=== PATIENT | female | born 1965 | race Caucasian/White ===

== ENCOUNTER → 2018-04-10 09:10 | Outpatient (CLI) | payer OTHER, SELFPAY ==
[2018-04-10 11:09] LABS: Hematocrit 38.5 % (37-47); Hemoglobin 12.5 g/dl (12.0-15.0); Mean Corp Hgb Conc 32.5 g/gl (32-36); Mean Corpuscular Volume 92.5 fL (81-99); Mean Platelet Vol. 10.4 fl (6.2-12.0); Platelet Count 302 K/mm3 (150-450); RBC Distribution Width CV 13.1 % (11.6-14.6); RBC Distribution Width SD 44.2 fl (35.1-43.9); Red Blood Count 4.16 M/mm3 (4.2-5.4); White Blood Count 6.9 K/mm3 (4.4-11.0)
[2018-04-10 11:14] LABS: Scan Indicated on CBC? Y/N NO
[2018-04-10 11:31] LABS: Erythrocyte Sedimentation Rate 3 mm/hr (0-30)
== END ==
DX: M86.8X7 Other osteomyelitis, ankle and foot (principal); M71.072 Abscess of bursa, left ankle and foot
CPT/HCPCS: 36415; 78315; 85027; 85652

== ENCOUNTER 2018-04-10 10:30 | Outpatient (RCR) | payer OTHER, SELFPAY ==
--- NOTE | 2018-03-10 15:57 | HP.PTEVAL_ITS ---
Patient's Visit Information PAULINA MARRERO is a 53 year old F referred to Physical Therapy by JAYNE PEREZ with a diagnosis of Impingement syndrome L shoulder, s/p RCR, labral and biceps tenodesis 03/07. Date of Evaluation: 03/10/18 Physical Therapist: Talat Dawn DPT, OC - Visit Plan Frequency: 3x /Week Duration: 2-4 Months Plan: See script for protocol. surgery 03/07, 2 weeks of AAROM elbow(until 03/21, 6 weeks of PROM shoulder(until 04/18), AAROM shoulder after 6 weeks04/18 to 05/30) , strengthening after 12 weeks.(after 05/30). PROM. Ensure use of sling, use ice for pain, monitor incisions and scar massage as needed. progress ROM per above limitations. 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 - Subjective Subjective: Surgery to have labrum fixed and they ended up doing RCR also, also biceps tendon and santo and cleaned up some spurs. This was 03/07/18. 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 Shoulder woke up one morning in December with some shoulder /neck pain. No obvious injury. [place] like she slept wrong but hurt shoulder. R handed. Is used to being very active with triathlons and [place] is moving to [place] and getting . Did dental hygiene until July but L wrist makes this unrealistic. 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 Sleeping this weekend was propped up and iced and better than she thought. Definitely not normal though. Wearing sling with abductor wedge except in shower. Will see doctor. Lives with sister and who is doing many of her cooking. Can dress self but takes a long time. Hobbies: wants to bike and swim again. - Pain L shoulder Pain Intensity (Out of 10): 6 Pain Intensity Range: 4, 9 - Objective Scap aROM is slow but near full. Sling is donned and doffed I. $ arthro incisions and one bicep incision dressed approriatelya nd removed at patient's request. Everyhting dry and clean, slightly red a biceps incision. Moderate swelling and edematous tissue aplpated at biceps incision. AROM wrist and hand WFL just slow. AAROM elbow flexion L near full and extensionis full actively in standing. L shoulder PROM 100 flexion and 100 abd and 45 ext rot in supine, relaxes well and not overly painful all limited by slight discomfort. Posture is slight forward head and slight elevated L scapula. R shoulde and elbow AROM WFL. Strength NT on L UE today. 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 Goal Time Frame: 8-12 Weeks - Rehabilitation Potential Physical Therapy Diagnosis: s/p L shoulder surgery 03/07 Rehabilitation Potential: Good - Anticipated Interventions Patient/Client Instruction: Educate patient on: Condition, Plan of Care For the Purpose of:: To decrease pain, To increase ROM, To improve nutrient delivery to tissue, To increase oxygenation perfusion, To improve ability of physical actions for home/community/work/leisure Therapeutic Exercise to Include: Strength training, Passive ROM, Active ROM Comment: per script protocol For the Purpose of:: To decrease pain, To increase ROM, To increase tolerance to activity/condition/position, To improve ability of physical actions for home/ community/work/leisure Manual Therapy Techniques to Include: Scar massage, Passive ROM For the Purpose of:: To decrease pain, To increase ROM Cryotherapy (ice pack, ice massage): Yes For the Purpose of:: To decrease pain, To decrease swelling/inflammation Thank you for the opportunity to evaluate your patient. For Medicare and Medicare HMO plans, please review the plan of care and approve it. It will need to be FAXED BACK to us at [phone] for Medicare purposes. Please let me know if there are questions or concerns regarding this plan of care. Physician Signature: Date:
--- NOTE | 2018-07-01 11:45 | HP.PTDCNRP_ITS ---
HP - Discharge Summary (1) - Patient Information PAULINA MARRERO was seen in my office for initial evaluation on 03/10/18. The following Plan of Care was established for this patient: Initial Frequency: 3x /Week Initial Duration: 2-4 Months - Anticipated Interventions Patient/Client Instruction: Educate patient on: Condition, Plan of Care For the Purpose of:: To decrease pain, To increase ROM, To improve nutrient deli very to tissue, To increase oxygenation perfusion, To improve ability of physical actions for home/community/work/leisure Therapeutic Exercise to Include: Strength training, Passive ROM, Active ROM For the Purpose of:: To decrease pain, To increase ROM, To increase tolerance to activity/condition/position, To improve ability of physical actions for home/community/work/leisure Manual Therapy Techniques to Include: Scar massage, Passive ROM For the Purpose of:: To decrease pain, To increase ROM Cryotherapy (ice pack, ice massage): Yes For the Purpose of:: To decrease pain, To decrease swelling/inflammation This patient was last seen in our office 04/10/18. Pertinent comments regarding their Physical therapy will appear below: Pt seen for 6 visits and cancelled last visit neglecting to reschedule. at this poin, it has been over 6 weeks adn I will discontinue due to nonattendance. At this point I will be discontinuing this patient from physical therapy. I would be happy to see this patient again in the future if found appropriate by the physician. Thank you! Talat Dawn, DPT, OC
== END 2018-04-10 19:00 | disposition home or self-care (01) ==
LOC: PT 10:30
DX: M75.42 Impingement syndrome of left shoulder (principal)
CPT/HCPCS: 97110; 97140; 97162

== ENCOUNTER → 2018-04-14 06:10 | Outpatient (CLI) | payer OTHER, SELFPAY ==
--- NOTE | 2018-04-14 05:40 | NM_ITS ---
CLINICAL: 53-year-old female with reported history of suspected left ankle osteomyelitis. LIMITED 99m Tc HMPAO LABELED LEUKOCYTE EXAMINATION COMPARISON: 3 phase bone scintigraphy study dated 04/10/2018 FINDINGS: Following the intravenous administration of 17.3 mCi of 99m Tc HMPAO labeled leukocytes, image acquisitions of the distal lower extremities at 3.0 hours post radiopharmaceutical administration reveal: 1. Mild asymmetric increased tracer concentration is noted in the medial compartment of the left ankle corresponding to the area of intense uptake defined on 3 phase bone scintigraphy dated 04/10/2018. NM/Inflammatory Process Limited IMPRESSION: 1. The increase in tracer concentration identified in the medial compartment of the left ankle corresponding to the changes defined on bone scintigraphy dated 04/10/2018 likely represent low-grade active infection of bone-osteomyelitis. (Any area of increased uptake on labeled leukocyte imaging corresponding to a previously defined bone scintigraphy abnormality regardless of the comparative intensity of uptake may represent low-grade osteomyelitis. Braydenbolambert et al, J Nucl Med 38: 997, 1997). Electronically Signed: Alberto Gillis DO at 22:56 EDT Tel , Service support ,
== END ==
DX: M86.172 Other acute osteomyelitis, left ankle and foot (principal)
CPT/HCPCS: 78805; A9521

== ENCOUNTER → 2019-03-18 10:05 | Outpatient (CLI) | payer OTHER, SELFPAY ==
--- NOTE | 2019-03-18 05:55 | NM_ITS ---
CLINICAL: 54-year-old female with reported history of painful right ankle prosthesis-operated May 2018. LIMITED 99m Tc HMPAO LABELED LEUKOCYTE EXAMINATION COMPARISON: Tc HMPAO labeled leukocytes study dated 04/14/2018 FINDINGS: Following the intravenous administration of 19.9 mCi of 99m Tc HMPAO labeled leukocytes, image acquisitions of the distal lower extremities at approximately 2.0 hours post radiopharmaceutical administration reveal: 1. Mild increased tracer distribution is noted in the medial compartment of the right ankle prosthesis and persistently defined in the medial compartment of the left ankle. 2. Remaining limited visualized structures demonstrate no evidence of abnormal increased tracer uptake. NM/Inflammatory Process Limited IMPRESSION: 1. The increase in radiopharmaceutical concentration identified in the medial compartment of the right ankle arthroplasty likely represents normal postsurgical change. If an infectious etiology remains a diagnostic consideration, correlation with Tc sulfur colloid imaging is recommended. 2. Facilitated uptake remaining evident in the medial compartment of the left ankle may represent activated leukocytes associated with a low-grade active infection of bone-osteomyelitis. 3. Overall compared to the previous labeled leukocyte scintigraphy study dated 04/14/2018, there is no significant interval change regarding the left ankle articulation. Newly identified increased uptake noted in the medial compartment of the right ankle articulation likely represents normal postsurgical change. If infection remains a diagnostic consideration, correlation with Tc sulfur colloid imaging is recommended. Electronically Signed: Alberto Gillis DO at 22:37 EDT Tel , Service support ,
== END ==
PROVIDERS: Family Provider Family Medicine; PCP Family Medicine
DX: M19.172 Post-traumatic osteoarthritis, left ankle and foot (principal); Z96.662 Presence of left artificial ankle joint
CPT/HCPCS: 78805; A9521

== ENCOUNTER → 2019-03-20 09:04 | Outpatient (CLI) | payer OTHER, SELFPAY ==
--- NOTE | 2019-03-20 09:09 | NM_ITS ---
CLINICAL: 54-year-old female with reported history of painful left ankle arthroplasty. LIMITED 99m Tc MDP THREE PHASE BONE SCINTIGRAPHY COMPARISON: Tc HMPAO labeled leukocytes scintigraphy study dated 03/18/2019, 04/14/2018, three-phase bone scintigraphy study dated 04/10/2018 FINDINGS: Following the intravenous administration of 25.0 mCi of 99m Tc MDP, three-phase bone acquisitions of the distal lower extremities reveal: 1. The flow and immediate static blood pool acquisitions demonstrate arterial and venous phase hyperemia manifest in the region of the medial-lateral, proximal tibial components left ankle prosthesis. 2. Delayed images depict more extensive radiopharmaceutical concentration in the medial and lateral, proximal tibial components of the left ankle prosthesis on the current examination when compared to the three-phase bone scintigraphy study dated 04/10/2018. Additionally, uptake is significantly more intense and demonstrates increased spatial distribution when compared to uptake defined on the labeled leukocyte scintigraphy dated 03/18/2019. 3. The remaining limited skeletal structures are scintigraphically unremarkable. NM/Bone Scan Three Phase IMPRESSION: 1. The increased radiopharmaceutical concentration identified in the medial and lateral, proximal tibial components of the symptomatic left ankle prosthesis likely represents a presentation of loosening. To exclude prosthetic sepsis, correlation with Tc sulfur colloid imaging is recommended. 2. Overall compared to the labeled leukocyte examinations dated 03/18/2019 and 04/14/2018, three-phase bone scintigraphy dated 04/10/2018, the increase in tracer uptake noted in the region of the medial-lateral, proximal tibial components of the symptomatic left ankle prosthesis is commensurate with probable loosening. Tc sulfur colloid imaging is recommended to evaluate for septic prosthetic loosening, secondary to facilitated uptake noted on labeled leukocyte imaging dated 03/18/2019, as described above. Electronically Signed: Alberto Gillis DO at 12:43 EDT Tel , Service support ,
== END ==
PROVIDERS: Family Provider Family Medicine; PCP Family Medicine
DX: M19.172 Post-traumatic osteoarthritis, left ankle and foot (principal); Z96.662 Presence of left artificial ankle joint
CPT/HCPCS: 78315

== ENCOUNTER → 2019-04-14 16:15 | Outpatient (CLI) | payer OTHER, SELFPAY ==
[2019-04-22 16:28] LABS: HPV APTIMA, High Risk Negative
== END ==
PROVIDERS: Visit Provider Obstetrics & Gynecology
DX: Z12.4 Encounter for screening for malignant neoplasm of cervix (principal)
CPT/HCPCS: 87624; 88175; G0145

== ENCOUNTER → 2019-04-22 14:34 | Outpatient (CLI) | payer OTHER, SELFPAY ==
--- NOTE | 2019-04-22 14:37 | BI_ITS ---
MAMMOGRAPHY - BILATERAL SCREENING REASON FOR EXAM: Female, 54 years old. Routine annual screening examination. PERTINENT HISTORY: Aunt with breast cancer. Remote right excisional breast biopsy. TECHNIQUE: Digital bilateral breast ca (3D mammographic acquisition) in the CC and MLO projections. 2-D mediolateral oblique (MLO) and craniocaudad (CC) views of both breasts were obtained. CAD: Full Field Digital Mammography with Computer Added Detection was performed. COMPARISON: No comparison mammograms available at this time. If any prior films become available, an addendum to this report can be generated. FINDINGS: Breast Composition: The breasts are heterogeneously dense, which may obscure small masses. There are no dominant masses or suspicious calcifications. No other significant abnormalities are identified. BI/SCREENING MAMM (CAD), BILAT IMPRESSION: Negative screening mammogram. Yearly followup mammogram recommended. (A) ASSESSMENT CATEGORY: BIRADS Category 1: Negative. A letter regarding these results will be sent to the patient by the facility within 30 days. Approximately 10% of breast cancers are not detected by mammography. A normal mammogram should not delay biopsy of a clinically suspicious abnormality. [id number] Electronically Signed: Beka Mooney, at 8:14 EDT , Service support ,
== END ==
PROVIDERS: Family Provider Family Medicine; PCP Family Medicine; Referring Provider Obstetrics & Gynecology; Visit Provider Obstetrics & Gynecology
DX: Z12.31 Encounter for screening mammogram for malignant neoplasm of breast (principal)
CPT/HCPCS: 77067

== ENCOUNTER → 2019-05-05 09:43 | Outpatient (CLI) | payer OTHER, SELFPAY ==
[2019-05-05 12:39] LABS: Absolute Lymphocyte Count 2.41 X10^3/uL (0.83-4.51); Absolute Neutrophil Count 3.7 X10^3/uL (2.0-7.7); Basophil# 0.07 X10^3/uL; Eosinophils% 1.5 % (0-5); Hematocrit 42.9 % (37-47); Hemoglobin 13.8 g/dL (12.0-15.0); Lymphocyte # 2.41 X10^3/ul (4.0); Lymphocyte % 35.5 % (19-41); Mean Corp Hgb Conc 32.2 g/dL (32-36); Mean Corpuscular Hgb 29.6 pg (27.0-32.0); Mean Corpuscular Volume 91.9 fL (81-99); Mean Platelet Vol. 10.4 fl (6.2-12.0); Monocyte# 0.47 X10^3/uL; Monocyte% 6.9 % (0-10); NRBC Flagged by Analyzer 0 % (0-5); Neutrophil # 3.68 X10^3/uL (2.7-7.7); Neutrophil % 54.4 % (47-70); Platelet Count 346 K/mm3 (150-450); RBC Distribution Width CV 13.2 % (11.6-14.6); RBC Distribution Width SD 44.7 fl (35.1-43.9); Red Blood Count 4.67 M/mm3 (4.2-5.4); White Blood Count 6.8 K/mm3 (4.4-11.0)
[2019-05-05 12:54] LABS: Anion Gap 10 (5-15); BUN 18 mg/dL (7-18); BUN/Creat Ratio 21.7 RATIO (10-20); Calcium,Total 9.7 mg/dL (8.5-10.1); Chloride 108 mmol/L (98-107); Cholesterol 256 mg/dL (200); Creatinine, Serum 0.83 mg/dL (0.55-1.02); EST Glomerular Filtration Rate 77 mL/min (>60); Est Glom Filt Rate - Afr Amer 93 mL/min (>60); Glucose 111 mg/dL (74-106); High Density Lipoprotein 90 mg/dL; Potassium 4.2 mmol/L (3.5-5.1); Sodium Level 144 mmol/L (136-145); Thyroid Stim Hormone (TSH) 1.06 uIU/mL (0.358-3.74); Triglycerides 114 mg/dL; Very Low Density Lipoprotein 23 mg/dL (5-40)
== END ==
PROVIDERS: Family Provider Family Medicine; PCP Family Medicine
DX: Z00.00 Encounter for general adult medical examination without abnormal findings (principal); Z13.1 Encounter for screening for diabetes mellitus; Z13.220 Encounter for screening for lipoid disorders; F41.9 Anxiety disorder, unspecified; B00.2 Herpesviral gingivostomatitis and pharyngotonsillitis; J02.9 Acute pharyngitis, unspecified; R04.0 Epistaxis
CPT/HCPCS: 36415; 80048; 80061; 84443; 85025

== ENCOUNTER 2019-06-30 13:41 | Observation (INO) | payer OTHER, SELFPAY ==
[2019-06-30] VITALS (12 sets, daily range): BP systolic 137–153; BP diastolic 78–95; PULSE 72–120; RESP 15–20; TEMP 36.5–37.1; O2SAT 94–100; BMI 26.2
--- NOTE | 2019-06-30 12:33 | EKG12_ITS ---
Test Reason : PRE OP Blood Pressure : / mmHG Vent. Rate : 090 BPM Atrial Rate : 090 BPM P-R Int : 132 ms QRS Dur : 084 ms QT Int : 376 ms P-R-T Axes : 043 005 028 degrees QTc Int : 459 ms Normal sinus rhythm Nonspecific ST abnormality Abnormal ECG No previous ECGs available Confirmed by ZEINA PRTICHARD ([id number]), mapping editor MARTA CRUMP ([id number]) on 07/03/2019 11:38:45 AM Referred By: Macarena Glasgow Confirmed By:ZEINA PRITCHARD
[2019-06-30] MEDS: Lactated Ringers 1,000 ML 100 ML IV ×2 (12:54→17:35)
[2019-06-30] MEDS: Cefazolin 2 GM in 0.9% Normal Saline 100 ML IV (13:40)
--- NOTE | 2019-06-30 13:45 | PCM.OPRPT ---
Problem List (1) Rectocele Status: Acute (2) Stress incontinence Status: Acute Report of Operation Date of Procedure: 06/30/19 Pre-Operative Diagnosis: rectocele, stress incontinence Post-Operative Diagnosis: same Surgery/Procedure Performed:: posterior repair, perineoplasty, midurethral sling insertion, cystoscopy retail sales director: Singh Mayer Type of Anesthesia:: General Specimen's removed: none Estimated Blood Loss (mL): 10cc Description of Procedure: The patient is a 54-year-old female who presented to the office with mixed incontinence, and a rectocele with difficulty passing stool. She desired surgical intervention. She underwent urodynamics and office cystoscopy in preparation. Informed consent was obtained. She was taken to the operating room and placed on the operating room table. Anesthesia monitored the head, neck, airway, IV access and vital signs throughout the case. Once anesthesia was appropriately administered, the patient was placed into dorsal lithotomy in Trendelenburg position. She was prepped and draped in usual sterile fashion. 16 Sinhala Lugo catheter was inserted and the bladder was drained. The posterior vaginal wall was injected submucosally with 1% Xylocaine with epinephrine for hydrostatic dissection and hemostatic control. Her defect was very distal involving the distal 2-1/2 cm of the posterior vaginal wall and there was a lack of perineal body support. An incision was made and using blunt and sharp dissection, the rectovaginal fascia was identified. Both the perineal body and the rectovaginal fascia over the defect were brought together in 2 layer closure with interrupted 2-0 Vicryl. The vaginal mucosa was closed over this in running interlocking 2-0 Vicryl. Rectal examination was used during the procedure to identify the defect. At this time the mid urethra was injected submucosally and a midline vertical incision was made approximately 2 cm in length. Sharp and blunt dissection was performed on either side of the urethra. Care was taken to avoid entry into the urethra. Using the trochars, the alto's mid urethral sling was inserted in usual fashion. It was tensioned using the tensioning suture to lay against the urethra without tension. It was flat. The incision was closed with running interlocking 2-0 Vicryl. The Lugo was removed and a cystourethroscopy was performed. The patient had no ureteral jets and each ureter was subsequently intubated with a open-ended ureteral catheter. There was no obstruction or blood identified. The remainder of the cystoscopy was within normal limits, no mass, ulceration or erythema, no foreign body including mesh or suture. The Lugo catheter was replaced. The vagina was packed with packing and Premarin cream. There were no complications during the procedure. She was awakened taken to recovery room in good condition. Grafts/Implants Used: Altis midurethral sling - Complications none - Admit VTE Documentation VTE Present on Admission: Yes VTE Mechan Device Prophylaxis: SCD's VTE Pharm Prophylaxis ordered?: Yes
--- NOTE | 2019-06-30 13:46 | DCINST_ITS ---
Discharge Diet: No Restrictions Discharge Activity: May Shower, - - no driving for 2 weeks May resume sexual activity in: 8 weeks Lifting Restrictions: 5 pounds. Additional Activity Instructions:: no strenuous activity, no exercise, no intercourse, no vacuuming, no lifting over 5 pounds Call your doctor if your incision/area has: Continuous Slow Oozing, Sudden Increased Bleeding, Foul Smelling Discharge Call your doctor if you observe: Fever of 101 or Higher, Inability to urinate, Shortness of breath, Chest pain, Calf discomfort, Uncontrolled pain Allergies/Adverse Reactions: Allergies midazolam [From Versed] Allergy (Verified 06/30/19 12:38) paradoxial reaction Medications to take at Discharge Ibuprofen/Famotidine [Duexis 800-26.6 mg Tablet] 1 ea PO BID 06/26/19 traMADol [Ultram (G)] 50 mg PO Q6H PRN PRN 06/26/19 Primary Care Physician: Janeth Salcido MD [Primary Care Provider] - Test Results: Test results from this visit will be discussed in further detail at your follow- up appointment, if applicable. Please Follow Up With: Macarena Glasgow MD When: call office for appt Proposed Discharge Date: 07/01/19
[2019-06-30] MEDS: Estrogens,Conj. 1 Tube 1 DOSE (14:48)
[2019-06-30] MEDS: oxyCODONE 5 MG Tablet PO ×2 (17:34→21:29)
[2019-06-30] MEDS: HYDROmorphone 1 MG/ML Syringe IV ×2 (18:52→23:23)
[2019-06-30] MEDS: Ketorolac 30 MG/ML Syringe IV (22:20)
[2019-07-01] MEDS: oxyCODONE 5 MG Tablet PO ×3 (01:42→10:12)
[2019-07-01] MEDS: Lactated Ringers 1,000 ML 100 ML IV (01:52)
[2019-07-01 02:10] VITALS: BP 121/81; PULSE 78; RESP 18; TEMP 36.7; O2SAT 97
[2019-07-01] MEDS: HYDROmorphone 1 MG/ML Syringe IV ×2 (03:51→12:44)
[2019-07-01] MEDS: Ketorolac 30 MG/ML Syringe IV (06:33)
[2019-07-01 08:30] VITALS: BP 140/81; PULSE 78; RESP 16; TEMP 36.7; O2SAT 96
--- NOTE | 2019-07-01 08:35 | PCM.PN.BLA ---
Progress Note Doing well this morning. Ankle is hurting significantly, the toradol helped. I removed briceño and packing this morning. Trial of void, home later today.
[2019-07-01] MEDS: Enoxaparin 40 MG/0.4 ML Syringe SC (10:13)
== END 2019-07-01 14:48 | disposition home or self-care (01) ==
LOC: SDC 13:46
PROVIDERS: Admitting Provider Urology; Family Provider Family Medicine; PCP Family Medicine; Referring Provider Urology; Visit Provider Urology
PROC: (CPT 57260; principal; 2019-06-30 13:40)
DX: N81.6 Rectocele (principal); Z23 Encounter for immunization; N39.46 Mixed incontinence
CPT/HCPCS: 57250; 57288; 93005; 96361; 96372; 96374; 96375; 96376; 99218; 99251; J7120; 90686; C1758; G0378; G0379; G0463; J2405; Q9968

== ENCOUNTER → 2019-07-10 14:19 | Outpatient (CLI) | payer OTHER, SELFPAY ==
[2019-06-30 12:45] VITALS: BMI 26.2
[2019-07-10 15:46] LABS: Absolute Neutrophil Count 4.1 X10^3/uL (2.0-7.7); Basophil# 0.07 X10^3/uL; Basophil% 0.9 % (0-1); Eosinophil# 0.17 X10^3/uL; Eosinophils% 2.3 % (0-5); Hematocrit 37.5 % (37-47); Hemoglobin 12.3 g/dL (12.0-15.0); Lymphocyte % 34.7 % (19-41); Mean Corp Hgb Conc 32.8 g/dL (32-36); Mean Corpuscular Hgb 29.9 pg (27.0-32.0); Mean Platelet Vol. 10.1 fl (6.2-12.0); Monocyte# 0.52 X10^3/uL; Monocyte% 6.9 % (0-10); NRBC Flagged by Analyzer 0 % (0-5); Neutrophil # 4.08 X10^3/uL (2.7-7.7); Neutrophil % 54.5 % (47-70); Platelet Count 398 K/mm3 (150-450); RBC Distribution Width CV 13.2 % (11.6-14.6); RBC Distribution Width SD 43.7 fl (35.1-43.9); Red Blood Count 4.12 M/mm3 (4.2-5.4); White Blood Count 7.5 K/mm3 (4.4-11.0)
[2019-07-10 16:08] LABS: Hemoglobin A1c 5.2 % (4.2-6.3)
== END ==
PROVIDERS: Family Provider Family Medicine; PCP Family Medicine; Visit Provider Family Medicine
DX: Z01.818 Encounter for other preprocedural examination (principal); R73.01 Impaired fasting glucose
CPT/HCPCS: 36415; 83036; 85025

== ENCOUNTER 2019-07-17 12:43 | Day surgery (SDC) | payer OTHER, SELFPAY ==
[2019-06-30 12:45] VITALS: BMI 26.2
[2019-07-17] VITALS (11 sets, daily range): BP systolic 114–158; BP diastolic 57–90; PULSE 80–117; RESP 15–18; TEMP 36.2–37.2; O2SAT 93–98; BMI 27.0
[2019-07-17] MEDS: Lactated Ringers 1,000 ML 100 ML IV ×2 (13:15→15:43)
[2019-07-17] MEDS: Cefazolin 2 GM in 0.9% Normal Saline 100 ML IV (14:25)
[2019-07-17] MEDS: Estrogens,Conj. 1 Tube 1 DOSE (14:55)
--- NOTE | 2019-07-17 15:04 | PCM.OPRPT ---
Problem List (1) Rectocele Status: Acute (2) Stress incontinence Status: Acute Report of Operation Date of Procedure: 07/17/19 Pre-Operative Diagnosis: rectocele, stress incontinence Post-Operative Diagnosis: same Surgery/Procedure Performed:: revision rectocele Type of Anesthesia:: General Estimated Blood Loss (mL): 3cc Description of Procedure: The patient is a 54-year-old female who underwent a rectocele repair and mid urethral sling insertion 2 weeks ago. She forgot to mention that she has had Vicryl in the past and did not do well with it. Her wound opened up way too soon postoperatively. That was on her foot. She presented to the office yesterday, with her suture dissolving in the distal aspect of her repair at the perineal body. The granulation tissue was bleeding. The decision was made to take the patient back and oversew the incision in the vaginal mucosa. Informed consent was obtained. She is aware that the same thing can happen with other sutures. Patient was taken to the operating room and placed on the operating room table. Her left foot was placed in the stirrups prior to anesthesia. It was comfortable. Anesthesia monitored the head, neck, airway, IV access and vital signs throughout the case. Once anesthesia was administered, the patient was placed into dorsal lithotomy position and was prepped and draped in usual sterile fashion. Care was taken not to disrupt the remaining sutures. At this time the posterior incision as well as the mid urethral sling incision was reinforced with interrupted 4-0 PDS. At the conclusion of this, the incision was covered with Premarin cream. The patient was awakened and taken to the recovery room in good condition. There were no complications during the procedure. - Complications none - Admit VTE Documentation VTE Present on Admission: Yes VTE Mechan Device Prophylaxis: SCD's VTE Pharm Prophylaxis ordered?: No Reason prophylaxis not ordered:: Treatment Not Indicated
--- NOTE | 2019-07-17 15:08 | DCINST_ITS ---
Discharge Diet: No Restrictions Discharge Activity: May not drive while taking narcotic pain medications., May Shower, - - No lifting over 5 pounds, no exercise, no strenuous activity, no intercourse, nothing per vagina except she is to continue the estrogen cream May resume sexual activity in: 8 weeks Lifting Restrictions: 5 pounds Call your doctor if your incision/area has: Continuous Slow Oozing, Sudden Increased Bleeding, Foul Smelling Discharge Call your doctor if you observe: Fever of 101 or Higher, Inability to urinate, Inability to have a bowel movement, Calf discomfort, Uncontrolled pain Allergies/Adverse Reactions: Allergies midazolam [From Versed] Allergy (Verified 07/17/19 13:01) paradoxial reaction VICRYL SUTURE Allergy (Uncoded 07/17/19 13:01) Other Medications to take at Discharge RX: Oxycodone [Oxyir] 5 - 10 mg PO Q6H PRN PRN #20 tab 07/01/19 Primary Care Physician: Janeth Salcido MD [Primary Care Provider] - Test Results: Test results from this visit will be discussed in further detail at your follow- up appointment, if applicable. Please Follow Up With: Macarena Glasgow MD When: call office for appt to be seen in 2 weeks Proposed Discharge Date: 07/17/19
[2019-07-17] MEDS: oxyCODONE 5 MG Tablet PO (17:11)
== END 2019-07-17 18:06 | disposition home or self-care (01) ==
LOC: SDC 12:44 → AC 12:45
PROVIDERS: Family Provider Family Medicine; PCP Family Medicine; Referring Provider Urology; Visit Provider Urology
PROC: (CPT 57260; principal; 2019-07-17 13:45)
DX: N81.6 Rectocele (principal); N39.46 Mixed incontinence; R35.0 Frequency of micturition; R35.1 Nocturia
CPT/HCPCS: 57250; J7120; J2405

== ENCOUNTER → 2019-11-11 12:27 | Outpatient (CLI) | payer OTHER, SELFPAY ==
[2019-07-17 13:05] VITALS: BMI 27.0
--- NOTE | 2019-11-11 12:29 | US_ITS ---
STUDY: RENAL ULTRASOUND - COMPLETE REASON FOR EXAM: Female, 54 years old. HEMATURIA, hx RENAL STONES TECHNIQUE: Ultrasound evaluation of the kidneys was performed with real-time and static sanofrd-scale imaging. COMPARISON: None. FINDINGS: RIGHT KIDNEY: Normal location of the right kidney, which is normal in size. The right kidney measures 11.6 cm x 5.3 cm x 5.2 cm. There is a normal cortex of the right kidney. The renal cortex measures 1.1 cm. There is no right renal mass or cyst. There are no right renal calculi. There is an extra-renal pelvis of the right kidney. There is no distention of the renal calyces. DISTAL RIGHT URETER: There is non-visualization of the distal right ureter. There is no demonstrated right ureterovesical junction calculus. There is no demonstrated right ureteral jet. LEFT KIDNEY: Normal location of the left kidney, which is normal in size. The left kidney measures 10.8 cm x 4.6 x 5.9 cm. There is a normal cortex of the left kidney. The renal cortex measures 1.8 cm. There is no left renal mass or cyst. There are no left renal calculi. There is no left hydronephrosis. DISTAL LEFT URETER: There is non-visualization of the distal left ureter. There is no demonstrated left ureterovesical junction calculus. There is no demonstrated left ureteral jet. BLADDER: The distended urinary bladder has a volume of 272 ml. There is a normal wall thickness of the distended urinary bladder. There is no demonstrated mass within the urinary bladder. There are no demonstrated bladder calculi. US/Kidney and Bladder IMPRESSION: Findings suggestive of a right extrarenal pelvis. Electronically Signed: Beka Mooney, at 13:25 EDT , Service support ,
== END ==
PROVIDERS: PCP Family Medicine; Referring Provider Urology; Visit Provider Urology
DX: R31.9 Hematuria, unspecified (principal); Z87.442 Personal history of urinary calculi
CPT/HCPCS: 76770

== ENCOUNTER → 2020-06-15 14:24 | Outpatient (CLI) | payer MEDICARE, SELFPAY ==
[2019-07-17 13:05] VITALS: BMI 27.0
--- NOTE | 2020-06-15 14:31 | CT_ITS ---
STUDY: CT LEFT ANKLE WITHOUT CONTRAST REASON FOR EXAM: Female, 55 years old. LT ANKLE SURGERY X 10 SINCE 2011. Initial injury was stress fx and patient developed avascular necrosis. RADIATION DOSAGE (If Supplied By Facility): CTDIvol = ( 15.35 ) mGy, DLP = ( 328.12 ) mGycm TECHNIQUE: Thin section transaxial imaging of the ankle was obtained, with sagittal and coronal reconstructed images. Individualized dose optimization techniques were used for this CT. COMPARISON: None. FINDINGS: There is evidence of a prosthetic ankle joint prosthesis. The proximal limb is in the distal tibia and the distal limb is in the dome of the talus. Small cysts are seen in the calcaneum. There is also evidence of a 4.5 mm cyst in the anterior aspect of the dome of the talus just anterior to the prostheses. Normal talus, calcaneus, navicular and cuboid tarsal bones. Normal subtalar, talonavicular and calcaneocuboid articulations. Normal navicular-cuneiform, cuneiform tarsal bones and intercuneiform articulations. Normal tarsometatarsal articulations and visualized metatarsi. The soft tissue structures are grossly normal. CT/Extremity Lower without Contra IMPRESSION: Status post prostatic ankle joint. There is good alignment. Cystic changes are seen in the calcaneus. Electronically Signed: Beka Mooney, at 15:01 EST , Service support ,
== END ==
PROVIDERS: PCP Family Medicine
DX: M25.572 Pain in left ankle and joints of left foot (principal); Z96.662 Presence of left artificial ankle joint
CPT/HCPCS: 73700

== ENCOUNTER → 2020-07-27 09:47 | Outpatient (CLI) | payer MEDICARE, SELFPAY ==
[2019-07-17 13:05] VITALS: BMI 27.0
--- NOTE | 2020-07-27 09:55 | BD_ITS ---
STUDY: DUAL ENERGY X-RAY ABSORPTIOMETRY / DXA REASON FOR EXAM: Female, 55 years old. 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 COMPARISON: None. FINDINGS: Lumbar Spine (L1-L4): g/cm2 (1.078) / T-score (-0.9) / Z-score (-0.2) Findings are suggestive of normal bone density with a low fracture risk. Left Femur Total: g/cm2 (0.795) / T-score (-1.7) / Z-score (-1.1) Left Femoral Neck: g/cm2 (0.688) / T-score (-2.5) / Z-score (-1.6) Right Femur Total: g/cm2 (0.852) / T-score (-1.2) / Z-score (-0.6) Right Femoral Neck: g/cm2 (0.741) / T-score (-2.1) / Z-score (-1.2) BD/Dexa Bone Density Study IMPRESSION: The patient is considered osteopenic as outlined below according to World [place] Organization (WHO) criteria with a high fracture risk. Reference Information: The T-score is the number of standard deviations above or below the standard which is normal for young adults at their peak bone mineral density. The World Health Organization (WHO) interprets the T-scores as follows: Above -1 Normal bone density Between -1 and -2.5 Osteopenia Equal to / or below -2.5 Osteoporosis As a practical clinical guideline, osteopenia may be graded as follows: Mild -1 through -1.5 Moderate -1.6 through -2.0 Severe -2.1 through -2.4 The Z-score is the number of standard deviations above or below age-matched controls. A Z-score of less than -1.5 would be considered abnormal. References: 1. NIH Osteoporosis and Related Bone Diseases www osteo.org 2. International Society for Clinical Densitometry www iscd.org 3. National Osteoporosis Foundation www nof.org Electronically Signed: Beka Mooney, at 15:00 EST , Service support ,
== END ==
PROVIDERS: PCP Family Medicine; Referring Provider Obstetrics & Gynecology; Visit Provider Obstetrics & Gynecology
DX: Z12.31 Encounter for screening mammogram for malignant neoplasm of breast (principal); Z78.0 Asymptomatic menopausal state; M81.0 Age-related osteoporosis without current pathological fracture
CPT/HCPCS: 77080

== ENCOUNTER → 2020-08-16 13:15 | Outpatient (CLI) | payer MEDICARE, SELFPAY ==
[2019-07-17 13:05] VITALS: BMI 27.0
[2020-08-16 13:54] LABS: Vitamin D,25 Hydroxy 17.7 ng/mL
== END ==
PROVIDERS: PCP Family Medicine; Visit Provider Obstetrics & Gynecology
DX: M80.80XS Other osteoporosis with current pathological fracture, unspecified site, sequela (principal)
CPT/HCPCS: 82306

== ENCOUNTER → 2020-09-07 09:56 | Outpatient (CLI) | payer MEDICARE, SELFPAY ==
[2019-07-17 13:05] VITALS: BMI 27.0
--- NOTE | 2020-09-07 09:59 | BI_ITS ---
MAMMOGRAPHY - BILATERAL SCREENING REASON FOR EXAM: Female, 55 years old. Routine annual screening examination. PERTINENT HISTORY: Aunt with breast cancer. Remote bilateral excisional breast biopsies. TECHNIQUE: Digital bilateral breast win (3D mammographic acquisition) in the CC and MLO projections. 2-D mediolateral oblique (MLO) and craniocaudad (CC) views of both breasts were obtained. CAD: Full Field Digital Mammography with Computer Added Detection was performed. COMPARISON: Comparison is made with prior study dated 04/22/2019. FINDINGS: Breast Composition: The breasts are heterogeneously dense, which may obscure small masses. There are no dominant masses or suspicious calcifications. No other significant abnormalities are identified. There has been no significant change since the prior study. BI/SCRN MAMM (CAD)W/WIN BILAT IMPRESSION: Stable bilateral screening mammogram. Yearly follow-up mammogram recommended. (A) ASSESSMENT CATEGORY: BIRADS Category 1: Negative. A letter regarding these results will be sent to the patient by the facility within 30 days. Approximately 10% of breast cancers are not detected by mammography. A normal mammogram should not delay biopsy of a clinically suspicious abnormality. [id number] Electronically Signed: Beka Mooney MD at 10:46 EST , Service support ,
== END ==
PROVIDERS: PCP Family Medicine; Referring Provider Obstetrics & Gynecology; Visit Provider Obstetrics & Gynecology
DX: Z12.31 Encounter for screening mammogram for malignant neoplasm of breast (principal)
CPT/HCPCS: 77063; 77067

== ENCOUNTER → 2021-01-13 14:16 | Outpatient (CLI) | payer MEDICARE, SELFPAY ==
[2021-01-13 13:17] VITALS: BMI 27.0
[2021-01-13 16:06] LABS: Follicle Stimulating Hormone 120.3 mIU/mL; Luteinizing Hormone 23.2 mIU/mL; Thyroid Stim Hormone (TSH) 2.67 uIU/mL (0.358-3.74)
[2021-01-15 09:17] LABS: Thyroid Peroxidase AB < 9 IU/mL (0-34)
[2021-01-16 08:25] LABS: PTHIN 55.3 pg/mL (18.4-80.1)
[2021-01-16 08:52] LABS: Prolactin 13.2 ng/mL
== END ==
PROVIDERS: PCP Family Medicine; Referring Provider Internal Medicine Endocrinology, Diabetes & Metabolism; Visit Provider Internal Medicine Endocrinology, Diabetes & Metabolism
DX: E23.7 Disorder of pituitary gland, unspecified (principal); E55.9 Vitamin D deficiency, unspecified; M81.0 Age-related osteoporosis without current pathological fracture
CPT/HCPCS: 36415; 82306; 83001; 83002; 83970; 84146; 84443; 86376

== ENCOUNTER → 2021-01-30 16:42 | Outpatient (CLI) | payer MEDICARE, SELFPAY ==
[2021-01-13 13:17] VITALS: BMI 27.0
--- NOTE | 2021-01-30 16:43 | RAD_ITS ---
STUDY: X-RAY - LEFT FOOT CLINICAL: Female, 56 years old. injury TECHNIQUE: 3 view(s) of the foot. COMPARISON: None. FINDINGS: An acute vertical corner fracture of the base of the distal phalanges of the second toe is present without displacement. The bony structures are diffusely demineralized. Ankle mortise prosthetic components are present. Normal talus, calcaneus, and tarsal bones. Normal visualized subtalar, talonavicular, calcaneocuboid, tarsal and tarsometatarsal articulations. Normal metatarsi. Normal joint spaces. The soft tissue structures are unremarkable. RAD/Foot min 3 Views IMPRESSION: 1. Acute corner fracture at the base of the distal phalanges of the second digit Electronically Signed: Juan Francisco Muniz MD at 17:42 EDT , Service support ,
== END ==
PROVIDERS: PCP Family Medicine; Referring Provider Physician Assistant Surgical; Visit Provider Physician Assistant Surgical
DX: S96.912A Strain of unspecified muscle and tendon at ankle and foot level, left foot, initial encounter (principal); X58.XXXA Exposure to other specified factors, initial encounter; Y93.9 Activity, unspecified; Y92.9 Unspecified place or not applicable; Y99.9 Unspecified external cause status
CPT/HCPCS: 73630

== ENCOUNTER → 2021-05-29 17:01 | Outpatient (CLI) | payer MEDICARE, SELFPAY ==
--- NOTE | 2021-05-29 17:16 | MRI_ITS ---
STUDY: MRI LEFT ANKLE WITHOUT CONTRAST REASON FOR EXAM: Left ankle pain, evaluate left ankle arthroplasty. TECHNIQUE: Standardized fat and water weighted pulse sequences were obtained in all 3 orthogonal planes. COMPARISON: CT images 06/15/2020, radiographs 01/30/2021. FINDINGS: There is scarring in the subcutis adipose space. There is a flexor digitorum longus tendon tendon transfer with an anchor in the medial navicular. There is a longitudinal split of the retromalleolar flexor digitorum longus tendon (T1 axial images 15, 16). Normal flexor hallucis longus tendon. Normal peroneus longus and brevis tendons. Normal tibialis anterior tendon. Normal extensor hallucis longus tendon. Normal extensor digitorum longus tendons. Normal Achilles tendon and teno-osseous insertion. 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 Normal plantar calcaneal tubercles. There is mild edema in the extensor digitorum brevis muscle (inversion recovery sagittal images 14, 15). Normal visualized subtalar ligaments and sinus tarsi. There is a tibiotalar arthroplasty without demonstrated periprosthetic fracture or MRI evidence of prosthetic loosening. There is mild bone edema in the head/neck of the talus (sagittal series 10 images 14-17). There is mild arthrosis with mild chondral thinning of the posterior subtalar articulation (proton-density sagittal images 12-14). Normal talonavicular articulation. There is a small calcaneocuboid joint effusion (T2 axial image 23). Normal navicular-cuneiform articulations. MRI/Lower Ext Joint Only (Routine) IMPRESSION: Tibiotalar arthroplasty without demonstrated complication. Mild bone edema in the head/neck of the talus. Longitudinal split of the flexor digitorum longus tendon transfer. Mild posterior subtalar arthrosis. Mild edema in the extensor digitorum brevis muscle. Plantar fibroma. Small calcaneocuboid joint effusion. Electronically Signed: Bryan Oro MD at 9:37 EDT Tel , Service support ,
== END ==
PROVIDERS: PCP Family Medicine
DX: M25.572 Pain in left ankle and joints of left foot (principal)
CPT/HCPCS: 73721

== ENCOUNTER 2021-08-16 16:37 | Outpatient (CLI) | payer MEDICARE, SELFPAY ==
[2021-08-19 00:06] LABS: Chlamydia By Nucleic Acid AMP Negative (Negative)
[2021-08-19 16:17] LABS: Gonococcus By Nucleic Acid AMP Negative (Negative)
[2021-08-22 14:43] LABS: HPV APTIMA, High Risk Negative (Negative)
== END 2021-08-16 23:59 | disposition short-term general hospital (02) ==
LOC: LABSPEC 16:38
PROVIDERS: PCP Family Medicine; Visit Provider Obstetrics & Gynecology
DX: Z12.4 Encounter for screening for malignant neoplasm of cervix (principal)
CPT/HCPCS: 87491; 87591; 87624; 88175; G0145

== ENCOUNTER 2021-09-11 13:45 | Outpatient (CLI) | payer MEDICARE, SELFPAY ==
--- NOTE | 2021-09-11 13:48 | BI_ITS ---
MAMMOGRAPHY - BILATERAL SCREENING REASON FOR EXAM: Female, 56 years old. Routine annual screening examination. PERTINENT HISTORY: Aunt with breast cancer. Remote bilateral breast biopsies. TECHNIQUE: Digital bilateral breast win (3D mammographic acquisition) in the CC and MLO projections. 2-D mediolateral oblique (MLO) and craniocaudad (CC) views of both breasts were obtained. CAD: Full Field Digital Mammography with Computer Added Detection was performed. COMPARISON: Comparison is made with prior study dated 09/07/2020 and 04/22/2019. FINDINGS: Breast Composition: The breasts are heterogeneously dense, which may obscure small masses. There are no dominant masses or suspicious calcifications. Stable benign-appearing bilateral axillary lymph nodes. No other significant abnormalities are identified. There has been no significant change since the prior study. BI/SCRN MAMM (CAD)W/WIN BILAT IMPRESSION: Stable bilateral screening mammogram. Yearly follow-up mammogram recommended. (A) ASSESSMENT CATEGORY: BIRADS Category 2: Benign. A letter regarding these results will be sent to the patient by the facility within 30 days. Approximately 10% of breast cancers are not detected by mammography. A normal mammogram should not delay biopsy of a clinically suspicious abnormality. [id number] Electronically Signed: Beka Mooney MD at 14:34 EST ,
== END 2021-09-11 23:59 | disposition home or self-care (01) ==
LOC: OPBI 13:46
PROVIDERS: PCP Family Medicine; Referring Provider Obstetrics & Gynecology; Visit Provider Obstetrics & Gynecology
DX: Z12.31 Encounter for screening mammogram for malignant neoplasm of breast (principal)
CPT/HCPCS: 77063; 77067

== ENCOUNTER → 2022-02-07 | Outpatient (CLI) | payer MEDICARE, SELFPAY ==
--- NOTE | 2022-02-07 19:12 | CT_ITS ---
EXAM: CT LEFT LOWER EXTREMITY WITHOUT INTRAVENOUS CONTRAST CLINICAL INDICATION: LT ANKLE PAIN TECHNIQUE: Helically acquired images were obtained of the left lower extremity without intravenous contrast. 2-D reformats were performed by the technologist. This CT exam was performed using one or more of the following dose reduction techniques: automated exposure control, adjustment of the mA and/or kV according to patient size, and/or use of iterative reconstruction technique. This report was created using [employer] report generation technology. COMPARISON: 06/15/2020 FINDINGS: BONES/JOINTS: There is a total ankle prosthesis in place with no evidence of loosening. Plate overlying the distal fibula. Orthopedic screws have been removed. There are mild degenerative changes in the midfoot with small osteophyte present. No acute fracture. No subluxation. Normal alignment. SOFT TISSUES: Unremarkable. No soft tissue swelling or gas. No radiopaque foreign body. CT/Extremity Lower without Contra IMPRESSION: Total ankle prosthesis in anatomic alignment. There is no loosening. There are mild degenerative changes in the midfoot osteophyte formation. There are no acute osseous abnormalities. There is been no significant change from reference exam. Electronically Signed: Larry Enriquez MD at 11:29 EDT ,
== END | disposition home or self-care (01) ==
PROVIDERS: PCP Family Medicine
DX: M25.572 Pain in left ankle and joints of left foot (principal); G89.29 Other chronic pain; Z96.662 Presence of left artificial ankle joint; Z47.2 Encounter for removal of internal fixation device
CPT/HCPCS: 73700

== ENCOUNTER → 2022-02-12 | Outpatient (CLI) | payer MEDICARE, SELFPAY ==
[2022-02-12 11:00] LABS: Vitamin D,25 Hydroxy 46.7 ng/mL
[2022-02-12 11:08] LABS: ALB/GLOB Ratio 1.2 RATIO (0.9-2.4); AST(SGOT) 18 U/L (15-37); Alanine Aminotransfer ALT/SGPT 25 U/L (13-56); Albumin, Serum 3.8 g/dL (3.2-5.0); Alkaline Phosphatase 88 U/L (45-117); Anion Gap 4 (5-15); BUN 14 mg/dL (7-18); BUN/Creat Ratio 18.4 RATIO (10-20); Calcium,Total 9.6 mg/dL (8.5-10.1); Chloride 104 mmol/L (98-107); Creatinine, Serum 0.76 mg/dL (0.55-1.02); EST Glomerular Filtration Rate 84 mL/min (>60); Est Glom Filt Rate - Afr Amer 102 mL/min (>60); Globulin 3.1 g/dL (2.2-4.2); Glucose 82 mg/dL (74-106); Prolactin 13.4 ng/mL; Protein, Total 6.9 g/dL (6.4-8.2); Sodium Level 138 mmol/L (136-145); Thyroid Stim Hormone (TSH) 0.68 uIU/mL (0.358-3.74)
== END | disposition home or self-care (01) ==
LOC: LAB 10:02
PROVIDERS: PCP Family Medicine; Referring Provider Internal Medicine Endocrinology, Diabetes & Metabolism; Visit Provider Internal Medicine Endocrinology, Diabetes & Metabolism
DX: M81.0 Age-related osteoporosis without current pathological fracture (principal); E23.7 Disorder of pituitary gland, unspecified; E03.9 Hypothyroidism, unspecified; E55.9 Vitamin D deficiency, unspecified
CPT/HCPCS: 36415; 80053; 82306; 84146; 84443

== ENCOUNTER → 2022-06-13 | Outpatient (CLI) | payer MEDICARE, SELFPAY ==
--- NOTE | 2022-06-13 14:25 | CT_ITS ---
EXAM: CT RIGHT UPPER EXTREMITY WITHOUT INTRAVENOUS CONTRAST CLINICAL INDICATION: TEAR OF WRIST CARTILAGE TECHNIQUE: Helically acquired images were obtained of the right upper extremity without intravenous contrast. 2-D reformats were performed by the technologist. CTDIvol = ( 24.58 ) mGy, DLP = ( 434.56 ) mGycm This CT exam was performed using one or more of the following dose reduction techniques: automated exposure control, adjustment of the mA and/or kV according to patient size, and/or use of iterative reconstruction technique. This report was created using [employer] report alooma technology. COMPARISON: None. FINDINGS: Status post ORIF of a fracture of the distal radius. The fracture is well-healed. No hardware complications are seen. No other evidence for acute or healing fracture or malalignment. No soft tissue masses or fluid collections. No soft tissue gas. No radiopaque foreign bodies of concern. Visualized extensor and flexor tendons are unremarkable. Muscles are normal. Neurovascular structures are unremarkable. Widening of the scapholunate interosseous interval is concerning for scapholunate interosseous ligamentous tearing. Moderate degenerative changes of the distal radioulnar joint. CT/Extremity Upper without Contra IMPRESSION: 1. Status post ORIF of a fracture of the distal radius. The fracture is well-healed. No hardware complications are seen. 2. No other evidence for acute or healing fracture or malalignment. Electronically Signed: Keny Gooden MD at 4:16 EST ,
== END | disposition home or self-care (01) ==
LOC: CT 14:06
PROVIDERS: PCP Family Medicine
DX: S63.691A Other sprain of left index finger, initial encounter (principal); M19.031 Primary osteoarthritis, right wrist
CPT/HCPCS: 73200

== ENCOUNTER 2022-07-03 08:30 | Outpatient (RCR) | payer SELFPAY ==
--- NOTE | 2022-10-29 08:01 | HP.PT.NRP ---
PAULINA CANO was seen in my office for initial evaluation on 06/22/22. The following Plan of Care was established for this patient: Manual Therapy Techniques to Include: Functional dry needling This patient was last seen in our office . Pertinent comments regarding their Physical therapy will appear below: Dry Needling- D/C At this point I will be discontinuing this patient from physical therapy. I would be happy to see this patient again in the future if found appropriate by the physician. Thank you! BRIONNA ReddyT
== END 2022-07-03 19:00 | disposition home or self-care (01) ==
LOC: PT 08:30
PROVIDERS: PCP Family Medicine
DX: R69 Illness, unspecified (principal)

== ENCOUNTER → 2022-12-10 | Outpatient (CLI) | payer MEDICARE, SELFPAY ==
[2022-12-10 15:30] LABS: Anion Gap 7 (5-15); BUN 14 mg/dL (7-18); Calcium,Total 9.7 mg/dL (8.5-10.1); Chloride 104 mmol/L (98-107); EST Glomerular Filtration Rate 61 mL/min (>60); Est Glom Filt Rate - Afr Amer 74 mL/min (>60); Glucose 91 mg/dL (74-106); Potassium 4.5 mmol/L (3.5-5.1); Sodium Level 138 mmol/L (136-145)
== END | disposition home or self-care (01) ==
LOC: MTLAB 13:19
PROVIDERS: PCP Family Medicine; Referring Provider Nurse Practitioner Acute Care; Visit Provider Nurse Practitioner Acute Care
DX: Z79.899 Other long term (current) drug therapy (principal)
CPT/HCPCS: 36415; 80048

== ENCOUNTER 2023-04-26 12:51 | Outpatient (CLI) | payer MEDICARE, SELFPAY ==
[2023-04-26 13:15] VITALS: BP 142/84; PULSE 81; RESP 16; TEMP 36.6; O2SAT 98
[2023-04-26] MEDS: Zoledronic Acid 5 MG 100 ML 300 MG IV (13:24)
[2023-04-26 13:52] VITALS: BP 139/81; PULSE 74
== END 2023-04-26 12:52 | disposition home or self-care (01) ==
LOC: MEDOUTP 12:51
PROVIDERS: PCP Family Medicine; Referring Provider Internal Medicine Endocrinology, Diabetes & Metabolism; Visit Provider Internal Medicine Endocrinology, Diabetes & Metabolism
DX: M81.0 Age-related osteoporosis without current pathological fracture (principal)
CPT/HCPCS: 96365; A4216; J3489

== ENCOUNTER → 2023-05-08 | Outpatient (CLI) | payer MEDICARE, SELFPAY ==
--- NOTE | 2023-05-08 12:54 | BI_ITS ---
MAMMOGRAPHY - BILATERAL SCREENING REASON FOR EXAM: Female, 58 years old. Routine annual screening examination. PERTINENT HISTORY: Aunt with breast cancer. History of remote bilateral excisional breast biopsy. TECHNIQUE: Digital bilateral breast win (3D mammographic acquisition) in the CC and MLO projections. 2-D mediolateral oblique (MLO) and craniocaudad (CC) views of both breasts were obtained. CAD: Full Field Digital Mammography with Computer Added Detection was performed. COMPARISON: Comparison is made with prior examination from September 11, 2021 and September 07, 2020. FINDINGS: Breast Composition: The breasts are heterogeneously dense, which may obscure small masses. There are no dominant masses or suspicious calcifications. There is a 5.2 mm x 2.7 mm well-defined nodule in the inferior central portion of the right breast suggestive of a small intramammary lymph node. No other significant abnormalities are identified. There has been no significant change since the prior study. BI/SCRN MAMM (CAD)W/WIN BILAT IMPRESSION: Stable bilateral screening mammogram. Yearly follow-up mammogram recommended. (A) ASSESSMENT CATEGORY: BIRADS Category 2: Benign. A letter regarding these results will be sent to the patient by the facility within 30 days. Approximately 10% of breast cancers are not detected by mammography. A normal mammogram should not delay biopsy of a clinically suspicious abnormality. [id number] Electronically Signed: Beka Mooney MD at 13:51 EDT ,
== END | disposition home or self-care (01) ==
LOC: OPBI 12:52
PROVIDERS: PCP Family Medicine; Referring Provider Family Medicine; Visit Provider Family Medicine
DX: Z12.31 Encounter for screening mammogram for malignant neoplasm of breast (principal)
CPT/HCPCS: 77063; 77067

== ENCOUNTER → 2023-05-23 | Outpatient (CLI) | payer MEDICARE, SELFPAY ==
--- NOTE | 2023-05-23 14:42 | CT_ITS ---
STUDY: CT RIGHT ANKLE / FOOT REASON FOR EXAM: Female, 58 years old. Osteoarthritis. RADIATION DOSAGE (If Supplied By Facility): CTDIvol = ( 15.35 ) mGy, DLP = ( 385.69 ) mGycm TECHNIQUE: Thin section transaxial imaging of the right ankle / foot was obtained, with sagittal and coronal reconstructed images. Individualized dose optimization techniques were used for this CT. COMPARISON: None. FINDINGS: Normal distal tibia and fibula. There is a 2 mm ossified structure located inferior to the medial malleolus of the distal tibia (coronal series 602 image 54), probably the sequelae of an old avulsion injury. Normal talus, calcaneus, and tarsal bones. Normal visualized tibiotalar, subtalar, talonavicular, calcaneocuboid, tarsal and tarsometatarsal articulations. Normal metatarsi. There is a bridging fusion plate across the dorsum of the first MTP joint with fixation screws in place. There is osseous fusion across the first MTP joint. Normal tibial and fibular sesamoid bones. Normal interphalangeal joint of the great toe. Normal phalanges of the great toe. Normal second through fifth metatarsophalangeal joints. Normal interphalangeal joints and phalanges of the lesser toes. The soft tissue structures are unremarkable. CT/Extremity Lower without Contra IMPRESSION: 2 mm ossified structure located inferior to the medial malleolus of the distal tibia, probably the sequelae of an old avulsion injury. Bridging fusion plate across the dorsum of the first MTP joint with fixation screws in place. Osseous fusion across the first MTP joint. Electronically Signed: Eduar Donnelly MD at 16:24 EDT ,
== END | disposition home or self-care (01) ==
LOC: CT 14:36
PROVIDERS: PCP Family Medicine; Referring Provider Podiatrist; Visit Provider Podiatrist
DX: M19.072 Primary osteoarthritis, left ankle and foot (principal); Z98.890 Other specified postprocedural states
CPT/HCPCS: 73700

== ENCOUNTER → 2023-08-13 | Outpatient (CLI) | payer MEDICARE, SELFPAY ==
--- OUTSIDE RECORDS SUMMARY | 2023-08-13 11:03 | XMS RPT_ITS | CCD ---
Author Name Unknown Address [id number] [place] [address] Organization [facility] Care Team Providers Care Equipment Maintenance Supervisor Name Role Phone Annette Kim Unavailable Unavailabl e Goudiaby, Bert Unavailable Unavailable Goudiaby, Bert Unavailable Unavailable Goudiaby, Bert Unavailable Unavailable Jayne Perez Unavailable UnavailAnnette Almonte Unavailable Unavailabl vijaya Fernandes MD, Noel Ontiveros Unavailable [phone] Annette Kim MD Unavailable Unavailable Annette Kim Unavailable Unavailable Unavailable Primary Care Provider Unavailabl e PCP, Other Primary Care Provider Performer Janeth Salcido Primary Care Provider [phone] JAYNE PEREZ Unavailable Unavailable Primary Care Provider Unavailabl e Janeth Salcido Primary Care Provider TL, JOSE T Attending Unavailable SELF, SELF Referring Unavailable TL, JOSE T Attending Unavailable TL, JOSE T Referring Unavailable TL, JOSE T Attending Unavailable TL, JOSE T Referring Unavailable TL, JOSE T Attending Unavailable SELF, SELF Referring Unavailable JANETH SALCIDO Primary Care Unavailabl e TANIA PIMENTEL Referring Unavailable Janeth Salcido Primary Care Provider JANETH SALCIDO Primary Care Unavailabl e TANIA PIMENTEL Attending Unavailable TANIA PIMENTEL Admitting Unavailable Janeth Salcido MD Primary Care Provider HERMAN HOLLOWAY Unavailable Dr. JAYNE PEREZ Attending Unavailable PCP, OTHER Primary Care Unavailable Dr. JAYNE PEREZ Attending Unavailable PCP, OTHER Primary Care Unavailable ROSSY KOTHARI Attending Unavailable PCP, OTHER Primary Care Unavailable ROSSY KOTHARI Attending Unavailable PCP, OTHER Primary Care Unavailable Dr. JAYNE PEREZ Attending Unavailable PCP, OTHER Primary Care Unavailable Dr. JAYNE PEREZ Attending Unavailable PCP, OTHER Primary Care Unavailable ANNETTE KIM Primary Care Unavailable Annette Kim MD Primary Care Provider [phone] Allergies Allergy Classification Reported Allergen(s) Allergy Type Date of Onset Reaction(s) Facility Benzodiazepines (1 source) Midazolam Drug Allergy [facility] Work Phone: (11 sources) Midazolam; Translations: [Versed] Drug Allergy 0 Unknown [facility] Work Phone: (1 source) VICRYL SUTURE drug allergy 0 [facility] Work Phone: (1 source) VICRYL SUTURES (as Miscellaneous allergen) causes Severe DOESN'T DISSOLVE, FORMS ABCSES. Status:Active.; Translations: [VICRYL SUTURES] Allergy to Substance [facility] (15 sources) Codeine; Translations: [CODEINE] Drug Allergy 1 Itching [facility] (13 sources) Midazolam; Translations: [MIDAZOLAM HCL] Drug Allergy 8 [facility] (11 sources) Victryl Sutures [Other] Propensity to adverse reactions 8 Intolerance [facility] (9 sources) VICRYL SUTURES Propensity to adverse reactions [facility]. Other (2 sources) Midazolam Drug Allergy 8 [facility] (2 sources) *Sutures Propensity to adverse reactions 2 [facility] (2 sources) OTHER; Translations: [OTHER] Propensity to adverse reactions (disorder) 8 [facility] Repository (1 source) ALLERGIES NOT ON FILE; Translations: [ALLERGIES NOT ON FILE] Propensity to adverse reactions (disorder) [facility] 3 Repository NEGATED: Highlighted row has been ruled out! (1 source) natural latex rubber; Translations: [LATEX, NATURAL RUBBER] Drug allergy (disorder) [facility] NEGATED: Highlighted row has been ruled out! (1 source) No IV Contrast Allergy.; Translations: [IV Dye, Iodine Containing] Drug allergy (disorder) [facility] Medications Current Medications Medication Drug Class(es) Dates Sig (Normalized) Sig (Original) alendronic acid 70 mg oral tablet (9 sources) Bisphosphonate take 1 tablet by mouth once daily Fosamax 70 MG 1 tablet 30 minutes before the first food, beverage or medicine of the day with plain water Orally for 30 day(s) Active valACYclovir 1000 mg oral tablet (4 sources) Herpesvirus Nucleoside Analog DNA Polymerase Inhibitor, Herpes Simplex Virus Nucleoside Analog DNA Polymerase Inhibitor, Herpes Zoster Virus Nucleoside Analog DNA Polymerase Inhibitor Start: 12-25-2021 take 0.5 tablet by mouth twice daily valacyclovir 1 g tablet TAKE 1/2 (ONE-HALF) OF A TABLET BY MOUTH TWICE DAILY 0 12/25/2021 Active Completed/Discontinued Medications Medication Drug Class(es) Dates Sig (Normalized) Sig (Original) acetaminophen 325 mg / oxyCODONE hydrochloride 5 mg oral tablet (2 sources) Opioid Agonist Start: 08-01-2022 End: 08-08-2022 take 1 tablet by mouth every six hours as needed for pain oxyCODONE-acetami nophen (PERCOCET) 5-325 mg tablet Indications: Post-op pain Take 1 tablet by mouth every 6 hours as needed for pain for up to 7 days. 28 tablet 0 08/01/2022 08/08/2022 Problems Active Problems Problem Classification Problem Date Documented Date Episodic/Chronic Acquired foot deformities (13 sources) Toe joint rigid; Translations: [Hallux rigidus, right foot] Onset: 2 Chronic Acquired foot deformities (2 sources) Metatarsophalangeal joint stiff; Translations: [Other deformities of toe(s) (acquired), right foot] Episodic Allergic reactions (1 source) Allergy status to anesthetic agent status; Translations: [Allergy status to anesthetic agent] Onset: 3 Episodic Anxiety disorders (2 sources) Anxiety; Translations: [Anxiety state, unspecified] 07-23-2019 Chronic Bacterial infection; unspecified site (3 sources) Infection due to Staphylococcus aureus; Translations: [Methicillin susceptible Staphylococcus aureus in conditions classified elsewhere and of unspecified site] 08-22-2017 Episodic Chronic ulcer of skin (1 source) Ulcer; Translations: [Chronic ulcer of unspecified site] Chronic Complication of device; implant or graft (1 source) Pain; Translations: [Pain due to internal orthopedic prosthetic devices, implants and grafts, initial encounter] Episodic Deficiency and other anemia (1 source) Deficiency and other anemia Onset: 8 Diabetes mellitus without complication (1 source) Hemoglobin A1c less than 7% indicating good diabetic control; Translations: [Other abnormal glucose] Episodic Epilepsy; convulsions (1 source) Epilepsy; convulsions Onset: 8 Esophageal disorders (1 source) Gastroesophageal reflux disease; Translations: [Gastroesophageal Reflux Disease] 05-22-2018 Chronic Fracture of upper limb (1 source) Closed fracture of distal end of radius; Translations: [Other closed fractures of distal end of radius (alone)] Episodic Infective arthritis and osteomyelitis (except that caused by tuberculosis or sexually transmitted disease) (2 sources) Osteomyelitis; Translations: [Unspecified osteomyelitis, site unspecified] 08-23-2017 Chronic Infective arthritis and osteomyelitis (except that caused by tuberculosis or sexually transmitted disease) (1 source) Bacterial arthritis; Translations: [Bacterial Arthritis] 08-22-2017 Episodic Joint disorders and dislocations; trauma-related (2 sources) Other articular cartilage disorders, right wrist; Translations: [Other articular cartilage disorders, right wrist] Onset: 3 Chronic Joint disorders and dislocations; trauma-related (1 source) Acute meniscal tear, lateral; Translations: [Tear of lateral cartilage or meniscus of knee, current] Episodic Nephritis; nephrosis; renal sclerosis (1 source) Atrophy of kidney; Translations: [Atrophy of Kidney] 05-08-2017 Chronic Nutritional deficiencies (1 source) Cobalamin deficiency; Translations: [Other B-complex deficiencies] Episodic Osteoarthritis (11 sources) Localized, primary osteoarthritis of the wrist; Translations: [Primary osteoarthritis, right wrist] Onset: 3 Chronic Other bone disease and musculoskeletal deformities (1 source) Avascular necrosis of bone; 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] Onset: 0 07-05-2020 Chronic Other bone disease and musculoskeletal deformities (14 sources) Osteochondritis dissecans of left ankle; Translations: [Osteochondritis dissecans, left ankle and joints of left foot] Onset: 1 Chronic Other connective tissue disease (17 sources) History of left ankle arthroplasty; Translations: [Presence of left artificial ankle joint] Onset: 1 Chronic Other connective tissue disease (2 sources) Presence of left artificial ankle joint; Translations: [Presence of left artificial ankle joint] Onset: 2 Chronic Other connective tissue disease (1 source) Tendinitis of left posterior tibial tendon; Translations: [Tibialis tendinitis] Episodic Other connective tissue disease (1 source) Pain in left lower limb; Translations: [Pain in limb] Episodic Other connective tissue disease (5 sources) Pain in lower limb; Translations: [Pain in Lower Extremity] 11-25-2014 Episodic Other connective tissue disease (1 source) Foot pain; Translations: [Foot Pain] 11-26-2014 Episodic Other connective tissue disease (2 sources) Rupture of flexor tendon of foot; Translations: [Spontaneous rupture of flexor tendons, left ankle and foot] Episodic Other endocrine disorders (11 sources) Hyperpituitarism; Translations: [Hyperfunction of pituitary gland, unspecified] Onset: 6 07-01-2007 Chronic Other gastrointestinal disorders (1 source) History of pancreatitis; Translations: [Personal history of other diseases of digestive system] Episodic Other infections; including parasitic (1 source) Disorder due to infection; Translations: [Other superficial injuries of shoulder] 07-23-2019 Episodic Other injuries and conditions due to external causes (1 source) Injury to triangular fibrocartilage of wrist joint; Translations: [Articular cartilage disorder, forearm] Episodic Other nervous system disorders (1 source) Chronic pain; Translations: [Other chronic pain] Chronic Other nervous system disorders (2 sources) Other chronic pain; Translations: [Other chronic pain] Onset: 2 Chronic Other nervous system disorders (2 sources) Postoperative pain ; Translations: [Postoperative Pain] 05-18-2017 Episodic Other nervous system disorders (1 source) Other acute postprocedural pain; Translations: [Post-op pain] Onset: 2 Episodic Other non-traumatic joint disorders (2 sources) Ankle pain; Translations: [Pain in joint, ankle and foot] Episodic Other non-traumatic joint disorders (1 source) Pain in wrist; Translations: [Pain in joint, forearm] Episodic Other non-traumatic joint disorders (1 source) Pain in left knee; Translations: [Left knee pain] Episodic Other non-traumatic joint disorders (1 source) Pain in unspecified knee; Translations: [Joint pain, knee] Episodic Other non-traumatic joint disorders (1 source) Swollen ankle region; Translations: [Effusion of joint, ankle and foot] Episodic Other non-traumatic joint disorders (4 sources) Arthralgia of the ankle and/or foot; Translations: [Pain in left ankle and joints of left foot] Episodic Other non-traumatic joint disorders (4 sources) Pain in right wrist; Translations: [Pain in right wrist] Onset: 2 Resolved: 2 Episodic Other non-traumatic joint disorders (3 sources) Chronic ankle pain; Translations: [Pain in left ankle and joints of left foot] Episodic Other non-traumatic joint disorders (2 sources) Pain in left ankle and joints of left foot; Translations: [Pain in left ankle and joints of left foot] Onset: 2 Episodic Other non-traumatic joint disorders (10 sources) Other specified joint disorders, right wrist; Translations: [Other specified joint disorders, right wrist] Onset: 3 Episodic Other non-traumatic joint disorders (1 source) Disorder of wrist joint; Translations: [Other specified joint disorders, right wrist] 04-25-2023 Episodic Other non-traumatic joint disorders (1 source) Sinus tarsi syndrome; Translations: [Pain in left ankle and joints of left foot] 07-08-2023 Episodic Other screening for suspected conditions (not mental disorders or infectious disease) (2 sources) Patient encounter status; Translations: [Screening for lipoid disorders] Episodic Other upper respiratory disease (1 source) Bleeding from nose; Translations: [Epistaxis] Episodic Residual codes; unclassified (1 source) H/O: surgery; Translations: [Other specified postprocedural states] Onset: 0 07-05-2020 Episodic Residual codes; unclassified (4 sources) Postoperative state; Translations: [Other specified postprocedural states] Episodic Residual codes; unclassified (2 sources) Other specified postprocedural states; Translations: [Other specified postprocedural states] Onset: 2 Episodic Skin and subcutaneous tissue infections (1 source) Carbuncle of upper limb; Translations: [Carbuncle and furuncle of upper arm and forearm] Episodic Sprains and strains (7 sources) Rupture of posterior cruciate ligament; Translations: [Sprain of cruciate ligament of knee] Episodic Thyroid disorders (11 sources) Goiter; Translations: [Simple and unspecified goiter] Onset: 6 07-01-2007 Chronic Unclassified (1 source) Anxiety disorder, unspecified / F41.9(ICD-10) Onset: 8 Unclassified (1 source) Tachycardia, unspecified / R00.0(ICD-10) Onset: 8 Unclassified (1 source) Other osteonecrosis, unspecified foot / M87.876(ICD-10) Onset: 8 Unclassified (1 source) Abnormal results of liver function studies / R94.5(ICD-10) Onset: 8 Unclassified (1 source) Unspecified convulsions / R56.9(ICD-10) Onset: 8 Unclassified (2 sources) Pain in left shoulder / M25.512(ICD-10) Onset: 8 Unclassified (1 source) Unsp rotatr-cuff tear/ruptr of left shoulder, not trauma / M75.102(ICD-10) Onset: 8 Unclassified (1 source) Primary osteoarthritis, left shoulder / M19.012(ICD-10) Onset: 8 Unclassified (1 source) Other sprain of left shoulder joint, initial encounter / S43.492A(ICD-10) Onset: 8 Viral infection (1 source) Herpetic gingivostomatitis; Translations: [Herpetic gingivostomatitis] Episodic Past or Other Problems Problem Classification Problem Date Documented Date Episodic/Chronic Acquired foot deformities (14 sources) Talipes planus; Translations: [Flat foot [pes planus] (acquired), left foot] Onset: 01-16-2021 Episodic Calculus of urinary tract (15 sources) Kidney stone; Translations: [Calculus of kidney] Onset: 11-05-2005 04-24-2018 Episodic Complications of surgical procedures or medical care (8 sources) Postoperative infection; Translations: [Postoperative Infection] Onset: 08-01-2022 08-22-2017 Episodic Other aftercare (14 sources) Surgical follow-up; Translations: [Encounter for other orthopedic aftercare] Onset: 01-16-2021 Episodic Other connective tissue disease (13 sources) Plantar fasciitis of left foot; Translations: [Plantar fascial fibromatosis] Onset: 01-16-2021 Episodic Other connective tissue disease (5 sources) Pain in right foot; Translations: [Pain in right foot] Onset: 07-04-2022 Episodic Other connective tissue disease (1 source) Pain in right foot; Translations: [Pain in right foot] Onset: 07-04-2022 Episodic Other connective tissue disease (2 sources) Pain in left foot; Translations: [Pain in left foot] Onset: 06-29-2022 Episodic Other injuries and conditions due to external causes (1 source) Other specified injuries of right wrist, hand and finger(s), initial encounter Onset: 12-14-2021 Resolved: 12-14-2021 Episodic Unclassified (1 source) Pain in left shoulder; Translations: [Pain in left shoulder] Onset: 02-10-2018 Unclassified (1 source) Unsp rotatr-cuff tear/ruptr of left shoulder, not trauma; Translations: [Unsp rotatr-cuff tear/ruptr of left shoulder, not trauma] Onset: 02-10-2018 Unclassified (1 source) Problem Unclassified (1 source) Localized, primary osteoarthritis of ankle or foot, left; Translations: [Localized, primary osteoarthritis of ankle or foot, left] Unclassified (1 source) 07-23-2019 NEGATED: Highlighted row has not occurred!Residual codes; unclassified (1 source) Disease Episodic Results Test Name Value Interpretation Reference Range Facil ity Vital Signs Date Time Vital Sign Value Performing Clinician Facility 07-08-2023 11:44-0500 Body temperature 97.5 [degF] Rossy Kothari DPM Work Phone: [facility] 09-05-2022 13:27-0500 Body temperature 97.81 [degF] Tania Pimentel DPM Work Phone: [facility] 08-15-2022 15:19-0500 Body temperature 97.81 [degF] Tania Pimentel DPM Work Phone: [facility] 08-08-2022 11:50-0500 Body temperature 97.81 [degF] Tania Pimentel DPM Work Phone: [facility] 07-23-2022 14:24-0500 Body height 157.5 cm Pacc 1 Work Phone: [facility] 07-23-2022 14:24-0500 Body temperature 99 [degF] Pacc 1 Work Phone: [facility] 07-23-2022 14:24-0500 Body weight 65.32 kg Pacc 1 Work Phone: [facility] 07-23-2022 14:24-0500 Diastolic blood pressure 60 mm[Hg] Pacc 1 Work Phone: [facility] 07-23-2022 14:24-0500 Heart rate 106 /min Pacc 1 Work Phone: [facility] 07-23-2022 14:24-0500 Respiratory rate 16 /min Pacc 1 Work Phone: [facility] 07-23-2022 14:24-0500 SaO2% (BldA) [Mass fraction] 98 % Pacc 1 Work Phone: [facility] 07-23-2022 14:24-0500 Systolic blood pressure 112 mm[Hg] Pacc 1 Work Phone: [facility] 03-29-2022 12:54-0400 Body temperature 98.1 [degF] Rossy Kothari DPM Work Phone: [facility] 03-08-2022 14:02-0400 Body height 157.5 cm Jose Alas MD Work Phone: [facility] 03-08-2022 14:02-0400 Body mass index (BMI) [Ratio] 24.69 kg/m2 Jose Alas MD Work Phone: [facility] 03-08-2022 14:02-0400 Body weight 61.24 kg Jose Alas MD Work Phone: [facility] 01-22-2022 13:11-0400 Body temperature 97.11 [degF] Rossy Kothari DPM Work Phone: [facility] 10-30-2021 13:04-0400 Body temperature 98.01 [degF] Rossy Kothari DPM Work Phone: [facility] 06-28-2021 12:00-0500 Body mass index (BMI) [Ratio] 26.15 kg/m2 DPM Rossy Kothari DPM S 06-28-2021 12:00-0500 Body weight 64.86 kg DPM Rossy Kothari DPM S 01-16-2021 13:25-0400 Body temperature 97.9 [degF] Rossy Kothari DPM Work Phone: [facility] NEGATED: Highlighted [id number] 08:52-0500 BMI (Body Mass Index) 27.35 kg/m2 Maryse Anabela AT [facility] Work Phone: NEGATED: Highlighted [id number] 08:52-0500 Body weight 67.59 kg Maryse Anabela AT [facility] Work Phone: NEGATED: Highlighted [id number] 08:52-0500 Body weight 68 kg Maryse Anabela AT [facility] Work Phone: NEGATED: Highlighted [id number] 08:52-0500 Heart rate 2+ Maryse Anabela AT [facility] Work Phone: NEGATED: Highlighted [id number] 08:52-0500 Height 157.48 cm Maryse Anabela AT [facility] Work Phone: NEGATED: Highlighted [id number] 08:52-0500 Height 157 cm Maryse Anabela AT [facility] Work Phone: Encounters Encounter Date Encounter Type Care Provider Facility Start: 07-08-2023 End: 07-08-2023 Patient encounter procedure Rosys Kothari DPM Work Phone: [facility] Procedures Date Procedure Procedure Detail Performing Clinician Start: 04-25-2023 XR FOREARM RIGHT 2 VIEWS ANNETTE KIM Start: 04-25-2023 Radex forearm 2 views Christine Perez MD Work Phone: Start: 03-08-2022 End: 03-08-2022 Radex ankle complete minimum 3 views Jose Alas MD Work Phone: Start: 08-03-2020 Completed NJX AA&/ST RD FEMORAL NERVE, Left, on 08/03/2020 10:58 AM DPM Rossy Kothari DPM Start: 08-03-2020 Completed NJX AA&/ST RD OTHER PN/BRANCH, Left, on 08/03/2020 10:58 AM DPM Rossy Kothari DPM Start: 08-03-2020 Completed TREAT LOWE R LEG FRACTURE, Left, on 08/03/2020 10:58 AM DPM Rossy Kothari DPM Start: 07-05-2020 End: 07-05-2020 Blood pressure screening not performed - reason not given Noel Fernandes MD Work Phone: Start: 07-05-2020 End: 07-05-2020 BMI documented as above normal parameters - follow-up documented Noel Fernandes MD Work Phone: Start: 07-05-2020 End: 07-05-2020 Documentation of current medications Noel Fernandes MD Work Phone: Start: 07-05-2020 End: 07-05-2020 Pain assessment documented as positive - follow-up documented Noel Fernandes MD Work Phone: Start: 07-05-2020 End: 07-05-2020 Tobacco non-user Noel Fernandes MD Work Phone: Start: 04-30-2019 Follow-up visit Start: 04-01-2019 Completed BONE BIOPS Y TROCAR/NEEDLE, on 04/01/2019 6:21 AM DPM Rossy Kothari DPM Start: 05-28-2018 Completed Replace L Ankle Jt w Synth Sub, Uncement, Open, on 05/28/2018 10:04 AM DPM Rossy Kothari DPM Start: 05-22-2018 Follow-up visit Start: 04-30-2018 Completed BONE BIOPS Y TROCAR/NEEDLE, on 04/30/2018 10:28 AM DPM Rossy Kothari DPM Start: 04-30-2018 Completed N BLOCK IN J FEM SINGLE, on 04/30/2018 10:28 AM DPM Rossy Kothari DPM Start: 04-30-2018 Completed N BLOCK IN J SCIATIC SNG, on 04/30/2018 10:28 AM DPM Rossy Kothari DPM Start: 08-22-2017 Completed Insertion of Infusion Dev into Sup Vena Cava, Perc Approach, on 08/22/2017 12:00 AM DPM Rossy Kothari DPM Start: 08-21-2017 End: 08-22-2017 Completed Introduce Anesthetic in Periph Nrv, Plexi, Perc, on 08/22/2017 12:00 AM DPM Rossy Kothari DPM Start: 08-22-2017 Completed Irrigation of Joints using Irrigat, Perc Approach, on 08/22/2017 12:00 AM DPM Rossy Kothari DPM Start: 08-22-2017 Completed Release Le ft Lower Leg Muscle, Open Approach, on 08/22/2017 12:00 AM DPM Rossy Kothari DPM Start: 08-21-2017 Completed Excision o f Left Ankle Joint, Perc Endo Approach, on 08/21/2017 11:05 AM DPM Rossy Kothari DPM Start: 08-21-2017 Completed Extraction of L Foot Subcu/Fascia, Perc Approach, on 08/21/2017 11:05 AM DPM Rossy Kothari DPM Start: 05-16-2017 Completed Introduce Anesthetic in Periph Nrv, Plexi, Perc, on 05/16/2017 7:41 AM DPM Rossy Kothari DPM Start: 05-16-2017 Completed Removal of Int Fix from L Ankle Jt, Perc Endo Approach, on 05/16/2017 7:41 AM DPM Rossy Kothari DPM Start: 05-16-2017 Completed Transfer L eft Foot Tendon, Percutaneous Endoscopic Approach, on 05/16/2017 7:41 AM DPM Rossy Kothari DPM Start: 04-24-2017 Colonoscopy Rossy granados DPM Work Phone: Start: 10-21-2014 Mammography Annette templeton MD Work Phone: Start: 08-02-2014 Microscopic observat ion [Identifier] in Cervix by Cyto stain Annette Kim MD Work Phone: Start: 06-07-2005 Lipid 1996 panel - S caroline or Plasma Rossy Kothari DPM Work Phone: End: 07-13-2015 Arthroscopic knee operation Annette faustin MD H/O: artificial joint History of left ankle joint replacement Jose Alas MD Work Phone: History of Acromioplasty Yoli Kim MD History of Ankle Surgery Yoli Kim MD History of Esophagogastroduodenoscopy With Biopsy Annette Kim MD End: 05-24-2015 History of Open Treatment Of Fracture Of Distal Radius Annette Kim MD Lithotripsy Annette Kim MD Other bilateral liga tion and division of fallopian tubes Annette Kim MD NEGATED: Highlighted rowStart: 07-05-2020 End: 07-05-2020 Documentation of current medications Maryse Peñaloza AT Plan of Treatment Date Care Activity Detail Author Start: 01-30-2031 Urine microalbumin profile DTaP,Tdap,Td Vaccine (5 - Td or Tdap) [facility] Start: 04-24-2027 Colonoscopy COLONOSCOPY [facility] Start: 04-24-2027 COLORECTAL CANCER SCREENING COLORECTAL CANCER SCREENING [facility] Start: 04-24-2027 Screening for malignant neoplasm of colon [facility] Start: 05-17-2025 Urine microalbumin profile DTAP,TDAP,TD (2 - Td or Tdap) [facility] Start: 04-05-2023 Covid-19 Vaccine () Covid-19 Vaccine () [facility] Start: 04-05-2023 Influenza vaccination [facility] Start: 08-05-2022 DEPRESSION ASSESSMENT DEPRESSION ASSESSMENT [facility] Start: 06-14-2022 Shingrix Vaccine (2 of 2) Shingrix Vaccine (2 of 2) [facility] Start: 06-13-2022 End: 06-13-2022 Telemedicine consultation with patient 06/13/2022 Telemedicine Orthopaedics Jose Alas MD [address] [place] [phone] Orthopedics Outpatient Care [facility] Start: 04-05-2022 Influenza vaccination [facility] Start: 11-03-2021 COVID-19 VACCINE (4 - Booster for Pfizer series) COVID-19 VACCINE (4 - Booster for Pfizer series) [facility] Start: 04-05-2021 Influenza vaccination [facility] Start: 07-05-2020 End: 07-05-2020 Appointment Appointment [facility] [facility] Work Phone: Start: 07-05-2020 End: 07-05-2020 Radex ankle complete minimum 3 views XR ANKLE 3 VWS-LT [facility] Work Phone: Start: 08-18-2018 DTaP/Tdap/Td Vaccines (2 - Tdap) DTaP/Tdap/Td Vaccines (2 - Tdap) [facility] Start: 05-18-2018 DIABETES SCREEN DIABETES SCREEN [facility] Start: 05-18-2018 Diabetes Screening Diabetes Screening [facility] Start: 08-02-2017 Screening for malignant neoplasm of cervix [facility] Start: 2017 Screening for malignant neoplasm of colon [facility] Start: 2017 SHINGRIX VACCINE (1 of 2) SHINGRIX VACCINE (1 of 2) [facility] Start: 2017 Zoster vaccine hzv live for subcutaneous use ZOSTER (SHINGLES) VACCINE (1 of 2) [facility] Start: 2017 Zoster Vaccines (1 of 2) Zoster Vaccines (1 of 2) [facility] Start: 10-22-2015 Screening for malignant neoplasm of breast Mammogram [facility] Start: 01-20-2012 COLOGUARD (FIT-DNA) COLOGUARD (FIT-DNA) [facility] Start: 01-20-2012 Colonoscopy COLORECTAL CANCER SCREENING DISCUSSION [facility] Start: 01-20-[address] COLONOGRAPHY [facility] Start: 01-20-2012 DIABETES SCREEN DIABETES SCREEN [facility] Start: 01-20-2012 FECAL OCCULT BLOOD FECAL OCCULT BLOOD [facility] Start: 01-20-2012 Lipid 1996 panel - Serum or Plasma Lipid Screening [facility] Start: 01-20-2012 LIPID SCREEN LIPID SCREEN [facility] Start: 01-20-2012 SIGMOIDOSCOPY SIGMOIDOSCOPY [facility] Start: 2007 Fasting lipid profile LIPID SCREENING [facility] Start: 2007 Mammography [facility] Start: 2007 Screening mammography MAMMOGRAM SCREENING DISCUSSION [facility] Start: 1997 HPV TESTING HPV TESTING [facility] Start: 01-20-1988 PAP TESTING PAP TESTING [facility] Start: 01-20-1988 Screening for malignant neoplasm of cervix [facility] Start: 1986 Third diphtheria, tetanus and acellular pertussis (DTaP) vaccination TDAP (ADULT) [facility] Start: 1986 Urine microalbumin profile DTAP,TDAP,TD (1 - Tdap) [facility] Start: 1985 HEPATITIS C SCREENING HEPATITIS C SCREENING [facility] Start: 1985 Hepatitis C screening Hepatitis C Screening [facility] Start: 1985 HIV SCREENING HIV SCREENING [facility] Start: 1985 [facility] Start[facility] 1982 HIV screening HIV SCREENING DISCUSSION [facility] Start: 1979 Adult depression screening assessment DEPRESSION SCREENING [facility] Start: 1979 COVID-19 VACCINE (1) COVID-19 VACCINE (1) [facility] Start: 01-20-1968 MMR Vaccines (1 of 1 - Standard series) MMR Vaccines (1 of 1 - Standard series) [facility] Start: 1967 COVID-19 Vaccine (#1) COVID-19 Vaccine (#1) [facility] Start: 1967 HEPATITIS B (1 of 3 - 3-dose series) HEPATITIS B (1 of 3 - 3-dose series) [facility] Start: 1967 Hepatitis B Vaccine (1 of 3 - 3-dose series) Hepatitis B Vaccine (1 of 3 - 3-dose series) [facility] Start: 1967 Hepatitis B Vaccines (1 of 3 - 3-dose series) Hepatitis B Vaccines (1 of 3 - 3-dose series) [facility] Start: 1967 Hepatitis C antibody, confirmatory test HEPATITIS C VIRUS SCREENING [facility] Start: 1967 HIV screening HIV Screening [facility] Start: 1967 Lipid panel Lipid Panel [facility] Start: 1967 Screening for malignant neoplasm of colon [facility] Start: 1967 Yearly Adult Physical Yearly Adult Physical [facility] End: 02-21-2023 Ct lower extremity w/o contrast material CT ANKLE WO IVCON LT Radiology Routine Chronic pain of left ankle 1 Occurrences starting 01/22/2022 until 02/21/2023 [facility] Work Phone: Immunizations Immunization Date Immunization Notes Care Provider Atif waldrop 04-05-2022 influenza virus vaccine, unspecified formulation Rossy Kothari DPM Work Phone: [facility] 05-30-2018 influenza, injectable, quadrivalent, preservative free; Translations: [INFLUENZA VACCINE QUAD] DPM Rossy Kothari DPM S 05-30-2018 influenza virus vaccine, unspecified formulation Jose Alas MD Work Phone: [facility] 05-16-2017 influenza, injectable, quadrivalent, preservative free; Translations: [INFLUENZA VACCINE QUAD] DPM Rossy Kothari DPM S 05-17-2015 tetanus toxoid, reduced diphtheria toxoid, and acellular pertussis vaccine, adsorbed Rossy Kothari DPM Work Phone: [facility] Work Phone: 05-16-2015 influenza, seasonal, injectable Annette Kim MD [facility] Work Phone: 09-02-2014 influenza, seasonal, injectable Annette Kim MD [facility] Work Phone: 08-18-2008 diphtheria, tetanus toxoids and acellular pertussis vaccine Annette Kim MD [facility] Work Phone: NEGATED: Highlighted row has not occurred!05-16-2017 influenza, injectable, quadrivalent, preservative free; Translations: [INFLUENZA VACCINE QUAD] Patient Objection DPM Rossy Kothari DPM [facility] Payers Date Payer Category Payer Medicare [id number] 2020 Private Health Insurance [id number] 1967 Unknown [id number]. 2.594 1967 Unknown [id number]. 2.594 1967 Unknown [id number] [id number]. 2.594 1967 Unknown [id number] [id number]. 2.594 1967 Unknown [id number] [id number]. 2.594 1967 Unknown [id number] [id number]. 2.693 1967 Unknown [id number] [id number]. 2.693 1967 Unknown [id number] [id number]. 2.693 1967 Unknown [id number] [id number]. 2.693 1967 Unknown [id number] [id number]. 2.693 1967 Unknown [id number]. 2.693 Private Health Insurance [id number] Unknown [facility] [employer] [place] YOR [facility] [employer] PAYOR [id number] Effective for all dates [address] [place] [address] Other Social History Date Type Detail Facility Start: 01-16-2021 End: 07-23-2022 Tobacco smoking status NHIS Never smoker [facility] Start: 01-16-2021 End: 07-23-2022 Tobacco use and exposure Never used [facility] Start: 1965 Sex Assigned At Not on file [facility] Start: 10-20-2021 End: 03-29-2022 Exposure to SARS-CoV-2 (event) Not sure [facility] Start: 10-30-2021 End: 07-08-2023 Alcohol intake Current non-drinker of alcohol (finding) [facility] Start: 09-05-2022 End: 07-08-2023 Sex Assigned At [facility]. Other Start: 09-05-2022 End: 07-08-2023 History of Social function [facility] National Score (1-100), lower number is lower risk 87 [facility] Tobacco smoking status NHIS Tobacco smoking consumption unknown [facility] Work Phone: NEGATED: Highlighted rowStart: 07-05-2020 End: 07-05-2020 Alcohol use Alcohol use [facility] Work Phone: NEGATED: Highlighted rowStart: 07-05-2020 End: 07-05-2020 Details of drug misuse behavior Details of drug misuse behavior [facility] Work Phone: NEGATED: Highlighted rowStart: 07-05-2020 End: 07-05-2020 Employment detail Employment detail [facility] Work Phone: NEGATED: Highlighted rowStart: 07-05-2020 End: 07-05-2020 How many days of moderate to strenuous exercise, like a brisk walk, did you do in the last 7 days? How many days of moderate to strenuous exercise, like a brisk walk, did you do in the last 7 days? [facility] Work Phone: NEGATED: Highlighted rowStart: 07-05-2020 End: 07-05-2020 Assertion Never smoker [facility] Work Phone: NEGATED: Highlighted row - - [facility] Work Phone: Medical Equipment Procedure Code Equipment Code Equipment Origin al Text Equipment Identifier Dates 2.7mm Locking Screw/L14mm [id number] Start: 08-01-2022 Plate Variax Cur ve Bone 5 Hole Nonsterile Right Foot - [id number] Start: 08-01-2022 Screw Bone T10 F /T 3.5x26mm [id number] Start: 08-01-2022 Functional Status Date Assessment Result Facility NEGATED: Highlighted row Functional performance Functional status health issues are not documented Disease [facility] Work Phone: Mental Status Date Assessment Result Facility NEGATED: Highlighted row Cognitive function [Interpretation] Cognitive status health issues are not documented Disease [facility] Work Phone: Clinical Notes 01-16-2021 to 07-08-2023 Rossy Kothari, JESSICA - 07/08/2023 12:57 PM EST Note Date & Type Note Facility 07-08-2023 History of Presen t illness Narrative Name: Vibha Rivas Date of Service: July 08, 2023 Follow Up (Left ankle. Dr. Dangelo thinks she has scar tissue. She is having pain. Dr. Dangelo's office took xrays.) Status post removal of painful loosening syndesmotic screws with revision to 2 standard tight rope implants on 09/22/21. Original surgery in June 2021. HPI: This is a 58-year-old female who presents today for follow-up of her left total ankle joint replacement and multitude of left foot and ankle surgeries. She states that overall she is doing well. She states that she is able to walk 2-4 or 5 miles per day. She does have a home gym where she performs daily stretching and range of motion exercises. She has been very active. She is traveling to [place] for her medical mission trip in September. She had surgical intervention on her right foot performed by one of my colleagues. She has been following up with Dr. Dangelo. She did develop some capsulitis postoperatively. She had EPAT treatment for 4 applications and states that it worked tremendous. She states it was right foot is in pretty good shape at this point time. She presents today with concerns about stiffness in the left foot and ankle. She states that she feels stiff and restricted. She also notes swelling to the front of the outer ankle. She has a history of total ankle joint replacement with revision as well as syndesmotic stabilization. Patient is currently followed by Janeth Salcido MD for their medical conditions. Temp 36.4 C (97.5 F) No weight on file for this encounter. Tobacco Use: Never PAST MEDICAL HISTORY Diagnosis Date Avascular necrosis (HCC) Kidney stones Osteomyelitis (HCC) Osteopenia Right hip Osteoporosis left hip Current Outpatient Medications Medication Sig [id number] ORAL Take by mouth. traMADol (ULTRAM) 50 mg tablet Take 50-100 mg by mouth every 8 hours as needed. For Pain FORTEO 20 mcg/dose (600mcg/2.4mL) Inject 0.08ml (20mcg) sub-q once daily. gabapentin (NEURONTIN) 300 mg capsule Take 300 mg by mouth three times daily. CALCIUM CARBONATE/VITAMIN D3 (VITAMIN D-3 ORAL) Take by mouth. No current facility-administered medications for this visit. ALLERGIES Allergen Reactions Victryl Sutures [Ot* Intolerance Codeine Itching Versed [Midazolam H* PAST SURGICAL HISTORY Procedure Laterality Date CORNEA SCRAPING DIAGNOSTIC SMEAR &/CULTURE 04/12/08 BLOCK CELIAC PLEXUS WITH C-ARM performed by ABI VILLALPANDO at OR PAST SURGICAL HISTORY OF Left ankle PAST SURGICAL HISTORY OF Right wrist PAST SURGICAL HISTORY OF Left ovary removed PAST SURGICAL HISTORY OF Left 08/03/2020 ORIF Left tibial fracture PAST SURGICAL HISTORY OF 1992 Elbow decompression PAST SURGICAL HISTORY OF 1997,1998,2000 Kidney surgery PAST SURGICAL HISTORY OF 2001 Left oophrectomy PAST SURGICAL HISTORY OF Right 05/2015 Right radial fracture PAST SURGICAL HISTORY OF Left 07/2015 Left knee repair PAST SURGICAL HISTORY OF Left 07/2020 Revision TAR left ORIF left tibial fracture PAST SURGICAL HISTORY OF Left 06/28/2021 Left ankle ROTATOR CUFF REPAIR Right 1990 FAMILY HISTORY Problem Relation Age of Onset other (colon polyps) Sister Colon Cancer No Family History Social History Tobacco Use Smoking status: Never Smokeless tobacco: Never Vaping Use Vaping Use: Never used Substance Use Topics Alcohol use: No Drug use: Never REVIEW OF SYSTEMS Denies nausea, vomiting, fever, chills, calf pain, chest pain. The patient has a history of osteopenia. Objective: Patient presents ambulatory. Her gait is propulsive. She is very pleasant. She is awake alert and oriented. Neurovascular status is intact and baseline. There is edema to the anterior lateral ankle and sinus tarsi region of the left. All surgical incisions are well-healed. There are no signs of any wound dehiscence, keloid formation, cellulitis or bacterial infection. Tibiotalar joint range of motion is smooth and noncrepitant. She gets at least 5 degrees of dorsiflexion and appropriate plantarflexion through the ankle joint. Today she has significant stiffness to the subtalar joint. She gets about 10 degrees of range of motion. There is noncrepitant. She also has pain with palpation of the sinus tarsi. There is some localized edema in this region. There is also some tenderness with palpation to the anterolateral ankle incision near the distal syndesmosis and surgical site. She has good lateral collateral ligament stability. There is no peroneal subluxation or dislocation on challenge. I reviewed the data and office notes forwarded to me by Dr. Dangelo. Assessment: (M25.572) Sinus tarsitis, left (primary encounter diagnosis) (Z96.662) History of total replacement of left ankle (S93.432D) Syndesmotic disruption of left ankle, subsequent encounter (M25.572) Pain of joint of left ankle and foot (Z98.890) Post-operative state (M25.572, G89.29) Chronic pain of left ankle Plan: Podiatric Office Visit- the etiology of the patient's complaint along with treatment options were explained to the patient. Today we discussed her clinical findings and treatment options. She seems to have most significant stiffness to the subtalar joint. There is no crepitus. She also has pain with palpation of the sinus tarsi. She has a history of flatfoot reconstruction. We discussed treatment options. She is using custom molded foot orthoses already. She does maintain a home physical therapy regiment. We discussed the potential benefit of a corticosteroid injection. We discussed risk benefits nature and alternatives. All of her questions were answered. I do believe her stiffness is primarily in the hindfoot and subtalar joint. Her tibiotalar joint moves well with no crepitus. We did discuss the potential of gutter impingement with total ankle joint replacement. Her syndesmosis appears to be stable at this time. With informed consent the area was sterilely prepped with alcohol. The sinus tarsi was injected with 4 mg of Kenalog and 1 cc of 0.5% Marcaine plain. She tolerated the injection well. I encouraged her to continue with home range of motion and stretching therapy as well as her custom molded foot orthotics. We discussed expectations and longevity of corticosteroid injections. She is traveling to [place] in September. I advised her to call me if she continues to have persistent pain and stiffness and we may discuss alternative treatment options. During this patients visit I spent 20 minutes which includes both face to face and non face to face activities. These activities included Preparing to see the patient (review tests, labs), Obtaining and reviewing separately obtained history , Performing a medically appropriate examination, Counseling and educating the patient and family, Documenting clinical information in the EMR, and Independently interpreting results and communicating results to the patient. Speech recognition technology was utilized in the production of this note. Rossy Kothari DPM documented in this encounter [facility]. Other 09-21-2023 NotePROCEDURE: FOREARM RT 2 VIEW - FXR [id number] REASON FOR EXAM: pain RESULT: Patient Name: VIBHA RIVAS STUDY: FOREARM RT 2 VIEW; 04/25/2023 9:15 am INDICATION: pain. Follow-up of ORIF distal radius and ulnar fracture. COMPARISON: 24 January 2023. ACCESSION NUMBER(S): [id number] ORDERING CLINICIAN: JYANE PEREZ TECHNIQUE: 2 view of the forearm are performed. FINDINGS: No fracture or other focal bony abnormality is seen. The appearance of the wrist and elbow joints is unremarkable. . Intact plate and screws traverse healing/healed fracture distal radial metaphysis to epiphysis and distal ulnar diaphysis. Joint spaces at the elbow appear preserved. Degenerative change of the radiocarpal joint and distal radioulnar joint is seen. IMPRESSION: Intact plate and screws distal ulna and radius with degenerative changes of the wrist as described. 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 Follow-up in 3 months for repeat Xrays. I, Livier Mcdaniel, attest that this documentation has been prepared under the direction and in the presence of Jayne Perez MD. By signing below, IJayne MD, personally performed the services described in this documentation. All medical record entries made by the scribe were at my direction and in my presence. I have reviewed the chart and agree that the record reflects my personal performance and is accurate and complete. 01/24/23 [facility]. 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 By signing below, Jayne Theodore MD, personally performed the services described in this documentation. All medical record entries made by the scribe were at my direction and in my presence. I have reviewed the chart and agree that the record reflects my personal performance and is accurate and complete. 11/29/22 [facility]. Other 03-23-2023 History of Present illness Narrative* Tania Pimentel DPM - 10/25/2022 10:38 PM EDT TELEMEDICINE VISIT PROGRESS NOTE This is a telemedicine encounter initiated for a patient, parent or guardian not originating from arelated Evaluation & Management service provided within the previous 7 days nor leading to an Evaluation & Management service or procedure within the next 24 hours or soonest available appointment. The visit was performed using [employer] Vibha Rivas has consented to this telemedicine encounter. Persons Present: patient Chief Complaint/Reason: Telephone consultation for hallux rigidus right foot. Has seen and been followed by Dr. Blevins for above and now wishes to schedule surgery in his absence. HPI: Chronic pain to right first metatarsal phalangeal joint consistent with end-stage hallux rigidus. She has trialed conservative treatment consisting of shoe changes, hvzx-toc-pezwoex orthotics, custom orthotics, gweq-rbs-jrdqkzb and prescription medication all without significant relief. The current condition is affecting her activities of daily living and she wishes to improve her status by way of surgical intervention Data Reviewed: Most recent labs and imaging results. Most recent labs Most recent imaging Patient history and medical chart review Assessment: (M20.21) Hallux rigidus, right foot (primary encounter diagnosis) (M79.671) Pain in right foot Plan: Had long discussion with patient regarding current condition and conservative and surgical treatment options. All risks, benefits, nature and alternatives were fully discussed. Surgery would consist of first metatarsophalangeal joint arthrodesis. All risks, benefits, nature and alternatives to surgery were discussed in detail. Those include butare not limted to: continued or worsened pain, over correction, under correction, need for additional and/or revisional surgery, malunion, nonunion, vascular compromise, nerve injury, DVT, PE, infection, painful or unsightly scar, amputation, . Patient appears to understand, acknowledges and accepts these risks. All questions answered with no guarantees given or implied. Patient agrees with planned procedure(s) and wishes to proceed. Informed consent was obtained. Patient appears to understand and wishes to proceed with surgical intervention. Surgical date to be set Preadmission testing appointment made She will call back with any questions prior to surgery Total Time Spent: 21-30 minutes Tania Pimentel DPM, [facility] [address] [place] [address] W [email or web address] documented in [facility] Evaluation note* Encounter Date Diagnosis Assessment Notes Treatment Notes Treatment Clinical Notes Oct, Other specified joint disorders, right wrist (ICD-10 - M25.831) [facility]. Other 02-01-2023 History of Present illness Narrative* Tania Pimentel, JESSICA - 09/05/2022 1:26 PM EST DOS: 08/01/22 POD: 4 weeks POV: 3 Procedure: right first MPJ fusion This 57 year old female presents for a post op visit. Patient states they are doing well. Pain is well controlled by tylenol. She has been Weightbearing in a tennis shoe. Denies any current nausea, vomiting, fever, chills, shortness of breath, chest pain or calf pain. Denies any other pedal complaints PAST MEDICAL HISTORY Diagnosis Date Avascular necrosis (HCC) Kidney stones Osteomyelitis (HCC) Osteopenia Right hip Osteoporosis left hip Current Outpatient Medications Medication Sig [id number] ORAL Take by mouth. traMADol (ULTRAM) 50 mg tablet Take 50-100 mg by mouth every 8 hours as needed. For Pain FORTEO 20 mcg/dose (600mcg/2.4mL) Inject 0.08ml (20mcg) sub-q once daily. gabapentin (NEURONTIN) 300 mg capsule Take 300 mg by mouth three times daily. CALCIUM CARBONATE/VITAMIN D3 (VITAMIN D-3 ORAL) Take by mouth. No current facility-administered medications for this visit. ALLERGIES Allergen Reactions Victryl Sutures [Ot* Intolerance Codeine Itching Versed [Midazolam H* Objective: Patient presents heel weightbearing as tolerated to right leg. Dressing is dry, clean, and intact with no strike through noted. Problem focus examination to the right lower extremity: Incision site is well coapted without evidence of dehiscence. No erythema with mild edema surrounding surgical site. No ecchymoses noted. Minimal drainage. No lymphadenopathy. No lymphangitis. No signs of infection. Patient has no pain to palpation of calf. The calf is soft, supple and nontender without evidence of DVT. Negative Eri's test. Satisfactory alignment is noted. Pedal pulses are palpable. Capillary refill time is less than three seconds to all digits. Sensations are intact to light touch. XR : 3 views of the right foot. Hardware intact without signs of breakage or backing out. Triplane position maintained. 1st MPJ appears well opposed and in stable position. Assessment: Satisfactory post-operative progress right first mpj fusion Plan: The patient was educated on clinical examination findings, postoperative prognosis and protocol. All questions were answered to patient's apparent satisfaction. - Continue to WB as tolerated. - Discussed the importance of protected weightbearing. - Continue Tylenol for pain control. Follow up 3 weeks with repeat radiographs Luis Daniel Presley DPM PGY-3 documented in this encounterMad[facility]01-15-2023 History of Present illness Narrative* Tania Pimentel DPM - 08/19/2022 3:46 PM EST DOS: 08/01/22 POD: 2 weeks POV: 1 Procedure: right first MPJ fusion This 57 year old female presents for a post op visit. Patient states they are doing well. Pain is well controlled by tylenol. She has been PWB to the heel and utilizing crutches. Denies any current nausea, vomiting, fever, chills, shortness of breath, chest pain or calf pain. Denies any other pedalcomplaints PAST MEDICAL HISTORY Diagnosis Date Avascular necrosis (HCC) Kidney stones Osteomyelitis (HCC) Osteopenia Right hip Osteoporosis left hip Current Outpatient Medications Medication Sig [id number] ORAL Take by mouth. traMADol (ULTRAM) 50 mg tablet Take 50-100 mg by mouth every 8 hours as needed. For Pain FORTEO 20 mcg/dose (600mcg/2.4mL) Inject 0.08ml (20mcg) sub-q once daily. gabapentin (NEURONTIN) 300 mg capsule Take 300 mg by mouth three times daily. CALCIUM CARBONATE/VITAMIN D3 (VITAMIN D-3 ORAL) Take by mouth. No current facility-administered medications for this visit. ALLERGIES Allergen Reactions Victryl Sutures [Ot* Intolerance Codeine Itching Versed [Midazolam H* Objective: Patient presents heel weightbearing as tolerated to right leg. Dressing is dry, clean, and intact with no strike through noted. Problem focus examination to the right lower extremity: Incision site is well coapted without evidence of dehiscence. No erythema with mild edema surrounding surgical site. No ecchymoses noted. Minimal drainage. No lymphadenopathy. No lymphangitis. No signs of infection. Patient has no pain to palpation of calf. The calf is soft, supple and nontender without evidence of DVT. Negative Eri's test. Satisfactory alignment is noted. Pedal pulses are palpable. Capillary refill time is less than three seconds to all digits. Sensations are intact to light touch. XR : 3 views of the right foot obtained today. Hardware intact without signs of breakage or backing out.Triplane position maintained. 1st MPJ appears well opposed and in stable position. Assessment: Satisfactory post-operative progress right first mpj fusion Plan: The patient was educated on clinical examination findings, postoperative prognosis and protocol. All questions were answered to patient's apparent satisfaction. - Continue PWB to heel with crutches in CAM boot. - Continue Tylenol for pain control. - Suture tails cut today. Follow up 3 weeks Alf Pinzon DPM PGY-2 documented in this encounterMadison Health01-04-2023 History of Present illness Narrative* Tania Pimentel DPM - 08/08/2022 11:57 AM EST DOS: 08/01/23 POD: 7 POV: 1 Procedure: right first mpj fusion This 57 year old female presents for a post op visit. Patient states they are doing well. Pain is well controlled by tylenol. She explains she has only taken one percocet so far. Has been icing and elevating the extremity as instructed preoperatively and has been heel weightbearing as tolerated to the right lower extremity. Does admit to driving here with her right foot. Explains that her left foot with history of multiple prior surgeries is sore due to increased demands. Would like to know if she would be healed to travel to [place] for a medical mission trip by early September. Denies any current nausea, vomiting, fever, chills, shortness of breath, chest pain or calf pain. Denies any other pedal complaints PAST MEDICAL HISTORY Diagnosis Date Avascular necrosis (HCC) Kidney stones Osteomyelitis (HCC) Osteopenia Right hip Osteoporosis left hip Current Outpatient Medications Medication Sig rivaroxaban (XARELTO) 10 mg tablet Take 1 tablet by mouth once daily for 14 days. oxyCODONE-acetaminophen (PERCOCET) 5-325 mg tablet Take 1 tablet by mouth every 6 hours as needed for pain for up to 7 days. ondansetron (ZOFRAN) 4 mg tablet Take 1 tablet by mouth every 8 hours as needed for nausea/vomitingfor up to 7 days. [id number] ORAL Take by mouth. traMADol (ULTRAM) 50 mg tablet Take 50-100 mg by mouth every 8 hours as needed. For Pain FORTEO 20 mcg/dose (600mcg/2.4mL) Inject 0.08ml (20mcg) sub-q once daily. gabapentin (NEURONTIN) 300 mg capsule Take 300 mg by mouth three times daily. CALCIUM CARBONATE/VITAMIN D3 (VITAMIN D-3 ORAL) Take by mouth. No current facility-administered medications for this visit. ALLERGIES Allergen Reactions Victryl Sutures [Ot* Intolerance Codeine Itching Versed [Midazolam H* Objective: Patient presents heel weightbearing as tolerated to right leg. Dressing is dry, clean, and intact with no strike through noted. Problem focus examination to the right lower extremity: Incision site is well coapted without evidence of dehiscence. Mild erythema and edema surrounding surgical site. Some ecchymoses at the digits noted. Minimal drainage. No lymphadenopathy. No lymphangitis. No signs of infection. Patient has no pain to palpation of calf. The calf is soft, supple and nontender without evidence of DVT. Negative Eri's test. Satisfactory alignment is noted. Pedal pulses are palpable. Capillary refill time is less than three seconds to all digits. Sensations are intact to light touch. Xrays Hardware is intact; good triplane position is maintained; no acute changes, cortical disruption, erosive changes, soft tissue gas or complications seen. Assessment: Satisfactory post-operative progress right first mpj fusion Plan: The patient was educated on clinical examination findings, postoperative prognosis and protocol. All questions were answered to patient's apparent satisfaction. - xrays Bandage removed and new dressing applied. - Advised patient take less NSAID and try to use tylenol for pain as needed. - Patient to continue heel weightbearing as tolerated to the operative extremity. - Explained the typical postoperative time period and will continue to evaluate progress over the next few weeks to determine if she is healed sufficiently to travel to [place] for medical mission trip. Follow up 1 week. Tania Pimentel DPM documented in this encounterMadison Health12-29-2022 Miscellaneous Notes* Telephone Encounter - Ebony Gayle, DPM - 08/02/2022 1:52 PM EST Telephone Encounter Vibha Rivas [id number] Reason for call: Post op check, s/p first MPJ fusion, DOS: 08/01/22, POD #1 PAST MEDICAL HISTORY Diagnosis Date Avascular necrosis (HCC) Kidney stones Osteomyelitis (HCC) Osteopenia Right hip Osteoporosis left hip ALLERGIES Allergen Reactions Victryl Sutures [Ot* Intolerance Codeine Itching Versed [Midazolam H* Current Outpatient Medications Medication Sig Dispense Refill rivaroxaban (XARELTO) 10 mg tablet Take 1 tablet by mouth once daily for 14 days. 14 tablet 0 oxyCODONE-acetaminophen (PERCOCET) 5-325 mg tablet Take 1 tablet by mouth every 6 hours as needed for pain for up to 7 days. 28 tablet 0 ondansetron (ZOFRAN) 4 mg tablet Take 1 tablet by mouth every 8 hours as needed for nausea/vomitingfor up to 7 days. 21 tablet 0 [id number] ORAL Take by mouth. traMADol (ULTRAM) 50 mg tablet Take 50-100 mg by mouth every 8 hours as needed. For Pain FORTEO 20 mcg/dose (600mcg/2.4mL) Inject 0.08ml (20mcg) sub-q once daily. gabapentin (NEURONTIN) 300 mg capsule Take 300 mg by mouth three times daily. CALCIUM CARBONATE/VITAMIN D3 (VITAMIN D-3 ORAL) Take by mouth. No current facility-administered medications for this visit. SUBJECTIVE: Called patient for postop follow up. Patient doing well with no issues. Patient relates that the operative site pain has been adequately controlled with the current regimen. Endorses compliance with the prescribed weight-bearing status. States she has had difficulty with her dogs accidentally stepping on her operative foot. She has been wearing her surgical shoe as instructed but is wondering if we can provide something more protective. Patient was informed that at her first follow up appointment, a short leg boot can be provided if needed for added protection. Until then, patient is to try her best to keep the operative foot protected and away from her dogs. Patient states she has been elevating the extremity as recommended. Denies any nausea, vomiting, fever, chills, chest pain, and shortness of breath. Patient is to continue to follow post operative instructions as outlined in discharge instructions, including monitoring for signs of infection and any acute issues. Patient is to follow up with Dr. Kothari/Tyshawn in one week. She is calling [facility] today to schedule her first post-op visit. If any issues patient has continuous miner operator helper podiatry pager number and is to contact if any issues or go to ED if unable to reach resident. All questions answered and patient agrees with plan. Ebony Gayle DPM PGY-2 08/02/22 1:53 PM documented in this encounterMadison Health12-28-2022 NoteHNO ID: [id number] Author: Jayleen Whitaker MD Service: Anesthesiology Author Type: Anesthesiologist Type: Anesthesia Procedure Notes Filed: 08/01/2022 6:03 PM Note Text: ANESTHESIOLOGY PROCEDURE NOTE Airway General Information Procedure Start Time/Medication Administration: 08/01/2022 3:40 PM Patient location during procedure: OR Timeout Performed Pre-procedure: timeout performed Consent Obtained: Yes Patient identity confirmed: arm band Staffing Anesthesiologist: Wilmre Zurita MD Performed by: anesthesiologist and CIGARETTE PACKAGE EXAMINER Indications and Patient Condition Indications for airway management: anesthesia Preoxygenated: yes anesthesia circuit Patient position: sniffing Method: asleep Cricoid Pressure: No Manual In-Line Stabilization: No Difficult Mask: No Airway Accessory: LMA Final Airway Details Final airway type: supraglottic airway Number of attempts at approach: 1 Ventilation between attempts: BVM Final Supraglottic Airway: i-gel Size 3 Seal Adequate: yes Failed airway: no Unrecognized esophageal intubation: no Difficult airway SIGNATURE: Wilmer Zurita MD PATIENT NAME: Vibha Rivas DATE: August 01, 2022 TIME: 3:54 PM CSN: [id number] NoteHNO ID: [id number] Author: Jayleen Whitaker MD Service: Anesthesiology Author Type: Anesthesiologist Type: Anesthesia Procedure Notes Filed: 08/17/2022 1:45 PM Note Text: ANESTHESIOLOGY PROCEDURE NOTE Peripheral Nerve Block General Information Procedure Start Time/Medication Administration: 08/01/2022 1:58 PM Procedure End time: 08/01/2022 2:09 PM Patient location during procedure: pre-op Timeout Performed Pre-procedure: timeout performed Consent Obtained: Yes Patient identity confirmed: arm band and patient Reason for block: post-op pain management/at surgeon's request Staffing Anesthesiologist: Jayleen Whitaker MD Resident: Aydin Alfaro MD Performed by: resident and anesthesiologist Preparation Sterility Preparation: hand hygiene performed prior to procedure, sterile gloves, drapes, and procedure tray, surgical cap used, mask used, sterile drape used during line insertion, skin prep agent completely dried prior to procedure Sterility Technique Not Completely Performed Due to Extreme Emergency: No Site Prep: Chloraprep Pre-Procedure Neuro Exam Location: RLE Sensory: intact Motor: intact Procedure Details Patient Position: supine Monitoring: Pulse OX, EKG and NIBP Block Type Lower Extremity: popliteal and saphenous Laterality: right Injection Technique: single-shot Ultrasound Guided: Yes Image in Chart: yes Local Infiltration: Yes Needle Needle Type: echogenic Needle Gauge: 20 G Needle Length: 10 cm Needle Localization: ultrasound Assessment Injection assessment: negative aspiration, no paresthesia on injection, incremental injection and local visualized surrounding nerve on ultrasound Post-Procedure Neuro Exam Expected Regional Anesthesia: Yes Medications Administered ropivacaine (PF) 5 mg/mL (0.5 %) injection (NAROPIN) - peripheral nerve block 40 mL - 08/01/2022 1:58:00 PM dexamethasone sodium phosphate injection (DECADRON) - peripheral nerve block 8 mg - 08/01/2022 1:58:00 PM Comments Popliteal and saphenous blocks done, medications divided evenly between blocks. Saphenous block done above the knee level . SIGNATURE: Aydin Alfaro MD PATIENT NAME: Vibha Rivas DATE: August 01, 2022 TIME: 2:12 PM CSN: [id number] ID: [id number] Author: Hawa Tan DPM Service: Podiatry Author Type: Resident Type: Progress Notes Filed: 08/01/2022 1:45 PM Note Text: Attestation signed by Tania Pimentel DPM at 08/06/2022 12:19 PM Statement of Resident/FellowSupervision: The resident/fellow was under my direct supervision during today's patient encounter. I am in agreement with the medical chart documentation, as this is a reflection of my personal examination, assessment and treatment plan. Additionally, I was present with the resident/fellow during the entire history and exam and documented the patient's assessment and treatment plan. I discussed the management with the resident. aTnia Pimentel DPM, FACFAS PODIATRIC PRE-OPERATIVE NOTE SERVICE DATE: 08/01/2022 SERVICE TIME: 1:44 PM DIAGNOSIS: Hallux rigidus, right PROCEDURE(S): First metatarsophalangeal joint arthrodesis, right Consent on chart: Yes LABS: CBC: WBC 6.31 09/14/2016 Hemoglobin 13.4 09/14/2016 Hematocrit 39.4 09/14/2016 Platelet Count 325 09/14/2016 CMP: Sodium 140 09/14/2016 Potassium 3.8 09/14/2016 BUN 19 09/14/2016 Creatinine 0.75 09/14/2016 Glucose 93 09/14/2016 COAGS: APTT 28.3 05/18/2015 PT INR 0.9 09/14/2016 URINALYSIS: Ketones, Urine Negative 09/14/2016 Nitrites Negative 09/14/2016 Specific [place], Ur 1.027 09/14/2016 Protein, Urine Negative 09/14/2016 Leukest Small 09/14/2016 Leukocytes 0-5 09/14/2016 Type AND screen: N/A Medical Clearance: Yes CXR/EKG: N/A Medications/Preop Antibiotics: Clindamycin ALLERGIES Allergen Reactions Victryl Sutures [Ot* Intolerance Codeine Itching Versed [Midazolam H* Surgical site identified: Yes NPO: Yes IV Fluids: Yes Risks and benefits, complications, treatment options, expected outcome and rehabilitation explained, patient understands. All questions were entertained and answered. Patient wishes to proceed with above procedure(s). SIGNATURE: Hawa Tan DPM PATIENT NAME: Vibha Rivas DATE: August 01, 2022 TIME: 1:44 [facility]12-19-2022 Instructions* Patient Instructions* Alicja Hebert APRN.[facility] - 07/23/2022 2:36 PM EST PATIENT PREOPERATIVE INSTRUCTIONS Tania Pimentel DPM has scheduled you for your procedure at this surgery center: [facility]: [phone] --[address] [place] [address]. On your scheduled day of surgery, please report to Patient Registration, ground floor Please read below carefully for your personalized instructions. Dietary Restrictions: - No solid food after midnight. - You may have 12 ounces of clear liquids (water, clear juices such as apple juice or gatorade, carbonated beverages, clear tea, black coffee, jello) until 2 hours before scheduled arrival at facility. No red/purple coloring and no creamer/sugar Medications: Unless instructed differently below, stay on all of your medications until your surgery. Approved medications to take the morning of surgery with a sip of water: gabapentin (NEURONTIN), Forteo If you start any new medications after today's visit, please contact the surgeon's office. Blood Thinning Medications: - Stop NSAIDS (Ibuprofen, Advil, Aleve, Motrin, Celebrex, Mobic, etc.) 7 days before surgery, as directed by your surgeon. - Stop Aspirin 7 days before surgery, as directed by your surgeon. - Stop Vitamin E, ALL multi-vitamins, herbals and dietary supplements 7 days before surgery. - You may take Tylenol (Acetaminophen) or any of your pain medications that do not contain aspirin or NSAIDS as needed. Important Reminders: - Candy, mints, and tobacco products are NOT permitted the morning of surgery. - Hearing aids, dentures and glasses may be worn the morning of surgery. - NO jewelry, body piercings, makeup, hairpins or contacts are to be worn the day of surgery. If you develop symptoms such as a fever, cold, or flu, or have other changes to your health within TWO DAYS of scheduled surgery or the morning of surgery, please contact the surgery center above. Personal Belongings: -Please have photo ID and insurance cards. -If you do not have a copy of advance directives on file with us, please bring a copy with you on the day of surgery. - Leave ALL valuables and money at home or with family members. For Outpatient Procedures: - YOU MUST HAVE A RESPONSIBLE NATIONAL SECRETARY TAKE YOU HOME. A ACTIVITIES VOLUNTEER OR ELECTROPLATING WORKER CANNOT BE MADE A RESPONSIBLE NATIONAL SECRETARY. - We recommend that a responsible person stays with you overnight to take care of you. - You cannot stay in a hotel alone after outpatient surgery. You will not be permitted to have yoursurgery, if you do not have someone to take care of you. Arrival Time for Surgery: - The Surgery Center or hospital where you are having surgery will call the afternoon before surgery (or Saturday for Saturday surgery) with a scheduled arrival time. - If you have not heard by 4 pm, please contact the surgery center above. Please be aware that emergency situations arise, which may delay or change your surgical time. If this happens, we will notify you as soon as possible and regret any inconvenience. If you already have an Advance Directive, please fax a copy to [phone] or email to for it to be added to your chart. If you do not have an Advance Directive, you can find the appropriate form and more information at [email or web address]. We recommend that youcomplete the Advance Directive form found on the website and bring it with you the day of your surgery. It can be witnessed and scanned into your chart that day. Alicja Hebert APRN.CNP documented in this encounterMadison Health12-19-2022 History and physical note * Alicja Hebert APRN.CNP - 07/23/2022 2:32 PM EST Images from the original note were not included. HISTORY AND PHYSICAL EXAMINATION SERVICE DATE: 07/23/2022 SERVICE TIME: 2:32 PM PRIMARY CARE PHYSICIAN: Janeth Salcido MD REASON FOR VISIT: Vibha Rivas is a 57 year old female who is scheduled for Procedure(s): ARTHRODESIS GREAT TOE METATARSOPHALANGEAL JOINT (Right) at the request of Dr. Tania Pimentel for consultation. My final recommendation will be communicated back to the requesting physician by way of shared medical record or letter. 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 CHIEF COMPLAINT: Pre-op exam HPI: Vibha Rivas is a 57 year old seen for PAC due to scheduled above surgery because hallux rigidus of right foot. REVIEW OF SYSTEMS: General: No weight loss, malaise or fevers. Neurological: No history of TIA's, stroke, BANQUET SET UP PERSON tumor, impaired sensorium, hemiplegia, paraplegia orquadraplegia. No neurological symptoms or problems. Respiratory: No history of current cough or dyspnea, or pneumonia in the past 6 weeks. No history of respiratory/pulmonary symptoms or problems. Cardiovascular: No history of HTN requiring medication, no history of angina, CHF, OR, cardiac surgery or stents. Denies rest pain, gangrene or revascularization/amputation for PVD. No history of cardiovascular symptoms or problems. GI: No history of GI symptoms or problems. No history of esophageal varices, recent ascites, or ETOH greater than 2 drinks per day. : Positive for: nephrolithiasis. Negative for: urinary incontinence, renal failure and urinary tract infection. 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 Endocrine: No history of diabetes. Has not taken steroids within the past 30 days. No history of endocrinological symptoms or problems. Hematology: No history of bleeding or clotting disorder. Patient is not taking anti-coagulation or platelet medications. No history of hematological symptoms or problems. Oncology: No history of CA metastasis, chemo within 30 days, or radiotherapy within 90 days. No history of oncological symptoms or problems. Psych: No history of psychiatric symptoms or problems. Musculoskeletal: See HPI. +hx left ankle replacement Skin: Negative for lesions, rash and itching. PAST MEDICAL HISTORY Diagnosis Date Avascular necrosis (HCC) Kidney stones Osteomyelitis (HCC) Osteopenia Right hip Osteoporosis left hip PAST SURGICAL HISTORY Procedure Laterality Date CORNEA SCRAPING DIAGNOSTIC SMEAR &/CULTURE 04/12/08 BLOCK CELIAC PLEXUS WITH C-ARM performed by ABI VILLALPANDO at OR PAST SURGICAL HISTORY OF Left ankle PAST SURGICAL HISTORY OF Right wrist PAST SURGICAL HISTORY OF Left ovary removed PAST SURGICAL HISTORY OF Left 08/03/2020 ORIF Left tibial fracture PAST SURGICAL HISTORY OF 1992 Elbow decompression PAST SURGICAL HISTORY OF 1997,1998,2000 Kidney surgery PAST SURGICAL HISTORY OF 2001 Left oophrectomy PAST SURGICAL HISTORY OF Right 05/2015 Right radial fracture PAST SURGICAL HISTORY OF Left 07/2015 Left knee repair PAST SURGICAL HISTORY OF Left 07/2020 Revision TAR left ORIF left tibial fracture PAST SURGICAL HISTORY OF Left 06/28/2021 Left ankle ROTATOR CUFF REPAIR Right 1990 FAMILY HISTORY Problem Relation Age of Onset other (colon polyps) Sister Colon Cancer No Family History Social History Tobacco Use Smoking status: Never Smokeless tobacco: Never Vaping Use Vaping Use: Never used Substance Use Topics Alcohol use: No Drug use: Never Prior to Admission medications as of 07/23/22 1432 Medication Sig Last Dose Taking [id number] ORAL Take by mouth. Taking Yes traMADol (ULTRAM) 50 mg tablet Take 50-100 mg by mouth every 8 hours as needed. For Pain Taking Yes FORTEO 20 mcg/dose (600mcg/2.4mL) Inject 0.08ml (20mcg) sub-q once daily. Taking Yes gabapentin (NEURONTIN) 300 mg capsule Take 300 mg by mouth three times daily. Taking Yes CALCIUM CARBONATE/VITAMIN D3 (VITAMIN D-3 ORAL) Take by mouth. Taking Yes celecoxib (CELEBREX) 200 mg capsule Take one capsule daily with food. Patient not taking: Reported on 07/23/2022 Not Taking Omeprazole 40 mg capsule Take 1 capsule by mouth once daily. Patient not taking: Reported on 07/23/2022 Not Taking No medication comments found. ALLERGIES Allergen Reactions Victryl Sutures [Ot* Intolerance Codeine Itching Versed [Midazolam H* Objective PHYSICAL EXAM: General: alert and oriented (x3) and healthy appearance. Pertinent negatives noted - not distressed. Skin: normal color, no rash or lesions. HEENT: EOM intact and pupils equal round. Pertinent negatives noted - no carotid bruit. Cardiovascular: regular rate and rhythm, normal S1 and S2, no rub, murmurs, or gallop. Respiratory: normal breath sounds, no wheezes or crackles. No chest wall deformity or tenderness. Abdomen: soft. Pertinent negatives noted - not tender. Extremities: no deformity, no edema or tenderness, no joint swelling or clubbing. Neurological: normal cognition and motor skills. Gait normal. No weakness or sensory deficit. PAIN ASSESSMENT: Pain Pain Level: 2 Pain Location: Toe Description: Throbbing;Sharp Duration Amount of Time: 2 Duration Units: Years Frequency: Intermittent Intervention/Comfort measure: Relaxation VITALS: BP 112/60 Pulse 106 Temp (Src) 99 (Temporal) Resp 16 Ht 5' 2 (1.58m) Wt 144 lb (65.3kg) SpO2 98% BMI 26.33 kg/(m^2). Diagnostic tests reviewed for today's visit: Lab Value Units Date High Low HB No results within date range. HCT No results within date range. WBC No results within date range. PLT No results within date range. NA No results within date range. K No results within date range. GLUC No results within date range. BUN No results within date range. CREAT No results within date range. PTSEC No results within date range. INR No results within date range. APTT No results within date range. ALT No results within date range. AST No results within date range. TBILI No results within date range. TSH No results within date range. Lab Value Units Date High Low HCGQT No results within date range. UHCG No results within date range. HCG, BODY* No results within date range. Lab Value Units Date High Low ABORHD No results within date range. ABSCREEN No results within date range. No results found for: HBA1C No results found for this or any previous visit (from the past 8760 hour(s)). No results found for this or any previous visit (from the past 91247 hour(s)). Assessment No problem-specific Assessment & Plan notes found for this encounter. [place] Activity Status Index: METS: Climb a flight of stairs or walk up a hill (5.50 METs) DASI Score: 5.5 Patient denies any chest pain or undue shortness of breath with the above physical activity. Clinical Frailty Scale: 1. Very fit STOP-Bang Score: Patient over 50 years old Denies snoring loudly Denies feeling tired, fatigued, or sleepy during the daytime Has not been observed to stop breathing or choking/gasping during sleep Denies having high blood pressure BMI less than or equal to 35 kg/m^2 Does not have a large neck Non-male patient STOP-Bang Score: 1 [id number] Score: Age: <65 Sex: female CHF history: No Hypertension history: No Stroke/TIA/thromboembolism history: No Vascular disease history: No Diabetes history: No [id number] Score: 1 ARISCAT Score: Age: 51-80 Preoperative SpO2: >=96% Respiratory infection in the last month: No Preoperative anemia: No Surgical incision: peripheral Duration of surgery: <2 hrs Emergency procedure: No ARISCAT Score: 3 ASA Class: 1 ANESTHESIA FINDINGS: Intubation History: No history of difficult intubation Significant Anesthesia Considerations: none Airway History: No history of difficult airway I - PHYSICAL EVALUATION AIRWAY Patient intubated: No. Tracheostomy tube not present Mallampati: II. TM distance: >3 FB. Neck ROM: full ROM without neurological symptoms. Mouth opening: adequate. Short neck: no. Thick neck: no Duong present: no DENTAL Dental findings: teeth intact. Additional comments: Crowns/back. II - ANESTHESIA PLAN ASA Score: 1 Anesthetic Plan: other Anesthetic plan additional comments: *PACC/TCI - anesthesia choice. Beta Elias Monitoring Plan Post Procedure Analgesic Plan Informed Consent Anesthetic risks, benefits, alternatives, personnel and consent discussed: yes. Patient / Responsible Democrat agrees to proceed: yes Patient / Surrogate agrees to blood products: blood products not planned Prepared for Surgery: optimally prepared for surgery. CONSULTS: Patient does not require consults for optimization at this time Planned Anesthetic: other anesthesia choice The Following Tests/Procedures Have Been Initiated: Orders Placed This Encounter [id number] ORAL Sig: Take by mouth. Instructions Given to Patient: Instructions located in the after visit summary. Patient given verbal and written preop instructions and voices comprehension and compliance. SIGNATURE: Alicja Hebert APRN.CNP PATIENT NAME: Vibha Rivas DATE: July 23, 2022 TIME: 2:32 PM PAGER/CONTACT #: documented in this encounterMadison Health12-11-2022 Miscellaneous Notes* Telephone Encounter - Tania Pimentel DPM - 07/15/2022 11:11 AM EST Completed * Telephone Encounter - Jayna Gregory MA - 07/09/2022 1:47 PM EST Vibha is scheduled 08/01 at [facility]. 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 I, Benjamin Hartmann, attest that this documentation has been prepared under the direction and in the presence of Jayne Perez MD. By signing below, I, Jayne Perez MD, personally performed the services described in this documentation. All medical record entries made by the scribe were at my direction and in my presence. I have reviewed the chart and agree that the record reflects my personal performance and is accurate and complete. [facility]. 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 She is active and with her young age we would like to give her the best function and outcome. We will get a CT scan of the right wrist to evaluate the amount of ulnar positive variance and arthritic change. 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 Other 08-25-2022 NoteHNO ID: [id number] Author: Rossy Kothari DPM Service: ? Author Type: Physician Type: Progress Notes Filed: 03/29/2022 1:31 PM Note Text: Name: Vibha Rivas Date of Service: March 29, 2022 CC: This 57 year old female patient presents to the clinic c/o Post-Op Visit (09/22/21 lt foot) Status post removal of painful loosening syndesmotic screws with revision to 2 standard tight rope implants on 09/22/21. Original surgery in June 2021. HPI: This is a 57-year-old female presents today for postoperative visit. She states she did not tolerate the injection on her right 1st MPJ well, it put her in more pain than she was previously in. She is having issues in both feet. Regarding the right foot she continues to have pain in the big toe joint. She has degenerative hallux limitus that has been nonresponsive to shoe gear changes and a corticosteroid injection. We had had some preliminary discussions by email about surgical options. She presents today to discuss surgical options. Regarding left ankle she is stable but not pain-free. She continues to have aching and throbbing pain to the ankle. She states that she has not been swimming recently which is the best way she keeps her mobility and strength. Patient is currently followed by Janeth Salcido MD for their medical conditions. Temp 36.7 ?C (98.1 ?F) No weight on file for this encounter. Tobacco Use: Never PAST MEDICAL HISTORY Diagnosis Date Avascular necrosis (HCC) Kidney stones Osteomyelitis (HCC) Osteopenia Right hip Osteoporosis left hip Current Outpatient Medications Medication Sig celecoxib (CELEBREX) 200 mg capsule Take one capsule daily with food. traMADol (ULTRAM) 50 mg tablet Take 50-100 mg by mouth every 8 hours as needed. For Pain FORTEO 20 mcg/dose (600mcg/2.4mL) Inject 0.08ml (20mcg) sub-q once daily. gabapentin (NEURONTIN) 300 mg capsule Take 300 mg by mouth three times daily. Omeprazole 40 mg capsule Take 1 capsule by mouth once daily. CALCIUM CARBONATE/VITAMIN D3 (VITAMIN D-3 ORAL) Take by mouth. No current facility-administered medications for this visit. ALLERGIES Allergen Reactions Victryl Sutures [Ot* Intolerance Codeine Itching Versed [Midazolam H* PAST SURGICAL HISTORY Procedure Laterality Date CORNEA SCRAPING DIAGNOSTIC SMEAR AND/CULTURE 04/12/08 BLOCK CELIAC PLEXUS WITH C-ARM performed by ABI VILLALPANDO at OR PAST SURGICAL HISTORY OF Left ankle PAST SURGICAL HISTORY OF Right wrist PAST SURGICAL HISTORY OF Left ovary removed PAST SURGICAL HISTORY OF Left 08/03/2020 ORIF Left tibial fracture PAST SURGICAL HISTORY OF 1992 Elbow decompression PAST SURGICAL HISTORY OF 1997,1998,2000 Kidney surgery PAST SURGICAL HISTORY OF 2001 Left oophrectomy PAST SURGICAL HISTORY OF Right 05/2015 Right radial fracture PAST SURGICAL HISTORY OF Left 07/2015 Left knee repair PAST SURGICAL HISTORY OF Left 07/2020 Revision TAR left ORIF left tibial fracture PAST SURGICAL HISTORY OF Left 06/28/2021 Left ankle ROTATOR CUFF REPAIR Right 1990 FAMILY HISTORY Problem Relation Age of Onset other (colon polyps) Sister Colon Cancer No Family History Social History Tobacco Use Smoking status: Never Smokeless tobacco: Never Substance Use Topics Alcohol use: No REVIEW OF SYSTEMS Denies nausea, vomiting, fever, chills, calf pain, chest pain. The patient has a history of osteopenia. Objective: Patient presents ambulatory. Her gait is propulsive. Antalgic gait. She is very pleasant. She is awake alert and oriented. Neurovascular status is intact and baseline. There is edema to the leg and ankle. All surgical incisions are well-healed. There are no signs of any wound dehiscence, keloid formation, cellulitis or bacterial infection. Tibiotalar joint range of motion is smooth and noncrepitant. She gets at least 5 degrees of dorsiflexion through the ankle joint. There is some minimal tenderness with palpation to the medial Endobutton's which are palpable deep to the soft tissue structures on the medial tibia as well as along the insertion site on the fibula. Today she has some mild tenderness with palpation to the peroneal's along with lateral ankle in the retromalleolar and proximal leg region. She also had some tenderness with palpation of the tibialis posterior tendon. She has good peroneal strength which is improving and no peroneal subluxation or dislocation on testing. Overall the leg and foot are stable. There is good alignment of the foot and ankle. Range of motion through the prosthetic joint is smooth and not crepitant. There is no evidence of any frontal plane instability. Right foot with obvious degenerative changes to the first metatarsal phalangeal joint. Large palpable osteophytes of the dorsal joint. Pain with range of motion. Crepitant range of motion. Range of motion restricted to 50 degrees at best. Radiograp (more content not included)...[facility]08-25-[facility]22 History of Present illness Narrative* Rossy Kothari, JESSICA - 03/29/2022 1:02 PM EDT Name: Vibha Rivas Date of Service: March 29, 2022 CC: This 57 year old female patient presents to the clinic c/o Post-Op Visit (09/22/21 lt foot) Status post removal of painful loosening syndesmotic screws with revision to 2 standard tight rope implants on 09/22/21. Original surgery in June 2021. HPI: This is a 57-year-old female presents today for postoperative visit. She states she did not tolerate the injection on her right 1st MPJ well, it put her in more pain than she was previously in. She is having issues in both feet. Regarding the right foot she continues to have pain in the big toe joint. She has degenerative hallux limitus that has been nonresponsive to shoe gear changes and a corticosteroid injection. We had had some preliminary discussions by email about surgical options. She presents today to discuss surgical options. Regarding left ankle she is stable but not pain-free. She continues to have aching and throbbing pain to the ankle. She states that she has not been swimming recently which is the best way she keeps her mobility and strength. Patient is currently followed by Janeth Salcido MD for their medical conditions. Temp 36.7 C (98.1 F) No weight on file for this encounter. Tobacco Use: Never PAST MEDICAL HISTORY Diagnosis Date Avascular necrosis (HCC) Kidney stones Osteomyelitis (HCC) Osteopenia Right hip Osteoporosis left hip Current Outpatient Medications Medication Sig celecoxib (CELEBREX) 200 mg capsule Take one capsule daily with food. traMADol (ULTRAM) 50 mg tablet Take 50-100 mg by mouth every 8 hours as needed. For Pain FORTEO 20 mcg/dose (600mcg/2.4mL) Inject 0.08ml (20mcg) sub-q once daily. gabapentin (NEURONTIN) 300 mg capsule Take 300 mg by mouth three times daily. Omeprazole 40 mg capsule Take 1 capsule by mouth once daily. CALCIUM CARBONATE/VITAMIN D3 (VITAMIN D-3 ORAL) Take by mouth. No current facility-administered medications for this visit. ALLERGIES Allergen Reactions Victryl Sutures [Ot* Intolerance Codeine Itching Versed [Midazolam H* PAST SURGICAL HISTORY Procedure Laterality Date CORNEA SCRAPING DIAGNOSTIC SMEAR &/CULTURE 04/12/08 BLOCK CELIAC PLEXUS WITH C-ARM performed by ABI VILLALPANDO at [facility] OR PAST SURGICAL HISTORY OF Left ankle PAST SURGICAL HISTORY OF Right wrist PAST SURGICAL HISTORY OF Left ovary removed PAST SURGICAL HISTORY OF Left 08/03/2020 ORIF Left tibial fracture PAST SURGICAL HISTORY OF 1992 Elbow decompression PAST SURGICAL HISTORY OF 1997,1998,2000 Kidney surgery PAST SURGICAL HISTORY OF 2001 Left oophrectomy PAST SURGICAL HISTORY OF Right 05/2015 Right radial fracture PAST SURGICAL HISTORY OF Left 07/2015 Left knee repair PAST SURGICAL HISTORY OF Left 07/2020 Revision TAR left ORIF left tibial fracture PAST SURGICAL HISTORY OF Left 06/28/2021 Left ankle ROTATOR CUFF REPAIR Right 1990 FAMILY HISTORY Problem Relation Age of Onset other (colon polyps) Sister Colon Cancer No Family History Social History Tobacco Use Smoking status: Never Smokeless tobacco: Never Substance Use Topics Alcohol use: No REVIEW OF SYSTEMS Denies nausea, vomiting, fever, chills, calf pain, chest pain. The patient has a history of osteopenia. Objective: Patient presents ambulatory. Her gait is propulsive. Antalgic gait. She is very pleasant. She is awake alert and oriented. Neurovascular status is intact and baseline. There is edema to the leg and ankle. All surgical incisions are well-healed. There are no signs of any wound dehiscence, keloid formation, cellulitis or bacterial infection. Tibiotalar joint range of motion is smooth and noncrepitant. She gets at least 5 degrees of dorsiflexion through the ankle joint. There is some minimal tenderness with palpation to the medial Endobutton's which are palpable deep to the soft tissue structures on the medial tibia as well as along theinsertion site on the fibula. Today she has some mild tenderness with palpation to the peroneal's along with lateral ankle in the retromalleolar and proximal leg region. She also had some tenderness with palpation of the tibialis posterior tendon. She has good peroneal strength which is improving and no peroneal subluxation or dislocation on testing. Overall the leg and foot are stable. There is good alignment of the foot and ankle. Range of motion through the prosthetic joint is smooth and notcrepitant. There is no evidence of any frontal plane instability. Right foot with obvious degenerative changes to the first metatarsal phalangeal joint. Large palpable osteophytes of the dorsal joint. Pain with range of motion. Crepitant range of motion. Range of motion restricted to 50 degrees at best. Radiographs 3 views of the ankle taken weightbearing today Impression: All hardware appears to be intact. There is no subsidence or ballooning osteolysis. There is no evidence of any hardware breakdown. She has a retained plate screw combination to the distal lateral tibia which is stable. The previous fracture appears to be well-healed. There is a plate and 2 suture Endobutton construct for syndesmotic repair with good stability. No new fracture or stress fracture noted. Postoperative changes as noted. Prior right foot radiographs demonstrate grade 3 hallux limitus with joint space narrowing, periarticular osteophytes, subchondral sclerosis, squaring of the metatarsal head. Assessment: (Z96.662) History of total replacement of left ankle (primary encounter diagnosis) (S93.432D) Syndesmotic disruption of left ankle, subsequent encounter (M25.572) Pain of joint of left ankle and foot (M89.8X6) Bone pain of lower leg (Z98.890) Post-operative state (M25.572, G89.29) Chronic pain of left ankle (M20.5X1) Hallux limitus, right (M66.372) Spontaneous rupture of flexor tendon of left foot (Z47.89) Surgical aftercare, musculoskeletal system (M93.272) Osteochondritis dissecans of ankle, left (M21.42) Acquired pes planovalgus, left Plan: Podiatric Office Visit- the etiology of the patient's complaint along with treatment options were explained to the patient. Left ankle is very complicated. We discussed her right foot primarily today. This would be a very straightforward procedure for the most part. We discussed this in depth. We discussed the literature and research surrounding the arthrodesis versus arthroplasty. All of her questions were answered. Plan for surgery: Procedure -arthrodesis first metatarsal phalangeal joint right foot - Surgical procedure discussed in great detail with the patient today, discussed reasonable alternatives to the procedure, patient wishes to proceed with operative intervention at this time. - Patient advised on the risks and consequences associated with surgery. All Risks, benefits and alternatives discussed with patient. Pt given ample time to ask any questions. - No outcomes or guarantees were made with regards to surgical outcomes. - Patient aware that risks may include, but not limited to: Hardware failure, non-union or malunion, francisco-prosthetic fracture, need for hardware removal, scarring, disfigurement, amputation of limb, loss of life, disability, rsd/crps, chronic pain, superficial vs deep infection, need for revision surgery or continued wound care. - Patient given specific instructions to obtain surgical clearance per PCP. - Plan for surgery on right foot - Implants: [employer] - WB Status: Partial x2 weeks then full weightbearing in boot until healed - Other francisco-op considerations: RTC post-operatively We discussed this extensively. We also discussed the impact this may have on the left extremity. Wediscussed the use of a knee walker walker or crutches in the postoperative period to help alleviatesome stress on the left extremity. 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 There would be concerns with her going to a third world country in a boot and with a fresh surgery and we also discussed the risk of DVT with traveland immobilization. All of her questions were answered. Patient appears to understand and is in agreement with the above treatment plan. All questions wereanswered to the patient's satisfaction with no guarantees given or implied. Students / Residents / [place] involved with this patient's care and office visit were supervised and all treatment rendered was under the direct observation of myself. Speech recognition technology was utilized in the production of this note. Rossy Kothari DPM documented in this encounterMadison Health08-04-2022 Instructions* Patient Instructions* Jose Alas MD - 03/08/2022 2:40 PM EDT Radiology: Radiographs: weightbearing views of the Left foot and ankle (03/08/22), CT Left ankle (02/07/22), MRI Left ankle (05/29/21), and nonweightbearing views of the Left foot (01/30/21) were independently reviewed and demonstrate no acute osseous abnormality, stable appearing InBone total ankle arthroplasty with 1/3rd tubular plate over anterolateral distal tibia and Tightrope x2 proximal to ankle implant; no obvious loosening of components Assessment/Plan: ICD-10-CM 1. Chronic pain of left ankle M25.572 XR FOOT LEFT 3 VIEWS G89.29 XR ANKLE LEFT 3+ VIEWS 2. History of left ankle joint replacement Z96.662 Vibha has had chronic distal leg pain following revision ankle replacement. Implants appear stable. No acute surgical indication at this time - trial blue rocker AFO to offload leg/ankle - trial for @6 weeks and wean as tolerated - followup in 3 months via telehealth documented [facility] encounter[facility] History of Present illness Narrative* Jsoe Alas MD - 03/08/2022 1:00 PM EDT [facility] Date of Visit: 03/08/2022 Chief Complaint: Chief Complaint Patient presents with Left Ankle - Pain Pt reports today with L foot and ankle pain. She has hx of L ankle sx and replacements. She states that she feels very weak and unstable. Pain can reach up to 10/10. She reports pain with most activities. Some n/t present. History of Present Illness: Vibha Rivas is a 57 y.o. female who presents today complaining of Left distal leg pain s/p prior ankle replacement. Developed AVN Left talus @2011, underwent a few procedures and eventually underwent Left TAR ([facility]) 2017, had a periprosthetic distal tibia fracture and underwent revision Left TAR (InBone) Jun 2019 (Rossy Kothari MD). Overall was doing well after the revision but @1 year postop started having increased pain. In underwent revision syndesmotic repair with screw removal and placement of tightropes. Reports that in December2021 started having increased pain. No pain in ankle. Pain is localized to distal tibia, diffusely. Minimal help with NSAIDs (Celebrex/Motrin). Uses ASO brace and custom orthotics but does not feel like they help. Pain currently rated 4/10 with ADLs, constant, dull and aching. Worse when lifting leg after sitting or while lying down and gets severe pain rated 8-10/10 that last for a couple minutes. Review of Systems: General ROS: negative for - chills, fever or night sweats Respiratory ROS: no cough, shortness of breath, or wheezing Cardiovascular ROS: no chest pain or dyspnea on exertion Musculoskeletal ROS: positive for - joint pain as above. Neurological ROS: no TIA or stroke symptoms Skin/ integumentary ROS: no generalized rashes, no generalized erythema, no open lesions Pertinent positives reviewed in chart, otherwise negative to a complete review of systems. Medications: has a current medication list which includes the following prescription(s): gabapentin, tramadol, and valacyclovir. Allergies: is allergic to *sutures, codeine, and midazolam. PFSH: Past Medical History: has a past medical history of Arthritis and Osteopenia. Past Surgical History: has no past surgical history on file. Family History: no known history of clotting disorders Social History: reviewed in chart. reports that she has never smoked. She has never used smokeless tobacco.. 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 HEAD: Normocephalic, atraumatic. CHEST: Equal chest rise bilaterally. CARDIOVASCULAR: palp DP pulses bilaterally MUSCULOSKELETAL: Gait: mild limp Inspection/ Palpation: - Normal appearing plantigrade feet; normal callosities Left foot and ankle: well healed medial/lateral/anterior ankle incisions; minimal swelling; neutralhindfoot alignment; painless ankle ROM, no ttp about the ankle; mild nonspecific ttp distal leg at the level of the syndesmotic hardware above the ankle prosthesis - no ttp @medial/lateral malleolus - no ttp @peroneal/Achilles/PT tendons Range of Motion: - overall painless passive ankle ROM - mildly restricted subtalar motion - pain with resisted eversion- No; pain with resisted inversion- No - R ankle: DF- 15 PF- 50; L ankle: DF- 15 PF- 50 Stability: anterior drawer- No Muscle Strength and Tone: intact strength to toe flex/ ext, ankle df/ pf/ ev/ inv NEUROVASCULAR: no focal deficits; sensation intact and symmetric to light touch in sural/ saph/ deep per/ sup per/ tibial n distributions; brisk cap refill with palp DP pulse bilat -no tinels SKIN: no erythema/cellulitis; no signs of infection. Radiology: Radiographs: weightbearing views of the Left foot and ankle (03/08/22), CT Left ankle (02/07/22), MRI Left ankle (05/29/21), and nonweightbearing views of the Left foot (01/30/21) were independently reviewed and demonstrate no acute osseous abnormality, stable appearing InBone total ankle arthroplasty with 1/3rd tubular plate over anterolateral distal tibia and Tightrope x2 proximal to ankle implant; no obvious loosening of components Assessment/Plan: ICD-10-CM 1. Chronic pain of left lower extremity M79.605 XR FOOT LEFT 3 VIEWS G89.29 XR ANKLE LEFT 3+ VIEWS 2. History of left ankle joint replacement Z96.662 Vibha has had chronic distal leg pain following revision ankle replacement. Implants appear stable. We discussed treatment options at length. No acute surgical indication at this time - trial blue rocker AFO to offload leg/ankle - trial for @6 weeks and wean as tolerated - followup in 3 months via telehealth The diagnosis and treatment plan were discussed at length. The patient understands the plan and allquestions were answered. documented in [facility] NoteHNO ID: [id number] Author: Rossy Kothari DPM Service: ? Author Type: Physician Type: Progress Notes Filed: 01/23/2022 7:21 AM Note Text: Name: Vibha Rivas Date of Service: January 22, 2022 CC: This 57 year old female patient presents to the clinic c/o Post-Op Visit (09/22/21 lt foot) Status post removal of painful loosening syndesmotic screws with revision to 2 standard tight rope implants on 09/22/21. Original surgery in June 2021. HPI: This is a 57-year-old female presents today for postoperative visit. Last seen about 3 months prior. Since last visit she has gone through a course of physical therapy and was doing well towards the end. Says that once she stopped her pain began to return. Says that the pain is very similar to the pain prior to her syndesmotic screw removal. Points to the lateral ankle as the area of maximal tenderness. Says pain is worse with ambulating/standing. She also admits to pain in the right great toe joint. Says that her mother had this joint fused due to arthritis and thinks that this is what is going on. Says she has tried tylenol without much relief. Has not tried anything else. Pain is about a 7/10 and is requesting an injection if possible. No other issues/complaints. Patient is currently followed by Janeth Salcido MD for their medical conditions. Temp 36.2 ?C (97.1 ?F) No weight on file for this encounter. Tobacco Use: Never PAST MEDICAL HISTORY Diagnosis Date - Avascular necrosis (HCC) - Kidney stones - Osteomyelitis (HCC) - Osteopenia Right hip - Osteoporosis left hip Current Outpatient Medications Medication Sig - FORTEO 20 mcg/dose (600mcg/2.4mL) Inject 0.08ml (20mcg) sub-q once daily. - gabapentin (NEURONTIN) 300 mg capsule Take 300 mg by mouth three times daily. - Omeprazole 40 mg capsule Take 1 capsule by mouth once daily. - CALCIUM CARBONATE/VITAMIN D3 (VITAMIN D-3 ORAL) Take by mouth. No current facility-administered medications for this visit. ALLERGIES Allergen Reactions - Victryl Sutures [Ot* Intolerance - Codeine Itching - Versed [Midazolam H* PAST SURGICAL HISTORY Procedure Laterality Date - [facility]NEA SCRAPING DIAGNOSTIC SMEAR AND/CULTURE 04/12/08 BLOCK CELIAC PLEXUS WITH C-ARM performed by ABI VILLALPANDO at OR - PAST SURGICAL HISTORY OF Left ankle - PAST SURGICAL HISTORY OF Right wrist - PAST SURGICAL HISTORY OF Left ovary removed - PAST SURGICAL HISTORY OF Left 08/03/2020 ORIF Left tibial fracture - PAST SURGICAL HISTORY OF 1992 Elbow decompression - PAST SURGICAL HISTORY OF 1997,1998,2000 Kidney surgery - PAST SURGICAL HISTORY OF 2001 Left oophrectomy - PAST SURGICAL HISTORY OF Right 05/2015 Right radial fracture - PAST SURGICAL HISTORY OF Left 07/2015 Left knee repair - PAST SURGICAL HISTORY OF Left 07/2020 Revision TAR left ORIF left tibial fracture - PAST SURGICAL HISTORY OF Left 06/28/2021 Left ankle - ROTATOR CUFF REPAIR Right 1990 FAMILY HISTORY Problem Relation Age of Onset - other (colon polyps) Sister - Colon Cancer No Family History Social History Tobacco Use - Smoking status: Never Smoker - Smokeless tobacco: Never Used Substance Use Topics - Alcohol use: No - Drug use: Not on file REVIEW OF SYSTEMS Denies nausea, vomiting, fever, chills, calf pain, chest pain. The patient has a history of osteopenia. Objective: Patient presents ambulatory. Her gait is propulsive. Antalgic gait. She is very pleasant. She is awake alert and oriented. Neurovascular status is intact and baseline. There is edema to the leg and ankle. All surgical incisions are well-healed. There are no signs of any wound dehiscence, keloid formation, cellulitis or bacterial infection. Tibiotalar joint range of motion is smooth and noncrepitant. She gets at least 5 degrees of dorsiflexion through the ankle joint. There is some minimal tenderness with palpation to the medial Endobutton's which are palpable deep to the soft tissue structures on the medial tibia as well as along the insertion site on the fibula. Direct lateral malleolus palpation is painful as well as palpation over the anterior syndesmotic region of the left leg. The peroneals are nontender with direct palpation. She has good peroneal strength which is improving and no peroneal subluxation or dislocation on testing. She has normal plantarflexion and supratentorial strength but a little bit of tenderness with resisted supination. She still has a little bit of weakness in dorsiflexion. Overall the leg and foot are stable. There is good alignment of the foot and ankle. Pain with palpation of the syndesmosis noted and with dorsiflexion and external rotation. TTP along the dorsal first MPJ, right foot. Palpable spurring and limited first MPJ ROM noted. Pain with end ROM noted. Mild effusion appreciated. Radiographs 3 views of the ankle taken weightbearing today Impression: A (more content not included)...[facility]06-20-2022 History of Present illness Narrative* Rossy Kothari, DPM - 01/22/2022 1:21 PM EDT Name: Vibha Rivas Date of Service: January 22, 2022 CC: This 57 year old female patient presents to the clinic c/o Post-Op Visit (09/22/21 lt foot) Status post removal of painful loosening syndesmotic screws with revision to 2 standard tight rope implants on 09/22/21. Original surgery in June 2021. HPI: This is a 57-year-old female presents today for postoperative visit. Last seen about 3 months prior. Since last visit she has gone through a course of physical therapy and was doing well towardsthe end. Says that once she stopped her pain began to return. Says that the pain is very similar tothe pain prior to her syndesmotic screw removal. Points to the lateral ankle as the area of maximaltenderness. Says pain is worse with ambulating/standing. She also admits to pain in the right greattoe joint. Says that her mother had this joint fused due to arthritis and thinks that this is what is going on. Says she has tried tylenol without much relief. Has not tried anything else. Pain is about a 7/10 and is requesting an injection if possible. No other issues/complaints. Patient is currently followed by Janeth Salcido MD for their medical conditions. Temp 36.2 C (97.1 F) No weight on file for this encounter. Tobacco Use: Never PAST MEDICAL HISTORY Diagnosis Date Avascular necrosis (HCC) Kidney stones Osteomyelitis (HCC) Osteopenia Right hip Osteoporosis left hip Current Outpatient Medications Medication Sig FORTEO 20 mcg/dose (600mcg/2.4mL) Inject 0.08ml (20mcg) sub-q once daily. gabapentin (NEURONTIN) 300 mg capsule Take 300 mg by mouth three times daily. Omeprazole 40 mg capsule Take 1 capsule by mouth once daily. CALCIUM CARBONATE/VITAMIN D3 (VITAMIN D-3 ORAL) Take by mouth. No current facility-administered medications for this visit. ALLERGIES Allergen Reactions Victryl Sutures [Ot* Intolerance Codeine Itching Versed [Midazolam H* PAST SURGICAL HISTORY Procedure Laterality Date CORNEA SCRAPING DIAGNOSTIC SMEAR &/CULTURE 04/12/08 BLOCK CELIAC PLEXUS WITH C-ARM performed by ABI VILLALPANDO at OR PAST SURGICAL HISTORY OF Left ankle PAST SURGICAL HISTORY OF Right wrist PAST SURGICAL HISTORY OF Left ovary removed PAST SURGICAL HISTORY OF Left 08/03/2020 ORIF Left tibial fracture PAST SURGICAL HISTORY OF 1992 Elbow decompression PAST SURGICAL HISTORY OF 1997,1998,2000 Kidney surgery PAST SURGICAL HISTORY OF 2001 Left oophrectomy PAST SURGICAL HISTORY OF Right 05/2015 Right radial fracture PAST SURGICAL HISTORY OF Left 07/2015 Left knee repair PAST SURGICAL HISTORY OF Left 07/2020 Revision TAR left ORIF left tibial fracture PAST SURGICAL HISTORY OF Left 06/28/2021 Left ankle ROTATOR CUFF REPAIR Right 1990 FAMILY HISTORY Problem Relation Age of Onset other (colon polyps) Sister Colon Cancer No Family History Social History Tobacco Use Smoking status: Never Smoker Smokeless tobacco: Never Used Substance Use Topics Alcohol use: No Drug use: Not on file REVIEW OF SYSTEMS Denies nausea, vomiting, fever, chills, calf pain, chest pain. The patient has a history of osteopenia. Objective: Patient presents ambulatory. Her gait is propulsive. Antalgic gait. She is very pleasant. She is awake alert and oriented. Neurovascular status is intact and baseline. There is edema to the leg and ankle. All surgical incisions are well-healed. There are no signs of any wound dehiscence, keloid formation, cellulitis or bacterial infection. Tibiotalar joint range of motion is smooth and noncrepitant. She gets at least 5 degrees of dorsiflexion through the ankle joint. There is some minimal tenderness with palpation to the medial Endobutton's which are palpable deep to the soft tissue structures on the medial tibia as well as along theinsertion site on the fibula. Direct lateral malleolus palpation is painful as well as palpation over the anterior syndesmotic region of the left leg. The peroneals are nontender with direct palpation. She has good peroneal strength which is improving and no peroneal subluxation or dislocation on testing. She has normal plantarflexion and supratentorial strength but a little bit of tenderness with resisted supination. She still has a little bit of weakness in dorsiflexion. Overall the leg and foot are stable. There is good alignment of the foot and ankle. Pain with palpation of the syndesmosis noted and with dorsiflexion and external rotation. TTP along the dorsal first MPJ, right foot. Palpable spurring and limited first MPJ ROM noted. Painwith end ROM noted. Mild effusion appreciated. Radiographs 3 views of the ankle taken weightbearing today Impression: All hardware appears to be intact. There is no subsidence or ballooning osteolysis. There is no evidence of any hardware breakdown. She has a retained plate screw combination to the distal lateral tibia which is stable. The previous fracture appears to be well-healed. There is a plate and 2 suture Endobutton construct for syndesmotic repair with good stability. No new fracture or stress fracture noted. Postoperative changes as noted. Radiographs 3 views of the right foot Impression: Evidence of joint space narrowing and periarticular spur formation noted at the first MPJ. There is noted to be subchondral cystic lesions in the head of the first metatarsal and base of the proximal phalanx. No other acute findings. Bone stock WNL. NO fractures or dislocations. Assessment: (Z96.662) History of total replacement of left ankle (primary encounter diagnosis) (S93.432D) Syndesmotic disruption of left ankle, subsequent encounter (M25.572) Pain of joint of left ankle and foot (M89.8X6) Bone pain of lower leg (Z98.890) Post-operative state (M25.572, G89.29) Chronic pain of left ankle (M20.5X1) Hallux limitus, right Plan: Podiatric Office Visit- the etiology of the patient's complaint along with treatment options were explained to the patient. We discussed her progress. She has been regressing since physical therapy was completed. She is also now having new pain to the right first MPJ 2/2 arthritis. Discussed that given the new onset pain that feels similar to her prior pain before syndesmotic screw removal, we will order a CT scan to evaluate further. Rx for this sent. Patient will send the results once obtained. Continue ice and elevation as before. She is following pain management for pain control. Patient also elected for an injection to the first MPJ on the right foot today. Patient consent was gained for the corticosteroid injection. We discussed the risk, benefits, nature, alternatives. The area was sterilely prepped with alcohol. The first MPJ was then injected with 2mg kenalog and 1/2 cc of 0.5% Marcaine plain. The patient tolerated the injection well. The patientwas warned of a postinjection flare. The area was bandaged with a Band-Aid. Post injection instructions dispensed. Follow up after CT scan for review and further treatment, Analia Valencia DPM PGY-3 Patient appears to understand and is in agreement with the above treatment plan. All questions wereanswered to the patient's satisfaction with no guarantees given or implied. Students / Residents / [place] involved with this patient's care and office visit were supervised and all treatment rendered was under the direct observation of myself. Speech recognition technology was utilized in the production of this note. 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 Patient understands the small risk of infection And the signs look for as well as flare reaction and the risks of repeated injections. We did discuss with her the options for long-term function including an ulnar shortening and a distal ulna resection in the future. She can follow up with us as needed. Written by Herman Perez saw, evaluated, and treated the patient with the [facility]. Other 03-28-2022 NoteHNO ID: [id number] Author: Rossy Kothari DPM Service: ? Author Type: Physician Type: Progress Notes Filed: 10/30/2021 1:31 PM Note Text: Name: Vibha Rivas Date of Service: October 30, 2021 CC: This 56 year old female patient presents to the clinic c/o Post-Op Visit (09/22/21 lt foot) HPI: This is a 56-year-old female presents today for postoperative visit. She is doing much better than her prior office visit. She states she still has some still sharp pains and achiness particularly along the inner ankle. She has been doing formal physical therapy as prescribed and advised. She is seeing improvement with this. She has some difficulty with stairs still. She feels a little stiffness and range of motion dorsiflexion. Overall her pain level is improving and she feels like she is headed in the right direction. She is returned to a normal shoe. She has been in the normal shoe with a lace up ankle brace x2 weeks. She states she is doing okay in a normal shoe. Patient is currently followed by Janeth Salcido MD for their medical conditions. Temp 36.7 ?C (98 ?F) No weight on file for this encounter. Tobacco Use: Never PAST MEDICAL HISTORY Diagnosis Date - Avascular necrosis (HCC) - Kidney stones - Osteomyelitis (HCC) - Osteopenia Right hip - Osteoporosis left hip Current Outpatient Medications Medication Sig - FORTEO 20 mcg/dose (600mcg/2.4mL) Inject 0.08ml (20mcg) sub-q once daily. - gabapentin (NEURONTIN) 300 mg capsule Take 300 mg by mouth three times daily. - Omeprazole 40 mg capsule Take 1 capsule by mouth once daily. - CALCIUM CARBONATE/VITAMIN D3 (VITAMIN D-3 ORAL) Take by mouth. No current facility-administered medications for this visit. ALLERGIES Allergen Reactions - Victryl Sutures [Ot* Intolerance - Codeine Itching - Versed [Midazolam H* PAST SURGICAL HISTORY Procedure Laterality Date - CORNEA SCRAPING DIAGNOSTIC SMEAR AND/CULTURE 04/12/08 BLOCK CELIAC PLEXUS WITH C-ARM performed by ABI VILLALPANDO at OR - PAST SURGICAL HISTORY OF Left ankle - PAST SURGICAL HISTORY OF Right wrist - PAST SURGICAL HISTORY OF Left ovary removed - PAST SURGICAL HISTORY OF Left 08/03/2020 ORIF Left tibial fracture - PAST SURGICAL HISTORY OF 1992 Elbow decompression - PAST SURGICAL HISTORY OF 1997,1998,2000 Kidney surgery - PAST SURGICAL HISTORY OF 2001 Left oophrectomy - PAST SURGICAL HISTORY OF Right 05/2015 Right radial fracture - PAST SURGICAL HISTORY OF Left 07/2015 Left knee repair - PAST SURGICAL HISTORY OF Left 07/2020 Revision TAR left ORIF left tibial fracture - PAST SURGICAL HISTORY OF Left 06/28/2021 Left ankle - ROTATOR CUFF REPAIR Right 1990 FAMILY HISTORY Problem Relation Age of Onset - other (colon polyps) Sister - Colon Cancer No Family History Social History Tobacco Use - Smoking status: Never Smoker - Smokeless tobacco: Never Used Substance Use Topics - Alcohol use: No - Drug use: Not on file REVIEW OF SYSTEMS Denies nausea, vomiting, fever, chills, calf pain, chest pain. The patient has a history of osteopenia. Objective: Patient presents ambulatory. Her gait is propulsive. There is no antalgia. She is very pleasant. She is awake alert and oriented. Neurovascular status is intact and baseline. There is resolving edema to the leg which is very minimal at this point time. All surgical incisions are well-healed. There are no signs of any wound dehiscence, keloid formation, cellulitis or bacterial infection. She has some tenderness with palpation to the tarsal tunnel region on the medial hindfoot. Tibiotalar joint range of motion is smooth and noncrepitant. She gets at least 5 degrees of dorsiflexion through the ankle joint. There is some minimal tenderness with palpation to the medial Endobutton's which are palpable deep to the soft tissue structures on the medial tibia. The peroneals are nontender with direct palpation. She has good peroneal strength which is improving and no peroneal subluxation or dislocation on testing. She has normal plantarflexion and supratentorial strength but a little bit of tenderness with resisted supination. She still has a little bit of weakness in dorsiflexion. Overall the leg and foot are stable. There is good alignment of the foot and ankle. Radiographs 3 views of the ankle taken weightbearing today?the implant looks good. There is no subsidence or ballooning osteolysis. There is no evidence of any hardware breakdown. She has a retained plate screw combination to the distal lateral tibia which is stable. The previous fracture appears to be well-healed. There is a plate and 2 suture Endobutton construct for syndesmotic repair. This looks very stable as well. No new fracture or stress fracture noted. Postoperative changes as noted. Assessment: (G89.18) Other acute postoperative pain (primary encounter diagnosis) (Z96.662) Histor (more content not included)...[facility] 10-30-2021 History of Present illness Narrative* Rossy Kothari, DPM - 10/30/2021 1:24 PM EDT Name: Vibha Rivas Date of Service: October 30, 2021 CC: This 56 year old female patient presents to the clinic c/o Post-Op Visit (09/22/21 lt foot) HPI: This is a 56-year-old female presents today for postoperative visit. She is doing much better than her prior office visit. She states she still has some still sharp pains and achiness particularly along the inner ankle. She has been doing formal physical therapy as prescribed and advised. She is seeing improvement with this. She has some difficulty with stairs still. She feels a little stiffness and range of motion dorsiflexion. Overall her pain level is improving and she feels like she isheaded in the right direction. She is returned to a normal shoe. She has been in the normal shoe with a lace up ankle brace x2 weeks. She states she is doing okay in a normal shoe. Patient is currently followed by Janeth Salcido MD for their medical conditions. Temp 36.7 C (98 F) No weight on file for this encounter. Tobacco Use: Never PAST MEDICAL HISTORY Diagnosis Date Avascular necrosis (HCC) Kidney stones Osteomyelitis (HCC) Osteopenia Right hip Osteoporosis left hip Current Outpatient Medications Medication Sig FORTEO 20 mcg/dose (600mcg/2.4mL) Inject 0.08ml (20mcg) sub-q once daily. gabapentin (NEURONTIN) 300 mg capsule Take 300 mg by mouth three times daily. Omeprazole 40 mg capsule Take 1 capsule by mouth once daily. CALCIUM CARBONATE/VITAMIN D3 (VITAMIN D-3 ORAL) Take by mouth. No current facility-administered medications for this visit. ALLERGIES Allergen Reactions Victryl Sutures [Ot* Intolerance Codeine Itching Versed [Midazolam H* PAST SURGICAL HISTORY Procedure Laterality Date CORNEA SCRAPING DIAGNOSTIC SMEAR &/CULTURE 04/12/08 BLOCK CELIAC PLEXUS WITH C-ARM performed by [facility]ALPANDO at [facility] PAST SURGICAL HISTORY OF Left ankle PAST SURGICAL HISTORY OF Right wrist PAST SURGICAL HISTORY OF Left ovary removed PAST SURGICAL HISTORY OF Left 08/03/2020 ORIF Left tibial fracture PAST SURGICAL HISTORY OF 1992 Elbow decompression PAST SURGICAL HISTORY OF 1997,1998,2000 Kidney surgery PAST SURGICAL HISTORY OF 2001 Left oophrectomy PAST SURGICAL HISTORY OF Right 05/2015 Right radial fracture PAST SURGICAL HISTORY OF Left 07/2015 Left knee repair PAST SURGICAL HISTORY OF Left 07/2020 Revision TAR left ORIF left tibial fracture PAST SURGICAL HISTORY OF Left 06/28/2021 Left ankle ROTATOR CUFF REPAIR Right 1990 FAMILY HISTORY Problem Relation Age of Onset other (colon polyps) Sister Colon Cancer No Family History Social History Tobacco Use Smoking status: Never Smoker Smokeless tobacco: Never Used Substance Use Topics Alcohol use: No Drug use: Not on file REVIEW OF SYSTEMS Denies nausea, vomiting, fever, chills, calf pain, chest pain. The patient has a history of osteopenia. Objective: Patient presents ambulatory. Her gait is propulsive. There is no antalgia. She is very pleasant. She is awake alert and oriented. Neurovascular status is intact and baseline. There is resolving edema to the leg which is very minimal at this point time. All surgical incisions are well- healed. There are no signs of any wound dehiscence, keloid formation, cellulitis or bacterial infection. She has some tenderness with palpation to the tarsal tunnel region on the medial hindfoot. Tibiotalar joint range of motion is smooth and noncrepitant. She gets at least 5 degrees of dorsiflexion through the ankle joint. There is some minimal tenderness with palpation to the medial Endobutton's which are palpable deep to the soft tissue structures on the medial tibia. The peroneals are nontender with direct palpation. She has good peroneal strength which is improving and no peroneal subluxationor dislocation on testing. She has normal plantarflexion and supratentorial strength but a little bit of tenderness with resisted supination. She still has a little bit of weakness in dorsiflexion. Ov erall the leg and foot are stable. There is good alignment of the foot and ankle. Radiographs 3 views of the ankle taken weightbearing today the implant looks good. There is no subsidence or ballooning osteolysis. There is no evidence of any hardware breakdown. She has a retained plate screw combination to the distal lateral tibia which is stable. The previous fracture appears to be well-healed. There is a plate and 2 suture Endobutton construct for syndesmotic repair. This looks very stable as well. No new fracture or stress fracture noted. Postoperative changes as noted. Assessment: (G89.18) Other acute postoperative pain (primary encounter diagnosis) (Z96.662) History of total replacement of left ankle (M66.372) Spontaneous rupture of flexor tendon of left foot (S93.432D) Syndesmotic disruption of left ankle, subsequent encounter (M25.572) Pain of joint of left ankle and foot Plan: Podiatric Office Visit- the etiology of the patient's complaint along with treatment options were explained to the patient. We discussed her progress. She is improving at this point. We will continue with formal physical therapy. She was given a prescription today to start weightbearing therapy out of the boot as well as aqua therapy. Her pain is under better control and she is under the care of a baker paint. She has returned to normal shoe gear. All of her questions were answered. I would like for herto follow-up with us in 3 months with radiographs of the ankle. Patient appears to understand and is in agreement with the above treatment plan. All questions wereanswered to the patient's satisfaction with no guarantees given or implied. Students / Residents / [place] involved with this patient's care and office visit were supervised and all treatment rendered was under the direct observation of myself. Speech recognition technology was utilized in the production of this note. Rossy Kothari DPM documented in this encounterMadison Health02-28-2022 NoteHNO ID: [id number] Author: Rossy Kothari DPM Service: ? Author Type: Physician Type: Progress Notes Filed: 10/02/2021 1:33 PM Note Text: Name: Vibha Rivas Date of Service: October 02, 2021 CC: This 56 year old female patient presents to the clinic c/o Post-Op Visit (09/22/21 lt foot) and pcp (Omari 8-15-21) HPI: This is a 56-year female presents a for her first postoperative visit. She is status post removal of painful loosening syndesmotic screws with revision to 2 standard tight rope implants. She states the first 2 postoperative days were severely painful. We had communicated via email. I did refill her Percocet prescription early because she was in such severe pain. She states her pain is now relenting. She states she has still in pain but dramatically less. She is going to return to her preoperative pain management protocol with tramadol. She has done some partial weightbearing with crutches and states that she is now able to put some weight on the limb. She denies any nausea vomiting fever or chills. Patient is currently followed by Janeth Salcido MD for their medical conditions. Temp 36.7 ?C (98 ?F) No weight on file for this encounter. Tobacco Use: Never PAST MEDICAL HISTORY Diagnosis Date - Avascular necrosis (HCC) - Kidney stones - Osteomyelitis (HCC) - Osteopenia Right hip - Osteoporosis left hip Current Outpatient Medications Medication Sig - oxyCODONE-acetaminophen (PERCOCET) 5-325 mg tablet Take 1 tablet by mouth every 4 hours as needed for pain for up to 7 days. - FORTEO 20 mcg/dose (600mcg/2.4mL) Inject 0.08ml (20mcg) sub-q once daily. - gabapentin (NEURONTIN) 300 mg capsule Take 300 mg by mouth three times daily. - Omeprazole 40 mg capsule Take 1 capsule by mouth once daily. - CALCIUM CARBONATE/VITAMIN D3 (VITAMIN D-3 ORAL) Take by mouth. No current facility-administered medications for this visit. ALLERGIES Allergen Reactions - Victryl Sutures [Ot* Intolerance - Codeine Itching - Versed [Midazolam H* PAST SURGICAL HISTORY Procedure Laterality Date - CORNEA SCRAPING DIAGNOSTIC SMEAR AND/CULTURE 04/12/08 BLOCK CELIAC PLEXUS WITH C-ARM performed by ABI VILLALPANDO at OR - PAST SURGICAL HISTORY OF Left ankle - PAST SURGICAL HISTORY OF Right wrist - PAST SURGICAL HISTORY OF Left ovary removed - PAST SURGICAL HISTORY OF Left 08/03/2020 ORIF Left tibial fracture - PAST SURGICAL HISTORY OF 1992 Elbow decompression - PAST SURGICAL HISTORY OF 1997,1998,2000 Kidney surgery - PAST SURGICAL HISTORY OF 2001 Left oophrectomy - PAST SURGICAL HISTORY OF Right 05/2015 Right radial fracture - PAST SURGICAL HISTORY OF Left 07/2015 Left knee repair - PAST SURGICAL HISTORY OF Left 07/2020 Revision TAR left ORIF left tibial fracture - PAST SURGICAL HISTORY OF Left 06/28/2021 Left ankle - ROTATOR CUFF REPAIR Right 1990 FAMILY HISTORY Problem Relation Age of Onset - other (colon polyps) Sister - Colon Cancer No Family History Social History Tobacco Use - Smoking status: Never Smoker - Smokeless tobacco: Never Used Substance Use Topics - Alcohol use: No - Drug use: Not on file REVIEW OF SYSTEMS Denies nausea, vomiting, fever, chills, calf pain, chest pain. The patient has a history of osteopenia. Objective: Patient presents to clinic ambulating in surgical shoe with a bandage in place. She presents alone. She is utilizing crutches and partial weightbearing. She is awake alert and oriented. She is very pleasant. The surgical incision is healing well. There is no sign of wound dehiscence. There is no skin slough or skin necrosis. There is no drainage. There is no cellulitis or evidence of bacterial infection. No sign of a deep venous thrombosis. No pain with calf squeeze. There is some tenderness with palpation around the incision line and the medial leg where the suture buttons were passed. Very minimal ecchymosis and no significant erythema. Ankle joint is stable. She maintains good tibiotalar joint dorsiflexion and plantarflexion. She has some tenderness with palpation along the tibialis posterior tendon adjacent to the medial malleolus. Assessment: (G89.18) Other acute postoperative pain (primary encounter diagnosis) (Z96.662) History of total replacement of left ankle (M66.372) Spontaneous rupture of flexor tendon of left foot (S93.432D) Syndesmotic disruption of left ankle, subsequent encounter (M25.572) Pain of joint of left ankle and foot (M89.8X6) Bone pain of lower leg (T84.84XA) Painful orthopaedic hardware (HCC) (M72.2) Plantar fasciitis of left foot (Z98.890) Post-operative state Plan: Podiatric Office Visit- the etiology of the patient's complaint along with treatment options were explained to the patient. We discussed her progress. Suture tails removed. I recommended returning to formal physical therapy. We discussed full weightbearing in a megan (more content not included)...[facility]02-10-2022 NoteHNO ID: [id number] Author: Rossy Kothari DPM Service: ? Author Type: Physician Type: Progress Notes Filed: 09/14/2021 1:38 PM Note Text: Vibha Rivas, 56 year old, female PCP: Annette Kim MD CC: Post-Op Visit (status post peroneus brevis tendon repair and endoscopic plantar fasciotomy as well as syndesmotic stabilization; DOS 06-28-21) HPI: This is a pleasant 56 year old female returning to clinic today status post peroneal tendon repair, endoscopic fasciotomy and syndesmotic stabilization on 06/28/21. She has had increasing pain to the leg. She describes as a deep bone pain. She states that she also has a very sensitive area on the lateral leg. She states she feels like the screw is starting to back out. She states it is very difficult to lie on that side of her foot and leg. She states that she mentioned to her physical therapist that she thought the screw was backing out. She is involved in physical therapy. She is seeing pain management. Pain management is treating her chronic pain with gabapentin and tramadol. PMH: PAST MEDICAL HISTORY Diagnosis Date - Avascular necrosis (HCC) - Kidney stones - Osteomyelitis (HCC) - Osteopenia Right hip - Osteoporosis left hip PSH: PAST SURGICAL HISTORY Procedure Laterality Date - CORNEA SCRAPING DIAGNOSTIC SMEAR AND/CULTURE 04/12/08 BLOCK CELIAC PLEXUS WITH C-ARM performed by [facility]ALPANDO at [facility] - PAST SURGICAL HISTORY OF Left ankle - PAST SURGICAL HISTORY OF Right wrist - PAST SURGICAL HISTORY OF Left ovary removed - PAST SURGICAL HISTORY OF Left 08/03/2020 ORIF Left tibial fracture - PAST SURGICAL HISTORY OF 1992 Elbow decompression - PAST SURGICAL HISTORY OF 1997,1998,2000 Kidney surgery - PAST SURGICAL HISTORY OF 2001 Left oophrectomy - PAST SURGICAL HISTORY OF Right 05/2015 Right radial fracture - PAST SURGICAL HISTORY OF Left 07/2015 Left knee repair - PAST SURGICAL HISTORY OF Left 07/2020 Revision TAR left ORIF left tibial fracture - PAST SURGICAL HISTORY OF Left 06/28/2021 Left ankle - ROTATOR CUFF REPAIR Right 1990 MEDICATION: Current Outpatient Medications Medication Sig Dispense Refill - traMADol (ULTRAM) 50 mg tablet Take1-2 tablets BY MOUTH EVERY EIGHT HOURS as needed for pain - FORTEO 20 mcg/dose (600mcg/2.4mL) Inject 0.08ml (20mcg) sub-q once daily. - gabapentin (NEURONTIN) 300 mg capsule Take 300 mg by mouth three times daily. - Omeprazole 40 mg capsule Take 1 capsule by mouth once daily. 30 capsule 5 - CALCIUM CARBONATE/VITAMIN D3 (VITAMIN D-3 ORAL) Take by mouth. No current facility-administered medications for this visit. ALLERGIES: ALLERGIES Allergen Reactions - Victryl Sutures [Ot* Intolerance - Codeine Itching - Versed [Midazolam H* FHX: FAMILY HISTORY Problem Relation Age of Onset - other (colon polyps) Sister - Colon Cancer No Family History SHX: Social History Tobacco Use - Smoking status: Never Smoker - Smokeless tobacco: Never Used Substance Use Topics - Alcohol use: No - Drug use: Not on file ROS: Denies any nausea, vomiting, fever, chills, chest pain. Admits to history of bone density disease. OBJECTIVE: The patient presents today ambulatory. She is in regular shoe gear with an ASO brace. She is pleasant. She is awake alert and oriented. She is in mild distress. She has some antalgia with her gait pattern. Examination of the surgical limb shows complete healing of the surgical incisions. There is no wound dehiscence. There is no skin necrosis or slough. There are no signs of cellulitis or bacterial infection. She has some mild edema that is nonpitting to the leg and ankle. There is no sign of a deep venous thrombosis. Pedal pulses are strongly palpable. Warm temperature. Overall normal neurologic examination with no allodynia or hypersensitivity. Motor function is normal. There is disuse atrophy to the lower limb. Ankle joint motion is excellent. She gets at least 20 degrees range of motion. No popping clicking or crepitus. No frontal plane instability. Denies pain with palpation to the peroneal tendons. Peroneal function intact with weakness. No peroneal subluxation or dislocation. Maximal pain is with palpation to the proximal lateral incision today. She does have a palpable hardware prominence. There is no ulceration. There is no drainage. There is localized inflammation however. Reduced pain with palpation to the inferior calcaneus and plantar fascial medial origin. She does have some tenderness with palpation to the proximal incision on the lateral leg near the syndesmotic stabilization. X-rays 3 views weightbearing left ankle taken today?evidence of stable ankle joint prosthesis. Stable plate-screw construct to the distal anterolateral tibia. No subsidence. No ballooning osteolysis. Stable lateral plate fixation to the tibia and fibula however the proximal transsyndesmotic scr (more content not included)...[facility] 08-17-2021 NoteHNO ID: [id number] Author: Rossy Kothari DPM Service: ? Author Type: Physician Type: Progress Notes Filed: 08/17/2021 5:40 PM Note Text: Vibha Rivas, 56 year old, female PCP: Annette Kim MD CC: Post-Op Visit (status post peroneus brevis tendon repair and endoscopic plantar fasciotomy as well as syndesmotic stabilization; DOS 06-28-21) HPI: This is a pleasant 56 year old female returning to clinic today status post peroneal tendon repair, endoscopic fasciotomy and syndesmotic stabilization on 06/28/21. Patient states she is still having pain, pain controlled with pain medicine. Patient is ambulating in CAM boot and attending physical therapy. Patient states pain to medial ankle and to fibula at incision site. Patient denies trauma, discoloration, gross deformity. She is doing formal physical therapy as advised. She is weightbearing in a boot. She has seen a baker paint. They have continued her on 1-2 tramadol every 6 hours. PMH: PAST MEDICAL HISTORY Diagnosis Date - Avascular necrosis (HCC) - Kidney stones - Osteomyelitis (HCC) - Osteopenia Right hip - Osteoporosis left hip PSH: PAST SURGICAL HISTORY Procedure Laterality Date - CORNEAL SMEAR 04/12/08 BLOCK CELIAC PLEXUS WITH C-ARM performed by ABI VILLALPANDO at OR - PAST SURGICAL HISTORY OF Left ankle - PAST SURGICAL HISTORY OF Right wrist - PAST SURGICAL HISTORY OF Left ovary removed - PAST SURGICAL HISTORY OF Left 08/03/2020 ORIF Left tibial fracture - PAST SURGICAL HISTORY OF 1992 Elbow decompression - PAST SURGICAL HISTORY OF 1997,1998,2000 Kidney surgery - PAST SURGICAL HISTORY OF 2001 Left oophrectomy - PAST SURGICAL HISTORY OF Right 05/2015 Right radial fracture - PAST SURGICAL HISTORY OF Left 07/2015 Left knee repair - PAST SURGICAL HISTORY OF Left 07/2020 Revision TAR left ORIF left tibial fracture - PAST SURGICAL HISTORY OF Left 06/28/2021 Left ankle - ROTATOR CUFF REPAIR Right 1990 MEDICATION: Current Outpatient Medications Medication Sig Dispense Refill - traMADol (ULTRAM) 50 mg tablet Take1-2 tablets BY MOUTH EVERY EIGHT HOURS as needed for pain - busPIRone (BUSPAR) 15 mg tablet - FORTEO 20 mcg/dose (600mcg/2.4mL) Inject 0.08ml (20mcg) sub-q once daily. - gabapentin (NEURONTIN) 300 mg capsule Take 300 mg by mouth three times daily. - Omeprazole 40 mg capsule Take 1 capsule by mouth once daily. 30 capsule 5 - DULoxetine (CYMBALTA) 60 mg capsule Take 60 mg by mouth once daily. 6 - hydrOXYzine HCl (ATARAX) 25 mg tablet Take 25 mg by mouth twice daily as needed. 1 - DULoxetine (CYMBALTA) 20 mg capsule Take 20 mg by mouth once daily. - CALCIUM CARBONATE/VITAMIN D3 (VITAMIN D-3 ORAL) Take by mouth. - CALCIUM ORAL Take by mouth. - methylPREDNISolone (MEDROL, RENAE,) 4 mg Dose-Pack Take as dose renae 21 tablet 0 No current facility-administered medications for this visit. ALLERGIES: ALLERGIES Allergen Reactions - Victryl Sutures [Ot* Intolerance - Versed [Midazolam H* FHX: FAMILY HISTORY Problem Relation Age of Onset - other (colon polyps) Sister - Colon Cancer No Family History SHX: Social History Tobacco Use - Smoking status: Never Smoker - Smokeless tobacco: Never Used Substance Use Topics - Alcohol use: No - Drug use: Not on file ROS: CONSTITUTIONAL: no weight loss, no fever/chills, no fatigue HEENT: no poor vision, no hearing loss, no sore throat, no rhinorhea ENDOCRINE: no heat/cold intolerance CHEST: no dyspnea, no wheezing, no cough, no sputum CVS: no chest pain, no palpitations, no swelling GI: no N/V, no abdominal pain, no constipation, no diarrhea : no hematuria, no dysuria HEMATOLOGIC: no unsual bleeding MUSCULOSKELETAL: no myalgia, no arthralgia, left leg pain and foot pain SKIN: no itching, no rashes NEUROLOGIC: no headaches no dizziness, no numbness, no weakness PSYCHIATRIC: no depression, no anxiety OBJECTIVE: The patient presents today ambulatory. She is in the boot. She is pleasant. She is awake alert and oriented. She is in mild distress. She has some antalgia with her gait pattern. Examination of the surgical limb shows complete healing of the surgical incisions. There is no wound dehiscence. There is no skin necrosis or slough. There are no signs of cellulitis or bacterial infection. She has some mild edema that is nonpitting to the leg and ankle. There is no sign of a deep venous thrombosis. Pedal pulses are strongly palpable. Warm temperature. Overall normal neurologic examination with no allodynia or hypersensitivity. Motor function is normal. There is disuse atrophy to the lower limb. Ankle joint motion is excellent. She gets at least 20 degrees range of motion. No popping clicking or crepitus. No frontal plane instability. Denies pain with palpation to the peroneal tendons. Peroneal function intact with weakness. No peroneal subluxation or dislocat (more content not included)...[facility]11-24-2021 Hospital Discharge instructions Activity on Discharge from 06/28/2021 3:24 PM: * Activity Restrictions : No Heavy Lifting,Resume Activity Gradually,No Strenuous Activity,No Tub Baths,No Pushing or Pulling * Driving : No Driving Until Permitted by Physician,No Driving While on Pain Medication * Stairs : As tolerated,With Assistance * Bathing : May Shower,No Tub Baths,Bath / Shower with Assistance * May shower in: : 1 * May shower in: : Day(s) Diet Plan/Instructions at Discharge from 06/28/2021 3:24 PM: * Diet Restrictions : High Fiber,Resume Home Diet,Increase Fluids ED Discharge Education Evaluation from 06/28/2021 12:01 PM: * Educ Topic #1 : Yes Medication Plan/Information for Discharge from 06/28/2021 3:24 PM: * Discharge Medication : Printed Patient Transfer Information from 06/28/2021 3:24 PM: * Diet Restrictions : High Fiber,Resume Home Diet,Increase Fluids Physician Follow-up Plan/Appointments from 06/28/2021 3:24 PM: * Discharge Physician: : Rossy Kothari DPM ([id number]) - Podiatry * Follow up with Ordering Physician : 1 * Discharge Physician Specialty : Week(s) * Discharge Physician Phone: : [phone] [facility] [phone] Special Plan/Instructions for Discharge from 06/28/2021 3:23 PM: * Notify Doctor For: : Fever over 101,If incision(s) have foul drainage/pus, increased drainage or bleeding, or becomes red/swollen or tender,Unable to keep food down,Unable to move bowels or unable tourinate,Increased shortness of breath,Increased/uncontrolled pain Wound Care Instruction for Discharge from 06/28/2021 3:24 PM: * Change Bandage : Keep bandage clean and dry,Do not disturb bandage * Apply ice : to affected extremity/joint,to wound * Elevate affected extremity : Left lower extremity [facility] 06-14-2021 History of Present illness Narrative* Rossy Kothari, JESSICA - 01/16/2021 1:19 PM EDT Name: Vibha Rivas Date of Service: January 16, 2021 CC: This 55 year old female patient presents to the clinic c/o follow-up on her left revisional total ankle replacement and ORIF of tibial fracture nonunion left. She complains of bad pain in the left heel. She admits to pain in the morning. She admits to pain increasing over the course of the day. She describes a sharp and very painful. She continues to have some swelling in the leg. She has some achy pain deep near the bone above thetotal joint replacement region. She states it does limit her a little bit. She is back in regular shoe gear. She is performing all normal activities. She states she has been very active. She is working with her architectural superintendent on her osteopi a and bone density issues. They are considering a different pharmacologic agent at the moment. Temp 36.6 C (97.9 F) No weight on file for this encounter. Tobacco Use: Not on file PAST MEDICAL HISTORY Diagnosis Date Kidney stones Osteomyelitis (HCC) Current Outpatient Medications Medication Sig cyanocobalamin (VITAMIN B-12) 1,000 mcg tab Take by mouth. gabapentin (NEURONTIN) 300 mg capsule Take 300 mg by mouth three times daily. traMADol (ULTRAM) 50 mg tablet Take by mouth three times daily as needed. No current facility-administered medications for this visit. ALLERGIES Not on File PAST SURGICAL HISTORY Procedure Laterality Date PAST SURGICAL HISTORY OF Left 08/03/2020 ORIF Left tibial fracture PAST SURGICAL HISTORY OF 1992 Elbow decompression PAST SURGICAL HISTORY OF 1997,1998,2000 Kidney surgery PAST SURGICAL HISTORY OF 2001 Left oophrectomy PAST SURGICAL HISTORY OF Right 05/2015 Right radial fracture PAST SURGICAL HISTORY OF Left 07/2015 Left knee repair PAST SURGICAL HISTORY OF Left 07/2020 Revision TAR left ORIF left tibial fracture ROTATOR CUFF REPAIR Right 1990 History reviewed. No pertinent family history. Social History Tobacco Use Smoking status: Never Smoker Smokeless tobacco: Never Used Substance Use Topics Alcohol use: Not on file Drug use: Not on file REVIEW OF SYSTEMS Denies nausea, fever, chills, chest pain, shortness of breath, confusion, headache, diabetes, clotting disease. Objective: Patient presents to clinic ambulating in regular shoe gear. Vasc: Mild residual edema nonpitting and minimal to the left foot and ankle. Pulses palpable. Warm temperature. No sign of deep venous thrombosis. Neuro: Light touch sensation intact. Normal motor function. Muscle strength 5/5. No dropfoot or paralysis. No spasticity. Derm: The skin is healthy. No ulceration. No skin crack or fissure. No ecchymosis or erythema noted. Surgical incision nicely healed. No signs of cellulitis or bacterial infection. Ortho: Rectus ankle. Good ankle range of motion. No frontal plane instability. No pain with passiveankle joint range of motion. Tenderness with deep palpation to the tib-fib junction about 7 cm above the tibiotalar joint. There is no crepitus with ankle joint range of motion. There is no pain or crepitus with subtalar midtarsal joint range of motion. She has sharp focal pain with palpation to the plantar medial calcaneal tubercle consistent with plantar fasciitis. There is no pain with calcaneal squeeze. X-rays ankle 3 views weightbearing left stable prosthetic. No periprosthetic lucency. No ballooningosteolysis. No evidence of subsidence. Wide open poly-. No stress fracture of the calcaneus. Cystic-appearing calcaneus secondary to prior autograft harvest. There is a periosteal reaction to the lateral tibial metaphyseal diaphyseal junction. There is no fracture visible. All hardware intact from the ORIF. The prior fracture appears to be healed radiographically. Assessment: ASSESSMENT/PLAN: 1. Acquired pes planovalgus, left - ICD9: 736.79, ICD10: M21.42 (primary diagnosis) Prior surgical reconstruction. Advised supportive shoe gear. Advised orthotics and or ASO brace. 2. Osteochondritis dissecans of ankle, left - ICD9: 732.7, ICD10: M93.272 Status post total ankle replacement. Prosthetic joint looks good. 3. History of total replacement of left ankle - ICD9: V43.66, ICD10: Z96.662 Reviewed radiographs with the patient. 4. Surgical aftercare, musculoskeletal system - ICD9: V58.78, ICD10: Z47.89 6 months status post ORIF tibial nonunion. 5. Plantar fasciitis of left foot - ICD9: 728.71, ICD10: M72.2 We discussed diagnosis. We discussed treatment options. The patient elected for corticosteroid injection. There was sterilely prepped. With patient consent the medial band of the plantar fascia was injected with 40 mg of Depo-Medrol and 1 cc of 0.5% Marcaine plain under sterile conditions. A 27-gauge needle was utilized. She was warned of postinjection flare. The injection site was bandaged with a Band-Aid. I did advise good shoe gear, orthotics, stretching, icing and therapy techniques. Podiatric Office Visit- the etiology of the patient's complaint along with treatment options were explained to the patient. Patient appears to understand and is in agreement with the above treatment plan. All questions wereanswered to the patient's satisfaction with no guarantees given or implied. Speech recognition technology was utilized in the production of this note. 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 Surgical aftercare, musculoskeletal system Aftercare following surgery of the musculoskeletal system, NEC Plantar fasciitis of left foot Plantar fascial fibromatosis documented in this encounter [facility]* Diagnosis Other acute postoperative pain- Primary History of total replacement of left ankle Spontaneous rupture of flexor tendon of left foot Syndesmotic disruption of left ankle, subsequent encounter Pain of joint of left ankle and foot Bone pain of lower leg Painful orthopaedic hardware (HCC) Other complications due to other internal orthopedic device, implant, and graft Post-operative state Other postprocedural status [facility]* Diagnosis History of total replacement of left ankle- Primary Syndesmotic disruption of left ankle, subsequent encounter Pain of joint of left ankle and foot Bone pain of lower leg Post-operative state Other postprocedural status Chronic pain of left ankle Hallux limitus, right [facility]* Diagnosis Chronic pain of left lower extremity- Primary History of left ankle joint replacement [facility] Diagnosis History of total replacement of left ankle- Primary Syndesmotic disruption of left ankle, subsequent encounter Pain of joint of left ankle and foot Bone pain of lower leg Post-operative state Other postprocedural status Chronic pain of left ankle Hallux limitus, right Spontaneous rupture of flexor tendon of left foot Surgical aftercare, musculoskeletal system Aftercare following surgery of the musculoskeletal system, NEC Osteochondritis dissecans of ankle, left Acquired pes planovalgus, left documented in this encounter [facility]. Other Evaluation note* Diagnosis Pre-operative examination- Primary Preoperative examination, unspecified documented in this encounter [facility] note* Diagnosis Hallux rigidus, right foot- Primary documented in this encounter [facility] note* Diagnosis Hallux rigidus, right foot- [facility] [facility] note* Diagnosis Hallux rigidus, right foot- Primary documented in this encounter [facility] note* Diagnosis Hallux rigidus, right foot- Primary Pain in right foot Pain in limb documented in this encounter [facility] note* Diagnosis Hallux rigidus of right foot- Primary Hallux rigidus documented in this encounter [facility] note* Diagnosis Other specified joint disorders, right wrist documented in this encounter [facility] Work Phone: Evaluation note* Diagnosis Sinus tarsitis, left- Primary History of total replacement of left ankle Syndesmotic disruption of left ankle, subsequent encounter Pain of joint of left ankle and foot Post-operative state Other postprocedural status Chronic pain of left ankle documented in this encounter [facility] general Narrative - Reported* Type Description Date Surgical History LEFT ANKLE x 6 Surgical History LEFT KNEE MCL,PCL,LCL Surgical History B/L SHOULDER RCR/ BIGG Surgical History ORIF RIGHT DISTAL RADIUS Surgical History RIGHT ELBOW ULNAR NERVE [facility] Other Hospital course NarrativeL Instructions* Name Dates Details Instructions not documented [facility] Work Phone: Summary Purpose Family History Unknown Family Member Name Dates Details Family history of malignant neoplasm(V16.9, Z80.9) Comments:Multiple Family Mem bers Status:Active Family history of cardiac di sorder(V17.49, Z82.49) Comments:Multiple Family Mem bers Status:Active Mother Name Dates Details Family history of diabetes m ellitus(V18.0, Z83.3) Status:Active Family history of malignant neoplasm(V16.9, Z80.9) Status:Active Father Name Dates Details Family history of diabetes m ellitus(V18.0, Z83.3) Status:Active Family history of malignant neoplasm(V16.9, Z80.9) Status:Active Family history of hypertensi on(V17.49, Z82.49) Status:Active Family history of Kidney sto haily, calcium oxalate(592.0, N20.0) Status:Active Advance Directives Documents on File Type Date Recorded Patient Equipment Maint Tech [facility] Power of Atty 05/01/2018 [facility] Power of Career Coach Living Will 05/01/2018 Living Will Dec laration Chief Complaint Chief Complaint Description Start Date left ankle pain Preliminary chief co mplaint data, not yet signed by the author as of Instructions Instruction Description Start Date Patient advised to follow-up with Primary Care Physician for BMI management. Assessments There may be information available, but it has not been provided by the sender. Review of System There may be information available, but it has not been provided by the sender. History of Present Illness There may be information available, but it has not been provided by the sender. Reason for Referral Specialty Diagnoses / Procedures Referred By Contac t Referred To Contact [facility] Diagnoses Other acute postoperative pain History of total replacement of left ankle Spontaneous rupture of flexor tendon of left foot Syndesmotic disruption of left ankle, subsequent encounter Pain of joint of left ankle and foot Procedures CONSULT TO PHYSICAL THERAPY PHYSICAL THERAPY EVALUATION HIGH COMPLEX 45 MINS Rossy Kothari, JESSICA [address] [facility] [address] [place] [address] [facility] [place] [address] [place] [address] Referral ID Status Reason Start Date Expiration Date Visits Requested Visits Authorized [id number] Pending Review Auto-Generat ed Referral 10/30/2021 10/30/2022 1 1 Specialty Diagnoses / Procedures Referred By Delma t Referred To Contact CT IMAGING Diagnoses Chronic pain of left ankle Procedures CT ANKLE WO IVCON LT CT LOWER EXTREMITY W/O CONTRAST MATERIAL Rossy Kothari, JESSICA [address] [facility] [address] [place] [address] Ct Imaging Referral ID Status Reason Start Date Expiration Date Visits Requested Visits Authorized [id number] Pending Review Auto-Generat ed Referral 01/22/2022 02/21/2023 1 1 Specialty Diagnoses / Procedures Referred By Delma t Referred To Contact Diagnoses Chronic pain of left lower extremity Procedures XR ANKLE LEFT 3+ VIEWS Jose Alas MD [address] [place] [address] Referral ID Status Reason Start Date Expiration Date V isits Requested Visits Authorized [id number] New Request 03/06/2022 03/31/2023 1 1 Specialty Diagnoses / Procedures Referred By Delma t Referred To Contact Diagnoses Chronic pain of left lower extremity Procedures XR FOOT LEFT 3 VIEWS Jose Alas MD [address] [place] [address] Referral ID Status Reason Start Date Expiration Date V isits Requested Visits Authorized [id number] New Request 03/06/2022 03/31/2023 1 1 Additional Source Comments INFORMATION SOURCE (unrecogn ized section and content) DATE CREATED AUTHOR AUTHOR'S ORGANIZ ATION 01/28/2018 [facility] DATE CREATED AUTHOR AUTHOR'S ORGANIZ ATION 02/20/2018 [facility] DATE CREATED AUTHOR AUTHOR'S ORGANIZ ATION 05/06/2019 [facility] DATE CREATED AUTHOR AUTHOR'S ORGANIZ ATION 09/24/2021 [facility] DATE CREATED AUTHOR AUTHOR'S ORGANIZ ATION 06/14/2022 [facility] DATE CREATED AUTHOR AUTHOR'S ORGANIZ ATION 07/31/2022 [facility] DATE CREATED AUTHOR AUTHOR'S ORGANIZ ATION 08/02/2022 [facility] DATE CREATED AUTHOR AUTHOR'S ORGANIZ ATION 08/18/2022 [facility] DATE CREATED AUTHOR AUTHOR'S ORGANIZ ATION 11/06/2022 [facility] DATE CREATED AUTHOR AUTHOR'S ORGANIZ ATION 05/26/2023 [facility] Reason for Visit (unrecogniz ed section and content) Reason Comments Follow Up Left total ankle rep lacement 07/24 Reason Comments Follow Up Lt ankle TAR pcp Omari 03-19-21 Reason Comments Acute postoperative pain Reason Comments Pain Pt reports today wit h L foot and ankle pain. She has hx of L ankle sx and replacements. She states that she feels very weak and unstable. Pain can reach up to 10/10. She reports pain with most activities. Some n/t present. Specialty Diagnoses / Procedures Referred By Delma toscano Referred To Contact Diagnoses Chronic pain of left lower extremity Procedures XR FOOT LEFT 3 VIEWS Jose Alas MD [address] [place] [address] Referral ID Status Reason Start Date Expiration Date V isits Requested Visits Authorized [id number] New Request 03/06/2022 03/31/2023 1 1 Specialty Diagnoses / Procedures Referred By Delma toscano Referred To Contact Diagnoses Chronic pain of left lower extremity Procedures XR ANKLE LEFT 3+ VIEWS Jose Alas MD [address] [place] [address] Referral ID Status Reason Start Date Expiration Date V isits Requested Visits Authorized [id number] New Request 03/06/2022 03/31/2023 1 1 Reason Comments History of total ankle replacement Reason Comments Consult Reason Comments Post Operative Check Reason Comments Post Op 07/30 Reason Comments Post Op Right great toe Reason Comments Post Op Reason Comments Schedule Surgery Reason Comments Surgery Scheduling' Reason Comments Follow Up Left ankle. Dr. Khoi summers thinks she has scar tissue. She is having pain. Dr. Dangelo's office took xrays. Source Comments (unrecognize d section and content) In the event this informatio n is protected by the Federal Confidentiality of Alcohol and Drug Abuse Patient Records regulations: The Federal rules restrict any use of the information to criminally investigate or prosecute any alcohol or drug abuse patient.[facility] HealthIn the event this information is protected by the Federal Confidentiality of Alcohol and Drug Abuse Patient Records regulations: The Federal rules restrict any use of the information to criminally investigate or prosecute any alcohol or drug abuse patient.[facility] HealthIn the event this information is protected by the Federal Confidentiality of Alcohol and Drug Abuse Patient Records regulations: The Federal rules restrict any use of the information to criminally investigate or prosecute any alcohol or drug abuse patient.[facility] HealthIn the event this information is protected by the Federal Confidentiality of Alcohol and Drug Abuse Patient Records regulations: The Federal rules restrict any use of the information to criminally investigate or prosecute any alcohol or drug abuse patient.[facility] HealthIn the event this information is protected by the Federal Confidentiality of Alcohol and Drug Abuse Patient Records regulations: The Federal rules restrict any use of the information to criminally investigate or prosecute any alcohol or drug abuse patient.[facility] HealthIn the event this information is protected by the Federal Confidentiality of Alcohol and Drug Abuse Patient Records regulations: The Federal rules restrict any use of the information to criminally investigate or prosecute any alcohol or drug abuse patient.[facility] HealthIn the event this information is protected by the Federal Confidentiality of Alcohol and Drug Abuse Patient Records regulations: The Federal rules restrict any use of the information to criminally investigate or prosecute any alcohol or drug abuse patient.[facility] HealthIn the event this information is protected by the Federal Confidentiality of Alcohol and Drug Abuse Patient Records regulations: The Federal rules restrict any use of the information to criminally investigate or prosecute any alcohol or drug abuse patient.[facility] HealthIn the event this information is protected by the Federal Confidentiality of Alcohol and Drug Abuse Patient Records regulations: The Federal rules restrict any use of the information to criminally investigate or prosecute any alcohol or drug abuse patient.[facility] HealthIn the event this information is protected by the Federal Confidentiality of Alcohol and Drug Abuse Patient Records regulations: The Federal rules restrict any use of the information to criminally investigate or prosecute any alcohol or drug abuse patient.[facility] HealthIn the event this information is protected by the Federal Confidentiality of Alcohol and Drug Abuse Patient Records regulations: The Federal rules restrict any use of the information to criminally investigate or prosecute any alcohol or drug abuse patient.[facility] HealthIn the event this information is protected by the Federal Confidentiality of Alcohol and Drug Abuse Patient Records regulations: The Federal rules restrict any use of the information to criminally investigate or prosecute any alcohol or drug abuse patient.[facility] Goals (unrecognized section and content) Goals from 06/28/2021 3:24 PM:Goal for Diet : Maintain Balanced DietGoal for Mobility : Position body/joint as needed to relieve pain/stress,Maintain active lifestyle as tolerated,Medicate as prescribed to maintain comfort level,Decrease/Manage Pain No InformationNo InformationNo InformationNo InformationNo InformationNo InformationNo InformationNo InformationNo Information Care Teams (unrecognized sec tion and content) Equipment Maintenance Supervisor Relationship Specialty Start Date End Date Martinsilvana Janethed Chinchilla [address] [place], [place] [phone] PCP - General Family Practice 10/02/21 Equipment Maintenance Supervisor Relationship Specialty Start Date End Date OmariKarsonJanethed Chinchilla [address] [place], [place] [phone] PCP - General Family Practice 10/02/21 Equipment Maintenance Supervisor Relationship Specialty Start Date End Date Janeth Salcido [address] [place], [place] [phone] PCP - General Family Medicine 10/02/21 Equipment Maintenance Supervisor Relationship Specialty Start Date End Date Janeth Salcido [address] [place], [place] [phone] PCP - General Family Medicine 10/02/21 Equipment Maintenance Supervisor Relationship Specialty Start Date End Date Janeth Salcido MD [address] [place], [place] [address] PCP [facility] 10/02/21 Equipment Maintenance Supervisor Relationship Specialty Start Date End Date Janeth Salcido MD [address] [place], [place] [address] PCP [facility] 10/02/21 Equipment Maintenance Supervisor Relationship Specialty Start Date End Date Janeth Salcido MD [address] [place], [place] [phone] PCP [facility] 10/02/21 Equipment Maintenance Supervisor Relationship Specialty Start Date End Date Janeth Salcido MD [address] [place] [address] PCP [facility] 10/02/21 Equipment Maintenance Supervisor Relationship Specialty Start Date End Date Annette Kim MD [facility] General 05/03/09 Equipment Maintenance Supervisor Relationship Specialty Start Date End Date Janeth Salcido MD [address] [place] [address] [facility] 10/02/21 FOR RECORDS PERTAINING TO PATIENTS WHO ARE OR HAVE BEEN ENROLLED IN A CHEMICAL DEPENDENCY/SUBSTANCEABUSE PROGRAM, SOME INFORMATION MAY BE OMITTED. This clinical summary was aggregated from multiple sources. Caution should be exercised in using it in the provision of clinical care. This summary normalizes information from multiple sources, and as a consequence, information in this document may materially change the coding, format and clinical context of patient data. In addition, data may be omitted in some cases. CLINICAL DECISIONS SHOULD BE BASED ON THE PRIMARY CLINICAL RECORDS. [facility] provides no warranty or guarantee of the accuracy or completeness of information in this document.
[2023-08-13 12:07] LABS: Absolute Neutrophil Count 3.4 X10^3/uL (2.0-7.7); Basophil# 0.07 X10^3/uL; Eosinophil# 0.18 X10^3/uL; Eosinophils% 2.7 % (0-5); Hematocrit 37.8 % (37-47); Hemoglobin 12.3 g/dL (12.0-15.0); Lymphocyte % 37.4 % (19-41); Mean Corp Hgb Conc 32.5 g/dL (32-36); Mean Corpuscular Volume 92.2 fL (81-99); Mean Platelet Vol. 10.9 fl (6.2-12.0); Monocyte# 0.48 X10^3/uL; Monocyte% 7.2 % (0-10); NRBC Flagged by Analyzer 0 % (0-5); Neutrophil # 3.35 X10^3/uL (2.7-7.7); Neutrophil % 50.2 % (47-70); Platelet Count 318 K/mm3 (150-450); RBC Distribution Width CV 13.1 % (11.6-14.6); RBC Distribution Width SD 44.4 fl (35.1-43.9); White Blood Count 6.7 K/mm3 (4.4-11.0)
[2023-08-13 12:44] LABS: ALB/GLOB Ratio 1.2 RATIO (0.9-2.4); AST(SGOT) 16 U/L (15-37); Alanine Aminotransfer ALT/SGPT 31 U/L (13-56); Albumin, Serum 3.6 g/dL (3.2-5.0); Alkaline Phosphatase 57 U/L (45-117); Anion Gap 4 (5-15); BUN 19 mg/dL (7-18); BUN/Creat Ratio 25.9 RATIO (10-20); Calcium,Total 9.4 mg/dL (8.5-10.1); Chloride 107 mmol/L (98-107); Cholesterol 184 mg/dL (200); Creatinine, Serum 0.74 mg/dL (0.55-1.02); EST Glomerular Filtration Rate 87 mL/min (>60); Est Glom Filt Rate - Afr Amer 105 mL/min (>60); Globulin 3.1 g/dL (2.2-4.2); Glucose 94 mg/dL (74-106); High Density Lipoprotein 82 mg/dL; Potassium 4.5 mmol/L (3.5-5.1); Protein, Total 6.7 g/dL (6.4-8.2); Sodium Level 136 mmol/L (136-145); Triglycerides 130 mg/dL; Very Low Density Lipoprotein 26 mg/dL (5-40)
[2023-08-13 14:12] LABS: Vitamin D,25 Hydroxy 27.7 ng/mL
== END | disposition home or self-care (01) ==
PROVIDERS: PCP Family Medicine; Visit Provider Family Medicine
DX: Z00.00 Encounter for general adult medical examination without abnormal findings (principal); E55.9 Vitamin D deficiency, unspecified; M81.0 Age-related osteoporosis without current pathological fracture
CPT/HCPCS: 36415; 80053; 80061; 82306; 85025

== ENCOUNTER 2023-08-23 10:49 | Day surgery (SDC) | payer MEDICARE, SELFPAY ==
[2023-08-23] VITALS (12 sets, daily range): BP systolic 127–147; BP diastolic 79–101; PULSE 65–83; RESP 14–18; TEMP 36.7–37.2; O2SAT 96–100; BMI 24.8
--- OUTSIDE RECORDS SUMMARY | 2023-08-23 11:16 | XMS RPT_ITS | CCD ---
Author Name Unknown Address [address] [place] [address] Organization [facility] Care Team Providers Care Jig Builder Name Role Phone Annette Kim Unavailable Unavailabl e Goudiaby, Bert Unavailable Unavailable Goudiaby, Bert Unavailable Unavailable Goudiaby, Bert Unavailable Unavailable Jayne Perez Unavailable UnavailAnnette Almonte Unavailable Unavailabl vijaya Fernandes MD, Noel Ontiveros Unavailable [phone] Annette Kim MD Unavailable Unavailable Annette Kim Unavailable Unavailable Unavailable Primary Care Provider Unavailabl e PCP, Other Primary Care Provider Performer Janeth Salcido Primary Care Provider JAYNE PEREZ Unavailable Unavailable Primary Care Provider [...] Unavailable Annette Kim MD Primary Care Provider Allergies Allergy Classification Reported Allergen(s) Allergy Type Date of Onset Reaction(s) Facility Benzodiazepines (1 source) Midazolam Drug Allergy [facility] Work Phone: (11 sources) Midazolam; Translations: [Versed] Drug Allergy 0 Unknown [facility] Work Phone: (1 source) VICRYL SUTURE drug allergy 0 [facility] Work Phone: (1 source) VICRYL SUTURES (as Miscellaneous allergen) causes Severe DOESN'T DISSOLVE, FORMS ABCSES. Status:Active.; Translations: [VICRYL SUTURES] Allergy to Substance [facility] (15 sources) Codeine; Translations: [CODEINE] Drug Allergy 1 Itching [facility] (13 sources) Midazolam; Translations: [MIDAZOLAM HCL] Drug Allergy 8 [facility] (11 sources) Victryl Sutures [Other] Propensity to adverse reactions 8 Intolerance [facility] (9 sources) VICRYL SUTURES Propensity to adverse reactions Unknown [facility]. Other (2 sources) Midazolam Drug Allergy 8 [facility] (2 sources) *Sutures Propensity to adverse reactions 2 [facility] (2 sources) OTHER; Translations: [OTHER] Propensity to adverse reactions (disorder) 8 [facility] Repository (1 source) ALLERGIES NOT ON FILE; Translations: [ALLERGIES NOT ON FILE] Propensity to adverse reactions (disorder) [facility] 3 Repository NEGATED: Highlighted row has been ruled out! (1 source) natural latex rubber; Translations: [LATEX, NATURAL RUBBER] Drug allergy (disorder) [facility] NEGATED: Highlighted row has been ruled out! (1 source) No IV Contrast Allergy.; Translations: [IV Dye, Iodine Containing] Drug allergy (disorder) [facility] Medications Current Medications Medication Drug Class(es) [...] 97.5 [degF] Rossy Kothari DPM Work Phone: [facility] 09-05-2022 13:27-0500 Body temperature 97.81 [degF] Tania Pimentel DPM Work Phone: [facility] 08-15-2022 15:19-0500 Body temperature 97.81 [degF] Tania Pimentel DPM Work Phone: [facility] 08-08-2022 11:50-0500 Body temperature 97.81 [degF] Tania Pimentel DPM Work Phone: [facility] 07-23-2022 14:24-0500 Body height 157.5 cm Pacc 1 Work Phone: [facility] 07-23-2022 14:24-0500 Body temperature 99 [degF] Pacc 1 Work Phone: [facility] 07-23-2022 14:24-0500 Body weight 65.32 kg Pacc 1 Work Phone: [facility] 07-23-2022 14:24-0500 Diastolic blood pressure 60 mm[Hg] Pacc 1 Work Phone: [facility] 07-23-2022 14:24-0500 Heart rate 106 /min Pacc 1 Work Phone: [facility] 07-23-2022 14:24-0500 Respiratory rate 16 /min Pacc 1 Work Phone: [facility] 07-23-2022 14:24-0500 SaO2% (BldA) [Mass fraction] 98 % Pacc 1 Work Phone: [facility] 07-23-2022 14:24-0500 Systolic blood pressure 112 mm[Hg] Pacc 1 Work Phone: [facility] 03-29-2022 12:54-0400 Body temperature 98.1 [degF] Rossy Kothari DPM Work Phone: [facility] 03-08-2022 14:02-0400 Body height 157.5 cm Jose Alas MD Work Phone: [facility] 03-08-2022 14:02-0400 Body mass index (BMI) [Ratio] 24.69 kg/m2 Jose Alas MD Work Phone: [facility] 03-08-2022 14:02-0400 Body weight 61.24 kg Jose Alas MD Work Phone: [facility] 01-22-2022 13:11-0400 Body temperature 97.11 [degF] Rossy Kothari DPM Work Phone: [facility] 10-30-2021 13:04-0400 Body temperature 98.01 [degF] Rossy Kothari DPM Work Phone: [facility] 06-28-2021 12:00-0500 Body mass index (BMI) [Ratio] 26.15 kg/m2 DPM Rossy Kothari DPM S 06-28-2021 12:00-0500 Body weight 64.86 kg DPM Rossy Kothari DPM S 01-16-2021 13:25-0400 Body temperature 97.9 [degF] Rossy Kothari DPM Work Phone: [facility] NEGATED: Highlighted [id number] 08:52-0500 BMI (Body Mass Index) 27.35 kg/m2 Maryse Anabela AT [facility] Work Phone: NEGATED: Highlighted [id number] 08:52-0500 Body weight 67.59 kg Maryse Anabela AT [facility] Work Phone: NEGATED: Highlighted [id number] 08:52-0500 Body weight 68 kg Maryse Anabela AT [facility] Work Phone: NEGATED: Highlighted [id number] 08:52-0500 Heart rate 2+ Maryse Anabela AT [facility] Work Phone: NEGATED: Highlighted [id number] 08:52-0500 Height 157.48 cm Maryse Anabela AT [facility] Work Phone: NEGATED: Highlighted [id number] 08:52-0500 Height 157 cm Maryse Anabela AT [facility] Work Phone: Encounters Encounter Date Encounter Type Care Provider Facility Start: 07-08-2023 End: 07-08-2023 Patient encounter procedure Rossy Kothari DPM Work Phone: [facility] [...] DTaP,Tdap,Td Vaccine (5 - Td or Tdap) [facility] Start: 04-24-2027 Colonoscopy COLONOSCOPY [facility] Start: 04-24-2027 COLORECTAL CANCER SCREENING COLORECTAL CANCER SCREENING [facility] Start: 04-24-2027 Screening for malignant neoplasm of colon [facility] Start: 05-17-2025 Urine microalbumin profile DTAP,TDAP,TD (2 - Td or Tdap) [facility] Start: 04-05-2023 Covid-19 Vaccine () Covid-19 Vaccine () [facility] Start: 04-05-2023 Influenza vaccination [facility] Start: 08-05-2022 DEPRESSION ASSESSMENT DEPRESSION ASSESSMENT [facility] Start: 06-14-2022 Shingrix Vaccine (2 of 2) Shingrix Vaccine (2 of 2) [facility] Start: 06-13-2022 End: 06-13-2022 Telemedicine consultation with patient 06/13/2022 Telemedicine Orthopaedics Jose Alas MD [address] [place] [phone] Orthopedics Outpatient Care [facility] Start: 04-05-2022 Influenza vaccination [facility] Start: 11-03-2021 COVID-19 VACCINE (4 - Booster for Pfizer series) COVID-19 VACCINE (4 - Booster for Pfizer series) [facility] Start: 04-05-2021 Influenza vaccination [facility] Start: 07-05-2020 End: 07-05-2020 Appointment Appointment [facility] Work Phone: Start: 07-05-2020 End: 07-05-2020 Radex ankle complete minimum 3 views XR ANKLE 3 VWS-LT [facility] Work Phone: Start: 08-18-2018 DTaP/Tdap/Td Vaccines (2 - Tdap) DTaP/Tdap/Td Vaccines (2 - Tdap) [facility] Start: 05-18-2018 DIABETES SCREEN DIABETES SCREEN [facility] Start: 05-18-2018 Diabetes Screening Diabetes Screening [facility] Start: 08-02-2017 Screening for malignant neoplasm of cervix [facility] Start: 2017 Screening for malignant neoplasm of colon [facility] Start: 2017 SHINGRIX VACCINE (1 of 2) SHINGRIX VACCINE (1 of 2) [facility] Start: 2017 Zoster vaccine hzv live for subcutaneous use ZOSTER (SHINGLES) VACCINE (1 of 2) [facility] Start: 2017 Zoster Vaccines (1 of 2) Zoster Vaccines (1 of 2) [facility] Start: 10-22-2015 Screening for malignant neoplasm of breast Mammogram [facility] Start: 01-20-2012 COLOGUARD (FIT-DNA) COLOGUARD (FIT-DNA) [facility] Start: 01-20-2012 Colonoscopy COLORECTAL CANCER SCREENING DISCUSSION [facility] Start: 01-20-[address] COLONOGRAPHY [facility] Start: 01-20-2012 DIABETES SCREEN DIABETES SCREEN [facility] Start: 01-20-2012 FECAL OCCULT BLOOD FECAL OCCULT BLOOD [facility] Start: 01-20-2012 Lipid 1996 panel - Serum or Plasma Lipid Screening [facility] Start: 01-20-2012 LIPID SCREEN LIPID SCREEN [facility] Start: 01-20-2012 SIGMOIDOSCOPY SIGMOIDOSCOPY [facility] Start: 2007 Fasting lipid profile LIPID SCREENING [facility] Start: 2007 Mammography [facility] Start: 2007 Screening mammography MAMMOGRAM SCREENING DISCUSSION [facility] Start: 1997 HPV TESTING HPV TESTING [facility] Start: 01-20-1988 PAP TESTING PAP TESTING [facility] Start: 01-20-1988 Screening for malignant neoplasm of cervix [facility] Start: 1986 Third diphtheria, tetanus and acellular pertussis (DTaP) vaccination TDAP (ADULT) [facility] Start: 1986 Urine microalbumin profile DTAP,TDAP,TD (1 - Tdap) [facility] Start: 1985 HEPATITIS C SCREENING HEPATITIS C SCREENING [facility] Start: 1985 Hepatitis C screening Hepatitis C Screening [facility] Start: 1985 HIV SCREENING HIV SCREENING [facility] Start: 1985 [facility] Start: 1982 HIV screening HIV SCREENING DISCUSSION [facility] Start: 1979 Adult depression screening assessment DEPRESSION SCREENING [facility] Start: 1979 COVID-19 VACCINE (1) COVID-19 VACCINE (1) [facility] Start: 01-20-1968 MMR Vaccines (1 of 1 - Standard series) MMR Vaccines (1 of 1 - Standard series) [facility] Start: 1967 COVID-19 Vaccine (#1) COVID-19 Vaccine (#1) [facility] Start: 1967 HEPATITIS B (1 of 3 - 3-dose series) HEPATITIS B (1 of 3 - 3-dose series) [facility] Start: 1967 Hepatitis B Vaccine (1 of 3 - 3-dose series) Hepatitis B Vaccine (1 of 3 - 3-dose series) [facility] Start: 1967 Hepatitis B Vaccines (1 of 3 - 3-dose series) Hepatitis B Vaccines (1 of 3 - 3-dose series) [facility] Start: 1967 Hepatitis C antibody, confirmatory test HEPATITIS C VIRUS SCREENING [facility] Start: 1967 HIV screening HIV Screening [facility] Start: 1967 Lipid panel Lipid Panel [facility] Start: 1967 Screening for malignant neoplasm of colon [facility] Start: 1967 Yearly Adult Physical Yearly Adult Physical [facility] End: 02-21-2023 Ct lower extremity w/o contrast material CT ANKLE WO IVCON LT Radiology Routine Chronic pain of left ankle 1 Occurrences starting 01/22/2022 until 02/21/2023 [facility] Work Phone: Immunizations Immunization Date Immunization Notes Care Provider Atif [email or web address] 04-05-2022 influenza virus vaccine, unspecified formulation Rossy Kothari DPM Work Phone: [facility] 05-30-2018 influenza, injectable, quadrivalent, preservative free; Translations: [INFLUENZA VACCINE QUAD] DPM Rossy Kothari DPM S 05-30-2018 influenza virus vaccine, unspecified formulation Jose Alas MD Work Phone: [facility] 05-16-2017 influenza, injectable, quadrivalent, preservative free; Translations: [INFLUENZA VACCINE QUAD] DPM Rossy Kothari DPM S 05-17-2015 tetanus toxoid, reduced diphtheria toxoid, and acellular pertussis vaccine, adsorbed Rossy Kothari DPM Work Phone: [facility] Work Phone: 05-16-2015 influenza, seasonal, injectable Annette Kim MD [facility] Work Phone: 09-02-2014 influenza, seasonal, injectable Annette Kim MD [facility] Work Phone: 08-18-2008 diphtheria, tetanus toxoids and acellular pertussis vaccine Annette Kim MD [facility] Work Phone: NEGATED: Highlighted row has not occurred!05-16-2017 influenza, injectable, quadrivalent, preservative free; Translations: [INFLUENZA VACCINE QUAD] Patient Objection DPM Rossy Kothari DPM [facility] Payers Date Payer Category Payer Medicare [id number] 2020 Private Health Insurance [id number] 1967 Unknown [id number]. [id number] 1967 Unknown [id number]. 2.594 1967 Unknown [id number]. 2.594 1967 Unknown [id number]. 2.594 1967 Unknown [id number]. 2.594 1967 Unknown [id number] [id number]. 2.693 1967 Unknown [id number] [id number]. 2.693 1967 Unknown [id number] [id number]. 2.693 1967 Unknown [id number] [id number]. 2.693 1967 Unknown [id number] [id number]. 2.693 1967 Unknown [id number] [id number]. 2.693 Private Health Insurance [id number] Unknown [facility] [employer] [place] [facility] [employer] PAYOR [id number] Effective for all dates [address] [place] [address] Other Social History Date Type Detail Facility Start: 01-16-2021 End: 07-23-2022 Tobacco smoking status NHIS Never smoker [facility] Start: 01-16-2021 End: 07-23-2022 Tobacco use and exposure Never used [facility] Start: 1965 Sex Assigned At Not on file [facility] Start: 10-20-2021 End: 03-29-2022 Exposure to SARS-CoV-2 (event) Not sure [facility] Start: 10-30-2021 End: 07-08-2023 Alcohol intake Current non-drinker of alcohol (finding) [facility] Start: 09-05-2022 End: 07-08-2023 Sex Assigned At [facility]. Other Start: 09-05-2022 End: 07-08-2023 History of Social function [facility] National Score (1-100), lower number is lower risk 87 [facility] Tobacco smoking status NHIS Tobacco smoking consumption unknown [facility] Work Phone: NEGATED: Highlighted rowStart: 07-05-2020 End: 07-05-2020 Alcohol use Alcohol use [facility] Work Phone: NEGATED: Highlighted rowStart: 07-05-2020 End: 07-05-2020 Details of drug misuse behavior Details of drug misuse behavior [facility] Work Phone: NEGATED: Highlighted rowStart: 07-05-2020 End: 07-05-2020 Employment detail Employment detail [facility] Work Phone: NEGATED: Highlighted rowStart: 07-05-2020 End: 07-05-2020 How many days of moderate to strenuous exercise, like a brisk walk, did you do in the last 7 days? How many days of moderate to strenuous exercise, like a brisk walk, did you do in the last 7 days? [facility] Work Phone: NEGATED: Highlighted rowStart: 07-05-2020 End: 07-05-2020 Assertion Never smoker [facility] Work Phone: NEGATED: Highlighted row - - [facility] Work Phone: Medical Equipment Procedure Code Equipment Code Equipment Origin al Text Equipment Identifier Dates 2.7mm Locking Screw/L14mm [id number] Start: 08-01-2022 Plate Variax Cur ve Bone 5 Hole Nonsterile Right Foot - [id number] Start: 08-01-2022 Screw Bone T10 F /T 3.5x26mm [id number] Start: 08-01-2022 Functional Status Date Assessment Result Facility NEGATED: Highlighted row Functional performance Functional status health issues are not documented Disease [facility] Work Phone: Mental Status Date Assessment Result Facility NEGATED: Highlighted row Cognitive function [Interpretation] Cognitive status health issues are not documented Disease [facility] Work Phone: Clinical Notes 01-16-2021 to [...] been very active. She is traveling to [place] for her medical mission trip in September. [...] left hip Current Outpatient Medications Medication Sig [id number] ORAL Take by mouth. traMADol (ULTRAM) 50 [...] of corticosteroid injections. She is traveling to [place] in September. I advised her to call [...] Rossy Kothari DPM documented in this encounter [facility]. Other 09-21-2023 NotePROCEDURE: FOREARM RT 2 VIEW - FXR 0052 REASON FOR EXAM: pain RESULT: Patient Name: VIBHA RIVAS STUDY: FOREARM RT 2 VIEW; 04/25/2023 9:15 am INDICATION: pain. Follow-up of ORIF distal radius and ulnar fracture. COMPARISON: 24 January 2023. ACCESSION NUMBER(S): [id number] ORDERING CLINICIAN: JAYNE PEREZ TECHNIQUE: 2 view of the forearm [...] of the wrist as described. Dictation workstation: [id number] Original Interpreting Physician: ARYAN PALACIOS MD Original Transcribed by/Date: MMODAL Apr 25 2023 9:10A Original Electronically Signed by/Date: ARYAN PALACIOS MD Apr 25 2023 11:14A Addendum Interpreting Physician: Addendum Transcribed by/Date: NO ADDENDUM Addendum Electronically Signed by/Date: SYNGO [id number] Evaluation note* Encounter Date Diagnosis Assessment Notes [...] performance and is accurate and complete. 01/24/23 [facility]. Other 04-27-2023 Evaluation note* Encounter Date Diagnosis [...] performance and is accurate and complete. 11/29/22 [facility]. Other 03-23-2023 History of Present illness Narrative* [...] available appointment. The visit was performed using [employer] Vibha Rivas has consented to this telemedicine encounter. Persons Present: patient Chief Complaint/Reason: Telephone consultation for hallux rigidus right foot. Has seen and been followed by Dr. Blevins for above and now wishes to schedule surgery in his absence. HPI: Chronic pain to right first metatarsal phalangeal joint consistent with end-stage hallux rigidus. She has trialed conservative treatment consisting of shoe changes, msrc-uqu-piicxqg orthotics, custom orthotics, chha-ntw-pzdjjlg and prescription medication all without significant relief. [...] Time Spent: 21-30 minutes Tania Pimentel DPM, [facility] [address] [place] [address] W [email or web address] F M [email or web address] documented in this [facility] Evaluation note* Encounter Date Diagnosis Assessment Notes Treatment Notes Treatment Clinical Notes Oct, Other specified joint disorders, right wrist (ICD-10 - M25.831) [facility]. Other 02-01-2023 History of Present illness Narrative* [...] left hip Current Outpatient Medications Medication Sig [id number] ORAL Take by mouth. traMADol (ULTRAM) 50 [...] Daniel Presley DPM PGY-3 documented in this [facility] History of Present illness Narrative* Tania Pimentel [...] left hip Current Outpatient Medications Medication Sig [id number] ORAL Take by mouth. traMADol (ULTRAM) 50 [...] Alf Pinzon DPM PGY-2 documented in this encounterK[facility]01-04-2023 History of Present illness Narrative* Tania Pimentel [...] she would be healed to travel to [place] for a medical mission trip by early [...] needed for nausea/vomitingfor up to 7 days. [id number] ORAL Take by mouth. traMADol (ULTRAM) 50 [...] she is healed sufficiently to travel to [place] for medical mission trip. Follow up 1 week. Tania Pimentel DPM documented in this encounterK[facility]12-29-2022 Miscellaneous Notes* Telephone Encounter - Ebony Gayle, DPM - 08/02/2022 1:52 PM EST Telephone Encounter Vibha Rivas [id number] Reason for call: Post op check, [...] up to 7 days. 21 tablet 0 [id number] ORAL Take by mouth. traMADol (ULTRAM) 50 [...] post-op visit. If any issues patient has media consultant outside sales podiatry pager number and is to contact if any issues or go to ED if unable to reach resident. All questions answered and patient agrees with plan. Ebony Gayle DPM PGY-2 08/02/22 1:53 PM documented in this encounterKet[facility]12-28-2022 NoteHNO ID: [id number] Author: Jayleen Whitaker MD Service: Anesthesiology Author Type: Anesthesiologist Type: Anesthesia Procedure Notes Filed: 08/01/2022 6:03 PM Note Text: ANESTHESIOLOGY PROCEDURE NOTE Airway General Information Procedure Start Time/Medication Administration: 08/01/2022 3:40 PM Patient location during procedure: OR Timeout Performed Pre-procedure: timeout performed Consent Obtained: Yes Patient identity confirmed: arm band Staffing Anesthesiologist: Wilmer Zurita MD Performed by: anesthesiologist and DI[employer]OND SI[employer]ER AND GRADER Indications and Patient Condition Indications for airway [...] airway SIGNATURE: Wilmer Zurita MD PATIENT NAME: iVbha Rivas DATE: August 01, 2022 TIME: 3:54 PM CSN: [id number] NoteHNO ID: [id number] Author: Jayleen Whitaker MD Service: Anesthesiology Author [...] August 01, 2022 TIME: 2:12 PM CSN: [id number] NoteHNO ID: [id number] Author: Hawa Tan DPM Service: Podiatry Author [...] I discussed the management with the resident. Tania Pimentel DPM, [facility]AC[facility]AS PODIATRIC PRE-OPERATIVE NOTE SERVICE [...] Urine Negative 09/14/2016 Nitrites Negative 09/14/2016 Specific [place], Ur 1.027 09/14/2016 Protein, Urine Negative 09/14/2016 [...] Rivas DATE: August 01, 2022 TIME: 1:44 [facility]12-19-2022 Instructions* Patient Instructions* Alicja Hebert APRN.[facility] - 07/23/2022 2:36 PM EST PATIENT PREOPERATIVE INSTRUCTIONS Tania Pimentel DPM has scheduled you for your procedure at this surgery center: [facility]: [phone] --[address] [place] [address]. On your scheduled day of surgery, please [...] Procedures: - YOU MUST HAVE A RESPONSIBLE TIP BANDING MACHINE OPERATOR TAKE YOU HOME. A PRESCHOOL DISABILITY TEACHER OR TITLE OFFICER CANNOT BE MADE A RESPONSIBLE TIP BANDING MACHINE OPERATOR. - We recommend that a responsible person [...] Advance Directive, please fax a copy to [phone] or email to for it to be [...] day. Alicja Hebert APRN.CNP documented in this encounterK[facility]12-19-2022 History and physical note * Alicja Hebert [...] fevers. Neurological: No history of TIA's, stroke, POLE CLASSIFIER tumor, impaired sensorium, hemiplegia, paraplegia orquadraplegia. No neurological symptoms or problems. Respiratory: No history of current cough or dyspnea, or pneumonia in the past 6 weeks. No history of respiratory/pulmonary symptoms or problems. Cardiovascular: No history of HTN requiring medication, no history of angina, CHF, MO, cardiac surgery or stents. Denies rest pain, gangrene or revascularization/amputation for PVD. No history of cardiovascular symptoms or problems. GI: No history of GI symptoms or problems. No history of esophageal varices, recent ascites, or ETOH greater than 2 drinks per day. : Positive for: nephrolithiasis. Negative for: urinary incontinence, renal failure and urinary tract infection. 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 Taking Yes traMADol [...] or any previous visit (from the past 20940 hour(s)). Assessment No problem-specific Assessment & Plan [...] large neck Non-male patient STOP-Bang Score: 1 [id number] Score: Age: <65 Sex: female CHF history: No Hypertension history: No Stroke/TIA/thromboembolism history: No Vascular disease history: No Diabetes history: No [id number] Score: 1 ARISCAT Score: Age: 51-80 Preoperative [...] and consent discussed: yes. Patient / Responsible Republican agrees to proceed: yes Patient / Surrogate agrees to blood products: blood products not planned Prepared for Surgery: optimally prepared for surgery. CONSULTS: Patient does not require consults for optimization at this time Planned Anesthetic: other anesthesia choice The Following Tests/Procedures Have Been Initiated: Orders Placed This Encounter [id number] ORAL Sig: Take by mouth. Instructions Given to Patient: Instructions located in the after visit summary. Patient given verbal and written preop instructions and voices comprehension and compliance. SIGNATURE: Alicja Hebert APRN.CNP PATIENT NAME: Vibha Rivas DATE: July 23, 2022 TIME: 2:32 PM PAGER/CONTACT #: documented in [facility] Miscellaneous Notes* Telephone Encounter - Tania Pimentel DPM - 07/15/2022 11:11 AM EST Completed * Telephone Encounter - Jayna Gregory MA - 07/09/2022 1:47 PM EST Vibha is scheduled [facility]. Please complete orders documented in this encounterK[facility]11-17-20[facility] Evaluation note* Encounter Date Diagnosis Assessment Notes [...] personal performance and is accurate and complete. [facility]. 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 Other 08-25-2022 NoteHNO ID: [id number] Author: Rossy Kothari DPM Service: ? Author [...] degrees at best. Radiograp (more content not included)...[facility]08-25-2022 History of Present illness Narrative* Rossy Kothari, [...] given or implied. Students / Residents / [place] involved with this patient's care and office visit were supervised and all treatment rendered was under the direct observation of myself. Speech recognition technology was utilized in the production of this note. Rossy Kothari DPM documented in this encounterKet[facility]08-04-2022 Instructions* Patient Instructions* Jose Alas MD - [...] months via telehealth [facility] History of Present illness Narrative* Jose Alas MD - 03/08/2022 1:00 PM EDT [facility] Date of [...] tobacco.. 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 documented in this [facility]22 NoteHNO ID: [id number] Author: Rossy Kothari DPM Service: ? Author [...] weightbearing today Impression: A (more content not included)...[facility]06-20-2022 History of Present illness Narrative* Rossy Kothari, [...] BLOCK CELIAC PLEXUS WITH C-ARM performed by BAI VILLALPANDO at OR PAST SURGICAL HISTORY OF [...] given or implied. Students / Residents / [place] involved with this patient's care and office visit were supervised and all treatment rendered was under the direct observation of myself. Speech recognition technology was utilized in the production of this note. Rossy Kothari DPM documented in this encounterK[facility]05-12-2022 Evaluation note* Encounter Date Diagnosis Assessment Notes [...] evaluated, and treated the patient with the [facility]. Other 03-28-2022 NoteHNO ID: [id number] Author: Rossy Kothari DPM Service: ? Author [...] encounter diagnosis) (Z96.662) Histor (more content not included)...[facility] 10-30-2021 History of Present illness Narrative* Rossy [...] she is under the care of a painter foreman. She has returned to normal shoe gear. All of her questions were answered. I would like for herto follow-up with us in 3 months with radiographs of the ankle. Patient appears to understand and is in agreement with the above treatment plan. All questions wereanswered to the patient's satisfaction with no guarantees given or implied. Students / Residents / [place] involved with this patient's care and office visit were supervised and all treatment rendered was under the direct observation of myself. Speech recognition technology was utilized in the production of this note. Rossy Kothari DPM documented in this encounterKet[facility]02-28-2022 NoteHNO ID: [id number] Author: Rossy Kothari DPM Service: ? Author [...] weightbearing in a megan (more content not included)...[facility]02-10-2022 NoteHNO ID: [id number] Author: Rossy Kothari DPM Service: ? Author [...] the proximal transsyndesmotic scr (more content not included)...[facility] 08-17-2021 NoteHNO ID: [id number] Author: Rossy Kothari DPM Service: ? Author [...] in a boot. She has seen a painter foreman. They have continued her on 1-2 tramadol [...] peroneal subluxation or dislocat (more content not included)...[facility]11-24-2021 Hospital Discharge instructions Activity on Discharge from [...] * Discharge Physician: : Rossy Kothari DPM ([id number]) - Podiatry * Follow up with Ordering Physician : 1 * Discharge Physician Specialty : Week(s) * Discharge Physician Phone: : [phone] [facility] [address] [phone] Special Plan/Instructions for Discharge from 06/28/2021 3:23 [...] very active. She is working with her lens cutter on her osteopi a and bone density [...] note. 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* Diagnosis History of total replacement of left ankle- Primary Syndesmotic disruption of left ankle, subsequent encounter Pain of joint of left ankle and foot Bone pain of lower leg Post-operative state Other postprocedural status Chronic pain of left ankle Hallux limitus, right documented in this [facility]* Diagnosis Chronic pain of left lower extremity- Primary History of left ankle joint replacement [facility] Diagnosis History of total replacement of [...] pes planovalgus, left documented in this encounter [facility] noteNo [facility]. Other Evaluation note* Diagnosis Pre-operative examination- Primary Preoperative examination, unspecified documented in this encounter [facility] note* Diagnosis Hallux rigidus, right foot- Primary documented in this encounter [facility] note* Diagnosis Hallux rigidus, right foot- Primary documented in this encounter [facility] note* Diagnosis Hallux rigidus, right foot- Primary documented in this encounter [facility] note* Diagnosis Hallux rigidus, right foot- Primary Pain in right foot Pain in limb documented in this encounter [facility] note* Diagnosis Hallux rigidus of right foot- Primary Hallux rigidus documented in this encounter [facility] note* Diagnosis Other specified joint disorders, right wrist documented in this encounter [facility] Work Phone: Evaluation note* Diagnosis Sinus tarsitis, left- Primary History of total replacement of left ankle Syndesmotic disruption of left ankle, subsequent encounter Pain of joint of left ankle and foot Post-operative state Other postprocedural status Chronic pain of left ankle documented in this encounter [facility] general Narrative - Reported* Type Description Date Surgical History LEFT ANKLE x 6 Surgical History LEFT KNEE MCL,PCL,LCL Surgical History B/L SHOULDER RCR/ BIGG Surgical History ORIF RIGHT DISTAL RADIUS Surgical History RIGHT ELBOW ULNAR NERVE [facility] 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 Living Will 05/01/2018 Living Will Dec laration [...] COMPLEX 45 MINS Rossy Kothari, JESSICA [address] [facility] [address] [place] [address] [facility] [place] [address] [place] [address] Referral ID Status Reason Start Date Expiration Date Visits Requested Visits Authorized [id number] Pending Review Auto-Generat ed Referral 10/30/2021 10/30/2022 1 1 Specialty Diagnoses / Procedures Referred By Delma t Referred To Contact CT IMAGING Diagnoses Chronic pain of left ankle Procedures CT ANKLE WO IVCON LT CT LOWER EXTREMITY W/O CONTRAST MATERIAL Rossy Kothari, JESSICA [address] [facility] [facility] [address] [place] [address] Ct Imaging Referral ID Status Reason Start Date Expiration Date Visits Requested Visits Authorized [id number] Pending Review Auto-Generat ed Referral 01/22/2022 02/21/2023 1 1 Specialty Diagnoses / Procedures Referred By Delma t Referred To Contact Diagnoses Chronic pain of left lower extremity Procedures XR ANKLE LEFT 3+ VIEWS Jose Alas MD [address] [place] [address] Referral ID Status Reason Start Date Expiration Date V isits Requested Visits Authorized [id number] New Request 03/06/2022 03/31/2023 1 1 Specialty Diagnoses / Procedures Referred By Delma t Referred To Contact Diagnoses Chronic pain of left lower extremity Procedures XR FOOT LEFT 3 VIEWS Jose Alas MD [address] [place] [address] Referral ID Status Reason Start Date Expiration Date V isits Requested Visits Authorized [id number] New Request 03/06/2022 03/31/2023 1 1 Additional Source Comments INFORMATION SOURCE (unrecogn ized section and content) DATE CREATED AUTHOR AUTHOR'S ORGANIZ ATION 01/28/2018 [facility] DATE CREATED AUTHOR AUTHOR'S ORGANIZ ATION 02/20/2018 [facility] DATE CREATED AUTHOR AUTHOR'S ORGANIZ ATION 05/06/2019 [facility] DATE CREATED AUTHOR AUTHOR'S ORGANIZ ATION 09/24/2021 [facility] DATE CREATED AUTHOR AUTHOR'S ORGANIZ ATION 06/14/2022 [facility] DATE CREATED AUTHOR AUTHOR'S ORGANIZ ATION 07/31/2022 [facility] DATE CREATED AUTHOR AUTHOR'S ORGANIZ ATION 08/02/2022 [facility] DATE CREATED AUTHOR AUTHOR'S ORGANIZ ATION 08/18/2022 [facility] DATE CREATED AUTHOR AUTHOR'S ORGANIZ ATION 11/06/2022 [facility] DATE CREATED AUTHOR AUTHOR'S ORGANIZ ATION 05/26/2023 [facility] Reason for Visit (unrecogniz ed section and [...] LEFT 3 VIEWS Jose Alas MD [address] [place] [address] Referral ID Status Reason Start Date Expiration Date V isits Requested Visits Authorized [id number] New Request 03/06/2022 03/31/2023 1 1 Specialty Diagnoses / Procedures Referred By Delma toscano Referred To Contact Diagnoses Chronic pain of left lower extremity Procedures XR ANKLE LEFT 3+ VIEWS Jose Alas MD [address] [place] [address] Referral ID Status Reason Start Date Expiration Date V isits Requested Visits Authorized [id number] New Request 03/06/2022 03/31/2023 1 1 Reason [...] or prosecute any alcohol or drug abuse patient.[facility] CenterIn the event this information is protected by the Federal Confidentiality of Alcohol and Drug Abuse Patient Records regulations: The Federal rules restrict any use of the information to criminally investigate or prosecute any alcohol or drug abuse patient.[facility] CenterIn the event this information is protected by the Federal Confidentiality of Alcohol and Drug Abuse Patient Records regulations: The Federal rules restrict any use of the information to criminally investigate or prosecute any alcohol or drug abuse patient.[facility] CenterIn the event this information is protected by the Federal Confidentiality of Alcohol and Drug Abuse Patient Records regulations: The Federal rules restrict any use of the information to criminally investigate or prosecute any alcohol or drug abuse patient.[facility] CenterIn the event this information is protected by the Federal Confidentiality of Alcohol and Drug Abuse Patient Records regulations: The Federal rules restrict any use of the information to criminally investigate or prosecute any alcohol or drug abuse patient.[facility] CenterIn the event this information is protected by the Federal Confidentiality of Alcohol and Drug Abuse Patient Records regulations: The Federal rules restrict any use of the information to criminally investigate or prosecute any alcohol or drug abuse patient.[facility] CenterIn the event this information is protected by the Federal Confidentiality of Alcohol and Drug Abuse Patient Records regulations: The Federal rules restrict any use of the information to criminally investigate or prosecute any alcohol or drug abuse patient.[facility] CenterIn the event this information is protected by the Federal Confidentiality of Alcohol and Drug Abuse Patient Records regulations: The Federal rules restrict any use of the information to criminally investigate or prosecute any alcohol or drug abuse patient.[facility] CenterIn the event this information is protected by the Federal Confidentiality of Alcohol and Drug Abuse Patient Records regulations: The Federal rules restrict any use of the information to criminally investigate or prosecute any alcohol or drug abuse patient.[facility] CenterIn the event this information is protected by the Federal Confidentiality of Alcohol and Drug Abuse Patient Records regulations: The Federal rules restrict any use of the information to criminally investigate or prosecute any alcohol or drug abuse patient.[facility] CenterIn the event this information is protected by the Federal Confidentiality of Alcohol and Drug Abuse Patient Records regulations: The Federal rules restrict any use of the information to criminally investigate or prosecute any alcohol or drug abuse patient.[facility] CenterIn the event this information is protected by the Federal Confidentiality of Alcohol and Drug Abuse Patient Records regulations: The Federal rules restrict any use of the information to criminally investigate or prosecute any alcohol or drug abuse patient.[facility] Goals (unrecognized section and content) Goals from 06/28/2021 3:24 PM:Goal for Diet : Maintain Balanced DietGoal for Mobility : Position body/joint as needed to relieve pain/stress,Maintain active lifestyle as tolerated,Medicate as prescribed to maintain comfort level,Decrease/Manage Pain No InformationNo InformationNo InformationNo InformationNo InformationNo InformationNo InformationNo InformationNo Information Care Teams (unrecognized sec tion and content) Jig Builder Relationship Specialty Start Date End Date Martinsilvana Janethed Chinchilla [address] [place], [place] [id number] PCP - General Family Practice 10/02/21 Jig Builder Relationship Specialty Start Date End Date OmariKarsonJanethed Chinchilla [address] [place], [place] [phone] PCP - General Family Practice 10/02/21 Jig Builder Relationship Specialty Start Date End Date Janeth Salcido [address] [place], [place] [phone] PCP - General Family Medicine 10/02/21 Jig Builder Relationship Specialty Start Date End Date Janeth Salcido [address] [place], [place] [phone] PCP - General Family Medicine 10/02/21 Jig Builder Relationship Specialty Start Date End Date Janeth Salcido MD [address] [place], [place] [phone] PCP [facility] 10/02/21 Jig Builder Relationship Specialty Start Date End Date Janeth Salcido MD [address] [place], [place] [address] PCP [facility] 10/02/21 Jig Builder Relationship Specialty Start Date End Date Janeth Salcido MD [address] [place], [place] [phone] PCP [facility] 10/02/21 Jig Builder Relationship Specialty Start Date End Date Janeth Salcido MD [address] [address] PCP [facility] 10/02/21 Jig Builder Relationship Specialty Start Date End Date Annette Kim MD [facility] General 05/03/09 Jig Builder Relationship Specialty Start Date End Date Janeth Salcido MD [address] [address] [facility] 10/02/21 FOR RECORDS PERTAINING TO PATIENTS WHO [...] BE BASED ON THE PRIMARY CLINICAL RECORDS. [email or web address]. provides no warranty or guarantee of the accuracy or completeness of information in this document.
[2023-08-23] MEDS: Lactated Ringers 1,000 ML 15 ML IV (11:37)
[2023-08-23] MEDS: Cefazolin 2 GM in 0.9% Normal Saline (100mL Bag) 100 ML IV (12:00)
--- NOTE | 2023-08-23 12:00 | RAD_ITS ---
INDICATION: PAIN EXAMINATION/TECHNIQUE: X-RAY - RIGHT FOOT 2 views of the right second toe were obtained intraoperatively. Fluoroscopy time 2.4 seconds. A radiation dose: 0.24 mGy COMPARISON: No relevant prior comparison study available FINDINGS: The exam was obtained intraoperatively. Surgical screw is seen traversing the phalanges of the second toe. Previous surgery to the great toe and first metatarsal. Examination was not performed for diagnostic purposes. RAD/Toe(s) Min 2 Views IMPRESSION: Intraoperative exam as described above. Electronically Signed: José Asbhy MD at 14:47 EST ,
--- NOTE | 2023-08-23 12:07 | DCINST_ITS ---
Discharge Instructions Diet Discharge Diet: Light diet - advance as tolerated Activity Discharge Activity: May Not Drive Weight Bearing Status: No weight bearing (No weightbearing right foot) Keep extremity elevated above heart level: Right Leg (Keep right foot elevated for at least 50 minutes of every hour) Dressing / Incision Call your doctor if your incision/area has: Continuous Slow Oozing, Sudden Increased Bleeding and Foul Smelling Discharge Call your doctor if you observe: Fever of 101 or Higher, Shortness of breath, Chest pain, Increased palpitations (irregular heartbeat), Calf discomfort and Uncontrolled pain Change Dressing in: do not change dressing Remove Dressing in: do not remove dressing Cleanse incision/area with: Keep Dressing Clean & Dry Follow Up Care Please Follow Up With: Art Dangelo DPM When: within 1 week at office, sooner if needed Test Results: Test results from this visit will be discussed in further detail at your follow- up appointment, if applicable. Discharge Plan Admission Attending Provider: Art Dangelo Primary Care Provider: Janeth Salcido Discharge Orders/Prescriptions Prescriptions: New oxycodone-acetaminophen [Percocet] 5-325 mg tablet 1 - 2 tab PO Q6H PRN (Reason: pain) 4 Days Qty: 20 0RF No Action gabapentin 300 mg capsule 300 mg PO TID cholecalciferol (vitamin D3) 125 mcg (5,000 unit) capsule 125 mcg PO DAILY tramadol 50 mg tablet 50 mg PO BID calcium carbonate 195 mg calcium (500 mg) tablet,chewable 195 mg PO DAILY magnesium 200 mg tablet 200 mg PO DAILY Referrals / Follow Up: Janeth Salcido MD [Primary Care Provider] - Disposition Disposition (needs filled in before D/C Order can be placed): Home, Self Care
[2023-08-23] MEDS: Bupivacaine Mpf 0.5% 30 ML VIAL ×2 (12:10→13:39)
--- NOTE | 2023-08-23 12:10 | BON_PTH ---
PATHOLOGY RESULTS PATIENT: PAULINA CANO LOC: [facility] U#:[id number] AGE/SX: 58/F ROOM: RE08/23/[address]: Dr. Art Dangelo DPM : [id number] BED: DIS: 08/23/2023 SPEC #: [id number] RECD: 08/23/23 14:01 STATUS: STEFANY REDion #: [id number] ALICE: 08/23/23 12:[address]: Art Dangelo DEPT: SURGICAL PATHOLOGY RECD BY: Berenice Mitchell ENTERED: 08/26/23 09:36 SP TYPE: Bone OTHR DR: Dr. Janeth Salcido MD Tissues: Toe, NOS Procedures: Decalcification bone/plaque Surgery Specimen Level IV HEADER OPERATION: Right second toe arthrodesis with hardware removal great toe PRE-OP DIAGNOSIS: Pain from hardware right foot TISSUE SUBMITTED: Right second toe hammertoe MICROSCOPIC DIAGNOSIS Right second hammertoe deformity, excision: Benign fragments of bone (clinically hammertoe). AM:chato 08/29/2023 MICROSCOPIC DESCRIPTION Slides are reviewed. GROSS DESCRIPTION Received in fixative is one container labeled with the patient's name and designated Right second toe hammertoe. The specimen consists of multiple pieces of bone measuring in aggregate 2.0 x 1.5 x 0.3 cm. The specimen is totally submitted in one cassette after decalcification. / SJ:chato 08/26/2023 TC:5 CPT: 16865, 02879
--- NOTE | 2023-08-23 13:44 | PCM.OPRPT ---
Report of Operation Date of Procedure: 08/23/23 Pre-Operative Diagnosis: Symptomatic hardware right 1st metatarsal phalangeal joint fusion Hammer toe of the right 2nd toe Post-Operative Diagnosis: Same Surgery/Procedure Performed:: Removal of hardware right 1st metatarsal phalageal joint fusion Arthrodesis right 2nd toe Surgeon: Art Dangelo registered nurse cardiac telemetry: Sudheer Type of Anesthesia: Local and MAC Specimen's removed: Bone from right 2nd hammer toe sent to pathology Estimated Blood Loss (mL): 1mL Description of Procedure: Indications: This is a 58 year old female who has right foot pain due to 2nd toe hammer toe, also symptomatic hardware right 1st metatarsal phalangeal joint fusion site. She was getting a lot of pain to the distal 2nd toe with activities. She has tried nonsurgical care however her symptoms persist and have persisted. We discussed further options. She elected to proceed with the procedures today. This was discussed with her in detail. We reviewed all the possible benefits, risks, goals and expectations. She expressed understanding and agreement. We also reviewed the typical postoperative and expected postoperative course. She expressed understanding and agreement and wanted to proceed forward with surgical intervention. All alternative options were discussed with her and all the possible benefits, risks of the alternative options were discussed with her as well in detail. She expressed understanding and agreement and again want to proceed for surgical intervention. The consent form was reviewed with her and she freely signed them. No guarantees were given or implied. She was cleared from a medical standpoint. Operative Procedure: She was brought back into the operating room and was placed onto the operative table in the supine position. She was carefully secured to the operating room table with safety belt around her waist. The patient did receive 2 g of intravenous cefazolin for antibiotic prophylaxis, the patient received anesthesia per the anesthesiologist and then a total of 10 mL of 0.5% bupivacaine plain was given as a regional infiltrative nerve block around the first ray and 2nd toe on her right foot after overlying skin was cleansed with 70% isopropyl alcohol. A well-padded pneumatic tourniquet was applied around her right ankle. The right foot was scrubbed, prepped and draped in the usual aseptic fashion. Further attention was directed to the right foot, there was contracture of the 2nd toe at both the PIPJ and DIPJ. The foot was elevated for 3 minutes and the right ankle pneumatic tourniquet was inflated to 250 mmHg. 1st metatarsal phalangeal joint fusion hardware removal: Using a #15 scalpel blade and longitudinal skin incision was made dorsal medial 1st MTPJ just medial the Extensor Hallucis Longus tendon at the site of the previous incision. Careful dissection was completed down to the plate and screws and they were removed in toto without complication. The 1st MTPJ was fused. The tissues were healthy and viable. The site was flushed out with copious amounts of normal saline solution. The skin was carefully reapproximated using 3-0 Nylon. Right 2nd toe correction of hammer toe arthrodesis: Attention was directed to the toe. A dorsal linear longitudinal incision was made over the proximal and distal interphalangeal joints (PIPJ and DIPJ) of the toe. An incision was made longitudinally to the extensor digitorum longus tendon which was incised down the middle keeping the tendon ends intact, this was done with a 15 blade. The dorsal PIPJ and DIPJ joint capsules were incised with a 15 blade. The cartilage from the head the proximal phalanx, head of the middle phalanx, base of the distal phalanx and base of the middle phalanx was resected using a powered sagittal saw. The resected cartilage and bone were sent to pathology. The site was flushed out with copious amounts of normal saline solution. A 2.5mm Arthrex FT screw was placed through the phalanges of the toe holding the toe in rectus position, there was good bone to bone contact. This was confirmed with intra operative fluoroscopy. There was some medial deviation of the toe noted from the 2nd metatarsal phalangeal joint with tight capsule, the medial capsule was released using a 15 blade. The site was flushed out with copious amounts of normal saline solution. The extensor digitorum longus tendon was reapproximated side to side using 3-0 Monocryl, and the skin was reapproximated using 3-0 Nylon. The toe was in rectus position in good position and alignment. An additional 14mL of 0.5% Bupivacaine plain was given as a local block around the 1st and 2nd rays on the right foot. The pneumatic tourniquet was deflated (total time was 77 minutes). There was immediate return of warmth and perfusion to the foot with CFT < 2 seconds to all toes. The patient tolerated the above procedure well and anesthesia well with no complications. The patient was transported from the operative room to the recovery room with vital signs stable and in good condition. Post operative orders were placed, and post operative instructions were reviewed with the patient and her friend Mariano. No weightbearing right foot, keep the dressing clean, dry and intact. Keep foot elevated for at least 50 minutes of every hour. Post operative prescription for Percocet was provided. Grafts/Implants Used: 1 x Arthrex ft cannulated screw Complications None
== END 2023-08-23 16:09 | disposition home or self-care (01) ==
LOC: SDC 10:52 → AC 10:53
PROVIDERS: PCP Family Medicine; Referring Provider Podiatrist; Visit Provider Podiatrist
PROC: (CPT 28285; principal; 2023-08-23 11:55)
DX: M20.41 Other hammer toe(s) (acquired), right foot (principal)
CPT/HCPCS: 28285; 20680; 01480; 73660; 76000; 88305; 88311; C1713; J7120; J2405

== ENCOUNTER → 2023-12-31 | Outpatient (CLI) | payer MEDICARE, SELFPAY ==
--- NOTE | 2023-12-31 11:26 | RAD_ITS ---
STUDY: X-RAY - RIGHT FOOT CLINICAL: Female, 58 years old. Pain following injury. TECHNIQUE: 3 view(s) of the foot. COMPARISON: Comparison is made with prior study January 22, 2021. FINDINGS: Normal talus, calcaneus, and tarsal bones. Normal visualized subtalar, talonavicular, calcaneocuboid, tarsal and tarsometatarsal articulations. Normal metatarsi. There is fusion of the first metatarsophalangeal joint. Normal tibial and fibular sesamoid bones. Normal second through fifth metatarsophalangeal joints. Screw fixation of the proximal and distal interphalangeal joint of the second toe with metallic screw. The soft tissue structures are unremarkable. RAD/Foot min 3 Views IMPRESSION: Postsurgical changes as described. No acute abnormality is seen. Electronically Signed: Beka Mooney MD at 12:28 EDT ,
== END | disposition home or self-care (01) ==
LOC: MTRAD 11:26
PROVIDERS: PCP Family Medicine; Referring Provider Physician Assistant; Visit Provider Physician Assistant
DX: T14.90XA Injury, unspecified, initial encounter (principal); X58.XXXA Exposure to other specified factors, initial encounter
CPT/HCPCS: 73630

== ENCOUNTER → 2024-03-04 | Outpatient (CLI) | payer MEDICARE, SELFPAY ==
--- NOTE | 2024-03-04 14:52 | CT_ITS ---
STUDY: CT LEFT ANKLE WITHOUT CONTRAST REASON FOR EXAM: Female, 59 years old. L ANKLE OA RADIATION DOSAGE (If Supplied By Facility): CTDIvol = ( 15.35 ) mGy, DLP = ( 381.85 ) mGycm TECHNIQUE: Thin section transaxial imaging of the ankle was obtained, with sagittal and coronal reconstructed images. Individualized dose optimization techniques were used for this CT. COMPARISON: Left ankle CT dated 02/07/2022. FINDINGS: BONES/JOINTS: Again seen is a total ankle prosthesis in place with no evidence of loosening. Again seen is a metallic plate overlying the distal fibula with double Endobutton/tightropes. There are stable mild degenerative changes in the midfoot with small dorsal osteophytes. No acute fracture. No subluxation. Normal alignment. SOFT TISSUES: There is persistent mild subcutaneous soft tissue edema along the medial and lateral aspects of the ankle. No soft tissue gas. No radiopaque foreign body. CT/Extremity Lower without Contra IMPRESSION: No significant interval change from left ankle CT dated 02/07/2022. Total ankle prosthesis in anatomic alignment. No loosening. Stable mild degenerative changes in the midfoot. Persistent mild subcutaneous soft tissue edema along the medial and lateral aspects of the ankle. Electronically Signed: Eduar Donnelly MD at 15:53 EDT ,
== END | disposition home or self-care (01) ==
LOC: CT 14:51
PROVIDERS: PCP Family Medicine; Referring Provider Podiatrist; Visit Provider Podiatrist
DX: M19.072 Primary osteoarthritis, left ankle and foot (principal)
CPT/HCPCS: 73700

== ENCOUNTER 2024-04-29 14:02 | Outpatient (CLI) | payer MEDICARE, SELFPAY ==
[2024-04-29 14:16] VITALS: BP 138/71; PULSE 77; RESP 16; O2SAT 98; BMI 25.6
[2024-04-29] MEDS: 0.9% NaCl Peripheral Flush Adult/Peds IV (14:26)
[2024-04-29] MEDS: Zoledronic Acid 5 MG 100 ML 300 MG IV (14:26)
[2024-04-29 14:52] VITALS: BP 132/84; PULSE 75; RESP 16; O2SAT 98
== END 2024-04-29 23:59 | disposition home or self-care (01) ==
LOC: MEDOUTP 14:02
PROVIDERS: PCP Family Medicine; Referring Provider Internal Medicine Endocrinology, Diabetes & Metabolism; Visit Provider Internal Medicine Endocrinology, Diabetes & Metabolism
DX: M81.0 Age-related osteoporosis without current pathological fracture (principal)
CPT/HCPCS: 96365; A4216; J3489

== ENCOUNTER → 2024-06-09 | Outpatient (CLI) | payer MEDICARE, SELFPAY ==
[2024-06-09 17:43] LABS: Absolute Lymphocyte Count 2.58 X10^3/uL (0.83-4.51); Absolute Neutrophil Count 3.1 X10^3/uL (2.0-7.7); Basophil# 0.06 X10^3/uL; Eosinophil# 0.12 X10^3/uL; Eosinophils% 1.9 % (0-5); Hematocrit 42.1 % (37-47); Hemoglobin 13.9 g/dL (12.0-15.0); Lymphocyte # 2.58 X10^3/ul (0.83-4.51); Mean Corpuscular Hgb 30.5 pg (27.0-32.0); Mean Corpuscular Volume 92.3 fL (81-99); Mean Platelet Vol. 10.7 fl (6.2-12.0); Monocyte# 0.45 X10^3/uL; Monocyte% 7.1 % (0-10); NRBC Flagged by Analyzer 0 % (0-5); Neutrophil # 3.06 X10^3/uL (2.7-7.7); Neutrophil % 48.5 % (47-70); Platelet Count 370 K/mm3 (150-450); RBC Distribution Width CV 12.5 % (11.6-14.6); RBC Distribution Width SD 42.7 fl (35.1-43.9); Red Blood Count 4.56 M/mm3 (4.2-5.4); White Blood Count 6.3 K/mm3 (4.4-11.0)
[2024-06-09 18:35] LABS: ALB/GLOB Ratio 1.4 RATIO (0.9-2.4); AST(SGOT) 14 U/L (15-37); Alanine Aminotransfer ALT/SGPT 21 U/L (13-56); Albumin, Serum 4.2 g/dL (3.2-5.0); Alkaline Phosphatase 67 U/L (45-117); Anion Gap 8 (5-15); BUN 16 mg/dL (7-18); BUN/Creat Ratio 19.3 RATIO (10-20); Calcium,Total 9.6 mg/dL (8.5-10.1); Chloride 104 mmol/L (98-107); Creatinine, Serum 0.83 mg/dL (0.55-1.02); EST Glomerular Filtration Rate 75 mL/min (>60); Est Glom Filt Rate - Afr Amer 91 mL/min (>60); Glucose 88 mg/dL (74-106); Potassium 3.7 mmol/L (3.5-5.1); Protein, Total 7.2 g/dL (6.4-8.2); Sodium Level 137 mmol/L (136-145)
== END | disposition home or self-care (01) ==
LOC: BFHLAB 15:02
PROVIDERS: PCP Family Medicine; Referring Provider Family Medicine; Visit Provider Family Medicine
DX: Z01.818 Encounter for other preprocedural examination (principal)
CPT/HCPCS: 36415; 80053; 85025

== ENCOUNTER 2024-06-19 06:04 | Day surgery (SDC) | payer MEDICARE, SELFPAY ==
[2024-06-19] VITALS (15 sets, daily range): BP systolic 112–155; BP diastolic 55–111; PULSE 82–120; RESP 16–26; TEMP 36.3–37.1; O2SAT 94–100; BMI 26.2
[2024-06-19] MEDS: Lactated Ringers 1,000 ML 15 ML IV (06:40)
[2024-06-19] MEDS: Cefazolin 2 GM in Syringe IV (07:38)
[2024-06-19] MEDS: Bupivacaine Mpf 0.5% 30 ML VIAL (09:43)
[2024-06-19] MEDS: Acetaminophen 325 MG Tablet 650 MG PO (12:15)
[2024-06-19] MEDS: oxyCODONE 5 MG Tablet PO ×2 (12:17→12:20)
== END 2024-06-19 14:46 | disposition home or self-care (01) ==
LOC: SDC 06:05 → AC 06:08
PROVIDERS: PCP Family Medicine; Referring Provider Podiatrist; Visit Provider Podiatrist
PROC: (CPT 27635; principal; 2024-06-19 07:15)
DX: M25.872 Other specified joint disorders, left ankle and foot (principal); M19.072 Primary osteoarthritis, left ankle and foot; M89.372 Hypertrophy of bone, left ankle and foot; Z96.662 Presence of left artificial ankle joint; E55.9 Vitamin D deficiency, unspecified; Z78.0 Asymptomatic menopausal state; M81.0 Age-related osteoporosis without current pathological fracture; D64.9 Anemia, unspecified; Z79.899 Other long term (current) drug therapy
CPT/HCPCS: 27635; 01480; 64450; 73600; 73610; 76000; 88304; J7120; A4216; J2405

== ENCOUNTER → 2024-09-02 | Outpatient (CLI) | payer MEDICARE, SELFPAY ==
--- NOTE | 2024-09-02 11:55 | BI_ITS ---
PROCEDURE: SCRN MAMM (CAD)W/WIN BILAT REASON FOR EXAM: F, Age 59 y/o, routine mammographic follow-up. Prior bilateral excisional breast biopsies. TECHNIQUE: Bilateral screening digital breast tomosynthesis with 2D and 3D images. Computer aided detection. COMPARISON: None. Comparison is made with prior study dated May 08, 2023 and September 11, 2021. FINDINGS: The breasts are extremely dense which lowers the sensitivity of mammography. No suspicious masses, areas of developing architectural distortion, or suspicious calcifications. BI/SCRN MAMM (CAD)W/WIN BILAT IMPRESSION: BI-RADS 1: NEGATIVE. RECOMMEND ANNUAL MAMMOGRAPHIC SCREENING. There has been n o change. Follow-up code: Routine Follow-up The patient will be notified of the results by letter. Reading Location: [place] [id number]
== END | disposition home or self-care (01) ==
LOC: OPBI 11:54
PROVIDERS: PCP Family Medicine; Referring Provider Family Medicine; Visit Provider Family Medicine
DX: Z12.31 Encounter for screening mammogram for malignant neoplasm of breast (principal)
CPT/HCPCS: 77063; 77067

== ENCOUNTER → 2024-10-20 | Outpatient (CLI) | payer MEDICARE, SELFPAY ==
--- NOTE | 2024-10-20 08:04 | EKG12_ITS ---
Test Reason : PRE OP Blood Pressure : */* mmHG Vent. Rate : 72 BPM Atrial Rate : 72 BPM P-R Int : 130 ms QRS Dur : 88 ms QT Int : 412 ms P-R-T Axes : 46 11 32 degrees QTcB Int : 451 ms Normal sinus rhythm Nonspecific ST abnormality Abnormal ECG Confirmed by GLENNA MÁRQUEZ, EDMUND ([id number]), makeup editor MYRTLE LANG ([id number]) on 10/20/2024 1:04:52 PM Referred By: Dieter Peraza Confirmed By: EDMUND MANZANARES MD
[2024-10-20 09:00] LABS: Absolute Lymphocyte Count 2.71 X10^3/uL (0.83-4.51); Absolute Neutrophil Count 4.1 X10^3/uL (2.0-7.7); Basophil# 0.07 X10^3/uL; Basophil% 0.9 % (0-1); Eosinophil# 0.17 X10^3/uL; Eosinophils% 2.3 % (0-5); Hematocrit 38.4 % (37-47); Hemoglobin 12.9 g/dL (12.0-15.0); Lymphocyte # 2.71 X10^3/ul (0.83-4.51); Lymphocyte % 36.3 % (19-41); Mean Corp Hgb Conc 33.6 g/dL (32-36); Mean Corpuscular Hgb 30.9 pg (27.0-32.0); Mean Corpuscular Volume 91.9 fL (81-99); Mean Platelet Vol. 10.8 fl (6.2-12.0); Monocyte# 0.41 X10^3/uL; Monocyte% 5.5 % (0-10); NRBC Flagged by Analyzer 0 % (0-5); Neutrophil # 4.07 X10^3/uL (2.7-7.7); Neutrophil % 54.5 % (47-70); Platelet Count 257 K/mm3 (150-450); RBC Distribution Width CV 12.9 % (11.6-14.6); RBC Distribution Width SD 43.7 fl (35.1-43.9); Red Blood Count 4.18 M/mm3 (4.2-5.4); White Blood Count 7.5 K/mm3 (4.4-11.0)
[2024-10-20 09:48] LABS: Anion Gap 13 (5-15); BUN 15 mg/dL (4-19); Calcium,Total 9.5 mg/dL (7.6-11.0); Carbon Dioxide 21.3 mmol/L (21.0-32.0); Chloride 105 mmol/L (98-108); EST Glomerular Filtration Rate 75 (>60); Glucose 99 mg/dL (70-99); Potassium 3.6 mmol/L (3.3-5.1); Sodium Level 140 mmol/L (133-145)
== END | disposition home or self-care (01) ==
LOC: PSN 07:58
PROVIDERS: PCP Family Medicine; Referring Provider Student in an Organized Health Care Education/Training Program; Visit Provider Student in an Organized Health Care Education/Training Program
DX: Z01.818 Encounter for other preprocedural examination (principal); Z01.810 Encounter for preprocedural cardiovascular examination
CPT/HCPCS: 36415; 80048; 85025; 93005

== ENCOUNTER → 2025-02-23 | Outpatient (CLI) | payer MEDICARE, SELFPAY ==
--- NOTE | 2025-02-23 14:00 | BD_ITS ---
PROCEDURE: DEXA BONE DENSITY STUDY 02/23/2025 REASON FOR EXAM: OSTEOPOROSIS F, age 60 y/o . Postmenopausal. TECHNIQUE: DEXA BONE DENSITY STUDY COMPARISON: None are available at the time of this dictation FINDINGS: BMD and T-SCORES Lumbar spine: 0.973 g/cm2, T-score -0.7 Levels: L1 through L4 Left femoral neck: 0.596 g/cm2, T-score -2.3 BD/Dexa Bone Density Study IMPRESSION: Patient's bone density reveals osteopenia with an estimated 10 year risk for hi p fracture of 2.7% and for a Major osteoporotic fracture of 17%. This fracture risk estimate was calculated using FRAX version 3.08. Reading Location: [id number]
--- OUTSIDE RECORDS SUMMARY | 2025-02-23 21:05 | XMS RPT_ITS | CCD ---
Author Organization [facility] Care Team Providers Care End User Consultant Name Role Phone Annette Kim Unavailable Unavailabl e Goudiaby, Bert Unavailable Unavailable Goudiaby, Bert Unavailable Unavailable Goudiaby, Bert Unavailable Unavailable Ramon Perez Unavailable UnavailAnnette Almonte Unavailable Unavaillucia Fernandes MD, Noel Ontiveros Unavailable Annette Kim MD Unavailable Unavailable Annette Kim Unavailable Unavailable Unavailable Primary Care Provider Unavailabl e PCP, Other Primary Care Provider Performer Janeth Salcido Primary Care Provider RAMON PEREZ Unavailable Dr. Janeth Salcido Primary Care Provider Dr. Janeth Salcido Referring Provider [phone] Dr. Parminder Larsen Attending Provider Unavailable Primary Care Provider Unavailabl Janeth Schaefer Primary Care Provider TL, JOSE T Attending Unavailable SELF, SELF Referring Unavailable TL, JOSE T Attending Unavailable LT, JOSE T Referring Unavailable TL, JOSE T Attending Unavailable TL, JOSE T Referring Unavailable TL, JOSE T Attending Unavailable SELF, SELF Referring Unavailable JANETH SALCIDO Primary Care UnavailTANIA Castro Referring Unavailable Janeth Salcido Primary Care Provider JANETH SALCIDO Primary Care Unavailabl TANIA Moon Attending Unavailable TANIA PIMENTEL Admitting Unavailable Janeth Salcido MD Primary Care Provider HERMAN HOLLOWAY Unavailable Dr. RAMON PEREZ Attending Unavailable PCP, OTHER Primary Care Unavailable Dr. RAMON PEREZ Attending Unavailable PCP, OTHER Primary Care Unavailable ROSSY KOTHARI Attending Unavailable PCP, OTHER Primary Care Unavailable ROSSY KOTHARI Attending Unavailable PCP, OTHER Primary Care Unavailable Dr. RAMON PEREZ Attending Unavailable PCP, OTHER Primary Care Unavailable Dr. RAMON PEREZ Attending Unavailable PCP, OTHER Primary Care Unavailable Dr. Janeth Salcido Primary Care Provider Dr. Janeth Salcido Referring Provider Dr. Parminder Larsen Attending Provider Annette Kim MD Primary Care Provider Migration, Provider Unavailable Unavailable Dr. Janeth Salcido MD Primary Care Provider Dr. Janeth Salcido MD Attending Provider Dr. Janeth Salcido MD Referring Provider Dr. Dieter Peraza DO Attending Provider [phone] Dr. Dieter Peraza DO Referring Provider [phone] Dr. Doc Diana MD Attending Provider Janeth Salcido MD Primary Care Provider Janeth Salcido MD Unavailable ISAC BOOKER Attending Unavaila ble JANETH SALCIDO Primary Care Unavailabl ISAC Watson Referring Unavaila ble JANETH SALCIDO Primary Care Unavailabl e ISAC BOOKER Referring Unavaila ble JANETH SALCIDO Primary Care Unavailabl Dr. Janeth Schaefer MD Primary Care Provider Dr. Janeth Salcido MD Referring Provider [phone] Dr. Parminder Larsen MD Attending Provider ISAC BOOKER Referring Unavaila ble MIEDEL, JANETH JANINE Primary Care Unavailabl e RAMON PEREZ Attending Unavailable MIEDEL, JANETH JANINE Primary Care Unavailabl RAMON Vanegas Admitting Unavailable RAMON PEREZ Attending Unavailable MIEDEL, JANETH JANINE Primary Care Unavailabl e HERMAN HOLLOWAY Referring Unavailable MIEDEL, JANETH JANINE Primary Care Unavailabl e MIEDEL, JANETH JANINE Primary Care Unavailabl e RAMON PEREZ Attending Unavailable MIEDEL, JANETH JANINE Primary Care Unavailabl e HERMAN HOLLOWAY Attending Unavailable MIEDEL, JANETH JANINE Primary Care Unavailabl e HERMAN HOLLOWAY Referring Unavailable MIEDEL, JANETH JANINE Primary Care Unavailabl e ISAC BOOKER Attending Unavaila ble MIEDEL, JANETH JANINE Primary Care Unavailabl e HERMAN HOLLOWAY Referring Unavailable MIEDEL, JANETH JANINE Primary Care Unavailabl e RAMON PEREZ Attending Unavailable MIEDEL, JANETH JANINE Primary Care Unavailabl e Miedel, Janeth Primary Care Unavailable Jaxson Larseni Attending Unavailable Miedel, Janeth Referring Unavailable Doc Diana Attending Unavailable Miedel, Janeth Primary Care Unavailable Spittle Dieter Referring Unavailable Miedel, Janeth Primary Care Unavailable Jose L Perazaolas Attending Unavailable Constancettle, Dieter Referring Unavailable Miedel, Janeth Primary Care Unavailable Miedel, Janeth Attending Unavailable Miedel, Janeth Referring Unavailable Miedel, Janeth Primary Care Unavailable Chava, Parminder Referring Unavailable Parminder Larsen Attending Unavailable Miedel, Janeth Referring Unavailable Miedel, Janeth Primary Care Unavailable Miedel, Janeth Attending Unavailable Jaxson Larseni Attending Unavailable King Parminder Referring Unavailable Miedel, Janeth Primary Care Unavailable Miedel, Janeth Primary Care Unavailable Art Dangelo Attending Unavailable Art Dangelo Referring Unavailable Art Dangelo Attending Unavailable Art Dangelo Referring Unavailable Miedel, Janeth Primary Care Unavailable Allergies Allergy Classification Reported Allergen(s) Allergy Type Date of Onset Reaction(s) Facility Benzodiazepines (1 source) Midazolam Drug Allergy [facility] Work Phone: (15 sources) Midazolam; Translations: [Versed] Drug Allergy 07-05-20 Unknown [facility] Work Phone: (4 sources) VICRYL SUTURE drug allergy 07-05-20 Other [facility] Work Phone: (1 source) VICRYL SUTURES (as Miscellaneous allergen) causes Severe DOESN'T DISSOLVE, FORMS ABCSES. Status:Active.; Translations: [VICRYL SUTURES] Allergy to Substance [facility] (20 sources) Codeine; Translations: [CODEINE] Drug Allergy 01-31-20 21 Itching [facility] (13 sources) Midazolam; Translations: [MIDAZOLAM HCL] Drug Allergy 02-16-20 08 [facility] (11 sources) Victryl Sutures [Other] Propensity to adverse reactions 03-08-20 08 Intolerance [facility] (13 sources) VICRYL SUTURES Propensity to adverse reactions Unknown [facility]. Other (20 sources) Midazolam; Translations: [MIDAZOLAM] Drug Allergy 02-16-20 08 Agitation [facility] Work Phone: (2 sources) *Sutures Propensity to adverse reactions 03-08-20 [facility] (2 sources) OTHER; Translations: [OTHER] Propensity to adverse reactions (disorder) 03-08-20 08 [facility] Rep[facility] (7 sources) suture; Translations: [suture] Allergy to substance 07-06-20 NEEDS FOLLOW-UP [facility] Comment on above: SPECIFICALLY VICRYL SUTURE (13 sources) Sutures; Translations: [SUTURES] Propensity to adverse reactions 12-25-19 25 [facility] Work Phone: (1 source) Codeine Drug Allergy 02-10-20 25 [facility] (1 source) Midazolam Drug Allergy 02-10-20 [facility] Repository NEGATED: Highlighted row has been ruled out! (1 source) natural latex rubber; Translations: [LATEX, NATURAL RUBBER] Drug allergy (disorder) [facility] NEGATED: Highlighted row has been ruled out! (1 source) No IV Contrast Allergy.; Translations: [IV Dye, Iodine Containing] Drug allergy (disorder) [facility] Medications Current Medications Medication Drug Class(es) Dates Sig (Normalized) Sig (Original) acetaminophen 500 mg oral tablet (10 sources) take 2 tablets by mouth once daily at bedtime acetaminophen (Tylenol) 500 mg tablet Indications: pain Take 2 tablets (1,000 mg) by mouth once daily at bedtime. 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 28 tablet 12/30/2024 01/06/2025 Active Start: 08-23-2023 End: 12-31-2023 Oxycodone-Acetaminophen (Per cocet) 5-325 mg tablet Discontinued 1 - 2 {tbl} PO EVERY 6 HOURS as needed for pain 20 4 0 August 23, 2023 December 31, 2023 11:42am Right foot pain Pain in right foot Start: 08-01-2022 End: 08-08-2022 take 1 tablet by mouth every six hours as needed for pain oxyCODONE-acetaminophen (PERCOCET) 5-325 mg tablet Indications: Post-op pain Take 1 tablet by mouth every 6 hours as needed for pain for up to 7 days. 28 tablet 0 08/01/2022 08/08/2022 Comment on above: Take 1 tablet by ágnel th every 6 hours as needed for pain for up to 7 days. calcium carbonate 500 mg chewable tablet (9 sources) Start: 02-12-2022 take 1 tablet by mouth once daily Calcium Carbonate 195 mg calcium (500 mg) tablet,chewable Active 195 mg PO DAILY February 12, 2022 12:00am Start: 02-12-2022 take 195 mg by mouth three times daily Calcium Carbonate Active 195 MG PO THREE TIMES A DAY February 12, 2022 12:00am CALCIUM CARBONATE-VITAMIN D3 ORAL (10 sources) take 1 tablet by mouth once daily in the morning CALCIUM CARBONATE-VITAMIN D3 ORAL Take 1 tablet by mouth once daily in the morning. Active calcium chloride 0.0014 meq/ml / potassium chloride 0.004 meq/ml / sodium chloride 0.103 meq/ml / sodium lactate 0.028 meq/ml injectable solution (1 source) Start: End: take 100 mL intravenously every hour 100 mL/hr, intravenous, Continuous, Starting on Sat12/30/24 at 1115, For 1 day, Recovery (only) cholecalciferol 0.125 mg oral capsule (20 sources) Vitamin D Start: take 1 capsule by mouth once daily Cholecalciferol (Vitamin D3) 125 mcg (5,000 unit) capsule Active 125 ug PO DAILY February 12, 2022 12:00am Start: 12-13-2020 End: 01-30-2021 take 1 capsule by mouth once daily Cholecalciferol (Vitamin D3) 125 mcg (5,000 unit) capsule Discontinued 125 ug PO DAILY December 13, 2020 12:00am January 30, 2021 5:20pm take 2.5 tablets by mouth once daily in the morning cholecalciferol (Vitamin D-3) 10 mcg (400 units) tablet Take 2.5 tablets (25 mcg) by mouth once daily in the morning. 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 Take with at least 8 ounces (large glass) of water, do not lie down for 30 minutes after 28 capsule 12/30/2024 01/13/2025 Active 1 ml fentaNYL 0.05 mg/ml injection (2 sources) Opioid Agonist Start: 12-30-2024 50 mcg, intrav enous, Every 5 min PRN, pain severe (7-10), first line, Starting on Sat12/30/24 at 1059, Recovery (only), Max total of 200 micrograms regardless of dose., If ordered PRN for pain, nurse is permitted to administer this medication for higher pain scores based on patient preference? Yes Start: 12-30-2024 End: 12-30-2024 100 mcg, intravenous, Once, On Sat12/30/24 at 0800, For 1 dose, Preprocedure, For procedural sedation gabapentin 300 mg oral capsule (20 sources) Anti-epileptic Agent Start: 12-13-2020 take 1 capsule by mouth three times daily Gabapentin 300 mg capsule Active 300 mg PO THREE TIMES A DAY December 13, 2020 12:00am Comment on above: Take 300 mg by mouth three times daily. 1 ml HYDROmorphone hydrochloride 0.2 mg/ml prefilled syringe (1 source) Opioid Agonist Start: 12-30-2024 0.2 mg, intravenous, Every 5 min PRN, pain moderate (4-6), first line, Starting on Sat12/30/24 at 1059, Recovery (only), Max total of 4 mg regardless of dose. Magnesium (19 sources) Start: 02-12-2022 take 1 tablet by mouth once daily Magnesium 200 mg tablet Active 200 mg PO DAILY February 12, 2022 12:00am Start: 02-12-2022 take 200 mg by mouth once reji y Magnesium Active 200 MG PO DAILY February 11, 2022 11:00pm Start: 02-12-2022 take 200 mg by mouth once reji y Magnesium Active 200 MG PO DAILY February 12, 2022 12:00am take 1 tablet by ángel once daily in the morning magnesium 250 mg tablet Take 1 tablet (250 mg) by mouth once daily in the morning. Active 2 ml metoclopramide 5 mg/ml injection (1 source) Dopamine-2 Receptor Antagonist Start: 12-30-2024 10 mg, intravenous, Once as needed, nausea/vomiting, second line, Starting on Sat12/30/24 at 1059, For 1 dose, Recovery (only) 2 ml ondansetron 2 mg/ml injection (3 sources) Serotonin-3 Receptor Antagonist Start: 12-30-2024 4 mg, intravenous, O nce as needed, nausea/vomiting, first line, Starting on Sat12/30/24 at 1059, For 1 dose, Recovery (only), When administering via IV Push, administer over 3-5 minutes. Start: 08-01-2022 End: 08-08-2022 take 1 tablet by mouth every eight hours as needed ondansetron (ZOFRAN) 4 mg tablet Take 1 tablet by mouth every 8 hours as needed for nausea/vomiting for up to 7 days. 21 tablet 0 08/01/2022 08/08/2022 Comment on above: Take 1 tablet by ángel th every 8 hours as needed for nausea/vomiting for up to 7 days. oxyCODONE hydrochloride 5 mg oral tablet (10 sources) Opioid Agonist Start: 12-31-19 take 1 tablet by mouth every four hours as needed 5 mg, oral, Every 4 hours PRN, pain mild (1-3), first line, Starting on Sat12/30/24 at 1059, Recovery (only), When able to take oral medications., If ordered PRN for pain, nurse is permitted to administer this medication for higher pain scores based on patient preference? Yes Start: 07-01-2019 End: 12-13-2020 take 5-10 mg by mouth every six hours as needed for pain Oxycodone 5 MG tablet Discontinued 5 - 10 mg PO EVERY 6 HOURS NEEDED as needed for Pain Score 4-10/10 20 0 July 01, 2019 December 13, 2020 12:51pm Rectocele Rectocele oxygen (O2) therapy (1 source) Start: 12-30-2024 inhalation, Co ntinuous - Inhalation, First dose on Sat12/30/24 at 1115, Recovery (only), Device: Nasal Cannula, Rate in liters per minute: Other, Custom Value: 1-6 LPM, Keep O2 Sat Above: 92% traMADol hydrochloride 50 mg oral tablet (20 sources) Opioid Agonist Start: 02-09-2025 Tramadol 50 mg tablet Active 50 mg PO 1 to 4 times daily as needed for pain February 09, 2025 12:00am Start: 02-11-2024 End: 06-19-2024 take 1 tablet by mouth every six hours as needed for pain Tramadol 50 mg tablet Discontinued 50 mg PO EVERY 6 HOURS as needed for pain February 11, 2024 12:00am June 19, 2024 8:43am Start: 02-12-2022 End: 12-31-2023 take 1 tablet by mouth twice daily Tramadol 50 mg tablet Discontinued 50 mg PO TWICE A DAY February 12, 2022 12:00am December 31, 2023 11:43am Start: 02-07-2022 take 50-100 mg by mo uth every eight hours as needed traMADol (ULTRAM) 50 mg tablet Take 50-100 mg by mouth every 8 hours as needed. For Pain 0 03/08/2022 Active Start: 12-13-2020 End: 01-30-2021 take 50-100 mg by mouth every eight hours as needed Tramadol 50 mg tablet Discontinued 50 - 100 mg PO Q8H as needed December 13, 2020 12:00am January 30, 2021 5:20pm Start: 07-05-2020 TRAMADOL HCL 5 0 MG TABS two tablets every 8 hours as needed for pain TRAMADOL HCL [id number] Noel Fernandes MD Start: 06-26-2019 traMADol (ULTR AM) 50 mg tablet Take by mouth three times daily as needed. 0 06/26/2019 Active Comment on above: Take by mouth three times daily as needed. Take 50-100 mg by mo uth every 8 hours as needed. For Pain valACYclovir 1000 mg oral tablet (4 sources) Herpesvirus Nucleoside Analog DNA Polymerase Inhibitor, Herpes Simplex Virus Nucleoside Analog DNA Polymerase Inhibitor, Herpes Zoster Virus Nucleoside Analog DNA Polymerase Inhibitor Start: take 0.5 tablet by mouth twice daily valacyclovir 1 g tablet TAKE 1/2 (ONE-HALF) OF A TABLET BY MOUTH TWICE DAILY 0 12/25/2021 Active Start: 07-26-2014 take 2 tablets by mo uth twice daily as needed valACYclovir HCl - 1 GM Oral Tablet TAKE 2 TABLETS BY MOUTH TWICE DAILY FOR 1 DAY NEEDED Quantity: 16 Refills: 3 Annette Kim MD Start : 26-Jul-2014 Active vitamin b6 10 mg oral tablet (1 source) Start: 02-09-2025 take 1 tablet by mouth once daily Pyridoxine (Vitamin B6) 10 mg tablet Active 10 mg PO daily February 09, 2025 12:00am Completed/Discontinued Medications Medication Drug Class(es) Dates Sig (Normalized) Sig (Original) alendronic acid 70 mg oral tablet (20 sources) Bisphosphonate Start: 12-13-2020 End: 01-30-2021 take 1 tablet by mouth every week Alendronate (Fosamax) 70 mg tablet Discontinued 70 mg PO EVERY WEEK December 13, 2020 12:00am January 30, 2021 5:19pm take 1 tablet by mouth once reji y Fosamax 70 MG 1 tablet 30 minutes before the first food, beverage or medicine of the day with plain water Orally for 30 day(s) Active amoxicillin 500 mg / clavulanate 125 mg oral tablet (2 sources) Penicillin-class Antibacterial Start: 06-19-2024 End: 02-09-2025 Amoxicillin-Pot Clavulanate (Augmentin) 500-125 mg tablet Discontinued 1 {tbl} PO Q12H 14 0 June 19, 2024 1:00am February 09, 2025 11:27am ascorbic acid 250 mg oral tablet (9 sources) Vitamin C Start: 12-13-2020 End: 01-30-2021 take 1 tablet by mouth once daily Ascorbic Acid (Vitamin C) 250 mg tablet Discontinued 250 mg PO DAILY December 13, 2020 12:00am January 30, 2021 5:19pm busPIRone hydrochloride 15 mg oral tablet (9 sources) Start: 01-30-2021 End: 02-11-2023 Buspirone 15 mg tablet Discontinued 15 mg PO January 30, 2021 12:00am February 11, 2023 11:40am calcium carbonate 1250 mg / cholecalciferol 125 unt oral tablet (9 sources) Vitamin D Start: 12-13-2020 End: 01-30-2021 Calcium Carbonate-Vitamin D3 500 mg(1,250mg) -125 unit tablet Discontinued 1 {tbl} PO TWICE A DAY December 13, 2020 12:00am January 30, 2021 5:20pm Calcium Carbonate / vitamin D3 (11 sources) CALCIUM CARBONATE/VITAMIN D3 (VITAMIN D-3 ORAL) Take by mouth. 0 Active Comment on above: Take by mouth. celecoxib 200 mg oral capsule (3 sources) Nonsteroidal Anti-inflammatory Drug Start: 02-01-2022 End: 07-23-2022 celecoxib (CELEBREX) 200 mg capsule Take one capsule daily with food. 0 02/01/2022 07/23/2022 Discontinued Comment on above: Take one capsule sanjana ly with food. cephalexin 500 mg oral capsule (18 sources) Cephalosporin Antibacterial Start: 01-30-2021 End: 02-09-2021 take 1 capsule by mouth every eight hours Cephalexin 500 mg capsule Discontinued 500 mg PO Q8H 30 10 0 January 30, 2021 12:00am February 08, 2021 12:00am February 09, 2021 12:01am Start: 07-17-2019 End: 07-22-2019 take 1 capsule by mouth every twelve hours Cephalexin 500 MG capsule Discontinued 500 mg PO EVERY 12 HOURS 6 3 0 July 17, 2019 1:00am July 19, 2019 1:00am July 22, 2019 1:12am post-operative ciprofloxacin 500 mg oral tablet (1 source) Quinolone Antimicrobial Start: 04-30-2019 take 1 tablet by mouth once daily Ciprofloxacin HCl - 500 MG Oral Tablet TAKE 1 TABLET EVERY 12 HOURS DAILY. Quantity: 28 Refills: 1 Annette Kim MD Start : 30-Apr-2019 Active Daily Multivitamin TABS (1 source) Daily Multivitamin TABS Refills: 0 Active escitalopram 10 mg oral tablet (1 source) Serotonin Reuptake Inhibitor Start: 04-30-2019 take 1 tablet by mouth once daily Escitalopram Oxalate 10 MG Oral Tablet TAKE 1 TABLET DAILY. Quantity: 90 Refills: 2 Annette Kim MD Start : 30-Apr-2019 Active famotidine 26.6 mg / ibuprofen 800 mg oral tablet (1 source) Nonsteroidal Anti-inflammatory Drug, Histamine-2 Receptor Antagonist Start: 04-30-2019 take 1 tablet by mouth three times daily Duexis 800-26.6 MG Oral Tablet TAKE 1 TABLET 3 times daily Refills: 0 Start : 30-Apr-2019 Active GLUCOSAMINE-CONDROITIN- [id number] ORAL (6 sources) GLUCOSAMINE-COND R OITIN-[id number] ORAL Take by mouth. 0 Active Comment on above: Take by mouth. hydrOXYzine hydrochloride 25 mg oral tablet (1 source) Antihistamine Start: 10-10-2016 take 1 tablet by mouth twice daily as needed for anxiety hydrOXYzine HCl - 25 MG Oral Tablet TAKE 1 TABLET TWICE DAILY NEEDED FOR ANXIETY Quantity: 180 Refills: 2 Annette Kim MD Start : 10-Oct-2016 Active magnesium oxide 500 mg oral tablet (9 sources) Start: 12-13-2020 End: 06-28-2021 take 1 tablet by mouth once daily Magnesium Oxide 500 mg tablet Discontinued 500 mg PO DAILY December 13, 2020 12:00am January 30, 2021 5:20pm methylPREDNISolone acetate 40 mg/ml injectable suspension (20 sources) Corticosteroid Start: 12-14-2021 DEPO-Medrol December, 20 mg Start: 12-14-2021 DepoMedrol 40 mg December, 20 mg Start: 06-08-2021 DEPO-Medrol Jun, 40 mg Start: 06-08-2021 DepoMedrol 40 mg Jun, 40 mg Start: 09-26-2020 DepoMedrol 40 mg Sep, 40 mg omeprazole 40 mg delayed release oral capsule (5 sources) Proton Pump Inhibitor Start: 04-24-2017 End: 07-23-2022 take 1 capsule by mouth once daily Omeprazole 40 mg capsule Take 1 capsule by mouth once daily. 30 capsule 5 04/24/2017 07/23/2022 Discontinued Comment on above: Take 1 capsule by [facility] once daily. rivaroxaban 10 mg oral tablet (3 sources) Factor Xa Inhibitor Start: 08-01-2022 End: 08-15-2022 take 1 tablet by mouth once daily rivaroxaban (XARELTO) 10 mg tablet Take 1 tablet by mouth once daily for 14 days. 14 tablet 0 08/01/2022 08/15/2022 Comment on above: Take 1 tablet by [facility] once daily for 14 days. 28 actuat teriparatide 0.02 mg/actuat pen injector (20 sources) Parathyroid Hormone Analog Start: 02-01-2021 inject 0.08 mL by subcutaneous injection once daily FORTEO 20 mcg/dose (600mcg/2.4mL) Inject 0.08ml (20mcg) sub-q once daily. 0 02/01/2021 Active Start: 01-31-2021 End: 02-11-2023 Teriparatide (Forteo) 20 mcg /dose (620mcg/2.48mL) pen injector Discontinued 20 ug SC DAILY 2.4 6 March 31, 2021 3:01pm February 11, 2023 11:53am Comment on above: Inject 0.08ml (20mcg ) sub-q once daily. vitamin b12 1 mg oral tablet (2 sources) Vitamin B12 cyanocobalamin ( VITAMIN B-12) 1,000 mcg tab Take by mouth. 0 Active Comment on above: Take by mouth. 100 ml zoledronic acid 0.05 mg/ml injection (13 sources) Bisphosphonate Start: 02-11-2024 End: 06-15-2024 Zoledronic Dtis-Fjhyadfv-Hxmsc 5 mg/100 mL piggyback Discontinued 1 NMA .Route ONCE 100 0 February 11, 2024 12:00am June 15, 2024 2:04pm infuse over 20 minutes Start: 02-11-2023 Zoledronic Aci k-Xxwtvxjg-Dsnsa Active 5 EACH .Route ONCE 100 February 11, 2023 12:00am onceinfuse over 20 minutes Start: 01-23-2021 End: 01-30-2021 Zoledronic Txif-Gdoncugg-Tdi er 5 mg/100 mL piggyback Discontinued 1 NMA .Route ONCE 100 0 January 23, 2021 12:00am January 30, 2021 5:20pm infuse over 20 minutes NEGATED: Highlighted row has not occurred!acetaminophen 325 mg / oxyCODONE hydrochloride 5 mg oral tablet (1 source) Opioid Agonist take 1 tablet by mouth every four hours as needed for pain oxyCODONE-acetaminophen 5 mg-325 mg Tablet, Ordered By: Jacque Abarca DPM Directions: 1 tablet oral every four hours PRN pain NEGATED: Highlighted row has not occurred!apixaban 5 mg oral tablet (1 source) Factor Xa Inhibitor take 1 tablet by mouth twice daily apixaban (Eliquis) 5 mg Tablet, Ordered By: Jacque Abarca DPM Directions: 1 tablet oral twice a day NEGATED: Highlighted row has not occurred!calcium acetate 667 mg oral tablet (1 source) take 1 tablet by mouth three times daily calcium acetate 667 mg Tablet, Ordered By: Jacque Abarca DPM Directions: 1 tablet oral three times a day NEGATED: Highlighted row has not occurred!hn-ib-mqdu-FA-her bal cmplx#190 (Vitamin D3 Complete) 18 mg iron-800 mcg-150 mg Tablet, Ordered By: Jacque Abarca DPM Directions: 1 tablet oral daily (1 source) take 1 tablet by mouth once daily az-pj-qdaw-FA-herbal cmplx#190 (Vitamin D3 Complete) 18 mg iron-800 mcg-150 mg Tablet, Ordered By: Jacque Abarca DPM Directions: 1 tablet oral daily NEGATED: Highlighted row has not occurred!28 actuat teriparatide 0.02 mg/actuat pen injector (1 source) Parathyroid Hormone Analog inject 20 ug by subcutaneous injection once daily teriparatide (Forteo) 20 mcg/dose (620 mcg/2.48 mL) Pen Injector, Ordered By: Jacque Abarca DPM Directions: 20 mcg subcutaneous daily NEGATED: Highlighted row has not occurred!traMADol hydrochloride 50 mg oral tablet (1 source) Opioid Agonist take 1 tablet by mouth every six hours as needed for pain traMADol 50 mg Tablet, Ordered By: Jacque Abarca DPM Directions: 1 tablet oral every six hours PRN pain Problems Active Problems Problem Classification Problem Date [...] anesthetic agent] Onset: 3 Episodic Anxiety disorders (13 sources) Anxiety; Translations: [Anxiety state, unspecified] Onset: 5 07-23-2019 Chronic Bacterial infection; unspecified site (3 [...] [Gastroesophageal Reflux Disease] 05-22-2018 Chronic Fracture of lower limb (9 sources) Open fracture of phalanx of foot; Translations: [Displaced unspecified fracture of left lesser toe(s), initial encounter for open fracture] 01-30-2021 Episodic Fracture of lower limb (2 sources) Closed fracture of distal phalanx of great toe; Translations: [Displaced fracture of distal phalanx of right great toe, initial encounter for closed fracture] 12-31-2023 Episodic Fracture of upper limb (20 sources) Closed fracture of distal end of radius; Translations: [Other closed fractures of distal end of radius (alone)] Onset: 5 12-30-2024 Episodic Genitourinary symptoms and ill-defined conditions (9 sources) Genuine stress incontinence; Translations: [Stress incontinence (female) (male)] 07-17-2019 Chronic Infective arthritis and osteomyelitis (except that [...] [Atrophy of Kidney] 05-08-2017 Chronic Nutritional deficiencies (13 sources) Vitamin D deficiency; Translations: [Vitamin D deficiency, unspecified] Chronic Comment on above: ON SUPPLEMENT Nutritional deficiencies (1 source) Cobalamin deficiency; Translations: [Other B-complex deficiencies] Episodic Osteoarthritis (20 sources) Localized, primary osteoarthritis of the wrist; Translations: [Primary osteoarthritis, right wrist] Onset: 3 Chronic Osteoporosis (16 sources) Osteoporosis; Translations: [Age-related osteoporosis without current pathological fracture] Onset: 5 Chronic Other bone disease and musculoskeletal deformities (1 source) Avascular necrosis of bone; 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] Onset: 0 07-05-2020 Chronic Other bone disease and musculoskeletal deformities (14 sources) Osteochondritis dissecans of left ankle; Translations: [Osteochondritis dissecans, left ankle and joints of left foot] Onset: 1 Chronic Other bone disease and musculoskeletal deformities (9 sources) Osteopenia; Translations: [Other specified disorders of bone density and structure, unspecified site] 12-13-2020 Episodic Other connective tissue disease (20 sources) History of left ankle arthroplasty; Translations: [Presence of left artificial ankle joint] Onset: 1 Chronic Other connective tissue disease (8 sources) Presence of left artificial ankle joint; [...] Extremity] 11-25-2014 Episodic Other connective tissue disease (3 sources) Foot pain; Translations: [Foot Pain] 11-26-2014 Episodic Other connective tissue disease (2 sources) Rupture of flexor tendon of foot; Translations: [Spontaneous rupture of flexor tendons, left ankle and foot] Episodic Other endocrine disorders (11 sources) Hyperpituitarism; Translations: [Hyperfunction of pituitary gland, unspecified] Onset: 6 07-01-2007 Chronic Other endocrine disorders (9 sources) Disorder of pituitary gland; Translations: [Disorder of pituitary gland, unspecified] 12-13-2020 Chronic Other endocrine disorders (4 sources) Disorder of pituitary gland, unspecified; Translations: [Unspecified disorder of the pituitary gland and its hypothalamic control] Chronic Other gastrointestinal disorders (1 source) History [...] joint, forearm] Episodic Other non-traumatic joint disorders (10 sources) Pain in left knee; Translations: [Left knee pain] 01-30-2021 Episodic Other non-traumatic joint disorders (1 source) [...] left foot] Episodic Other non-traumatic joint disorders (8 sources) Pain in left ankle and joints [...] joints of left foot] 07-08-2023 Episodic Other non-traumatic joint disorders (11 sources) Acute ankle pain; Translations: [Pain in left ankle and joints of left foot] 06-19-2024 Episodic Other non-traumatic joint disorders (20 sources) Ulnar impaction syndrome of right wrist; Translations: [Other specified joint disorders, right wrist] Onset: 5 12-30-2024 Episodic Other upper respiratory disease (1 source) Bleeding from nose; Translations: [Epistaxis] Episodic Prolapse of female genital organs (9 sources) Disorder of rectum; Translations: [Rectocele] 07-17-2019 Chronic Residual codes; unclassified (1 source) H/O: surgery; Translations: [Other specified postprocedural states] Onset: 0 07-05-2020 Episodic Residual codes; unclassified (4 sources) Postoperative state; Translations: [Other specified postprocedural states] Episodic Residual codes; unclassified (9 sources) History of ankle surgery; Translations: [Other specified postprocedural states] 01-30-2021 Episodic Comment on above: 11 SURGERIES LEFT AN KLE Residual codes; unclassified (2 sources) Other specified postprocedural states; Translations: [Other specified postprocedural states] Onset: 2 Episodic Skin and subcutaneous tissue infections (1 source) Carbuncle of upper limb; Translations: [Carbuncle and furuncle of upper arm and forearm] Episodic Sprains and strains (16 sources) Rupture of posterior cruciate ligament; Translations: [Sprain of cruciate ligament of knee] Episodic Superficial injury; contusion (9 sources) Contusion of left lesser toe; Translations: [Contusion of left lesser toe(s) without damage to nail, initial encounter] 01-30-2021 Episodic Thyroid disorders (20 sources) Goiter; Translations: [Simple and unspecified goiter] [...] joint, initial encounter / S43.492A(ICD-10) Onset: 8 Unclassified (2 sources) Autogenerated Problem Onset: 5 12-24-2024 Unclassified (2 sources) History of left ankle arthroplasty 02-01-2025 Unclassified (2 sources) Closed fracture of shaft of radius and ulna 02-11-2025 Viral infection (1 source) Herpetic gingivostomatitis; Translations: [...] initial encounter Onset: 12-14-2021 Resolved: 12-14-2021 Episodic Other screening for suspected conditions (not mental disorders or infectious disease) (3 sources) Patient encounter status; Translations: [Screening for lipoid disorders] Onset: 09-17-2024 Episodic Unclassified (1 source) Pain in left shoulder; Translations: [Pain in left shoulder] Onset: 02-10-2018 Unclassified (1 source) Unsp rotatr-cuff tear/ruptr of left shoulder, not trauma; Translations: [Unsp rotatr-cuff tear/ruptr of left shoulder, not trauma] Onset: 02-10-2018 Unclassified (1 source) Problem Unclassified (1 source) Localized, primary osteoarthritis of ankle or foot, left; Translations: [Localized, primary osteoarthritis of ankle or foot, left] Unclassified (11 sources) Onset: 12-24-2024 Resolved: 02-11-2025 07-23-2019 NEGATED: Highlighted row has not occurred!Residual codes; unclassified (1 source) Disease Episodic Results Test Name Value Interpretation Reference Range Facility XR FOREARM RIGHT 2 VIEWSon 0 02-11-2025 XR FOREARM RIGHT 2 VIEWS Interpreted By: Jillian Restrepo, STUDY: Right forearm, 2 views. INDICATION: Signs/Symptoms:s/p revision ulnar shortening with distal radial autograft. COMPARISON: XR FOREARM RIGHT 2 VIEWS 01/14/2025 ACCESSION NUMBER(S): [id number] ORDERING CLINICIAN: HERMAN HOLLOWAY FINDINGS: No acute fracture or malalignment. Remote distal radial fixation changes with plate and screws. Ulnar osteotomy changes with plate and screw fixation. Hardware is intact without perihardware fractures or lucencies. Healing ulnar osteotomy site without malalignment. Soft tissues are unremarkable. IMPRESSION: 1. As above. MACRO: None. Signed by: Jillian Restrepo 02/12/2025 11:59 AM Dictation workstation: [id number] [facility] Endocrinology Visit Reporton 02-09-2025 Endocrinology Visit Report [facility] [address] [place] [address] OFFICE VISIT Date of Service: 02/09/25 MR#: [id number] Acct: [id number] Name: VIBHA CAON Rep #: [id number] : 1965 Provider: Alexis Aranda Age/Sex: 60/F Location: [facility] [place] Status: Signed Intake Vital Signs 02/11/24 11:27 06/19/24 06:36 02/09/25 11:25 Height 5 ft 2 in 5 ft 2 in 5 ft 2 in Weight: 141 lb 6 oz BMI 25.8 BP 108/74 Blood Pressure Location Lt brachial Position Sitting Pulse 73 Pulse Source Monitor Pulse Oximetry (%) 98 Oxygen Delivery Method room air Intake Visit Reasons: 1 Y FU Chief Complaint: Osteoporosis Is patient in pain?: Yes Allergies codeine Allergy (Verified 02/09/25 11:27) itching midazolam (From Versed) Allergy (Verified 02/09/25 11:27) paradoxial reaction suture Allergy (Verified 02/09/25 11:27) NEEDS FOLLOW-UP Medications ???Medication ???Instructions ???Recorded ???Confirmed ???Type gabapentin 300 mg capsule 300 mg PO TID 12/13/20 02/09/25 Hi story calcium carbonate 195 mg PO DAILY 02/12/22 02/09/25 History cholecalciferol (vitamin D3) 125 125 mcg PO DAILY 02/12/22 02/09/25 History mcg (5,000 unit) capsule magnesium 200 mg tablet 200 mg PO DAILY 02/12/22 02/09/25 History pyridoxine (vitamin B6) 10 mg 10 mg PO QDAY 02/09/25 02/09/25 Hi story tablet tramadol 50 mg tablet 50 mg PO QD-QID PRN pain 02/09/25 02/09/25 History PFSH Medical History Closed fracture of distal phalanx of right great toe Wears glasses Post-menopausal Arthritis Non-smoker Goiter Knee pain PCL injury Tear of LCL (lateral collateral ligament) of knee Vitamin D deficiency Pituitary abnormality Osteoporosis Osteopenia Bone fracture Surgical History Hx of toe surgery History of ankle surgery H/O shoulder surgery H/O decompression of ulnar nerve H/O wrist surgery S/P MCL repair H/O lithotripsy History of renal stent H/O oophorectomy Family History Mother Arthritis Osteoporosis A-fib Sister Arthritis Aunt Autoimmune disorder Daughter Autoimmune disorder Hypogammaglobulinemia Father Diabetes Myocardial infarction, Onset Age: 79 Hypertension Hypercholesterolemia Grandfather Myocardial infarction, Onset Age: 76 Heart disease Grandmother Hypertension Aunt Breast cancer Lupus Brother Hodgkins lymphoma Other Cancer Social History Smoking Status: Never smoker alcohol intake: current alcohol intake frequency: holidays/special occasions only substance use type: does not use what type of physical activity do you participate in: walking, bicycling and swimming frequency: 3-4 times per week HPI HPI Chief Complaint: Osteoporosis Details: VIBHA CANO, is a 60 F who presents to the office today for follow up. Lumbar Spine (L1-L4): g/cm2 (1.078) / T-score (-0.9) / Z-score (-0.2) Findings are suggestive of normal bone density with a low fracture risk. Left Femur Total: g/cm2 (0.795) / T-score (-1.7) / Z-score (-1.1) Left Femoral Neck: g/cm2 (0.688) / T-score (-2.5) / Z-score (-1.6) Right Femur Total: g/cm2 (0.852) / T-score (-1.2) / Z-score (-0.6) Right Femoral Neck: g/cm2 (0.741) / T-score (-2.1) / Z-score (-1.2) She has completed 2 years of Forteo. No recent changes to health. No evidence of return of prolactinoma. She has received two infusions of Reclast. She reports scarring in her ankle, causing her to fall. She states she is considering amputation of her foot due to her ankle problems. She has refractured her right arm, she states the bone isn't healing. She is asking about taking more anabolic medications. ROS Const Constitutional: No fatigue, headache(s) or weight change Eyes Eyes: No change in vision ENT ENT: No abnormal hearing, dizziness/vertigo or headache(s) Cardio Cardiology: No chest pain at rest, chest pain with exertion, shortness of breath or palpitations Musc Musculoskeletal: No abnormal gait, joint pain or muscle weakness Neuro Neurology: Positive for unsteady gait/balance; No abnormal gait, abnormal hearing, dizziness or headache(s) Psych Psychiatric: No anxiety and No depression Jackson/Lymp Hematologic/Lymphatic: No easy bruising Resp Respiratory: No cough, hemoptysis or shortness of breath Gastro GI: No abdominal pain Genitourinary-Female: No blood in urine Skin Skin: No wounds Endo Endocrine: No fatigue or weight change Exam Const General: cooperative, healthy appearing, comfortable, no acute distress, well developed and not cushingoid (more content not included)... Normal [facility] CT ANKLE LEFT WO IV CONTRAST on 02-08-2025 CT ANKLE LEFT WO IV CONTRAST Interpreted By: Devin Freeman, STUDY: CT ANKLE LEFT WO IV CONTRAST; 02/08/2025 4:23 pm INDICATION: Signs/Symptoms:anterolate ral ankle pain - TAR. COMPARISON: 01/27/2025 ACCESSION NUMBER(S): [id number] ORDERING CLINICIAN: ISAC BOOKER TECHNIQUE: CT imaging of the left ankle was obtained without administration of intravenous contrast medium. Coronal and sagittal reformatted images were performed. FINDINGS: OSSEOUS STRUCTURES: Patient is status post tibiotalar arthroplasty. There is no perihardware lucency or fracture to suggest failure. There is additional lateral plate and screw fixation of the distal tibia. Plate and screw fixation of the distal fibula is also noted. There is a tubular anchor tracts of the distal fibular which may be from prior ligament reconstruction. Distal tibiofibular. Navicular anchor tract within the navicular. There is moderate to severe tibiotalar arthrosis with subchondral sclerosis and cystic change, particularly involving the posterior facet. There is moderate talonavicular degenerative change with osteophyte formation. SOFT TISSUES: Small ankle joint effusion. IMPRESSION: Postsurgical changes, as above. No evidence of hardware complication noted.There is heterotopic ossification in the anterolateral gutter with productive bony changes and pseudoarthrosis (series 12, image 29). 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 MACRO: None Signed by: Devin Freeman 02/08/2025 4:34 PM Dictation workstation: [id number] [facility] CT Ankle - left WO contrasto n 02-08-2025 Postsurgical changes , as above. No evidence of hardware complication noted.There is heterotopic ossification in the anterolateral gutter with productive bony changes and pseudoarthrosis (series 12, image 29). 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 MACRO: None Signed by: Devin Freeman 02/08/2025 4:34 PM Dictation workstation: [id number] MMODAL Interpreted By: Devin Clarke, STUDY: CT ANKLE LEFT WO IV CONTRAST; 02/08/2025 4:23 pm INDICATION: Signs/Symptoms:anterolate ral ankle pain - TAR. COMPARISON: 01/27/2025 ACCESSION NUMBER(S): [id number] ORDERING CLINICIAN: ISAC BOOKER TECHNIQUE: CT imaging of the left ankle was obtained without administration of intravenous contrast medium. Coronal and sagittal reformatted images were performed. FINDINGS: OSSEOUS STRUCTURES: Patient is status post tibiotalar arthroplasty. There is no perihardware lucency or fracture to suggest failure. There is additional lateral plate and screw fixation of the distal tibia. Plate and screw fixation of the distal fibula is also noted. There is a tubular anchor tracts of the distal fibular which may be from prior ligament reconstruction. Distal tibiofibular. Navicular anchor tract within the navicular. There is moderate to severe tibiotalar arthrosis with subchondral sclerosis and cystic change, particularly involving the posterior facet. There is moderate talonavicular degenerative change with osteophyte formation. SOFT TISSUES: Small ankle joint effusion. [facility] MMODAL Devin Freeman MD - 02/08/2025 Interpreted By: Devin Freeman, STUDY: CT ANKLE LEFT WO IV CONTRAST; 02/08/2025 4:23 pm INDICATION: Signs/Symptoms:anterolate ral ankle pain - TAR. COMPARISON: 01/27/2025 ACCESSION NUMBER(S): [id number] ORDERING CLINICIAN: ISAC BOOKER TECHNIQUE: CT imaging of the left ankle was obtained without administration of intravenous contrast medium. Coronal and sagittal reformatted images were performed. FINDINGS: OSSEOUS STRUCTURES: Patient is status post tibiotalar arthroplasty. There is no perihardware lucency or fracture to suggest failure. There is additional lateral plate and screw fixation of the distal tibia. Plate and screw fixation of the distal fibula is also noted. There is a tubular anchor tracts of the distal fibular which may be from prior ligament reconstruction. Distal tibiofibular. Navicular anchor tract within the navicular. There is moderate to severe tibiotalar arthrosis with subchondral sclerosis and cystic change, particularly involving the posterior facet. There is moderate talonavicular degenerative change with osteophyte formation. SOFT TISSUES: Small ankle joint effusion. IMPRESSION: Postsurgical changes, as above. No evidence of hardware complication noted.There is heterotopic ossification in the anterolateral gutter with productive bony changes and pseudoarthrosis (series 12, image 29). 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 MACRO: None Signed by: Devin Freeman 02/08/2025 4:34 PM Dictation workstation: [id number] [facility] Work Phone: Radiology Study observation (narrative) [facility] Work Phone: CT Ankle - left WO contrastO rdered By: Devin Freeman on 02-08-2025 [facility] Work Phone: No Panel Informationon 01-28 1. Postsurgical montemayor ges as above without hardware complication. 2. Mild talonavicular joint osteoarthrosis. MACRO: None. Signed by: Jillian Restrepo 01/28/2025 7:47 PM Dictation workstation: [id number] [facility]AL Interpreted By: Jillian Marinelli, STUDY: Left ankle, 3 views. Left foot, 3 views. INDICATION: Signs/Symptoms:Pain. COMPARISON: None. ACCESSION NUMBER(S): [id number]; [id number] ORDERING CLINICIAN: [facility] STUDY: Left ankle/foot: No acute fracture or malalignment. The ankle mortise is normally aligned. Total ankle arthroplasty changes. Distal tibiofibular syndesmotic fusion with tight rope device. Distal tibial plate and screw fixation changes. Hardware is intact without perihardware fractures or lucencies. Mild talonavicular joint osteoarthrosis with dorsal osteophytes. Joint spaces of the foot are maintained. Soft tissues are within normal limits Jillian Valiente MD - 01/28/2025 Interpreted By: Jillian Restrepo, STUDY: Left ankle, 3 views. Left foot, 3 views. INDICATION: Signs/Symptoms:Pain. COMPARISON: None. ACCESSION NUMBER(S): [id number]; [id number] ORDERING CLINICIAN: ISAC [facility]LL[facility] STUDY: Left ankle/foot: No acute fracture or malalignment. The ankle mortise is normally aligned. Total ankle arthroplasty changes. Distal tibiofibular syndesmotic fusion with tight rope device. Distal tibial plate and screw fixation changes. Hardware is intact without perihardware fractures or lucencies. Mild talonavicular joint osteoarthrosis with dorsal osteophytes. Joint spaces of the foot are maintained. Soft tissues are within normal limits IMPRESSION: 1. Postsurgical changes as above without hardware complication. 2. Mild talonavicular joint osteoarthrosis. MACRO: None. Signed by: Jillian Restrepo 01/28/2025 7:47 PM Dictation workstation: [id number] [facility] Work Phone: No Panel InformationOrdered By: Jillian Restrepo on 01-28-2025 [facility] Work Phone: No Panel Informationon 01-27 Radiology Study observation (narrative) [facility] Work Phone: XR ANKLE LEFT 3+ VIEWSon XR ANKLE LEFT 3+ VIEWS Interpreted By: Jillian Land, STUDY: Left ankle, 3 views. Left foot, 3 views. INDICATION: Signs/Symptoms:Pain. COMPARISON: None. ACCESSION NUMBER(S): [id number]; [id number] ORDERING CLINICIAN: ISAC BOOKER STUDY: Left ankle/foot: No acute fracture or malalignment. The ankle mortise is normally aligned. Total ankle arthroplasty changes. Distal tibiofibular syndesmotic fusion with tight rope device. Distal tibial plate and screw fixation changes. Hardware is intact without perihardware fractures or lucencies. Mild talonavicular joint osteoarthrosis with dorsal osteophytes. Joint spaces of the foot are maintained. Soft tissues are within normal limits IMPRESSION: 1. Postsurgical changes as above without hardware complication. 2. Mild talonavicular joint osteoarthrosis. MACRO: None. Signed by: Jillian Restrepo 01/28/2025 7:47 PM Dictation workstation: [id number] [facility] XR FOOT LEFT 3+ VIEWSon 2 XR FOOT LEFT 3+ VIEWS Interpreted By: Jillian Block, STUDY: Left ankle, 3 views. Left foot, 3 views. INDICATION: Signs/Symptoms:Pain. COMPARISON: None. ACCESSION NUMBER(S): [id number]; [id number] ORDERING CLINICIAN: ISAC BOOKER STUDY: Left ankle/foot: No acute fracture or malalignment. The ankle mortise is normally aligned. Total ankle arthroplasty changes. Distal tibiofibular syndesmotic fusion with tight rope device. Distal tibial plate and screw fixation changes. Hardware is intact without perihardware fractures or lucencies. Mild talonavicular joint osteoarthrosis with dorsal osteophytes. Joint spaces of the foot are maintained. Soft tissues are within normal limits IMPRESSION: 1. Postsurgical changes as above without hardware complication. 2. Mild talonavicular joint osteoarthrosis. MACRO: None. Signed by: Jillian Restrepo 01/28/2025 7:47 PM Dictation workstation: [id number] [facility] XR FOREARM RIGHT 2 VIEWSon 0 01-14-2025 XR FOREARM RIGHT 2 VIEWS Interpreted By: Rdoo Wynn, STUDY: XR FOREARM RIGHT 2 VIEWS; 01/14/2025 1:08 pm INDICATION: Signs/Symptoms:pain. ,M25.831 Other specified joint disorders, right wrist COMPARISON: 04/25/2023 ACCESSION NUMBER(S): [id number] ORDERING CLINICIAN: HERMAN HOLLOWAY FINDINGS: Status post ORIF of fractures of the distal radius and ulna. Hardware is intact. Persistent widening of the scapholunate joint. No dislocation is seen. There are no lytic or blastic lesions. No radiopaque foreign bodies are noted. IMPRESSION: Status post ORIF of fractures of the distal radius and ulna. MACRO: None. Signed by: Rodo Wynn 01/15/2025 6:24 PM Dictation workstation: [id number] [facility] Bacteria identifiedon 2024 Bacteria identified Cx Nom (Unsp spec) Test: Tissue/Wound Culture/Smear Specimen Source: BONE RESECTION Specimen Type: Tissue Specimen Date: 12/30/202443 Result Date: 01/02/2025 1006 Result Status: Final result Resulting Lab: [facility] [id number] [place] [address] CULTURE No growth aerobically and anaerobically STAIN No polymorphonuclear leukocytes seen No organisms seen [facility] Comment on above: Performed By: #### [phone] #### AUDREY Ontiveros ([id number]) [facility] ([facility]) [address] [place] [address] FL FLUORO IMAGES NO CHARGEon 12-30-2024 FL FLUORO IMAGES NO CHARGE These images are not reportable by radiology and will not be interpreted by Radiologists. Normal [facility] XR tomography Unspecified megan dy regionon 12-30-2024 These images are not reportable by radiology and will not be interpreted by Radiologists. IMAGING 12 Lead EKGon 10-20-2024 12 Lead EKG [facility] Cardiovascular Services [address] [place] [address] 12 Lead EKG 10/20/24 0813 MR#: [id number] Acct: [id number] Name: VIBHA CANO Rep #: [id number] : 1965 59 From: Doc Diana MD Attending Dr: Dr. Dieter Peraza DO Status: REG CLI Ordering Dr: Dieter Peraza DO Date: 10/20/24 Location: [facility] Sex: F C Admitted: Test Reason : PRE OP Blood Pressure : */* mmHG Vent. Rate : 72 BPM Atrial Rate : 72 BPM P-R Int : 130 ms QRS Dur : 88 ms QT Int : 412 ms P-R-T Axes : 46 11 32 degrees QTcB Int : 451 ms Normal sinus rhythm Nonspecific ST abnormality Abnormal ECG Confirmed by GLENNA MÁRQUEZ, DOC ([id number]), editor department MYRTLE LANG ([id number]) on 10/20/2024 1:04:52 PM Referred By: Dieter Peraza Confirmed By: DOC DIANA MD 10/20/24 1304 Date Doc Diana MD CC: Dr. Janeth Salcido MD; Dr. Dieter Peraza DO Signed Normal [facility] Absolute lymphocyte countOrd ered By: Dieter Peraza on 10-20-2024 Lymphocytes Auto (Unsp spec) [#/Vol] 2.71 10*3/uL 0.83-4.51 [facility] Absolute neutrophil countOrd ered By: Dieter Peraza on 10-20-2024 Neutrophils (Bld) [#/Vol] 4.1 10*3/uL 2.0-7.7 [facility] Anion gap in Serum or Plasma Ordered By: Dieter Peraza on 10-20-2024 Anion gap [Moles/Vol] 13 mmol/L 5-15 [facility] Automated blood erythrocyte countOrdered By: Dieter Peraza on 10-20-2024 RBC (Bld) [#/Vol] 4.18 10*6/uL Low 4.2-5.4 [facility] Comment on above: Performed By: #### L 500.2500, L100.0100 #### [facility] [place], [address] Automated blood hematocrit ( percentage)Ordered By: Dieter Peraza on 10-20-2024 Hematocrit (Bld) [Volume fraction] 38.4 % Normal 37-47 [facility] Comment on above: Performed By: #### L 500.2500, L100.0100 #### [facility] [address] [place], [address] Automated lymphocyte count a s percentage of total leukocytesOrdered By: Dieter Peraza on 10-20-2024 Lymphocytes/100 WBC (Bld) 36.3 % Normal 19-41 [facility] Comment on above: Performed By: #### L 500.2500, L100.0100 #### [facility] [address] [place], [address] Lymphocytes/100 WBC Auto (Unsp spec) 36.3 % - [facility] BUN/creatinine ratioOrdered By: Dieter Peraza on 10-20-2024 Urea nitrogen/Creatinine [Mass ratio] 17.0 mg/mg 10- [facility] Basic Metabolic Profile (BMP )on 10-20-2024 BUN/CRE 17.0 RATIO Normal - [facility] Comment on above: Performed By: #### L 500.2500, L100.0100 #### [facility] [address] [place], [address] Calcium [Mass/Vol] 9.5 mg/dL Normal 7.6-11.0 [facility] Comment on above: Performed By: #### L 500.2500, L100.0100 #### [facility] [address] [place], [address] Chloride [Moles/Vol] 105 mmol/L Normal 98-108 [facility] Comment on above: Performed By: #### L 500.2500, L100.0100 #### [facility] [address] [place], [address] CO2 [Moles/Vol] 21.3 mmol/L Normal 21.0-32.0 [facility] Comment on above: Performed By: #### L 500.2500, L100.0100 #### [facility] [address] [place], [address] Creatinine [Mass/Vol] 0.90 mg/dL Normal 0.70-1.20 [facility] Comment on above: Performed By: #### L 500.2500, L100.0100 #### [facility] [address] [place], [address] GAP 13 Normal 5-15 [facility] Comment on above: Performed By: #### L 500.2500, L100.0100 #### [facility] [address] [place], [address] GFR/1.73 sq M.predicted among non-blacks MDRD (S/P/Bld) [Vol rate/Area] 75 mL/min/{1.73_m2} Normal >60 [facility] Comment on above: Result Comment: mL/m in/1.73m2 CKD-EPI Creatinine Equation (2020) Performed By: #### L 500.2500, L100.0100 #### [facility] [address] [place], [address] Glucose [Mass/Vol] 99 mg/dL Normal 70-99 [facility] Comment on above: Performed By: #### L 500.2500, L100.0100 #### [facility] [address] [place], [address] Potassium [Moles/Vol] 3.6 mmol/L Normal 3.3-5.1 [facility] Comment on above: Performed By: #### L 500.2500, L100.0100 #### [facility] [address] [place], [address] Sodium [Moles/Vol] 140 mmol/L Normal 133-145 [facility] Comment on above: Performed By: #### L 500.2500, L100.0100 #### [facility] [address] [place], [address] Urea nitrogen [Mass/Vol] 15 mg/dL Normal 4-19 [facility] Comment on above: Performed By: #### L 500.2500, L100.0100 #### [facility] [address] [place], [address] Basophil percentageOrdered B y: Dieter Peraza on 10-20-2024 Basophils/100 WBC (Bld) 0.9 % Normal 0-1 [facility] Comment on above: Performed By: #### L 500.2500, L100.0100 #### [facility] [address] [place], [address] CBC W/Diff, Automatedon 10-03 Absolute Lymph 2.71 X10 3/uL Normal 0.83-4.51 [facility] Comment on above: Performed By: #### L 500.2500, L100.0100 #### [facility] [address] [place], [address] Absolute Neut 4.1 X10 3/uL Normal 2.0-7.7 [facility] Comment on above: Performed By: #### L 500.2500, L100.0100 #### [facility] [address] [place], [address] IG% 0.500 Normal 0.0-0.9 [facility] Comment on above: Result Comment: IG% - Immature Granulocytes (promyelocytes, myelocytes and metamyelocytes) > 1% indicates that a LEFT SHIFT is Present. Performed By: #### L 500.2500, L100.0100 #### [facility] [address] [place], [address] Nucleated RBC (Bld) [#/Vol] 0 10*3/uL Normal 0-5 [facility] Comment on above: Performed By: #### L 500.2500, L100.0100 #### [facility] [address] [place], [address] RDW SD 43.7 fl Normal 35.1-43.9 [facility] Comment on above: Performed By: #### L 500.2500, L100.0100 #### [facility] [address] [place], [address] Carbon dioxide, total [Moles /volume] in Central venous bloodOrdered By: Dieter Peraza on 10-20-2024 CO2 [Moles/Vol] 21.3 mmol/L 21.0-32.0 [facility] Chloride assayOrdered By: Zainab Peraza on 10-20-2024 Chloride [Moles/Vol] 105 mmol/L 98-108 [facility] Electrocardiogram reportOrde red By: Doc Diana on 10-20-2024 EKG study [facility] Cardiovascular Services [address] [place] [address] 12 Lead EKG 10/20/24 0813 MR#: [id number] Acct: [id number] Name: VIBHA CANO Rep #:[id number] : 1965 59 From: Doc Diana MD Attending Dr: Dr. Dieter Peraza, Status: REG CLI Ordering Dr: Dieter Peraza DO Date: 10/20/24 Location: [facility] Sex: F C Admitted: Test Reason : PRE OP Blood Pressure : */* mmHG Vent. Rate : 72 BPM Atrial Rate : 72 BPM P-R Int : 130 ms QRS Dur : 88 ms QT Int : 412 ms P-R-T Axes : 46 11 32 degrees QTcB Int : 451 ms Normal sinus rhythm Nonspecific ST abnormality Abnormal ECG Confirmed by DOC DIANA MD ([id number]), editor department MYRTLE LANG ([id number]) on 51:04:52 PM Referred By: Dieter Peraza Confirmed By: DOC DIANA MD 10/20/24 1304 Date _ Doc Diana MD CC: Dr. Janeth Salcido MD; Dr. Dieter Peraza, DO ~ Signed [facility] Work Phone: Eosinophil percentageOrdered By: Dieter Peraza on 10-20-2024 Eosinophils/100 WBC (Bld) 2.3 % Normal 0-5 [facility] Comment on above: Performed By: #### L 500.2500, L100.0100 #### [facility] [address] [place], [address] Erythrocyte distribution wid th ratioOrdered By: Dieter Peraza on 10-20-2024 Erythrocyte distribution width (RBC) [Ratio] 12.9 % Normal 11.6-14.6 [facility] Comment on above: Performed By: #### L 500.2500, L100.0100 #### [facility] [address] [place], [address] Erythrocyte distribution wid th standard deviationOrdered By: Dieter Peraza on 10-20-2024 Erythrocyte distribution width (RBC) [Entitic vol] 43.7 fL 35.1-43.9 [facility] Erythrocyte distribution width (RBC) [Ratio] 43.7 fl 35.1-43.9 [facility] GFR/1.73 sq M.predicted lyndsey g non-blacks MDRD (S/P/Bld) [Vol rate/Area]Ordered By: Dieter Peraza on 10-20-2024 Estimated GFR (MDRD) Non-Af Amer 75 >60 [facility] Comment on above: mL/min/1.73m2 CKD-EP I Creatinine Equation (2020) Glomerular filtration rate ( GFR) estimation/1.73 sq m using serum, plasma, or whole bOrdered By: Dieter Peraza on 10-20-2024 GFR/1.73 sq M.predicted among non-blacks MDRD (S/P/Bld) [Vol rate/Area] 75 mL/min/{1.73_m2} >60 [facility] Comment on above: mL/min/1.73m2 CKD-EP I Creatinine Equation (2020) Hemoglobin measurementOrdere d By: Dieter Peraza on 10-20-2024 Hemoglobin (Bld) [Mass/Vol] 12.9 g/dL Normal 12.0-15.0 [facility] Comment on above: Performed By: #### L 500.2500, L100.0100 #### [facility] [address] [place], [address] Immature granulocytes/100 WB C Auto (Bld)Ordered By: Dieter Peraza on 10-20-2024 Immature granulocytes/100 WBC (Bld) 0.500 % 0.0-0.9 [facility] Comment on above: IG% - Immature Granu locytes (promyelocytes, myelocytes and metamyelocytes) > 1% indicates that a LEFT SHIFT is Present. Lymphocytes Auto (Unsp spec) [#/Vol]Ordered By: Dieter Peraza on 10-20-2024 Lymphocytes (Bld) [#/Vol] 2.71 10*3/uL 0.83-4.51 [facility] MCV (mean corpuscular volume ) determinationOrdered By: Dieter Peraza on 10-20-2024 MCV (RBC) [Entitic vol] 91.9 fL Normal 81-99 [facility] Comment on above: Performed By: #### L 500.2500, L100.0100 #### [facility] [address] [place], [address] Mean corpuscular hemoglobin (MCH) determinationOrdered By: Dieter Peraza on 10-20-2024 MCH (RBC) [Entitic mass] 30.9 pg Normal 27.0-32.0 [facility] Comment on above: Performed By: #### L 500.2500, L100.0100 #### [facility] [address] [place], [address] Mean corpuscular hemoglobin concentration (MCHC) determinationOrdered By: Dieter Peraza on 10-20-2024 MCHC (RBC) [Mass/Vol] 33.6 g/dL Normal 32-36 [facility] Comment on above: Performed By: #### L 500.2500, L100.0100 #### [facility] [address] [place], [address] Mean platelet volume determi nationOrdered By: Dieter Peraza on 10-20-2024 Platelet mean volume (Bld) [Entitic vol] 10.8 fL Normal 6.2-12.0 [facility] Comment on above: Performed By: #### L 500.2500, L100.0100 #### [facility] [address] [place], [address] Monocyte percentageOrdered B y: Dieter Peraza on 10-20-2024 Monocytes/100 WBC (Bld) 5.5 % Normal 0-10 [facility] Comment on above: Performed By: #### L 500.2500, L100.0100 #### [facility] [address] [place], [address] Neutrophil percentageOrdered By: Dieter Peraza on 10-20-2024 Neutrophils/100 WBC (Bld) 54.5 % Normal 47-70 [facility] Comment on above: Performed By: #### L 500.2500, L100.0100 #### [facility] [address] [place], [address] Nucleated red blood cell per centageOrdered By: Dieter Peraza on 10-20-2024 Nucleated RBC/100 WBC (Bld) [Ratio] 0 % 0-5 [facility] Platelet countOrdered By: Zainab Peraza on 10-20-2024 Platelets (Bld) [#/Vol] 257 10*3/uL Normal 150-450 [facility] Comment on above: Performed By: #### L 500.2500, L100.0100 #### [facility] [address] [place], [place], [address] Potassium (Unsp spec) [Mass/ Vol]Ordered By: Dieter Peraza on 10-20-2024 Potassium [Moles/Vol] 3.6 mmol/L 3.3-5.1 [facility] Potassium measurement (mass/ volume)Ordered By: Dieter Peraza on 10-20-2024 Potassium (Unsp spec) [Mass/Vol] 3.6 mmol/L 3.3-5.1 [facility] Serum creatinine measurement (mass/volume)Ordered By: Dieter Peraza on 10-20-2024 Creatinine [Mass/Vol] 0.90 mg/dL 0.70-1.20 [facility] Serum glucose measurement (m ass/volume)Ordered By: Dieter Peraza on 10-20-2024 Glucose [Mass/Vol] 99 mg/dL 70-99 [facility] Serum or plasma calcium ilya urement (mass/volume)Ordered By: Dieter Peraza on 10-20-2024 Calcium [Mass/Vol] 9.5 mg/dL 7.6-11.0 [facility] Serum or plasma urea nitroge n measurement (mass/volume)Ordered By: Dieter Peraza on 10-20-2024 Urea nitrogen [Mass/Vol] 15 mg/dL 4-19 [facility] Sodium levelOrdered By: Jose L Peraza on 10-20-2024 Sodium [Moles/Vol] 140 mmol/L 133-145 [facility] White blood cell (WBC) count Ordered By: Dieter Peraza on 10-20-2024 WBC (Bld) [#/Vol] 7.5 10*3/uL Normal 4.4-11.0 [facility] Comment on above: Performed By: #### L 500.2500, L100.0100 #### [facility] [address] [facility] [place], [place], [address] SCRN MAMM (CAD)W/WIN BILATo n 09-02-2024 SCRN MAMM (CAD)W/WIN BILAT [facility] Imaging Services [address] [place] [address] SCRN MAMM (CAD)W/WIN BILAT MR#: [id number] Acct: [id number] Name: VIBHA CANO Rep #: [id number] : 1965 F 59 From: Beka mak MD PCP: Dr. Janeth Salcido MD Status: [facility] Study: SCRN MAMM (CAD)W/WIN BILAT Date of Exam: 08/06 04/29 Exam# [id number] Ordering Dr: Janeth Salcido MD PROCEDURE: SCRN MAMM (CAD)W/WIN BILAT REASON FOR EXAM: F, Age 59 y/o, routine mammographic follow-up. Prior bilateral excisional breast biopsies. TECHNIQUE: Bilateral screening digital breast tomosynthesis with 2D and 3D images. Computer aided detection. COMPARISON: None. Comparison is made with prior study dated May 08, 2023 and September 11, 2021. FINDINGS: The breasts are extremely dense which lowers the sensitivity of mammography. No suspicious masses, areas of developing architectural distortion, or suspicious calcifications. BI/SCRN MAMM (CAD)W/WIN BILAT IMPRESSION: BI-RADS 1: NEGATIVE. RECOMMEND ANNUAL MAMMOGRAPHIC SCREENING. There has been no change. Follow-up code: Routine Follow-up The patient will be notified of the results by letter. Reading Location: [place] [address] CC: Dr. Janeth Salcido MD Off Track Betting Manager: Signed Normal [facility] Ankle 2 Viewson 06-19-2024 Ankle 2 Views [facility] Imaging Services [address] [place] [address] Ankle 2 Views MR#: [id number] Acct: [id number] Name: VIBHA CANO Rep #: [id number] : 1965 F 59 From: Karime dominguez MD PCP: Dr. Janeth Salcido MD Status: [facility] Study: Ankle 2 Views Date of Exam: 06/19/24 Exam# [id number] Ordering Dr: Art Dangelo DPM [id number] HISTORY: BONE REMOVAL LT ANKLE -- MINI. TECHNIQUE: Left ankle 5 spot images. COMPARISON: XR same day. FINDINGS: OSSEOUS STRUCTURES: Hardware and arthroplasty of the left ankle noted. FLUOROSCOPY TIME: 3 minutes 17 seconds. RADIATION DOSE: 2.88 mGy. RAD/Ankle 2 Views IMPRESSION: Image guidance for left ankle procedure. Electronically Signed: Karime Flores MD at 10:20 EST Reading Location ID and State: [facility] / [place] Tel , Service support , CC: JESSICA Dangelo; Dr. Janeth Salcido MD Off Track Betting Manager: Signed Normal [facility] Ankle min 3 Viewson 06-19-20 Ankle min 3 Views [facility] Imaging Services [address] [place] [id number] Ankle min 3 Views MR#: [id number] Acct: [id number] Name: VIBHA CANO Rep #: [id number] : 1965 F 59 From: Eduar Donnelly MD PCP: Dr. Janeth Salcido MD Status: [facility] Study: Ankle min 3 Views Date of Exam: 06/19/24 Exam# [id number] Ordering Dr: Art Dangelo DPAlexis [id number] STUDY: X-RAY - LEFT ANKLE REASON FOR EXAM: Female, 59 years old. Post op. TECHNIQUE: 3 views of the left ankle. COMPARISON: Left ankle intraoperative spot films dated 06/19/2024. FINDINGS: There is a left ankle tibiotalar joint prosthesis in place. There is no periprosthetic fracture. There is a small metallic sideplate along the lateral aspect of the distal tibia with 2 fixation screws. There is a distal tibiofibular syndesmosis tightrope fixation in place. Normal medial and lateral malleoli. Intact visualized calcaneus. 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 The visualized subtalar, calcaneocuboid and tarsal articulations are normal. RAD/Ankle min 3 Views IMPRESSION: Postoperative changes related to recent left ankle surgery. Mild talonavicular arthrosis. Electronically Signed: Eduar Donnelly MD at 10:32 EST Reading Location ID and State: [facility] / ID , Service support , CC: JESSICA Dangelo; Dr. Janeth Salcido MD Off Track Betting Manager: Signed Normal [facility] Discharge Instructionon 06-05 Discharge Instruction [facility] Medical Records Department [address] [place] [address] Instructions for Home/Discharge Instructions 06/19/24 0741 MR#: [id number] Acct: [id number] Name: VIBHA CANO Rep #: [id number] : 1965 59 From: Art Dangelo DPM PCP: Dr. Janeth Salcido MD Status:[facility] Discharge Instructions Diet Discharge Diet: Light diet - advance as tolerated Activity Discharge Activity: May Not Drive Weight Bearing Status: No weight bearing (No weightbearing left foot) Keep extremity elevated above heart level: Operative Extremity (Keep left foot elevated as much as possible with pillows) Dressing / Incision Call your doctor if your incision/area has: Continuous Slow Oozing, Sudden Increased Bleeding, Increased Redness and Foul Smelling Discharge Call your doctor if you observe: Fever of 101 or Higher, Shortness of breath, Chest pain, Increased palpitations (irregular heartbeat), Calf discomfort and Uncontrolled pain Change Dressing in: do not change dressing Remove Dressing in: do not remove dressing Cleanse incision/area with: Keep Dressing Clean Dry Follow Up Care Test Results: Test results from this visit will be discussed in further detail at your follow-up appointment, if applicable. Discharge Plan Admission Attending Provider: Art Dangelo Primary Care Provider: Janeth Salcido Instructions Print Language: Irish Discharge Orders/Prescriptions Prescriptions: New oxycodone-acetaminophen [Percocet] 5-325 mg tablet 1 - 2 tab PO Q6H PRN (Reason: pain) 4 Days Qty: 24 0RF amoxicillin-pot clavulanate [Augmentin] 500-125 mg tablet 1 tab PO Q12H Qty: 14 0RF Discontinued tramadol 50 mg tablet 50 mg PO Q6 PRN (Reason: pain) No Action gabapentin 300 mg capsule 300 mg PO TID cholecalciferol (vitamin D3) 125 mcg (5,000 unit) capsule 125 mcg PO DAILY calcium carbonate 195 mg calcium (500 mg) tablet,chewable 195 mg PO DAILY magnesium 200 mg tablet 200 mg PO DAILY Referrals / Follow Up: Janeth Salcido MD [Primary Care Provider] - Disposition Disposition (needs filled in before D/C Order can be placed): Home, Self Care 06/19/24 0954 Art Dangelo DPAlexis CC: Dr. Janeth Salcido MD Signed ADDENDUM by DPM Dr. Art Dangelo on 06/19/24 at [address] Dangelo next week in office, sooner if needed. Call Dr. Dangelo over weekend if needed: [phone] (cell) or can call [facility] for rehabilitation construction specialist physician at [phone] 06/19/24 0959 Art Dangelo DPM cc: Dr. Janeth Salcido MD * Signed Normal [facility] MR/POSTOP.ANEon 06-19-2024 MR/POSTOP.[facility] Medical Records Department [address] [place] [address] Anesthesia Postop Eval I 06/19/24 1238 MR#: [id number] Acct: [id number] Name: VIBHA CANO Rep #: [id number] : 1965 59 From: Fly Damon CRNA PCP: Dr. Janeth Salcido MD Status:REG SDC Y Race: C Location: [address] Anesthesia: Postop Eval I Current Vital Signs Temperature: 97.3 F Pulse Rate: 112 Blood Pressure: 155/99 Respiratory Rate: 20 Pulse Ox: 98 Oxygen Delivery Method: Room Air Assessment Airway patent: Yes Spontaneous unlabored respirations: Yes Mental status: Awake and Calm (Painful. Block completed and additional opioids given. ) nausea: No Vomiting: No Anesthesia Complication: No Fluid Hydration Crystalloid volume administer (ml): 1,000 Total IV fluid infused: 1,000 Progress Note Anesthesia document: Postop Eval 1 completed: Yes 06/19/24 1241 Date Fly Marisol [employer] Cosigner Signature: Date CC: Signed Normal [facility] MR/[id number] 06-19-2024 [facility] Medical Records Department [address] [place] [address] Anesthesia Postop Eval II 06/19/24 1150 MR#: [id number] Acct: [id number] Name: VIBHA CANO Rep #: [id number] : 1965 59 From: Jose Travis MD PCP: Dr. Janeth Salcido MD Status:REG SDC Y Race: C Location: [place] [address] Anesthesia Postop Eval I Sum Anesthesia Postop Eval I Summary Anesthesia Postop Eval I Summary: Anesthesia Postop Eval I: Assessment Summary Airway patent Spontaneous unlabored respirations Mental status nausea Vomiting Anesthesia Postop Eval I: Fluid Summary Crystalloid volume administer (ml) Colloids volume administered ( ml) Blood Product volume administered (ml) Total IV fluid infused Anesthesia Postop Eval I: Summary Notes Anesthesia Complication Anesthesia Complication Comment: Post-operative progress note Anesthesia: Postop Eval II Evaluation Mental status: Awake Pain Level: 7 nausea: No Vomiting: No Progress Note Post-operative progress note: Patient has persistent left ankle pain despite local anesthetic directly to the saphenous nerve by surgeon. A popliteal block provided by anesthesia. And IV Dilaudid and fentanyl. A ankle block was performed by Dr. Dangelo with lidocaine 1% in PACU. This has brought her pain level down to a 7. Pain is still described as severe but now more manageable. She is now at her maximum dose of both bupivacaine and lidocaine. No further blocks would be recommended at this time. Complications Anesthesia Complication: No 06/19/24 1154 Date Jose Travis MD Cosigner Signature: Date CC: Signed Normal [facility] Operative Reporton 4 Operative Report [facility] Medical Records Department [address] [place] [address] Operative Report 06/19/24 0951 MR#: [id number] Acct: [id number] Name: VIBHA CANO Rep #: [id number] : 1965 59 From: Art Dangelo DPM PCP: Dr. Janeth Salcido MD Status:[facility] Location: [facility] Operative Report (Standard) Operative Information Surgery/Procedure Performed: Left ankle open removal of bone and soft tissue impingement Surgeon: Art Dangelo Date of Procedure: 06/19/24 Procedure Start Time: 08:01 Procedure Stop Time: 09:48 Pre-Operative Diagnosis: Osteoarthritis left ankle, impingement left ankle Post-Operative Diagnosis: Same Select all DRAINS/GRAFTS/IMPLANTS that apply: None Type of Anesthesia: General and Local Estimated Blood Loss: 2mL Specimen collected: Yes Description of specimen(s) removed: Debrided tissue from left ankle sent to pathology Description of surgery: Indications: 59 year old female with history of left ankle pain s/p multiple surgeries, she has a total ankle replacement and has developed impingement with pain present. She has tried nonsurgical management but symptoms persist and are limiting her activities. Discussed the options with her and she elected to proceed with surgical intervention of left ankle debridement of bone and soft tissue. This was discussed with her in detail, reviewed possible benefits vs risks, goals, expectations as well. The consent forms were reviewed with her and she freely signed them. No guarantees or warranties were given nor implied. Operative Procedure: The patient was brought back to the operating room. She was received general anesthesia per the anesthesia team. A well padded left thigh pneumatic tourniquet was applied. The patient also received 2g of Ancef for antibiotic prophylaxis. The patient was carefully placed on the operating room table in the prone position, being sure to pad all bony areas, and was carefully secured to the operating room table with a safety belt around her waist. Left foot and ankle were scrubbed, prepped and draped in the usual aseptic fashion. Further attention was directed to her left ankle and there was limited range of motion with impingement noted. The left lower extremity was exsanguinated using an Esmarch bandage and the left thigh pneumatic tourniquet was inflated to 300mmHg. Using a 15 scalpel blade and linear longitudinal skin incision was made to the posterior ankle lateral to the Achilles tendon. Careful dissection was completed down to the ankle joint capsule and the capsule was incised and partially reflected to see to posterior ankle. There was significant bone overgrowth present to the posterior ankle causing significant impingement and also significant osseous and soft tissue in the medial and ankle gutters. Using a bone cutting rongeur, a sharp curette the bone and soft tissue were debrided from these sites. Also a powered bone bur was used to remove bone that was causing impingement from the site as well being sure not to cause osteonecrosis. The ankle joint replacement was visualized and noted to be intact with no loosening or failure or any issues otherwise, it appeared appropriate. After debridement of the impingement, there was good smooth range of motion to the ankle with no crepitus, popping, grinding or clicking. The ankle range of motion was much improved. The site was flushed out with copious amounts of normal saline solution and the full thickness skin was reapproximated using 3-0 Nylon. A total of 10mL of 0.5% Bupivacaine plain was given as a local ankle nerve block. A dressing was applied which consisted of betadine soaked adaptic, 4x4 gauze, kerlix and carter dressing. The pneumatic tourniquet was deflated (total time was 106 minutes) and there was immediate return of arterial flow to the foot with normal temperature an CFT < 2 seconds to all toes. Of note all vital structures, including tendons and neurovascular structures to the area were identified and protected as necessary during the procedure. Also intraoperative fluoroscopy was used to confirmed proper debridement of the ankle gutters and posterior ankle. The patient tolerated the above procedure well and anesthesia well with no complications. The patient was transported from the operating room to the recovery room with vital signs stable and in good condition. Post operative orders were placed. No weightbearing left foot, keep dressing clean, dry and intact. Augmentin 500/125mg PO q 12 hours was prescribed for antibiotic prophylaxis due to patient's infection history. Percocet 5/325mg tablet, 1-2 tablets q 6 hours PO was prescribed as well for post op pain management. The patient received a left lower extremity popliteal block in the recovery room by anesthesia service. It was noted in the recovery room she had signifcant pain to the left ankle despite the block, I (more content not included)... Normal [facility] Surgery Specimen Level IIIon 06-19-2024 Surgery Specimen Level III Patient Age/Sex Location Account Attending Physician VIBHA CANO 59/F [facility] [id number] Dr. Art Dangelo DPM Specimen: [id number] Received: 06/19/24 Status: STEFANY Ulloa Num: [id number] Spec Type: ERNESTINE Montero Dr: Dr. Art Dangelo, [facility] HEADER OPERATION: Open removal of bone and soft tissue impingement of left ankle PRE-OP DIAGNOSIS: Acute left ankle pain, osteoarthritis TISSUE SUBMITTED: Debrided tissue from ankle of left side MICROSCOPIC DIAGNOSIS Bone and tissue, left ankle, excision: Pieces of bone, cartilage and fibroconnective tissue with reactive and degenerative changes. Lyudmila 06/22/2024 MICROSCOPIC DESCRIPTION Slides are reviewed. GROSS DESCRIPTION Received in fixative is one container labeled with the patient's name and designated Debrided tissue from ankle." The specimen consists of multiple pieces of mike-pink indurated tissue measuring in aggregate 5.0 x 3.0 x 0.3cm. The entire specimen is submitted in two cassettes. Lyudmila 06/19/2024 TC:5 CPT:73152 Patient Age/Sex Location Account Attending Physician JEROMEVIBHA 59/F [facility] [id number] Dr. Art Dangelo, JESSICA Signed (signature on file) Dr. Jesse Grullon MD 06/22/24 1229 Normal [facility] Comment on above: Performed By: #### P SUIII #### [facility] [address] [place], [address] CBC W/Diff, Automatedon 11-0 5-2023 Absolute Lymph 2.58 X10 3/uL Normal 0.83-4.51 [facility] Comment on above: Performed By: #### L 100.0100, L500.4050 #### [facility] [address] [place], [address] Absolute Neut 3.1 X10 3/uL Normal 2.0-7.7 [facility] Comment on above: Performed By: #### L 100.0100, L500.4050 #### [facility] [address] [place], [address] Basophils/100 WBC (Bld) 1.0 % Normal 0-1 [facility] Comment on above: Performed By: #### L 100.0100, L500.4050 #### [facility] [address] [place], [address] Eosinophils/100 WBC (Bld) 1.9 % Normal 0-5 [facility] Comment on above: Performed By: #### L 100.0100, L500.4050 #### [facility] [address] [place], [address] Erythrocyte distribution width (RBC) [Ratio] 12.5 % Normal 11.6-14.6 [facility] Comment on above: Performed By: #### L 100.0100, L500.4050 #### [facility] [address] [place], [address] Hematocrit (Bld) [Volume fraction] 42.1 % Normal 37-47 [facility] Comment on above: Performed By: #### L 100.0100, L500.4050 #### [facility] [address] [place], [address] Hemoglobin (Bld) [Mass/Vol] 13.9 g/dL Normal 12.0-15.0 [facility] Comment on above: Performed By: #### L 100.0100, L500.4050 #### [facility] [address] [place], [address] IG% 0.500 Normal 0.0-0.9 [facility] Comment on above: Result Comment: IG% - Immature Granulocytes (promyelocytes, myelocytes and metamyelocytes) > 1% indicates that a LEFT SHIFT is Present. Performed By: #### L 100.0100, L500.4050 #### [facility] [address] [place], [address] Lymphocytes/100 WBC (Bld) 41.0 % Normal 19-41 [facility] Comment on above: Performed By: #### L 100.0100, L500.4050 #### [facility] [address] [place], [address] MCH (RBC) [Entitic mass] 30.5 pg Normal 27.0-32.0 [facility] Comment on above: Performed By: #### L 100.0100, L500.4050 #### [facility] [address] [place], [address] MCHC (RBC) [Mass/Vol] 33.0 g/dL Normal 32-36 [facility] Comment on above: Performed By: #### L 100.0100, L500.4050 #### [facility] [address] [place], [address] MCV (RBC) [Entitic vol] 92.3 fL Normal 81-99 [facility] Comment on above: Performed By: #### L 100.0100, L500.4050 #### [facility] [address] [place], [address] Monocytes/100 WBC (Bld) 7.1 % Normal 0-10 [facility] Comment on above: Performed By: #### L 100.0100, L500.4050 #### [facility] [address] [place], [address] Neutrophils/100 WBC (Bld) 48.5 % Normal 47-70 [facility] Comment on above: Performed By: #### L 100.0100, L500.4050 #### [facility] [address] [place], [address] Nucleated RBC (Bld) [#/Vol] 0 10*3/uL Normal 0-5 [facility] Comment on above: Performed By: #### L 100.0100, L500.4050 #### [facility] [address] [place], [address] Platelet mean volume (Bld) [Entitic vol] 10.7 fL Normal 6.2-12.0 [facility] Comment on above: Performed By: #### L 100.0100, L500.4050 #### [facility] [address] [place], [address] Platelets (Bld) [#/Vol] 370 10*3/uL Normal 150-450 [facility] Comment on above: Performed By: #### L 100.0100, L500.4050 #### [facility] [address] [place], [address] RBC (Bld) [#/Vol] 4.56 10*6/uL Normal 4.2-5.4 [facility] Comment on above: Performed By: #### L 100.0100, L500.4050 #### [facility] [address] [place], [address] RDW SD 42.7 fl Normal 35.1-43.9 [facility] Comment on above: Performed By: #### L 100.0100, L500.4050 #### [facility] [address] [place], [address] WBC (Bld) [#/Vol] 6.3 10*3/uL Normal 4.4-11.0 [facility] Comment on above: Performed By: #### L 100.0100, L500.4050 #### [facility] [address] [place], [address] Comprehensive Metabolic Prof [facility] 06-09-2024 Albumin [Mass/Vol] 4.2 g/dL Normal 3.2-5.0 [facility] Comment on above: Performed By: #### L 100.0100, L500.4050 #### [facility] [address] [place], [address] Albumin/Globulin [Mass ratio] 1.4 {ratio} Normal 0.9-2.4 [facility] Comment on above: Performed By: #### L 100.0100, L500.4050 #### [facility] [address] [place], [address] ALK P 67 U/L Normal 45-117 [facility] Comment on above: Performed By: #### L 100.0100, L500.4050 #### [facility] [address] [place], [address] ALT [Catalytic activity/Vol] 21 U/L Normal 13-56 [facility] Comment on above: Performed By: #### L 100.0100, L500.4050 #### [facility] [address] [place], [address] AST [Catalytic activity/Vol] 14 U/L Low 15-37 [facility] Comment on above: Performed By: #### L 100.0100, L500.4050 #### [facility] [address] [place], [address] Bilirubin [Mass/Vol] 0.30 mg/dL Normal 0.20-1.00 [facility] Comment on above: Result Comment: For patients on eltrombopag therapy, use of Dimension [place] TBIL is not recommended. Performed By: #### L 100.0100, L500.4050 #### [facility] [address] [place], [address] BUN/CRE 19.3 RATIO Normal 10-20 [facility] Comment on above: Performed By: #### L 100.0100, L500.4050 #### [facility] [address] [place], [address] CA,Total 9.6 mg/dL Normal 8.5-10.1 [facility] Comment on above: Performed By: #### L 100.0100, L500.4050 #### [facility] [address] [place], [address] Chloride [Moles/Vol] 104 mmol/L Normal 98-107 [facility] Comment on above: Performed By: #### L 100.0100, L500.4050 #### [facility] [address] [place], [address] CO2 [Moles/Vol] 26.0 mmol/L Normal 21.0-32.0 [facility] Comment on above: Performed By: #### L 100.0100, L500.4050 #### [facility] [address] [place], [address] Creatinine [Mass/Vol] 0.83 mg/dL Normal 0.55-1.02 [facility] Comment on above: Result Comment: The validity of the calculated GFR GFRAA in patients over 70 years has not been determined. Clinical correlation is essential. Performed By: #### L 100.0100, L500.4050 #### [facility] [address] [place], [address] EST GFR - AA 91 mL/min Normal >60 [facility] Comment on above: Result Comment: Afri can Swazi GFR Calc Performed By: #### L 100.0100, L500.4050 #### [facility] [address] [place], [address] GAP 8 Normal 5-15 [facility] Comment on above: Performed By: #### L 100.0100, L500.4050 #### [facility] [address] [place], [address] GFR/1.73 sq M.predicted among non-blacks MDRD (S/P/Bld) [Vol rate/Area] 75 mL/min/{1.73_m2} Normal >60 [facility] Comment on above: Result Comment: Non- GFR Calc Performed By: #### L 100.0100, L500.4050 #### [facility] [address] [place], [address] Globulin (S) [Mass/Vol] 3.0 g/dL Normal 2.2-4.2 [facility] Comment on above: Performed By: #### L 100.0100, L500.4050 #### [facility] [address] [place], [address] Glucose [Mass/Vol] 88 mg/dL Normal 74-106 [facility] Comment on above: Performed By: #### L 100.0100, L500.4050 #### [facility] [address] [place], [address] Potassium [Moles/Vol] 3.7 mmol/L Normal 3.5-5.1 [facility] Comment on above: Performed By: #### L 100.0100, L500.4050 #### [facility] [address] [place], [address] Sodium [Moles/Vol] 137 mmol/L Normal 136-145 [facility] Comment on above: Performed By: #### L 100.0100, L500.4050 #### [facility] [address] [place], [address] T PROT 7.2 g/dL Normal 6.4-8.2 [facility] Comment on above: Performed By: #### L 100.0100, L500.4050 #### [facility] [address] [place], [address] Urea nitrogen [Mass/Vol] 16 mg/dL Normal 7-18 [facility] Comment on above: Performed By: #### L 100.0100, L500.4050 #### [facility] [address] [place], [address] Extremity Lower without Cont raon 07-31-2024 Extremity Lower without Contra [facility] [address] [place], [place] [address] Extremity Lower without Contra MR#: [id number] Acct: [id number] Name: VIBHA CANO Rep #: [id number] : [id number] F 59 From: Eduar Donnelly MD PCP: Dr. Janeth Salcido MD Status: REG CLI Study: Extremity Lower without Contra Date of Exam: 0 03/04/24 Exam# [id number] Ordering Dr: Art Dangelo [facility] [id number] STUDY: CT LEFT ANKLE WITHOUT CONTRAST REASON FOR EXAM: Female, 59 years old. L ANKLE OA RADIATION DOSAGE (If Supplied By Facility): CTDIvol = ( 15.35 ) mGy, DLP = ( 381.85 ) mGycm TECHNIQUE: Thin section transaxial imaging of the ankle was obtained, with sagittal and coronal reconstructed images. Individualized dose optimization techniques were used for this CT. COMPARISON: Left ankle CT dated 02/07/2022. FINDINGS: BONES/JOINTS: Again seen is a total ankle prosthesis in place with no evidence of loosening. Again seen is a metallic plate overlying the distal fibula with double Endobutton/tightropes. There are stable mild degenerative changes in the midfoot with small dorsal osteophytes. No acute fracture. No subluxation. Normal alignment. SOFT TISSUES: There is persistent mild subcutaneous soft tissue edema along the medial and lateral aspects of the ankle. No soft tissue gas. No radiopaque foreign body. CT/Extremity Lower without Contra IMPRESSION: No significant interval change from left ankle CT dated 02/07/2022. Total ankle prosthesis in anatomic alignment. No loosening. Stable mild degenerative changes in the midfoot. Persistent mild subcutaneous soft tissue edema along the medial and lateral aspects of the ankle. Electronically Signed: Eduar Donnelly MD at 15:53 EDT , CC: DPAlexis Dangelo; Dr. Janeth Salcido MD [employer]: Signed Normal [facility] Absolute lymphocyte countOrd ered By: Janeth Salcido on 08-13-2023 Lymphocytes Auto (Unsp spec) [#/Vol] 2.50 10*3/uL 0.83-4.51 [facility] Basophil percentageOrdered B y: Janeth Salcido on 08-13-2023 Basophils/100 WBC (Bld) 1.0 % 0-1 [facility] Bilirubin [Mass/Vol] 0.40 mg/dL 0.20-1.00 [facility] Comment on above: For patients on eltr ombopag therapy, use of Dimension [place] TBIL is not recommended. Chloride [Moles/Vol] 107 mmol/L 98-107 [facility] Cholesterol [Mass/Vol] 184 mg/dL <200 [facility] Comment on above: <200 mg/dL Desirable 200-240 mg/dL Borderline >240 mg/dL High Risk Eosinophils/100 WBC (Bld) 2.7 % 0-5 [facility] Glucose [Mass/Vol] 94 mg/dL 74-106 [facility] Neutrophils (Bld) [#/Vol] 3.4 10*3/uL 2.0-7.7 [facility] Neutrophils/100 WBC (Bld) 50.2 % 47-70 [facility] Potassium [Moles/Vol] 4.5 mmol/L 3.5-5.1 [facility] Protein [Mass/Vol] 6.7 g/dL 6.4-8.2 [facility] Sodium [Moles/Vol] 136 mmol/L 136-145 [facility] Triglyceride [Mass/Vol] 130 mg/dL <199 [facility] Comment on above: The drugs N-Acetylcy steine and Metamizole may falsely depress this assay.Serum Triglycerides Reference Interval Normal <150 mg/dL Borderline high 150 - 199 mg/dL High 200 - 499 mg/dL Very High > or = 500 mg/dL WBC (Bld) [#/Vol] 6.7 10*3/uL 4.4-11.0 [facility] Blood erythrocytes count (nu mber/volume)Ordered By: Janeth Salcido on 08-13-2023 RBC (Bld) [#/Vol] 4.10 10*6/uL 4.2-5.4 [facility] Blood hemoglobin measurement (mass/volume)Ordered By: Janeth Salcido on 08-13-2023 Hemoglobin (Bld) [Mass/Vol] 12.3 g/dL 12.0-15.0 [facility] Blood lymphocytes/100 leukoc ytesOrdered By: Janeth Salcido on 08-13-2023 Lymphocytes/100 WBC (Bld) 37.4 % 19-41 [facility] Blood monocytes/100 leukocyt esOrdered By: Janeth Omari on 08-13-2023 Monocytes/100 WBC (Bld) 7.2 % 0-10 [facility] Blood platelet mean volumeOr dered By: Janeth Salcido on 08-13-2023 Platelet mean volume (Bld) [Entitic vol] 10.9 fL 6.2-12.0 [facility] Determination of erythrocyte mean corpuscular volume (MCV)Ordered By: Janeth Salcido on 08-13-2023 MCV (RBC) [Entitic vol] 92.2 fL 81-99 [facility] Hematocrit Auto (Bld) [Volum e fraction]Ordered By: Janeth Salcido on 08-13-2023 Hematocrit (Bld) [Volume fraction] 37.8 % 37-47 [facility] - Chemistry and C hemistry - challengeOrdered By: Janeth Salcido on 08-13-2023 ALP [Catalytic activity/Vol] 57 U/L 45-117 [facility] ALT [Catalytic activity/Vol] 31 U/L 13-56 [facility] CO2 [Moles/Vol] 25.0 mmol/L 21.0-32.0 [facility] Globulin (S) [Mass/Vol] 3.1 g/dL 2.2-4.2 [facility] Urea nitrogen/Creatinine [Mass ratio] 25.9 mg/mg 10-20 [facility] - Hematology and Cell countsOrdered By: Janeth Salcido on 08-13-2023 Erythrocyte distribution width (RBC) [Entitic vol] 44.4 fL 35.1-43.9 [facility] Erythrocyte distribution width (RBC) [Ratio] 13.1 % 11.6-14.6 [facility] Immature granulocytes/100 WBC (Bld) 1.500 % 0.0-0.9 [facility] Comment on above: IG% - Immature Granu locytes (promyelocytes, myelocytes and metamyelocytes) > 1% indicates that a LEFT SHIFT is Present. MCH (RBC) [Entitic mass] 30.0 pg 27.0-32.0 [facility] Nucleated RBC/100 WBC (Bld) [Ratio] 0 % 0-5 [facility] MCHC Auto (RBC) [Mass/Vol]Or dered By: Janeth Salcido on 08-13-2023 MCHC (RBC) [Mass/Vol] 32.5 g/dL 32-36 [facility] No Panel InformationOrdered By: Janeth Salcido on 08-13-2023 Estimated GFR (MDRD) Amer 105 mL/min >60 [facility] Comment on above: GFR Calc Estimated GFR (MDRD) Non-Af Amer 87 mL/min >60 [facility] Comment on above: Non- GFR Calc Vitamin D 25-Hydroxy 27.7 ng/mL [facility] Comment on above: Vitamin D 25(OH) Sta tus Range Deficiency <20 ng/mL (50nmol/L) Insufficiency 20 - 30 ng/mL (50 - 75 nmol/L) Sufficiency 30 - 100 ng/mL (75 - 250 nmol/L) Toxicity >100 ng/mL (>250 nmol/L) Platelets bldOrdered By: Karson Salcido on 08-13-2023 Platelets (Bld) [#/Vol] 318 10*3/uL 150-450 [facility] Serum or plasma albumin ilya urement (mass/volume)Ordered By: Janeth Salcido on 08-13-2023 Albumin [Mass/Vol] 3.6 g/dL 3.2-5.0 [facility] Serum or plasma albumin/glob ulin mass ratioOrdered By: Janeth Salcido on 08-13-2023 Albumin/Globulin [Mass ratio] 1.2 {ratio} 0.9-2.4 [facility] Serum or plasma calcium ilya urement (mass/volume)Ordered By: Janeth Salcido on 08-13-2023 Calcium [Mass/Vol] 9.4 mg/dL 8.5-10.1 [facility] Serum or plasma cholesterol in HDL measurement (mass/volume)Ordered By: Janeth Salcido on 08-13-2023 Cholesterol in HDL [Mass/Vol] 82 mg/dL >40 [facility] Comment on above: The drugs N-Acetylcy steine and Metamizole may falsely depress this assay. Reference Range HDL <40 mg/dL Low HDL Cholesterol HDL >or= 60 mg/dL High HDL Cholesterol Serum or plasma cholesterol in VLDL measurement (mass/volume)Ordered By: Janeth Salcido on 08-13-2023 Cholesterol in VLDL [Mass/Vol] 26 mg/dL 5-40 [facility] Serum or plasma creatinine m easurement (mass/volume)Ordered By: Janeth Salcido on 08-13-2023 Creatinine [Mass/Vol] 0.74 mg/dL 0.55-1.02 [facility] Comment on above: The validity of the calculated GFR & GFRAA in patients over 70 years has not been determined. Clinical correlation is essential. Serum or plasma low density lipoprotein (LDL) cholesterol measurement (mass/volume)Ordered By: Janeth Salcido on 08-13-2023 Cholesterol in LDL [Mass/Vol] 76 mg/dL 0-130 [facility] Serum or plasma urea nitroge n measurement (mass/volume)Ordered By: Janeth Salcido on 08-13-2023 Urea nitrogen [Mass/Vol] 19 mg/dL 7-18 [facility] Thin prep Papanicolaou smear with manual screeningOrdered By: Janeth Salcido on 08-13-2023 Thin prep Papanicolaou smear with manual screening 16 U/L 15-37 [facility] Thin prep Papanicolaou smear with manual screening 4 5-15 [facility] XR Radius and Ulna - right 2 Viewson 04-25-2023 Aryan Danielle MD - 04/30/2023 PROCEDURE: FOREARM RT 2 VIEW - FXR 0052 REASON FOR EXAM: pain RESULT: Patient Name: VIBHA CANO STUDY: FOREARM RT 2 VIEW; 04/25/2023 9:15 am INDICATION: pain. Follow-up of ORIF distal radius and ulnar fracture. COMPARISON: 24 January 2023. ACCESSION NUMBER(S): [id number] ORDERING CLINICIAN: RAMON PEREZ TECHNIQUE: 2 view of the forearm [...] of the wrist as described. Dictation workstation: [id number] Original Interpreting Physician: ARYAN DANIELLE MD Original Transcribed by/Date: MMODAL Apr 25 2023 9:10A Original Electronically Signed by/Date: ARYAN DANIELLE MD Apr 25 2023 11:14A Addendum Interpreting Physician: Addendum Transcribed by/Date: NO ADDENDUM Addendum Electronically Signed by/Date: [facility] Work Phone: Radiology Study observation (narrative) [facility] Work Phone: XR Radius and Ulna - right 2 ViewsOrdered By: Aryan Danielle on 04-25-2023 [facility] Work Phone: XR Forearm Right AP and Lat [id number] 11-29-2022 XR Forearm Right [place] [id number] [facility] Other Phone: CBC with Diffon 10-09-2022 AB IMMATURE NEUT 0.01 K/UL Normal 0.0-0.1 [facility] ABS BASO 0.04 K/UL Normal 0.00-0.22 [facility] ABS EOS 0.11 K/UL Normal 0-0.45 [facility] ABS NEUTROPHILS 3.92 K/UL Normal 1.8-7.7 [facility] ABS.NEUT.CALCULATED 3.92 K/UL Normal [facility] Comment on above: Result Comment: Perf ormed at [facility] [address] [facility] [address] Basophils/100 WBC (Bld) 0.60 % Normal 0-1 [facility] DIFF TYPE AUTO DIFF Normal [facility] Eosinophils/100 WBC (Bld) 1.80 % Normal 0-3 [facility] Erythrocyte distribution width (RBC) [Ratio] 12.7 % Normal 11.7-15.0 [facility] Hematocrit (Bld) [Volume fraction] 41.2 % Normal 36-44 [facility] Hemoglobin (Bld) [Mass/Vol] 13.2 g/dL Normal 12.0-15.0 [facility] Lymphocytes (Bld) [#/Vol] 1.81 10*3/uL Normal 1.2-3.2 [facility] Lymphocytes/100 WBC (Bld) 29.20 % Normal 20-40 [facility] MCH (RBC) [Entitic mass] 30.1 pg Normal 26-34 [facility] MCHC 32.0 % Normal 31-37 [facility] MCV (RBC) [Entitic vol] 93.8 fL Normal 80-100 [facility] MEAN PLT VOL 9.8 CU Normal 7.0-12.6 [facility] Monocytes (Bld) [#/Vol] 0.30 10*3/uL Normal 0-0.8 [facility] Monocytes/100 WBC (Bld) 4.80 % Normal 0-8 [facility] Neutrophils/100 WBC (Bld) 0.20 % Normal 0.0-1.0 [facility] Neutrophils/100 WBC (Bld) 63.40 % Normal 50-70 [facility] Platelets (Bld) [#/Vol] 328 10*3/uL Normal 150-450 [facility] RBC (Bld) [#/Vol] 4.39 10*6/uL Normal 4.0-4.9 [facility] RDW-SD 44.9 FL Normal 37.0-54.0 [facility] WBC (Bld) [#/Vol] 6.2 10*3/uL Normal 4.5-11.0 [facility] COMPREHENSIVE METABOLIC PANE Jaime 10-09-2022 Albumin [Mass/Vol] 4.5 g/dL Normal 3.5-5.0 [facility] Albumin/Globulin [Mass ratio] 1.7 {ratio} Normal 1.5-3.0 [facility] ALP [Catalytic activity/Vol] 81 U/L Normal 35-125 [facility] ALT [Catalytic activity/Vol] 17 U/L Normal 5-40 [facility] Anion gap [Moles/Vol] 9 mmol/L Normal 0-19 [facility] AST [Catalytic activity/Vol] 18 U/L Normal 5-40 [facility] Bilirubin [Mass/Vol] 0.3 mg/dL Normal 0.1-1.2 [facility] Calcium [Mass/Vol] 10.5 mg/dL High 8.5-10.4 [facility] Chloride [Moles/Vol] 106 mmol/L Normal 97-107 [facility] CO2 [Moles/Vol] 26 mmol/L Normal 24-31 [facility] Creatinine [Mass/Vol] 0.7 mg/dL Normal 0.4-1.6 [facility] ESTIMATED GFR 102 mL/min/1.73 m2 Normal [facility] Comment on above: Result Comment: CALCULATIONS OF ESTIMATED GFR ARE PERFORMED USING THE 2020 CKD-EPI STUDY REFIT EQUATION WITHOUT THE RACE VARIABLE FOR THE IDMS-TRACEABLE CREATININE METHODS. https://jasn.asnjournals.org/content//ASN.53020 79122 Performed at [facility] [address] [facility] [address] Globulin (S) [Mass/Vol] 2.6 g/dL Normal 1.9-3.7 [facility] Glucose [Mass/Vol] 103 mg/dL High 65-99 [facility] Potassium [Moles/Vol] 4.1 mmol/L Normal 3.4-5.1 [facility] Protein [Mass/Vol] 7.1 g/dL Normal 5.9-7.9 [facility] Sodium [Moles/Vol] 141 mmol/L Normal 133-145 [facility] Urea nitrogen [Mass/Vol] 14 mg/dL Normal 8-25 [facility] Urea nitrogen/Creatinine [Mass ratio] 20.0 mg/mg Normal 8-21 [facility] PT AND PTTon 03-07-2023 aPTT Coag (Bld) [Time] 23.9 s Normal 22.0-32.5 [facility] Comment on above: Result Comment: Silvia ormed at [facility] [address] [facility] [address] INR Coag (PPP) [Relative time] 0.9 {INR} Normal 0.86-1.16 [facility] Comment on above: Result Comment: INR Theraputic Range: 2.0-3.5 PT Coag (PPP) [Time] 9.3 s Normal 9.3-12.7 [facility] ANTICOAGULANT NONE Normal [facility] CNPNon 08-02-2022 CNPN Telephone ([facility]) ----- VIBHA CANO ([id number]) 1965 F T Date Time Provider Department 08/02/22 YARIEL MARTINEZ During your visit today, we recorded the following information about you: Yariel Martinez DPM 08/02/2022 2:00 PM Signed Telephone Encounter Vibha Cano [id number] Reason for call: Post op check, [...] mouth every 8 hours as needed for nausea/vomiting for up to 7 days. 21 tablet 0 [id number]-[id number] RB182 ORAL Take by mouth. traMADol (ULTRAM) 50 [...] post-op visit. If any issues patient has rehabilitation construction specialist podiatry pager number and is to contact if any issues or go to ED if unable to reach resident. All questions answered and patient agrees with plan. Yariel Martinez DPM PGY-2 08/02/22 1:53 PM Allergies As of Date: 08/02/2022 Noted Allergy Reaction Victryl Sutures [Other] 03/08/2008 5 - Intolerance CODEINE 01/30/2021 9 - Itching VERSED (MIDAZOLAM HCL) 02/16/2008 Date Reviewed: 08/01/2022 Reviewed by: Areli Espinal RN - Fully Assessed Reason for Visit: Post Operative Check [Other] Prescriptions as of 08/02/2022 - rivaroxaban (XARELTO) 10 mg tablet Take 1 tablet by mouth once daily for 14 days. - oxyCODONE-acetaminophen (PERCOCET) 5-325 mg tablet Take 1 tablet by mouth every 6 hours as needed for pain for up to 7 days. - ondansetron (ZOFRAN) 4 mg tablet Take 1 tablet by mouth every 8 hours as needed for nausea/vomiting for up to 7 days. - OVQRQQGYYDQ-TWIIEKHYTG-DL RB182 ORAL Take by mouth. - traMADol (ULTRAM) 50 mg tablet Take 50-100 mg by mouth every 8 hours as needed. For Pain - FORTEO 20 mcg/dose (600mcg/2.4mL) Inject 0.08ml (20mcg) sub-q once daily. - gabapentin (NEURONTIN) 300 mg capsule Take 300 mg by mouth three times daily. - CALCIUM CARBONATE/VITAMIN D3 (VITAMIN D-3 ORAL) Take by mouth. 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*01/16/2021 History of total replacement of left ankle [Z96*01/16/2021 Surgical aftercare, musculoskeletal system [Z47*01/16/2021 Plantar fasciitis of left foot [M72.2] 01/16/2021 Hard to intubate [T88.4XXA] 08/01/2022 Encounter Status:Closed by YARIEL MARTINEZ on 08/02/22 [facility] ANES POSTPROC EVALon 022 ANES POSTPROC EVAL HNO ID: [id number] Author: Jayleen Whitaker MD Service: Anesthesiology Author Type: Anesthesiologist Type: Anesthesia Postprocedure Evaluation Filed: 08/01/2022 6:04 PM Note Text: POST ANESTHESIA EVALUATION NOTE : 1965 Procedure Summary Date: 08/01/22 Room / Location: OR07 / [facility] Anesthesia Start: 1533 Anesthesia Stop: 1712 Procedure: ARTHRODESIS GREAT TOE METATARSOPHALANGEAL JOINT (Right: Foot) Diagnosis: Hallux rigidus of right foot (Hallux rigidus of right foot [M20.21]) Surgeons: Tania Pimentel DPM Responsible Provider: Jayleen Whtiaker MD Anesthesia Type: general ASA Status: 2 Anesthesia Type: general Airway Type: LMA Last Vitals Vitals Value Taken Time BP 120/75 08/01/22 1747 Temp 36.7 ?C (98.1 ?F) 08/01/22 1750 Pulse 97 08/01/22 1750 Resp 16 08/01/22 1745 SpO2 95 % 08/01/22 1750 Vitals shown include unvalidated device data. Post Anesthesia Patient Status Patient Evaluation: bedside. Anticipated Disposition: phase 2 then home. Neurological Status: aware and responsive. Pulmonary Status: breathing comfortably on room air Airway Control: returned to baseline unsupported. Cardiovascular Status: stable. Pain Management: clinically adequate Postoperative Hydration: acceptable. Intraoperative Events: no significant anesthesia events Post Operative Nausea/Vomiting Status: no significant post operative nausea or vomiting Recommendation: continue current plan of care. Anesthesia Observations No Documentation SIGNATURE: Jayleen Whitaker MD PATIENT NAME: Vibha Cano DATE: August 01, 2022 TIME: 6:03 PM CSN: [id number] [facility] ANES PRE-OPon 08-01-2022 [facility] PRE-OP HNO ID: [id number] Author: Jayleen Whitaker MD Service: Anesthesiology Author Type: Anesthesiologist Type: Anesthesia Preprocedure Evaluation Filed: 08/01/2022 1:55 PM Note Text: ANESTHESIOLOGY DAY OF SURGERY NOTE : 1965 Procedure Information Date/Time: 08/01/22 1430 Procedure: ARTHRODESIS GREAT TOE METATARSOPHALANGEAL JOINT (Right: Foot) Location: OR / OR Surgeons: Tania Pimentel DPM Estimated body mass index is 26.34 kg/m? as calculated from the following: Height as of 07/23/22: 157.5 cm (5' 2"). Weight as of 07/23/22: 65.3 kg (144 lb). Most recent hematocrit and potassium results: Hematocrit 39.4 09/14/2016 Potassium 3.8 09/14/2016 Relevant Problems -RENAL (+) Calculus of kidney I - PHYSICAL EVALUATION AIRWAY Patient intubated: No. Tracheostomy tube not present Mallampati: I. TM distance: >3 FB. Neck ROM: full ROM without neurological symptoms. Mouth opening: adequate. Short neck: no. Thick neck: no Duong present: no DENTAL Dental findings: teeth intact. Additional exam findings: no II - ANESTHESIA PLAN ASA Score: 2 Anesthetic Plan: general Airway type: LMA The patient is not a current smoker. NPO Status: adequate Beta Elias Monitoring Plan Monitoring plan: standard ASA. Post Procedure Analgesic Plan Postoperative analgesic plan: parenteral or oral opioids, per surgical service and peripheral nerve block. Informed Consent Anesthetic risks, benefits, alternatives, personnel and consent discussed: yes. Patient / Responsible Constitution Party agrees to proceed: yes Patient / Surrogate agrees to blood products: blood products not planned Significant changes in the patient condition since the History and Physical, not otherwise documented in primary service progress note: no. Potential Anesthesia issues that may suggest increased risk of complications or contraindication to planned procedure: none. Vitals Value Taken Time BP 134/79 08/01/22 1259 Pulse 83 08/01/22 1259 Resp 15 08/01/22 1259 Temp 37.3 ?C (99.1 ?F) 08/01/22 1259 SpO2 99 % 08/01/22 1259 Facility-Administered Medications as of 08/01/2022 Medication Dose Route Frequency - lidocaine (PF) 10 mg/mL (1 %) 1-2 mg injection (XYLOCAINE) 0.1-0.2 mL INTRADERMAL PRN - lactated ringers iv infusion 5-30 mL/hr INTRAVENOUS CONTINUOUS - NaCl 0.9% iv flush bag 20 mL INTRAVENOUS PRN - clindamycin iv piggyback 900 mg in D5W 50 mL (CLEOCIN) 900 mg INTRAVENOUS Pre-Op Once Outpatient Medications as of 08/01/2022 Medication Sig - traMADol (ULTRAM) 50 mg tablet Take 50-100 mg by mouth every 8 hours as needed. For Pain - gabapentin (NEURONTIN) 300 mg capsule Take 300 mg by mouth three times daily. - CALCIUM CARBONATE/VITAMIN D3 (VITAMIN D-3 ORAL) Take by mouth. - FORTEO 20 mcg/dose (600mcg/2.4mL) Inject 0.08ml (20mcg) sub-q once daily. I have interviewed and examined the patient. I have reviewed the medical record and/or the pre-anesthesia evaluation, pertinent labs, and test results. This contains updated information obtained within 48 hours of Surgery/Procedure. SIGNATURE: Jayleen Whitaker MD PATIENT NAME: Vibha Cano DATE: August 01, 2022 TIME: 1:54 PM CSN: [id number] [facility] BRIEF OP NOTon 08-01-2022 BRIEF OP NOT HNO ID: [id number] Author: Yariel Martinez DPM Service: Podiatry Author Type: Resident Type: Brief Op Note Filed: 08/01/2022 5:21 PM Note Text: BRIEF OPERATIVE / PROCEDURE NOTE LOG ID: [id number] SURGERY/PROCEDURE DATE: 08/01/2022 INCISION/PROCEDURE START TIME: 3:54 PM INCISION CLOSE/PROCEDURE END TIME: 5:02 PM SURGEON(S)/PROCEDURALIST( S) AND GENERAL PRODUCTION LABORER(S): Surgeon(s) and Role: * Tania Pimentel DPM - Primary * Hawa Tan DPM - Resident - Assisting * Yariel Martinez DPM - Resident - Assisting No Additional Staff SURGERY/PROCEDURE(S): First MPJ fusion, RIGHT ANESTHESIA: General FINDINGS: See operative report ESTIMATED BLOOD LOSS: minimal SPECIMENS: None COMPLICATIONS: None PRE-OP/PRE-PROCEDURE DIAGNOSIS: Hallux rigidus, RIGHT foot Pain in foot, RIGHT POST-OP/POST-PROCEDURE DIAGNOSIS: Same as Preop SIGNATURE: Yariel Martinez DPM PATIENT NAME: Vibha Cano DATE: August 01, 2022 TIME: 5:20 PM [facility] HISTORY PHYSICALon HISTORY PHYSICAL HNO ID: [id number] Author: Hawa Tan DPM Service: Podiatry Author Type: Resident Type: HANDP Filed: 08/01/2022 1:44 PM Note Text: ----- Attestation signed by Tania Pimentel DPM at 08/06/2022 12:19 PM Statement of Resident/FellowSmary n: The resident/fellow was under my direct supervision [...] with the resident. Tania Pimentel DPM, FACFAS ----- INTERVAL HISTORY AND PHYSICAL EVALUATION DATE: 08/01/2022 EVALUATION TIME: 1:44 PM The documented History and Physical (completed in the past 30 days) has been reviewed and the patient had a confirmatory musculoskeletal exam performed. The contents of the pre-operative assesment accurately reflect the patient's condition with the following additions or revisions since the HANDP was completed: No changes. This HANDP can be found in the record dated 07/23/22. SIGNATURE: Hawa Tan DPM PATIENT NAME: Vibha Cano DATE: August 01, 2022 [facility] OPERATIVE NOon 08-01-2022 OPERATIVE NO HNO ID: [id number] Author: Yariel Martinez DPM Service: Podiatry Author Type: Resident Type: Operative Report Filed: 08/01/2022 11:02 PM Note Text: ----- Attestation signed by Tania Pimentel DPM at 08/06/2022 1:26 PM Statement of Resident/FellowSmary dominguez: The resident/fellow was under my direct supervision [...] with the resident. Tania Pimentel DPM, FACFAS ----- OPERATIVE REPORT NAME: Vibha Cano DATE: 08/01/22 AGE: [age] year old SURGEON: Dr. Tania Pimentel DPM ASSISTANTS: 1. Yariel Martinez DPM PGY-2 2. Hawa Tan DPM PGY-3 PREOPERATIVE DIAGNOSIS: 1. Hallux limitus, RIGHT foot 2. Pain in foot, RIGHT POSTOPERATIVE DIAGNOSIS: 1. Hallux limitus, RIGHT foot 2. Pain in foot, RIGHT OPERATION: 1. First metatarsophalangeal joint fusion, RIGHT foot ANESTHESIA: General with regional block OPERATIVE INDICATIONS: This is a pleasant 57 year old female with a history of painful hallux limitus to the RIGHT foot, non-relieved with conservative treatment. Discussed surgical and non-surgical methods of treatment with the patient. The natural history and course were discussed in relation to the options. Surgical risks, benefits, alternatives post-operative course, and all possible outcomes were discussed in great detail. Answered all of the patient's questions to the patient's satisfaction. No guarantees were given. The patient understands this. Patient elects to proceed with surgery. OPERATIVE FINDINGS: Consistent with preoperative diagnosis OPERATIVE PROCEDURE: In the preoperative holding area, a regional block was administered to the right lower extremity per anesthesia. Patient was then transferred from the preoperative holding area to the operative suite and placed in a supine position. All monitors were applied. General anesthesia was administered. Prophylaxis was obtained with 900 mg IV Clindamycin piggyback pre-operatively. Tourniquet was applied to the right calf, but not yet inflated. The right foot, ankle, and leg were then prepped and draped in the normal sterile fashion. Time out was performed. After esmarch exsanguination of the right lower extremity, tourniquet was inflated to 250 mmHg. Attention was then directed to the right forefoot where a standard dorsal linear incision was made overlying the first metatarsophalangeal joint. Incision was made with a #15 blade. Careful dissection was carried deep to the level of the subcutaneous tissue. Care was taken to preserve any neurovascular structures. Superficial venous bleeders were meticulously retracted and electrocauterized as necessary. Dissection was then carried through the subcutaneous tissue down to the extensor tendon and first metatarsophalangeal joint capsule. Then extensor tendon was retracted laterally and a linear capsulotomy was then performed exposing the first metatarsophalangeal joint. The joint was inspected and noted to have significant degenerative changes with spurring to the francisco-articular surfaces and denudation of the cartilage at both the metatarsal head and the proximal phalangeal base. The francisco-articular spurs were removed using a rongeur. Following removal, the joint was prepared utilizing first metatarsophalangeal reamers from the [place] first metatarsophalangeal joint fusion set. The joint was then again inspected to ensure that all cartilage and subchondral bone plate was removed at both the metatarsal head and the base of the phalanx. Copious irrigation was then performed to ensure removal of all debris. Subchondral drilling was then performed to the head of the first metatarsal, as well as the base of the proximal phalanx using a 2.0 mm drill bit. The first metatarsophalangeal joint was then placed in optimal position and temporary stabilization was performed utilizing a 0.062 K-wire. The joint was examined both clinically, as well as radiographically to ensure appropriate apposition as well as triplane alignment of the first metatarsophalangeal joint. At this time, a [place] [employer] 5-hole first metatarsophalangeal joint anatomic plate was applied overlying the first metatarsophalangeal joint in standard fashion using a combination of locking and non-locking screws. Next, a 3.5 mm compression screw was placed from the proximal medial plantar aspect of the first metatarsal to the distal lateral plantar aspect of the proximal phalangeal base. The first metatarsophala (more content not included)... Normal [facility] XR FOOT 2V AP/LAT RTon 08-01 XR FOOT 2V AP/LAT RT * * *Final Report* * * DATE OF EXAM: Aug 01 2022 5:00PM KENIA 560Vikas - XR FOOT 2V AP/LAT RT / PROCEDURE REASON: Hallux rigidus of right foot * * * * Physician Interpretation * * * * Right foot History: Hallux rigidus Findings: 3 fluoroscopic views submitted. First MTP arthrodesis with dorsal plate and screw fixation likely origin screw transversing the joint space. Please refer to the procedure report. Fluoroscopic Radiation Summary: Plane A, Air Kerma: 0.3 mGy Fluoro time: 0:19 min:sec IMPRESSION: First MTP arthrodesis Off Track Betting Manager: GEORGES Transcribe Date/Time: Aug 01 2022 5:06P Dictated by : TANIA DALY MD This examination was interpreted and the report reviewed and electronically signed by: TANIA DALY MD on Aug 01 2022 5:07PM EST [id number] [facility] HISTORY PHYSICALon HISTORY PHYSICAL HNO ID: [id number] Author: Alicja Hebert APRN.CARE COORDINATOR Service: ? Author Type: Nurse Practitioner Type: HANDP Filed: 07/31/2022 11:11 AM Note Text: HISTORY AND PHYSICAL EXAMINATION SERVICE DATE: 07/23/2022 SERVICE TIME: 2:32 PM PRIMARY CARE PHYSICIAN: Janeth Salcido MD REASON FOR VISIT: Vibha Cano is a 57 year old female who [...] Imm Admin: COVID-19 vaccine, age 12+ yr (Robert Applebaum MD-[employer] - [facility]) 11/10/2020 Imm Admin: COVID-19 vaccine, age 12+ yr ([employer] - [facility]) Only the first 3 history entries have been loaded, but more history exists. CHIEF COMPLAINT: Pre-op exam HPI: Vibha Cano is a 57 year old seen for PAC due to scheduled above surgery because hallux rigidus of right foot. REVIEW OF SYSTEMS: General: No weight loss, malaise or fevers. Neurological: No history of TIA's, stroke, CONTINUOUS MINING MACHINE COAL MINER tumor, impaired sensorium, hemiplegia, paraplegia or quadraplegia. No neurological symptoms or problems. Respiratory: No history of current cough or dyspnea, or pneumonia in the past 6 weeks. No history of respiratory/pulmonary symptoms or problems. Cardiovascular: No history of HTN requiring medication, no history of angina, CHF, RI, cardiac surgery or stents. Denies rest pain, gangrene or revascularization/amputat ion for PVD. No history of cardiovascular symptoms or problems. GI: No history of GI symptoms or problems. No history of esophageal varices, recent ascites, or ETOH greater than 2 drinks per day. : Positive for: nephrolithiasis. Negative for: urinary incontinence, renal failure and urinary tract infection. CINDER PITMAN: Negative for abnormal vaginal bleeding, abnormal vaginal [...] 07/23/22 1432 Medication Sig Last Dose Taking PAZAJTLVNDG-VILNOPTBCS-CA RB182 ORAL Take by mouth. Taking Yes traMADol [...] mouth. Taking Yes celecoxib (CELEBREX) 200 mg caps (more content not included)... Normal [facility] No Panel Informationon 03-08 IMPRESSION: Prior postsurgical changes at the distal tibiofibular syndesmosis. Tibiotalar arthroplasty in place, which appears grossly intact. Chronic appearing diffuse periosteal changes at the distal tibia and distal fibula likely sequela of previous surgery and/or trauma. 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 OLOGY EXAM: XR ANKLE LEFT 3 VIEWS, XR FOOT LEFT 3 VIEWS, 03/08/2022 13:43 PM (accession [id number]), 03/08/2022 13:44 PM (accession [id number]) COMPARISON: No prior studies available for comparison. CLINICAL INDICATIONS: pain RELEVANT CLINICAL HISTORY: M79.672:Left foot pain M25.572:Left ankle pain, unspecified chronicity (accession [id number]), M79.672:Left foot pain M25.572:Left ankle pain, unspecified chronicity (accession [id number]) 3 views WB as karlee; FINDINGS: 3 views of left ankle and 3 views of left foot obtained in weightbearing position. Left ankle Joint effusion is present. Diffuse soft tissue swelling. Previous stabilization at the level of distal tibial and fibular diaphysis. Lateral orthopedic plate at the distal tibial metaphysis. Tibiotalar arthroplasty has been performed. Hardware appears grossly intact. Chronic periosteal changes along the distal tibial diaphysis as well as diffusely at the distal fibula may be related to previous surgery and/or trauma. Left foot Dorsal soft tissue swelling is present. No definite acute osseous abnormality. Tarsometatarsal joints are aligned. Osteoarthritis at interphalangeal joints. RADIOLOGY Noemi Guthrie MD - 03/08/2022 EXAM: XR ANKLE LEFT 3 VIEWS, XR FOOT LEFT 3 VIEWS, 03/08/2022 13:43 PM (accession [id number]), 03/08/2022 13:44 PM (accession [id number]) COMPARISON: No prior studies available for comparison. CLINICAL INDICATIONS: pain RELEVANT CLINICAL HISTORY: M79.672:Left foot pain M25.572:Left ankle pain, unspecified chronicity (accession [id number]), M79.672:Left foot pain M25.572:Left ankle pain, unspecified chronicity (accession [id number]) 3 views WB as karlee; FINDINGS: 3 views of left ankle and 3 views of left foot obtained in weightbearing position. Left ankle Joint effusion is present. Diffuse soft tissue swelling. Previous stabilization at the level of distal tibial and fibular diaphysis. Lateral orthopedic plate at the distal tibial metaphysis. Tibiotalar arthroplasty has been performed. Hardware appears grossly intact. Chronic periosteal changes along the distal tibial diaphysis as well as diffusely at the distal fibula may be related to previous surgery and/or trauma. Left foot Dorsal soft tissue swelling is present. No definite acute osseous abnormality. Tarsometatarsal joints are aligned. Osteoarthritis at interphalangeal joints. IMPRESSION IMPRESSION: Prior postsurgical changes at the distal tibiofibular syndesmosis. Tibiotalar arthroplasty in place, which appears grossly intact. Chronic appearing diffuse periosteal changes at the distal tibia and distal fibula likely sequela of previous surgery and/or trauma. 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 [facility] No Panel InformationOrdered By: Noemi Guthrie on 03-08-2022 [facility] Work Phone: XR ANKLE LEFT 3+ VIEWSon XR ANKLE LEFT 3+ VIEWS EXAM: XR ANKLE LE FT 3 VIEWS, XR FOOT LEFT 3 VIEWS, 03/08/2022 13:43 PM (accession [id number]), 03/08/2022 13:44 PM (accession [id number]) COMPARISON: No prior studies available for comparison. CLINICAL INDICATIONS: pain RELEVANT CLINICAL HISTORY: M79.672:Left foot pain M25.572:Left ankle pain, unspecified chronicity (accession [id number]), M79.672:Left foot pain M25.572:Left ankle pain, unspecified chronicity (accession [id number]) 3 views WB as karlee; FINDINGS: 3 views of left ankle and 3 views of left foot obtained in weightbearing position. Left ankle Joint effusion is present. Diffuse soft tissue swelling. Previous stabilization at the level of distal tibial and fibular diaphysis. Lateral orthopedic plate at the distal tibial metaphysis. Tibiotalar arthroplasty has been performed. Hardware appears grossly intact. Chronic periosteal changes along the distal tibial diaphysis as well as diffusely at the distal fibula may be related to previous surgery and/or trauma. Left foot Dorsal soft tissue swelling is present. No definite acute osseous abnormality. Tarsometatarsal joints are aligned. Osteoarthritis at interphalangeal joints. IMPRESSION: Prior postsurgical changes at the distal tibiofibular syndesmosis. Tibiotalar arthroplasty in place, which appears grossly intact. Chronic appearing diffuse periosteal changes at the distal tibia and distal fibula likely sequela of previous surgery and/or trauma. 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 Normal [facility] XR Ankle - left 3 [facility] Study observation (narrative) [facility] XR FOOT LEFT 3 VIEWSon 03-08 XR FOOT LEFT 3 VIEWS EXAM: XR ANKLE LEFT 3 VIEWS, XR FOOT LEFT 3 VIEWS, 03/08/2022 13:43 PM (accession [id number]), 03/08/2022 13:44 PM (accession [id number]) COMPARISON: No prior studies available for comparison. CLINICAL INDICATIONS: pain RELEVANT CLINICAL HISTORY: M79.672:Left foot pain M25.572:Left ankle pain, unspecified chronicity (accession [id number]), M79.672:Left foot pain M25.572:Left ankle pain, unspecified chronicity (accession [id number]) 3 views WB as karlee; FINDINGS: 3 views of left ankle and 3 views of left foot obtained in weightbearing position. Left ankle Joint effusion is present. Diffuse soft tissue swelling. Previous stabilization at the level of distal tibial and fibular diaphysis. Lateral orthopedic plate at the distal tibial metaphysis. Tibiotalar arthroplasty has been performed. Hardware appears grossly intact. Chronic periosteal changes along the distal tibial diaphysis as well as diffusely at the distal fibula may be related to previous surgery and/or trauma. Left foot Dorsal soft tissue swelling is present. No definite acute osseous abnormality. Tarsometatarsal joints are aligned. Osteoarthritis at interphalangeal joints. IMPRESSION: Prior postsurgical changes at the distal tibiofibular syndesmosis. Tibiotalar arthroplasty in place, which appears grossly intact. Chronic appearing diffuse periosteal changes at the distal tibia and distal fibula likely sequela of previous surgery and/or trauma. 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 Normal [facility] XR Foot - left 3 [facility] Study observation (narrative) [facility] Basophil percentageon 2021 Bilirubin [Mass/Vol] 0.50 mg/dL 0.20-1.00 [facility] Work Phone: Comment on above: For patients on eltr ombopag therapy, use of Dimension [place] TBIL is not recommended. Chloride [Moles/Vol] 104 mmol/L 98-107 [facility] Work Phone: Glucose [Mass/Vol] 82 mg/dL 74-106 [facility] Work Phone: Potassium [Moles/Vol] 4.0 mmol/L 3.5-5.1 [facility] Work Phone: Protein [Mass/Vol] 6.9 g/dL 6.4-8.2 [facility] Work Phone: Sodium [Moles/Vol] 138 mmol/L 136-145 [facility] Work Phone: Laboratory - Chemistry and C hemistry - challengeon 02-12-2022 ALP [Catalytic activity/Vol] 88 U/L 45-117 [facility] Work Phone: ALT [Catalytic activity/Vol] 25 U/L 13-56 [facility] Work Phone: [phone] CO2 [Moles/Vol] 30.0 mmol/L 21.0-32.0 [facility] Work Phone: Globulin (S) [Mass/Vol] 3.1 g/dL 2.2-4.2 [facility] Work Phone: [phone] Urea nitrogen/Creatinine [Mass ratio] 18.4 mg/mg 10-20 [facility] Work Phone: No Panel Informationon 02-12 Estimated GFR (MDRD) Amer 102 mL/min >60 [facility] Work Phone: Comment on above: GFR Calc Estimated GFR (MDRD) Non-Af Amer 84 mL/min >60 [facility] Work Phone: Comment on above: Non- GFR Calc Thyroid Stimulating Hormone (TSH) 0.68 uIU/mL 0.358-3.74 [facility] Work Phone: Vitamin D 25-Hydroxy 46.7 ng/mL [facility] Work Phone: Comment on above: Vitamin D 25(OH) Sta tus Range Deficiency <20 ng/mL (50nmol/L) Insufficiency 20 - 30 ng/mL (50 - 75 nmol/L) Sufficiency 30 - 100 ng/mL (75 - 250 nmol/L) Toxicity >100 ng/mL (>250 nmol/L) Serum or plasma albumin ilya urement (mass/volume)on 02-12-2022 Albumin [Mass/Vol] 3.8 g/dL 3.2-5.0 [facility] Work Phone: Serum or plasma albumin/glob ulin mass ratioon 02-12-2022 Albumin/Globulin [Mass ratio] 1.2 {ratio} 0.9-2.4 [facility] Work Phone: Serum or plasma calcium ilya urement (mass/volume)on 02-12-2022 Calcium [Mass/Vol] 9.6 mg/dL 8.5-10.1 [facility] Work Phone: Serum or plasma creatinine m easurement (mass/volume)on 02-12-2022 Creatinine [Mass/Vol] 0.76 mg/dL 0.55-1.02 [facility] Work Phone: Comment on above: The validity of the calculated GFR & GFRAA in patients over 70 years has not been determined. Clinical correlation is essential. Serum or plasma prolactin me asurement (mass/volume)on 02-12-2022 Prolactin [Mass/Vol] 13.4 ng/mL [facility] Work Phone: Comment on above: NORMAL REFERENCE RAN GES FEMALE NON- 2.2 - 30.3 ng/mL 8.1 - 347.6 ng/mL POST-MENOPAUSAL 0.7 - 31.5 ng/mL MALE 2.5 - 17.4 ng/mL Serum or plasma urea nitroge n measurement (mass/volume)on 02-12-2022 Urea nitrogen [Mass/Vol] 14 mg/dL 7-18 [facility] Work Phone: Thin prep Papanicolaou smear with manual screeningon 02-12-2022 Thin prep Papanicolaou smear with manual screening 18 U/L 15-37 [facility] Work Phone: Thin prep Papanicolaou smear with manual screening 4 5-15 [facility] Work Phone: Imtiaz 09-25-2021 CNPN Telephone ([id number]) ----- JEROMEVIBHA ODELL ([id number]) 1965 F T Date Time Provider Department 09/25/21 ROSSY KOTHARI [id number] During your visit today, we recorded the following information about you: Rossy Kothari DPM 09/25/2021 5:04 PM Signed I spoke with Vibha today. Postoperatively she was having severe pain and we advised increasing her dose to 2 Percocet every 6 hours. Therefore she has run out of her medication early. She needs a refill. She is still in considerable pain. She contacted me by email to let me know. I will facilitate a refill. Please notify Vibha that I sent in the refill. Merlyn Mckoy 09/26/2021 9:27 AM Signed Let Vibha know her rx was sent in Allergies As of Date: 09/25/2021 Noted Allergy Reaction Victryl Sutures [Other] 03/08/2008 5 - Intolerance CODEINE 01/30/2021 9 - Itching VERSED (MIDAZOLAM HCL) 02/16/2008 Date Reviewed: 09/14/2021 Reviewed by: Rossy Kothari DPM - Fully Assessed Reason for Visit: Medication Problem [65] Primary Visit Diagnosis:Other acute postoperative pain [G89.18] Order(s):oxyCODONE-acetam inophen (PERCOCET) 5-325 mg tabletTake 1 tablet by mouth every 4 hours as needed for pain for up to 7 days.Disp: 42 tabletRfl: 0 Prescriptions as of 09/26/2021 - oxyCODONE-acetaminophen (PERCOCET) 5-325 mg tablet Take [...] D3 (VITAMIN D-3 ORAL) Take by mouth. 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 Medications Discontinued During This Encounter Prescriptions - traMADol (ULTRAM) 50 mg tablet (Discontinued) Take1-2 tablets BY MOUTH EVERY EIGHT HOURS as needed for pain Encounter Status:Closed by ROSSY KOTHARI on 09/25/21 [facility] Imtiaz 09-23-2021 [facility] Telephone (KENNETH) ----- VIBHA CANO ( ) 1965 F T Date Time Provider Department 09/23/21 LIMA HUTCHINSON During your visit today, we recorded the following information about you: Lima Hutchinson DPM 09/23/2021 12:47 PM Signed Telephone Encounter Vibha Cano 1965 Reason for call: Post op check, s/p syndesmotic screw removal, application of tighrope left ankle, DOS 09/22/21, POD#1 PAST MEDICAL HISTORY Diagnosis Date - Avascular necrosis (HCC) - Kidney stones - Osteomyelitis (HCC) - Osteopenia Right hip - Osteoporosis left hip ALLERGIES Allergen Reactions - Victryl Sutures [Ot* Intolerance - Codeine Itching - Versed [Midazolam H* Current Outpatient Medications Medication [...] for postop follow up. Patient doing well overall. Patient relates that the operative site pain has been adequately controlled with the current regimen. Endorses compliance with the prescribed weight-bearing status. Has been elevating the extremity as recommended. However, has been having swelling to the left foot. Denies nausea, vomiting, fever, chills, chest pain, and shortness of breath. Patient is to continue to follow post operative instructions as outlined in discharge instructions, including monitoring for signs of infection and any acute issues. Patient is to follow up with Dr. Kothari on 10/02/21 If any issues patient has rehabilitation construction specialist podiatry pager number and is to contact if any issues or go to ED if unable to reach resident. Recommended removing outer CARTER wrap and re-wrapping from toes up to leg to help with foot swelling. All questions answered and patient agrees with plan. Lima Hutchinson DPM PGY-2 09/23/21 12:43 PM Allergies As of Date: 09/23/2021 Noted Allergy Reaction Victryl Sutures [Other] 03/08/2008 5 - Intolerance CODEINE 01/30/2021 9 - Itching VERSED (MIDAZOLAM HCL) 02/16/2008 Date Reviewed: 09/14/2021 Reviewed by: Rossy Kothari DPM - Fully Assessed Reason for Visit: Post Op [174] Prescriptions as of 09/23/2021 - traMADol (ULTRAM) 50 mg tablet Take1-2 [...] D3 (VITAMIN D-3 ORAL) Take by mouth. 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 She requests refill on tramadol. She has appt with a auto body painter next week. Allergies As of Date: 08/03/2021 Noted Allergy Reaction Victryl Sutures [Other] 03/08/2008 5 - Intolerance VERSED (MIDAZOLAM HCL) 02/16/2008 Date Reviewed: 07/20/2021 Reviewed by: Yolette Amaral - Fully Assessed Reason for Visit: Medication Problem [65] Primary Visit Diagnosis:Other acute postoperative pain [G89.18] Order(s):traMADol (ULTRAM) 50 mg tabletTake 1 tablet by mouth every 6 hours as needed for pain for up to 7 days.Disp: 28 tabletRfl: 0 Prescriptions as of 08/03/2021 - traMADol (ULTRAM) 50 mg tablet Take 1 tablet by mouth every 6 hours as needed for pain for up to 7 days. - gabapentin (NEURONTIN) 300 mg capsule Take 1 capsule by mouth three times daily for 30 days. - ELIQUIS 5 mg tab(s) - busPIRone (BUSPAR) 15 mg tablet - FORTEO 20 mcg/dose (600mcg/2.4mL) Inject 0.08ml (20mcg) sub-q once daily. - gabapentin (NEURONTIN) 300 mg capsule Take 300 mg by mouth three times daily. - Omeprazole 40 mg capsule Take 1 capsule by mouth once daily. - DULoxetine (CYMBALTA) 60 mg capsule Take 60 mg by mouth once daily. - hydrOXYzine HCl (ATARAX) 25 mg tablet Take 25 mg by mouth twice daily as needed. - DULoxetine (CYMBALTA) 20 mg capsule Take 20 mg by mouth once daily. - CALCIUM CARBONATE/VITAMIN D3 (VITAMIN D-3 ORAL) Take by mouth. - CALCIUM ORAL Take by mouth. 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 Medications Discontinued During This Encounter Prescriptions - traMADol (ULTRAM) 50 mg tablet (Discontinued) Take 1-2 tablets by mouth every 8 hours as needed for pain for up to 7 days. - traMADol (ULTRAM) 50 mg tablet (Discontinued) Take 1-2 tablets by mouth every 6 hours as needed for pain for up to 7 days. Encounter Status:Closed by ROSSY KOTHARI on 08/03/21 [facility] 08-02-2021 [facility] Telephone ([id number]) ----- JEROMEVIBHA Noni ([id number]) [address] [facility] Date Time Provider Department 08/02/21 ROSSY KOTHARI [id number] During your visit today, we recorded the following information about you: Evelyn Meraz 08/03/2021 1:15 PM Addendum A gentleman named Mark Mcgregor, who I believe is Vibha's physical therapist, called for protocol/restrictions for starting therapy. He is wanting to know if they can do gentle strengthening in PT, given that she is 5 weeks post-op. His contact info is below, I will reach out to him regarding your response. P: [phone] F: [phone] Rossy Kothari DPM 08/03/2021 11:44 AM Signed Please advise ROM, strengthenting, and stretching all ok non-weightbearing. Touch wb in boot with crutches. No weightbearing PT yet out of boot. Strengthening is fine. Thanks Evelyn Meraz 08/03/2021 1:16 PM Signed Called Mark to relay this information. Left detailed message on voicemail and faxed written instructions to number listed below. 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 - gabapentin (NEURONTIN) 300 mg capsule Take 1 capsule by mouth three times daily for 30 days. - ELIQUIS 5 mg tab(s) - busPIRone (BUSPAR) 15 mg tablet - FORTEO 20 mcg/dose (600mcg/2.4mL) Inject 0.08ml (20mcg) sub-q once daily. - gabapentin (NEURONTIN) 300 mg capsule Take 300 mg by mouth three times daily. - Omeprazole 40 mg capsule Take 1 capsule by mouth once daily. - DULoxetine (CYMBALTA) 60 mg capsule Take 60 mg by mouth once daily. - hydrOXYzine HCl (ATARAX) 25 mg tablet Take 25 mg by mouth twice daily as needed. - DULoxetine (CYMBALTA) 20 mg capsule Take 20 mg by mouth once daily. - CALCIUM CARBONATE/VITAMIN D3 (VITAMIN D-3 ORAL) Take by mouth. - CALCIUM ORAL Take by mouth. 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*01/16/2021 History of total replacement of left ankle [Z96*01/16/2021 Surgical aftercare, musculoskeletal system [Z47*01/16/2021 Plantar fasciitis of left foot [M72.2] 01/16/2021 Encounter Status:Closed by EVELYN MERAZ on 08/03/21 Normal [facility] No Panel Informationon 06-28 XR Ankle Left 2 View s (Reference Range: not available) *FINAL Date of Service: 06/28/2021 15:36 Adm #: [id number] Reading Dr:MICHEAL HALL Signoff Dr: MICHEAL HALL PROCEDURE: ANKLE LT 2 VIEW - IXR 0194 REASON FOR EXAM: PAIN IN LEFT ANKLE RESULT: CLINICAL HISTORY: Pain left ankle/left ligament stabilization COMPARISON: 08/03/2020 FINDINGS: Total fluoroscopy time: 30.[address] Kothari, images: 6 SPOT, DAP: 0.56 MGY. Tibiotalar prosthesis is seen. There is tibial fixation plate noted which is stable. Interval placement of syndesmotic screws and plate are present. IMPRESSION: Please refer to operative report for more details as the images were obtained for documentation purposes. [id number] This report has been produced using speech recognition. Original Interpreting Physician: MICHEAL HALL MD Original Transcribed by/Date: PSCB Jun 28 2021 3:40P Original Electronically Signed by/Date: MICHEAL HALL MD Jun 28 2021 3:40P Addendum Interpreting Physician: Addendum Transcribed by/Date: NO ADDENDUM Addendum Electronically Signed by/Date: S Work Phone: Clinical Summary: HMSPatient IDon 07-05-2020 OOP [facility] Work Phone: Office Visit: New - 1st visi t with practice, Rm: 9on 07-05-2020 NEGATED: Highlighted rowCT scan history of the left ankle on 06/15/2020 at [facility] [place] [facility] Work Phone: NEGATED: Highlighted rowTobacco smoking status NHIS Tobacco smoking status [facility] Work Phone: MRI SHOULDER W/O CONTRASTon 02-10-2018 MRI SHOULDER W/O CONTRAST Name: VIBHA MARRERO STUDY:MRI of the left shoulder without IV contrast; 02/10/2018 1:59 pm INDICATION:Pain in left shoulder;Unspecified rotator cuff tear or rupture ofleft shoulder, not specified as traumatic;Other symptoms and signsinvolving the musculoskeletal system. COMPARISON:None ORDERING CLINICIAN:RAMON PEREZ TECHNIQUE:MR imaging of the left shoulder was obtained without IV contrast. FINDINGS:ROTATOR CUFF TENDONS:The supraspinatus, infraspinatus, subscapularis, and teres minortendons are intact.There is no edema or fatty atrophy of the rotator cuff musculature. BICEPS TENDON AND ROTATOR INTERVAL:The intra-articular long head biceps tendon is intact and has anormal course. The rotator interval is unremarkable. JOINTS:There is mild acromioclavicular joint osteoarthrosis, characterizedby subchondral edema and sclerosis. Evaluation of the glenohumeral articulation demonstrates no articularcartilage defects. No evidence of significant joint effusion. No significant bursalfluid collection. LABRUM:There is a linear tearing involving the superior and posterosuperiorlabrum. OSSEOUS STRUCTURES:No focal marrow replacing lesions are identified. There is nofracture. SOFT TISSUES:The suprascapular nerve is intact at the suprascapular andspinoglenoid notches. IMPRESSION:1. Linear tearing involving the superior and posterosuperior labrum.2. Mild acromioclavicular joint osteoarthrosis.I personally reviewed the images/study and I agree with the findingsas stated. This study was interpreted at [place], [place].Electronically signed by: LV WATERS MD Normal [facility] BASIC METABOLIC PANELon 08-06 Anion gap 11 mmol/L Normal 10 - 20 [facility] Comment on above: Performed By: #### B MP ####[facility] [id number] [place] [address] Bicarbonate (HCO3) 26 mmol/L Normal 21 - 32 [facility] Comment on above: Performed By: #### B MP ####[facility] [id number] [place] [address] Calcium 9.8 mg/dL Normal 8.6 - 10.3 [facility] Comment on above: Performed By: #### B MP ####[facility] [id number] [place] [address] Chloride 104 mmol/L Normal 98 - 107 [facility] Comment on above: Performed By: #### B MP ####[facility] [id number] [place] [address] Creatinine 0.59 mg/dL Normal 0.50 - 1.05 [facility] Comment on above: Performed By: #### B MP ####[facility] [id number] [place] [id number] eGFR (non-black) mL/min/{1.73_m2} Normal >60 [facility] Comment on above: Result Comment: CALC ULATIONS OF ESTIMATED GFR ARE PERFORMED USING THE MDRD STUDY EQUATION FOR THE IDMS-TRACEABLE CREATININE METHODS. CLIN CHEM 2007;53:766-72 Performed By: #### B MP ####[facility] [id number] [place] [id number] Glucose mass conc 88 mg/dL Normal 74 - 99 [facility] Comment on above: Performed By: #### B MP ####[id number] [place] [id number] Potassium molar conc 4.3 mmol/L Normal 3.5 - 5.3 [facility] Comment on above: Performed By: #### B MP ####[facility] [id number] [place] [address] Sodium 137 mmol/L Normal 136 - 145 [facility] Comment on above: Performed By: #### B MP ####[facility] [id number] [place] [id number] Urea nitrogen 7 mg/dL Normal 6 - 23 [facility] Comment on above: Performed By: #### B MP ####[facility] [id number] [place] [address] CBCon 08-31-2017 Erythrocyte distribution width Auto Ratio (RBC) 12.0 % Normal 11.5 - 14.5 [facility] Comment on above: Performed By: #### C BC ####[facility] [id number] [place] [address] Erythrocytes (RBC) 3.61 x10E12/L Low 4.00 - 5.20 [facility] Comment on above: Performed By: #### C BC ####[facility] [id number] [place] [id number] Hematocrit (HCT) 32.2 % Low 36.0 - 46.0 [facility] Comment on above: Performed By: #### C BC ####[facility] [id number] [place] [address] Hemoglobin mass conc (Bld) 10.4 g/dL Low 12.0 - 16.0 [facility] Comment on above: Performed By: #### C BC ####[id number] [place] [address] MCHC mass conc (RBC) 32.3 g/dL Normal 32.0 - 36.0 [facility] Comment on above: Performed By: #### C BC ####[id number] [place] [id number] MCV 89 fL Normal 80 - 100 [facility] Comment on above: Performed By: #### C BC ####[facility] [id number] [place] [id number] Platelets 529 10*3/uL High 150 - 450 [facility] Comment on above: Performed By: #### C BC ####[facility] [id number] [place] [id number] WBC (Leukocytes) 5.6 10*3/uL Normal 4.4 - 11.3 [facility] Comment on above: Performed By: #### C BC ####[facility] [id number] [place] [address] DRUG SCREEN, BLOODon 018 THEOPHYLLINE <2.5 Normal >5.0 POSITIVE [facility] Comment on above: Performed By: #### C BCDF ####[facility] [id number] [place] [address] DRUG SCREEN,URINEon 08-31-19 18 COCAINE METABOLITE Negative Normal NEGATIVE [facility] Comment on above: Result Comment: CUTO FF LEVEL: 150 NG/ML Railway Engineer drug: Benzoylecgonine(cocaine metabolite) Performed By: #### D RUG3 ####[facility] [id number] [place] [address] DRUG SCREEN COMMENT SEE BELOW Normal [facility] Comment on above: Result Comment: POSI TIVE CUTOFFS ARE BASED ON REACTIVITY WITH A PRODUCE SHIPPER MEMBER OF DRUG CLASS. MEMBERS OF THE SAME CLASS OF DRUG MAY HAVE DIFFERING REACTIVITY WITH THE ASSAY AND THEREFORE MAY NEED TO BE PRESENT IN HIGHER CONCENTRATIONS TO GENERATE A POSITIVE RESULT. THESE TOXICOLOGY SCREENS PROVIDE UNCONFIRMED ANALYTICAL RESULTS SUITABLE FOR CLINICAL MANAGEMENT. A POSITIVE QUALITATIVE RESULT DOES NOT INDICATE OR MEASURE INTOXICATION. FOR QUANTITATIVE CONFIRMATORY TESTING OR PATHOLOGIST CONSULTATION, CALL LABORATORY AT [phone]. Performed By: #### D RUG3 ####[facility] [id number] [place] [address] OXYCODONE Positive Invalid Interpretation Code NEGATIVE [facility] Comment on above: Result Comment: CUTO FF LEVEL:100 NG/ML Railway Engineer drug: Oxycodone This test will accurately detect both oxycodone and oxymorphone. Performed By: #### D RUG3 ####[facility] [id number] [place] [id number] PCP Negative Normal NEGATIVE [facility] Comment on above: Result Comment: CUTO FF LEVEL: 25 NG/ML Railway Engineer drug: Phencyclidine(PCP) Cross-reactivity has been reported with dextromethorphan. Performed By: #### D RUG3 ####[facility] [id number] [place] [id number] URINE BARBITURATES Negative Normal NEGATIVE [facility] Comment on above: Result Comment: CUTO FF LEVEL:200 NG/ML Railway Engineer drug: Secobarbital Performed By: #### D RUG3 ####[facility] [id number] [place] [id number] Urine, amphetamines presence Negative Normal NEGATIVE [facility] Comment on above: Result Comment: CUTO FF LEVEL: 500 NG/ML Railway Engineer drug: d-Methamphetamine Cross-reactivity has been reported with high concentrations of the following drugs: buproprion, chloroquine, chlorpromazine, ephedrine, mephentermine, fenfluramine, phentermine, phenylpropanolamine, pseudoephedrine, and propranolol. Performed By: #### D RUG3 ####[facility] [id number] [place] [address] Urine, benzodiazepines presence Negative Normal NEGATIVE [facility] Comment on above: Result Comment: CUTO FF LEVEL:200 NG/ML Railway Engineer drug: Lormetazepam Performed By: #### D RUG3 ####[facility] [id number] [place] [address] Urine, cannabinoids presence Negative Normal NEGATIVE [facility] Comment on above: Result Comment: CUTO FF LEVEL:50 NG/ML Railway Engineer dru25-kim-yeefk8-THC-9carboxylic acid Performed By: #### D RUG3 ####[facility] [id number] [place] [address] Urine, methadone presence Negative Normal NEGATIVE [facility] Comment on above: Result Comment: CUTO FF LEVEL: 150 NG/ML Railway Engineer drug: Methadone The metabolite R-phsnr-nnjqilhpcxqxat (LAAM) is not detected by this method in concentrations that would be found in the urine of patients on LAAM therapy. Performed By: #### D RUG3 ####[facility] [id number] [place] [address] Urine, opiates presence Negative Normal NEGATIVE [facility] Comment on above: Result Comment: CUTO FF LEVEL: 300 NG/ML Railway Engineer Drug: Morphine This assay shows poor reactivity with synthetic opioids such as oxycodone and fentanyl. Cross-reactivity has been reported at high doses of meperidine. Performed By: #### D RUG3 ####[facility] [id number] [place] [address] Discharge Summaryon 08-31-19 Discharge Summary Send Summary:Dischar ge Summary Providers:Provider Role Provider Name? Referring Bert Dillon? Attending Bert Dillon? Consulting Shimon Martinez? Primary Annette Kim LNote Recipients: Annette Kim MD - [phone] [preferred]Goudiaby, Bert, DODischarge:Summary:Admis tamra Date: .30-Aug-2017 19:52:00Discharge Date: [id number] Physician at Discharge: Jerardo Dillon Reason: seizures(1)Final Discharge Diagnoses: SeizureProcedures: NoneCondition at Discharge: SatisfactoryDisposition at Discharge: .HomeVital Signs: T P R BP [id number] 36.4 87 18 118/72 100%Date/Time 08/31 7:35 08/31 7:35 08/31 7:35 08/31 7:35 08/31 7:35Range (36.3C - 36.8C ) (84 - 118 ) (18 - 26 ) (118 - 144 )/(72 - 106 )(97% - 100% ) As of 30-Aug-2017 21:29:00, patient is on 2 L/min of oxygen via room air.Physical Exam:Physical exam at dischargeConstitutional: Well developed, alert, active, cooperative and not in acutedistress.Eyes: Pupils are reactive to light, clear scleraENMT: Moist mucosal membranes, no exudatesHead/Neck: Normocephalic, atraumatic, supple neck, JVP not visualizedRespiratory/Tho rax: Patent airways, normal breath sounds, no wheezingappreciatedCardio vascular: RRR, S1S2, no murmurs appreciated, palpable pulses in allextremitiesGastrointes tinal: Soft, not tender, not distended, normoactive bowel soundsMusculoskeletal: Moves all extremities freely, appropriate strength, no jointswellingExtremities: PICC line on left arm, no erythema, no drainage left ankle indressing dry and intact No peripheral edema, no cyanosisNeurological: AAOx3, facial muscles are symmetrical, sensation intact,appropriate strength, no neurologic focal deficit appreciated at this timeLymphatic: No acute palpable cervical lymphadenopathyPsychologi matheus: Appropriate mood and behaviorSkin: warm and dryHospital Course:Ms. Barton is 52 years old female with a past medical history ofalcohol abuse, avascular necrosis of the left calcaneus, muscle spasm, anxiety,who presented to [facility] ED with complaint of episode of seizure ?1. Patientstated that she is doing outpatient alcohol treatment at [facility], and today while in group therapy she had an episode of seizure, whichbrit was unable to describe, but stated that she passed out and regainedconsciousness only when EMS arrived. Patient denies history of seizures andstated that she recently was discharged from hospital for surgery of herchronic avascular necrosis of the left calcaneus bone. Patient stated that shewas on Percocet and just started weaning off by a switching to tramadol, whichbrit was taking concomitantly with ibuprofen with goal of ending treatment onSunday.Upon evaluation in the ED etiology of the seizure was suspected to be fromtramadol and patient is admitted for observation.Pt had uneventful night, there were no overnight seizure activity. She wasevaluated by neurologist (Dr. Martinez) this AM, with recommendation to start rishi Keppra 500 mg BID, and follow up with Dr. Martinez in 3 -4 weeks. She was okto resume her tramadol, and if her pain management completed, she will be weanoff KeppraPt is discharge home, in stable conditionDischarge Information:and Continuing Care:Discharge Instructions:Activity: activity as tolerated. May shower.. May not drive until follow-up visit.Nutrition/Diet: regularFollow Up Appointments:Follow-Up Appointment 01: Physician/Dept/Service: Neurology Reason for Referral: follow up on seizures, seizure medication [id number] Medications: Home Medication cefTRIAXone 1 g intravenous injection - 1 gram(s) intravenous once a day levETIRAcetam 500 mg oral tablet - 1 tab(s) orally 2 times a day PRN Medication hydrOXYzine hydrochloride 50 mg oral tablet - 1 tab(s) orally 3 times a day,As Needed for anxietyFlexeril 10 mg oral tablet - 1 tab(s) orally 3 times a day, As Needed formuscle spasmLab Results - Pending: Drug Screen, Blood Drawn at 30-Aug-2017 21:09:00Radiology Results - Pending: NoneElectronic Signatures:Bert Dillon) (Signed 31-Aug-2017 13:54) Authored: Send Summary, Summary Content, Ongoing Care,Signature/Cosignatur e/AttestationLast Updated: 31-Aug-2017 13:54 by Goudiaby, Bert (DO)References:1. Data Referenced From "History and Physical" 08/30/2017 11:50 PM Normal [facility] UA MICROSCOPICon 08-31-2017 Erythrocytes (RBC) 0-5 Normal 0-5 [facility] Comment on above: Performed By: #### U AMIC ####[facility] [id number] [place] [address] WBC (Leukocytes) 0-5 Normal 0-5 [facility] Comment on above: Performed By: #### U AMIC ####[facility] [place] [address] URINALYSISon 08-31-2017 Bilirubin (total) Negative Normal NEGATIVE [facility] Comment on above: Performed By: #### U A ####[facility] [place] [address] BLOOD Negative Normal NEGATIVE [facility] Comment on above: Performed By: #### U A ####[facility] [place] [address] Glucose mass conc Negative Normal NEGATIVE [facility] Comment on above: Performed By: #### U A ####[facility] [place] [address] pH of blood 6.0 [pH] Normal 5.0 - 8.0 [facility] Comment on above: Performed By: #### U A ####[facility] [id number] [place] [address] Protein Negative Normal NEGATIVE [facility] Comment on above: Performed By: #### U A ####[facility] [id number] [place] [address] Urine, appearance CLEAR Normal CLEAR [facility] Comment on above: Performed By: #### U A ####[facility] [place] [address] Urine, color STRAW Normal STRAW,YELL OW [facility] Comment on above: Performed By: #### U A ####[facility] [place] [address] Urine, ketones presence Negative Normal NEGATIVE [facility] Comment on above: Performed By: #### U A ####[facility] [id number] [place] [id number] Urine, leukocyte esterase presence SMALL(1+) Invalid Interpretation Code NEGATIVE [facility] Comment on above: Performed By: #### U A ####[facility] [id number] [place] [id number] Urine, nitrite presence Negative Normal NEGATIVE [facility] Comment on above: Performed By: #### U A ####[facility] [id number] [place] [id number] Urine, specific gravity 1.005 Normal 1.005 - 1.035 [facility] Comment on above: Performed By: #### U A ####[facility] [id number] [place] [address] Urine, urobilinogen <2.0 Normal 0.0 - 1.9 [facility] Comment on above: Performed By: #### U A ####[facility] [id number] [place] [id number] CBC AND DIFFERENTIALon 08-30 % AUTOMATED IMMATURE GRAN 0.5 % Normal 0.0 - 0.9 [facility] Comment on above: Result Comment: Perc ent differential counts (%) should be interpreted in the context of the absolute cell counts (cells/L). Performed By: #### C BCDF ####[facility] [id number] [place] [id number] % NEUTROPHIL 72.4 % Normal 40.0 - 80.0 [facility] Comment on above: Performed By: #### C BCDF ####[facility] [id number] [place] [address] Basophils/100 WBC Auto (Bld) 0.05 x10E9/L Normal 0.00 - 0.10 [facility] Comment on above: Performed By: #### C BCDF ####[facility] [id number] [place] [address] Basophils/100 WBC Auto (Bld) 0.6 % Normal 0.0 - 2.0 [facility] Comment on above: Performed By: #### C BCDF ####[facility] [id number] [place] [address] Eosinophils 0.14 10*3/uL Normal 0.00 - 0.70 [facility] Comment on above: Performed By: #### C BCDF ####[facility] [id number] [place] [address] Eosinophils/100 leukocytes 1.7 % Normal 0.0 - 6.0 [facility] Comment on above: Performed By: #### C BCDF ####[facility] [id number] [place] [address] Erythrocyte distribution width Auto Ratio (RBC) 11.9 % Normal 11.5 - 14.5 [facility] Comment on above: Performed By: #### C BCDF ####[facility] [id number] [place] [address] Erythrocytes (RBC) 3.33 x10E12/L Low 4.00 - 5.20 [facility] Comment on above: Performed By: #### C BCDF ####[facility] [id number] [place] [address] Hematocrit (HCT) 29.8 % Low 36.0 - 46.0 [facility] Comment on above: Performed By: #### C BCDF ####[facility] [id number] [place] [address] Hemoglobin mass conc (Bld) 9.5 g/dL Low 12.0 - 16.0 [facility] Comment on above: Performed By: #### C BCDF ####[facility] [id number] [place] [address] Lymphocytes 1.64 10*3/uL Normal 1.20 - 4.80 [facility] Comment on above: Performed By: #### C BCDF ####[facility] [id number] [place] [address] Lymphocytes/100 leukocytes 19.5 % Normal 13.0 - 44.0 [facility] Comment on above: Performed By: #### C BCDF ####[facility] [id number] [place] [address] MCHC mass conc (RBC) 31.9 g/dL Low 32.0 - 36.0 [facility] Comment on above: Performed By: #### C BCDF ####[facility] [id number] [place] [address] MCV 89 fL Normal 80 - 100 [facility] Comment on above: Performed By: #### C BCDF ####[facility] [id number] [place] [address] Monocytes 0.45 10*3/uL Normal 0.10 - 1.00 [facility] Comment on above: Performed By: #### C BCDF ####[facility] [place] [address] Monocytes/100 leukocytes 5.3 % Normal 2.0 - 10.0 [facility] Comment on above: Performed By: #### C BCDF ####[facility] [id number] [place] [address] Neutrophils 6.11 10*3/uL Normal 1.20 - 7.70 [facility] Comment on above: Performed By: #### C BCDF ####[facility] [id number] [place] [address] Platelets 533 10*3/uL High 150 - 450 [facility] Comment on above: Performed By: #### C BCDF ####[facility] [place] [address] WBC (Leukocytes) 8.4 10*3/uL Normal 4.4 - 11.3 [facility] Comment on above: Performed By: #### C BCDF ####[facility] [id number] [place] [address] COMPREHENSIVE PANELon 2017 Alanine aminotransferase (ALT) 108 U/L High 7 - 45 [facility] Comment on above: Result Comment: Shameka ents treated with Sulfasalazine may generate falsely decreased results for ALT. Performed By: #### C MP ####[facility] [id number] [place] [address] Albumin 3.9 g/dL Normal 3.4 - 5.0 [facility] Comment on above: Performed By: #### C MP ####[facility] [id number] [place] [address] Alkaline phosphatase (ALP) 159 U/L High 33 - 110 [facility] Comment on above: Performed By: #### C MP ####[facility] [place] [address] Anion gap 12 mmol/L Normal 10 - 20 [facility] Comment on above: Performed By: #### C MP ####[facility] [place] [address] Aspartate aminotransferase (AST) 41 U/L High 9 - 39 [facility] Comment on above: Performed By: #### C MP ####[facility] [place] [address] Bicarbonate (HCO3) 26 mmol/L Normal 21 - 32 [facility] Comment on above: Performed By: #### C MP ####[facility] [place] [address] Bilirubin (total) 0.2 mg/dL Normal 0.0 - 1.2 [facility] Comment on above: Performed By: #### C MP ####[facility] [place] [address] Calcium 9.4 mg/dL Normal 8.6 - 10.3 [facility] Comment on above: Performed By: #### C MP ####[facility] [place] [address] Chloride 102 mmol/L Normal 98 - 107 [facility] Comment on above: Performed By: #### C MP ####[facility] [place] [address] Creatinine 0.69 mg/dL Normal 0.50 - 1.05 [facility] Comment on above: Performed By: #### C MP ####[facility] [place] [address] eGFR (non-black) mL/min/{1.73_m2} Normal >60 [facility] Comment on above: Performed By: #### C MP ####[facility] [id number] [place] [id number] Result Comment: CALC ULATIONS OF ESTIMATED GFR ARE PERFORMED USING THE MDRD STUDY EQUATION FOR THE IDMS-TRACEABLE CREATININE METHODS. CLIN CHEM 2007;53:766-72 Glucose mass conc 114 mg/dL High 74 - 99 [facility] Comment on above: Performed By: #### C MP ####[facility] [id number] [place] [id number] Potassium molar conc 3.9 mmol/L Normal 3.5 - 5.3 [facility] Comment on above: Performed By: #### C MP ####[facility] [id number] [place] [address] Protein 6.8 g/dL Normal 6.4 - 8.2 [facility] Comment on above: Performed By: #### C MP ####[facility] [id number] [place] [address] Sodium 136 mmol/L Normal 136 - 145 [facility] Comment on above: Performed By: #### C MP ####[facility] [id number] [place] [address] Urea nitrogen 10 mg/dL Normal 6 - 23 [facility] Comment on above: Performed By: #### C MP ####[facility] [id number] [place] [address] CT HEAD WO CONTRASTon 2017 CT HEAD WO CONTRAST Name: VIBHA BARTON STUDY:CT HEAD WO CONTRAST; 08/30/2017 8:56 pm INDICATION:Signs/Symptoms : new seizure. COMPARISON:None. ORDERING CLINICIAN:ASHLEY LINDSEY TECHNIQUE:Axial noncontrast CT images of the head. FINDINGS:BRAIN PARENCHYMA: Obrien-white matter interfaces are preserved. No masseffect or midline shift. HEMORRHAGE: No acute intracranial hemorrhage.VENTRICLES and EXTRA-AXIAL SPACES: Normal size.EXTRACRANIAL SOFT TISSUES: Within normal limits.PARANASAL SINUSES/MASTOIDS: The visualized paranasal sinuses andmastoid air cells are aerated.CALVARIUM: No depressed skull fracture. No destructive osseous lesion. OTHER FINDINGS: None. IMPRESSION:No acute intracranial abnormality. Electronically signed by: OLIVIA JAMES MD Normal [facility] DRUG SCREEN, BLOODon 018 Acetaminophen mass conc <10.0 Normal >5.0 POSITIVE [facility] Comment on above: Performed By: #### C BCDF ####[facility] [place] [address] Ethanol mg/dL Normal [facility] Comment on above: Result Comment: FOR MEDICAL USE ONLY.REF VALUES< 10 Performed By: #### C BCDF ####[facility] [place] [address] Phenytoin ug/mL Normal >5.0 POSITIVE [facility] Comment on above: Performed By: #### C BCDF ####[facility] [place] [address] SALICYLATE <3 Normal >2 POSITIVE [facility] Comment on above: Performed By: #### C BCDF ####[facility] [place] [address] SERUM BARBITURATES Negative Normal [facility] Comment on above: Performed By: #### C BCDF ####[facility] [place] [address] TRICYCLICS, SERUM Negative Normal [facility] Comment on above: Performed By: #### C BCDF ####[facility] [id number] [place] [address] PT/INRon 08-30-2017 INR Coag RelTime (PPP) 1.0 {INR} Normal 0.9 - 1.1 [facility] Comment on above: Performed By: #### P TINR ####[facility] [place] [address] Prothrombin time (PT) Coag time (PPP) 11.2 s Normal 9.8 - 12.7 [facility] Comment on above: Performed By: #### P TINR ####[facility] [id number] [place] [address] MISCELLANEOUS CULT./SM.BACT. on 06-07-2017 MISCELLANEOUS CULT./SM.BACT. PATIENT: VIBHA MARRERO LOCATION: [facility] BILL#: [id number] : 69 AGE: SEX: F ORDERED BY: CRISTIAN KIM: DAJA COLLECTED: 06/07/17 14:34ANTIBIOTICS AT ALICE.: RECEIVED : 06/07/17 23:36SITE: R E S U L T S GRAM STAIN FINAL 06/08/17 01:20 NO GRANULOCYTES SEEN. 1+ GRAM (+) COCCI MISCELLANEOUS CULT./SM.BACT. FINAL 06/11/17 08:18 2+ MIXED SKIN KAROLYN ISOLATE1 : Staphylococcus aureus 1+ METHICILLIN(OXACILLIN)JACINTO CEPTIBLE STAPHYLOCOCCI ARE SUSCEPTIBLE TO SEMI-SYNTHETIC PENICILLINS (OXACILLIN,NAFCILLIN, ETC),BETA-LACTAM/BETA-LAC TAMASE INHIBITOR COMBINATIONS(INCLUDING AMPICILLIN/SULBACTAM, AMOXICILLIN/CLAVULANATE AND PIPERACILLIN/TAZOBACTAM), CARBAPENEMS AND CEPHALOSPORINS APPROVED FOR USE BY THE FDA FOR STAPHYLOCOCCAL INFECTIONS. Organi sm S aureus Antibiotic BP INTRP Ampici llin R Clindamycin S Ciprofloxacin S Erythromycin S Gentamicin S Levofloxacin S Oxacillin S Penicillin R Trimeth/Sulfa S Tetracycline S Vancomycin S ___S=SUSCEPTIBLE I=INTERMEDIATE R=RESISTANT SDD=SUSCEPTIBLE DOSE DEPENDENT NS=NONSUSCEPTIBLEX=REPORT ED IN ERROR Normal [facility] Comment on above: Performed By: #### M [facility] ####[facility] [place] [address] Vital Signs Date Time Vital Sign Value Performing Clinician Facility 02-09-2025 11:25-0400 Body height 157.[address] Janeth Salcido MD Work Phone: [facility] 02-09-2025 11:25-0400 Body mass index (BMI) [Ratio] 25.8 kg/m2 Dr. Janeth Salcido MD Work Phone: [facility] 02-09-2025 11:25-0400 Body weight 64.[address] Janeth Salcido MD Work Phone: [facility] 02-09-2025 11:25-0400 Diastolic blood pressure 74 mm[Hg] Dr. Janeth Salcido MD Work Phone: [facility] 02-09-2025 11:25-0400 Heart rate 73 /min Dr. Janeth Salcido MD Work Phone: [facility] 02-09-2025 11:25-0400 SaO2% (BldA) [Mass fraction] 98 % Dr. Janeth Salcido MD Work Phone: [facility] 02-09-2025 11:25-0400 Systolic blood pressure 108 mm[Hg] Dr. Janeth Salcido MD Work Phone: [facility] 12-30-2024 13:00-0400 Body temperature 98.8 [degF] Ramon Perez MD Work Phone: [facility] 12-30-2024 13:00-0400 Diastolic blood pressure 70 mm[Hg] Ramon Perez MD Work Phone: [facility] 12-30-2024 13:00-0400 Heart rate 85 /min Ramon Perez MD Work Phone: [facility] 12-30-2024 13:00-0400 Respiratory rate 16 /min Ramon Perez MD Work Phone: [facility] 12-30-2024 13:00-0400 SaO2% (BldA) [Mass fraction] 96 % Ramon Perez MD Work Phone: [facility] 12-30-2024 13:00-0400 Systolic blood pressure 137 mm[Hg] Ramon Perez MD Work Phone: [facility] 12-30-2024 07:30-0400 Body height 157.5 cm Ramon Perez MD Work Phone: [facility] 12-30-2024 07:30-0400 Body mass index (BMI) [Ratio] 26.28 kg/m2 aRmon Perez MD Work Phone: [facility] 12-30-2024 07:30-0400 Body weight 65.2 kg Ramon Perez MD Work Phone: [facility] 07-08-2023 11:44-0500 Body temperature 97.5 [degF] Rossy Kothari DPM Work Phone: [facility] 04-26-2023 13:52-0400 Diastolic blood pressure 81 mm[Hg] Dr. Janeth Salcido Work Phone: [facility] 04-26-2023 13:52-0400 Heart rate 74 /min Dr. Janeth Salcido Work Phone: [facility] 04-26-2023 13:52-0400 Systolic blood pressure 139 mm[Hg] Dr. Janeth Salcido Work Phone: [facility] 04-26-2023 13:15-0400 Body height 160.[address] Janeth Salcido Work Phone: [facility] 04-26-2023 13:15-0400 Body temperature 97.8 [degF] Dr. Janeth Salcido Work Phone: [facility] 04-26-2023 13:15-0400 Respiratory rate 16 /min Dr. Janeth Salcido Work Phone: [facility] 04-26-2023 13:15-0400 SaO2% (BldA) [Mass fraction] 98 % Dr. Janeth Salcido Work Phone: [facility] 02-11-2023 11:32-0400 Body mass index (BMI) [Ratio] 26.2 kg/m2 Dr. Janeth Salcido Work Phone: [facility] 02-11-2023 11:32-0400 Body temperature 98.2 [degF] Dr. Janeth Salcido Work Phone: [facility] 02-11-2023 11:32-0400 Body weight 67.[address] Janeth Salcido Work Phone: [facility] 02-11-2023 11:32-0400 Diastolic blood pressure 68 mm[Hg] Dr. Janeth Salcido Work Phone: [facility] 02-11-2023 11:32-0400 Heart rate 72 /min Dr. Janeth Salcido Work Phone: [facility] 02-11-2023 11:32-0400 Respiratory rate 16 /min Dr. Janeth Salcido Work Phone: [facility] 02-11-2023 11:32-0400 SaO2% (BldA) [Mass fraction] 97 % Dr. Janeth Salcido Work Phone: [facility] 02-11-2023 11:32-0400 Systolic blood pressure 116 mm[Hg] Dr. Janeth Salcido Work Phone: [facility] 09-05-2022 13:27-0500 Body temperature 97.81 [degF] Tania Pimentel DPM Work Phone: [facility] 08-15-2022 15:19-0500 Body temperature 97.81 [degF] Tania Pimentel DPM Work Phone: [facility] 08-08-2022 11:50-0500 Body temperature 97.81 [degF] Tania Pimentel DPM Work Phone: [facility] 07-23-2022 14:24-0500 Body height 157.5 cm Pacc 1 Work Phone: [facility] 07-23-2022 14:24-0500 Body temperature 99 [degF] Pacc 1 Work Phone: [facility] 07-23-2022 14:24-0500 Body weight 65.32 kg Pacc 1 Work Phone: [facility] 07-23-2022 14:24-0500 Diastolic blood pressure 60 mm[Hg] Pacc 1 Work Phone: [facility] 07-23-2022 14:24-0500 Heart rate 106 /min Pacc 1 Work Phone: [facility] 07-23-2022 14:24-0500 Respiratory rate 16 /min Pacc 1 Work Phone: [facility] 07-23-2022 14:24-0500 SaO2% (BldA) [Mass fraction] 98 % Pacc 1 Work Phone: [facility] 07-23-2022 14:24-0500 Systolic blood pressure 112 mm[Hg] Pacc 1 Work Phone: [facility] 03-29-2022 12:54-0400 Body temperature 98.1 [degF] Rossy Kothari DPM Work Phone: [facility] 03-08-2022 14:02-0400 Body height 157.5 cm Jose Alas MD Work Phone: [facility] 03-08-2022 14:02-0400 Body mass index (BMI) [Ratio] 24.69 kg/m2 Jose Alas MD Work Phone: [facility] 03-08-2022 14:02-0400 Body weight 61.24 kg Jose Alas MD Work Phone: [facility] 02-12-2022 09:36-0400 Body height 160.[address] Janeth Salcido Work Phone: [facility] Work Phone: 02-12-2022 09:36-0400 Body mass index (BMI) [Ratio] 24.8 kg/m2 Dr. Janeth Salcido Work Phone: [facility] Work Phone: 02-12-2022 09:36-0400 Body temperature 96.1 [degF] Dr. Janeth Salcido Work Phone: [facility] Work Phone: 02-12-2022 09:36-0400 Body weight 63.[address] Janeth Salcido Work Phone: [facility] Work Phone: 02-12-2022 09:36-0400 Diastolic blood pressure 80 mm[Hg] Dr. Janeth Salcido Work Phone: [facility] Work Phone: 02-12-2022 09:36-0400 Heart rate 85 /min Dr. Janeth Salcido Work Phone: [facility] Work Phone: 02-12-2022 09:36-0400 Respiratory rate 18 /min Dr. Janeth Salcido Work Phone: [facility] Work Phone: 02-12-2022 09:36-0400 SaO2% (BldA) [Mass fraction] 98 % Dr. Janeth Salcido Work Phone: [facility] Work Phone: 02-12-2022 09:36-0400 Systolic blood pressure 118 mm[Hg] Dr. Janeth Salcido Work Phone: [facility] Work Phone: 01-22-2022 13:11-0400 Body temperature 97.11 [degF] Rossy Kothari DPM Work Phone: [facility] 10-30-2021 13:04-0400 Body temperature 98.01 [degF] Rossy Kothari DPM Work Phone: [facility] 06-28-2021 12:00-0500 Body mass index (BMI) [Ratio] 26.15 kg/m2 DPM Rossy Kothari DPM [facility] 06-28-2021 12:00-0500 Body weight 64.86 kg DPM Rossy Kothari DPM [facility] 01-16-2021 13:25-0400 Body temperature 97.9 [degF] Rossy Kothari DPM Work Phone: [facility] 04-03-2017 11:45-0400 Body height Provider Migration [facility] 04-03-2017 11:45-0400 Body mass index (BMI) [Ratio] Provider Migration [facility] 04-03-2017 11:45-0400 Body weight Provider Migration [facility] NEGATED: Highlighted [id number] 08:52-0500 BMI (Body Mass Index) 27.35 kg/m2 Maryse Anabela AT [facility] Work Phone: NEGATED: Highlighted [id number] 08:52-0500 Body weight 67.59 kg Maryse Anabela AT [facility] Work Phone: NEGATED: Highlighted [id number] 08:52-0500 Body weight 68 kg Maryse Anabela AT [facility] Work Phone: NEGATED: Highlighted [id number] 08:52-0500 Heart rate 2+ Maryse Anabela AT [facility] Work Phone: NEGATED: Highlighted [id number] 08:52-0500 Height 157.48 cm Maryse Anabela AT [facility] Work Phone: NEGATED: Highlighted [id number] 08:52-0500 Height 157 cm Maryse Anabela AT [facility] Work Phone: Encounters Encounter Date Encounter Type Care Provider Facility Start: 02-23-2025 [facility] Facility: [facility] Start: 02-11-2025 End: 02-11-2025 Postop follow up visit related to original px Ramon Perez MD Work Phone: [facility] Comment on above: 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); Ulnar abutment syndrome of right wrist; 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 Start: 02-11-2025 End: 02-11-2025 Office outpatient visit 15 minutes Isac Booker MD Work Phone: [facility] Comment on above: Acute left ankle monika n (Primary Dx); History of total replacement of left ankle Start: 02-11-2025 End: 02-11-2025 Subsequent hospital visit by physician Tina X-Ray 2 [facility] Comment on above: Ulnar abutment syndr ome of right wrist; 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 Parminder aLrsen MD -[facility] Work Phone: Start: 02-09-2025 End: 02-09-[address] Janeth Salcido MD Work Phone: -[facility] Start: 02-08-2025 End: 02-08-2025 Subsequent hospital visit by physician Christian Paredes 1 [facility] Comment on above: Acute left ankle monika n; History of total replacement of left ankle Start: 02-08-2025 End: 02-08-2025 ambulatory [facility] Start: 01-27-2025 End: 01-27-2025 Subsequent hospital visit by physician Marlin Guzman X-Ray 3 [facility] Comment on above: Acute left ankle monika n Start: 01-27-2025 End: 01-27-2025 Office outpatient new 45 minutes Isac Booker MD Work Phone: [facility] Comment on above: Acute left ankle monika n (Primary Dx); History of total replacement of left ankle Start: 01-27-2025 End: [facility] Start: 01-27-2025 End: 01-27-2025 ambulatory [facility] Start: 01-14-2025 End: 01-14-2025 Subsequent hospital visit by physician Tina X-Ray 2 [facility] Comment on above: Ulnar abutment syndr ome of right wrist Start: 01-14-2025 End: 01-14-2025 Postop follow up visit related to original px Herman Holloway PA-C Work Phone: [facility] Comment on above: Ulnar abutment syndr ome of right wrist (Primary Dx) Start: 01-14-2025 End: 01-14-2025 ambulatory HERMAN [facility] Start: 12-31-2024 End: 12-31-2024 ambulatory RAMON Espinoza [facility] Start: 12-31-2024 End: 12-31-2024 Postop follow up visit related to original px Ramon Perez MD Work Phone: [facility] Comment on above: 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) Start: 12-30-2024 End: 12-30-2024 ambulatory RAMON Espinoza [facility] Start: 12-30-2024 End: 12-30-2024 Subsequent hospital visit by physician Ramon Perez MD Work Phone: [facility] [place] Comment on above: Ulnar abutment syndr ome of right wrist (Primary Dx); 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 Doc Diana MD -[place] [facility] Work Phone: Start: 10-20-2024 End: 10-20-[address] Janeth Salcido MD Work Phone: [facility] Work Phone: Start: 10-20-2024 End: 10-20-[address] Dieter Peraza DO -Pulmonary Services/Neurology Work Phone: Start: 10-20-2024 End: 10-20-2024 ambulatory Janeth Salcido Facility:[facility] Start: 09-02-2024 End: 09-02-[address] Janeth Salcido MD -Outpatient Breast Imaging Work Phone: Start: 09-02-2024 End: 09-02-2024 ambulatory Janeth Salcido Facility:[facility] Start: 06-19-2024 End: 06-19-2024 ambulatory Janeth Ainsleysilvana Facility:[facility] Start: 06-09-2024 End: 06-09-2024 ambulatory [facility] Facility:[facility] Start: 04-29-2024 End: 04-29-2024 ambulatory Parminder Larsen Facility:[facility] Start: 03-04-2024 End: 03-04-2024 [facility] Start: 08-13-2023 End: 08-13-2023 ambulatory [facility] Work Phone: Start: 08-13-2023 End: 08-13-2023 Patient encounter procedure [facility]She[facility] Start: 07-08-2023 End: 07-08-2023 Patient encounter procedure Rossy Kothari DP Work Phone: [facility] Comment on above: Sinus tarsitis, left (Primary Dx); History of total replacement of left ankle; Syndesmotic disruption of left ankle, subsequent encounter; Pain of joint of left ankle and foot; Post-operative state; Chronic pain of left ankle Start: 05-23-2023 End: 05-23-[address] Janeth Salcido Work Phone: [facility] Work Phone: Start: 05-23-2023 End: 05-23-[address] Janeth Salcido Work Phone: [facility]-Cat Scan, [facility] Work Phone: Start: 05-08-2023 End: 05-08-[address] Janeth Salcido Work Phone: [facility]-Outpatient Breast Imaging Work Phone: Start: 04-26-2023 End: 04-26-[address] Janeth Salcido Work Phone: [facility] Work Phone: Start: 04-26-2023 End: 04-26-[address] Janeth Salcido Work Phone: [facility]-Medical Out Work Phone: Start: 04-25-2023 End: 04-25-2023 ambulatory RAMON PEREZ Other [facility] Other Start: 04-25-2023 Office outpatient vi sit 15 minutes [facility] Start: 04-25-2023 End: 04-25-2023 Subsequent hospital visit by physician Annette Kim MD Work Phone: [facility] Comment on above: Other specified join t disorders, right wrist Start: 02-11-2023 End: 02-11-[address] Janeth Salcido Work Phone: [facility] Work Phone: Start: 01-24-2023 End: 01-24-2023 ambulatory RAMON PEREZ Other [facility] Other Start: 01-24-2023 Office outpatient vi sit 15 minutes [facility] Start: 11-29-2022 (EST15) Est Pt 15 min RAMON PEREZ [facility] Start: 11-29-2022 End: 11-29-2022 ambulatory RAMON PEREZ Other [facility] Other Start: 11-01-[address] RAMON Duval lity:UNKNOWN Start: 10-19-2022 [facility] OP Start: 10-19-2022 End: 10-19-[address] RAMON PEREZ [facility] Other Start: 10-09-[address] RAMON Duval lity:UNKNOWN Start: 09-05-2022 End: 09-05-2022 Patient encounter procedure Tania Pimentel DPM Work Phone: [facility] Comment on above: Hallux rigidus, righ t foot (Primary Dx) Start: 08-15-2022 End: 08-15-2022 Patient encounter procedure Tania Cheney Pimentel DPM Work Phone: [facility] Comment on above: Hallux rigidus, righ t foot (Primary Dx) Start: 08-08-2022 End: 08-08-2022 Patient encounter procedure Tania Pimentel DPM Work Phone: [facility] Comment on above: Hallux rigidus, righ t foot (Primary Dx) Start: 08-02-2022 Telephone encounter Yariel buitrago DPM Work Phone: [facility] Comment on above: Post Operative Check Start: 08-01-2022 End: 08-01-2022 [facility] Start: 07-23-2022 End: 07-23-2022 ambulatory [facility] Facility:[facility] Start: 07-23-2022 End: 07-23-2022 [facility] [place] 1 Work Phone: [facility] Start: 07-23-2022 End: 07-23-2022 ambulatory Pac [place] 1 Work Phone: Pre Anesthesia Comment on above: Pre-operative examin ation (Primary Dx) Start: 07-23-2022 End: 07-23-2022 [facility] Start: 07-18-2022 End: 07-18-2022 ambulatory Tania Pimentel DPM Work Phone: [facility] Comment on above: Hallux rigidus, righ t foot (Primary Dx); Pain in right foot Start: 07-18-2022 End: 07-18-2022 Telemedicine consultation with patient Tania Pimentel DPM Work Phone: [facility] Start: 07-09-2022 Telephone encounter Tania eaton DPM Work Phone: [facility] Comment on above: Surgery Scheduling' Start: 07-05-2022 End: 07-05-2022 ambulatory RAMON PEREZ Other [facility] Other Start: 07-05-2022 Telephone encounter RAMON PEREZ [facility] Start: 07-04-2022 ambulatory ROSSY KOTHARI Facil ity:UNKNOWN Start: 06-29-2022 ambulatory ROSSY KOTHARI Facil ity:UNKNOWN Start: 06-22-2022 Registered [facility] Start: 06-21-2022 End: 06-21-2022 ambulatory RAMON PEREZ Other [facility] Other Start: 06-21-2022 Office outpatient vi sit [address] [facility] Start: 06-13-2022 End: 06-13-2022 Patient encounter procedure [facility], [facility] Start: 06-13-2022 End: 06-13-2022 ambulatory JOSE ALAS Facility:[facility] Start: 04-26-2022 (TELEV) [facility]LEVIST [facility] Start: 04-26-2022 End: 04-26-2022 ambulatory RAMON PEREZ Other [facility] Other Start: 03-29-2022 End: 03-29-2022 Patient encounter procedure Rossy Kothari DPM Work Phone: [facility] Comment on above: History of total rep lacement of left ankle (Primary Dx); Syndesmotic disruption of left ankle, subsequent encounter; Pain of joint of left ankle and foot; Bone pain of lower leg; Post-operative state; Chronic pain of left ankle; Hallux limitus, right; Spontaneous rupture of flexor tendon of left foot; Surgical aftercare, musculoskeletal system; Osteochondritis dissecans of ankle, left; Acquired pes planovalgus, left Start: 03-08-2022 ambulatory JOSE ALAS Facility:[facility] Start: 03-08-2022 End: 03-08-2022 Office outpatient new 45 minutes Jose Alas MD Work Phone: [facility] Comment on above: Chronic pain of left lower extremity (Primary Dx); History of left ankle joint replacement Start: 03-08-2022 End: 03-08-2022 Subsequent hospital visit by physician Jose Alas MD Work Phone: [facility] Comment on above: Arrived Start: 02-12-2022 End: 02-12-[address] Janeth Salcido Work Phone: [facility] Start: 02-07-2022 End: 02-07-[address] Janeth Salcido Work Phone: [facility] Start: 01-22-2022 End: 01-22-2022 Patient encounter procedure Rossy Kothari DPM Work Phone: [facility] Comment on above: History of total rep lacement of left ankle (Primary Dx); Syndesmotic disruption of left ankle, subsequent encounter; Pain of joint of left ankle and foot; Bone pain of lower leg; Post-operative state; Chronic pain of left ankle; Hallux limitus, right Start: 12-14-2021 End: 12-14-[address] RAMON PEREZ [facility] Other Start: 12-14-2021 Office outpatient vi sit 15 minutes [facility] Start: 10-30-2021 End: 10-30-2021 Patient encounter procedure Rossy Kothari DPM Work Phone: [facility] Comment on above: Other acute postoper ative pain (Primary Dx); History of total replacement of left ankle; Spontaneous rupture of flexor tendon of left foot; Syndesmotic disruption of left ankle, subsequent encounter; Pain of joint of left ankle and foot; Bone pain of lower leg; Painful orthopaedic hardware (HCC); Post-operative state Start: 01-16-2021 End: 01-16-2021 Patient encounter procedure Rossy Kothari DPAlexis Work Phone: [facility] Comment on above: Acquired pes planova lgus, left (Primary Dx); Osteochondritis dissecans of ankle, left; History of total replacement of left ankle; Surgical aftercare, musculoskeletal system; Plantar fasciitis of left foot Start: 07-05-2020 End: 07-05-2020 Patient encounter procedure Noel Fernandes MD Work Phone: [facility] Work Phone: Start: 02-10-2018 Patient encounter Ramon Perez Facility:[facility] Start: 08-31-2017 Observation care discharge management Annette Kim [facility] Start: 08-30-2017 End: 08-31-2017 Ambulatory Annetteshelby Kim Facility:[facility] Start: 08-30-2017 Initial observation care/day 50 minutes Annette Kim [facility] Start: 04-17-2017 (Ortho fu) RAMON Hernandez [facility] Start: 04-17-2017 End: 04-17-2017 ambulatory RAMON PEREZ Other [facility] Other Start: 04-03-2017 (CON) Provider Migration [facility] Start: 04-03-2017 End: 04-03-2017 ambulatory Provider Migration [facility] Start: 03-20-2017 (Ortho fu) RAMON PEREZ [facility] Start: 03-20-2017 End: 03-20-2017 ambulatory RAMON PEREZ Other [facility] Other Start: 01-27-2017 End: 01-27-2017 ambulatory Provider Migration [facility] Start: 01-27-2017 Telephone encounter Provider Migrati on [facility] Preoperative state Annette Kim MD [facility] Work Phone: Procedures Date Procedure Procedure Detail Performing Clinician Start: 02-08-2025 Ct lower extremity w /o contrast material Isac Booker MD Work Phone: Start: 12-30-2024 XR tomography Unspec ified body region Ramon Perez MD Work Phone: Start: 12-30-2024 PULSE OXIMETRY, CONTINUOUS Simeon Ramirez MD Work Phone: Start: 09-02-2024 Screening mammography Ellie Salcido MD Work Phone: Start: 05-23-2023 MRI of lower extremity Dr. Janeth Salcido Work Phone: Start: 05-08-2023 Screening mammography Ellie Salcido Work Phone: Start: 04-25-2023 Radex forearm 2 views Christine Perez MD Work Phone: Start: 06-13-2022 CT of upper limb without contrast Start: 03-08-2022 End: 03-08-2022 Radex ankle complete minimum 3 views Jose Alas MD Work Phone: Start: 02-07-2022 MRI of lower extremity Dr. Janeth Salcido Work Phone: Start: 08-03-2020 Completed NJX AA&/ST [...] Date Care Activity Detail Author Start: 01-30-2031 DTaP/Tdap/Td Vaccine s (4 - Td or Tdap) DTaP/Tdap/Td Vaccines (4 - Td or Tdap) [facility] Start: 01-30-2031 Urine microalbumin profile DTaP,Tdap,Td Vaccine (5 - Td or Tdap) [facility] Start: 04-24-2027 Colonoscopy COLONOSCOPY [facility] Start: 04-24-2027 COLORECTAL CANCER SCREENING COLORECTAL CANCER SCREENING [facility] Start: 04-24-2027 Screening for malign ant neoplasm of colon [facility] Start: 05-17-2025 Urine microalbumin profile DTAP,TDAP,TD (2 - Td or Tdap) [facility] Start: 04-15-2025 End: 04-15-2025 Patient encounter procedure 04/15/2025 1:00 PM EDT Office Visit [facility] [address] [facility] [address] [place] [address] [place] [address] [facility] [address] [place] [address] [facility] Start: 04-05-2025 Influenza vaccination [facility] Start: 02-11-2025 End: 02-11-2025 Patient encounter procedure 02/11/2025 2:45 PM EDT Office Visit [facility] [address] [facility] [address] [place] [phone] [place] [address] [facility] [address] [place] [address] [facility] Start: 02-11-2025 End: 02-11-2025 Patient encounter procedure 02/11/2025 10:15 AM EDT Office Visit [facility] [address] [facility] [address] [place] [phone] [place] [address] [address] Department of Orthopedics [place] [id number] [facility] Start: 02-09-2025 End: 02-09-2026 XR Radius and Ulna - right 2 Views XR forearm right 2 views Imaging Routine 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 Expected: 02/09/2025, Expires: 02/09/2026 [facility] Service Area Work Phone: Comment on above: Expected: 02/09/2025 , Expires: 02/09/2026 Start: 02-08-2025 End: 02-08-2025 Patient encounter procedure 02/08/2025 3:30 PM EDT Appointment [facility] [address] [place] [address] [facility] Start: 01-27-2025 End: 01-27-2026 CT Ankle - left WO contrast CT ankle left wo IV contrast Imaging Routine Acute left ankle pain History of total replacement of left ankle Expected: 01/27/2025, Expires: 01/27/2026 [facility] Service Area Work Phone: Comment on above: Expected: 01/27/2025 , Expires: 01/27/2026 Start: 01-14-2025 End: 01-13-2026 XR Radius and Ulna - right 2 Views [facility] Service Area Work Phone: Comment on above: Expected: 01/14/2025 , Expires: 01/13/2026 Once for 1 Occurrenc es starting 01/14/2025 until 01/14/2025 Start: 01-14-2025 End: 01-14-2025 Patient encounter procedure 01/14/2025 1:00 PM EDT Office Visit [facility] [address] [phone] Herman Holloway PA-C [address] [address] [facility], [address] [address] [facility] Start: 04-05-2024 COVID-19 Vaccine ( season) COVID-19 Vaccine () [facility] Start: 10-10-2023 Diabetes mellitus screening Diabetes Screening [facility] Start: 04-26-2023 Iv infusion therapy/prophylaxis /dx 1st to 1 hr [facility] Start: 04-05-2023 Covid-19 Vaccine ( season) Covid-19 Vaccine ( season) [facility] Start: 04-05-2023 Influenza vaccination C [facility] Start: 08-05-2022 DEPRESSION ASSESSMENT DEPRESSION ASS ESSMENT [facility] Start: 06-14-2022 Shingrix Vaccine (2 of 2) Shingrix Vaccine (2 of 2) [facility] Start: 06-14-2022 Zoster Vaccines (2 o f 2) Zoster Vaccines (2 of 2) [facility] Start: 06-13-2022 End: 06-13-2022 Telemedicine consultation with patient 06/13/2022 Telemedicine Orthopaedics Joes Alas MD [address] [place] [phone] [facility] Start: 04-05-2022 Influenza vaccination C [facility] Start: 11-03-2021 COVID-19 VACCINE (4 - Booster for Pfizer series) COVID-19 VACCINE (4 - Booster for Pfizer series) [facility] Start: 04-05-2021 Influenza vaccination C [facility] Start: 07-05-2020 End: 07-05-2020 Appointment Appointment [facility] Work Phone: Start: 07-05-2020 End: 07-05-2020 Radex ankle complete minimum 3 views XR ANKLE 3 VWS-LT [facility] Work Phone: Start: 08-18-2018 DTaP/Tdap/Td Vaccine s (2 - Tdap) DTaP/Tdap/Td Vaccines (2 - Tdap) [facility] Start: 05-18-2018 DIABETES SCREEN DIABETES SCREEN [facility] Start: 05-18-2018 Diabetes Screening Diabetes Screenin g [facility] Start: 08-02-2017 Screening for malign ant neoplasm of cervix [facility] Start: 2017 Pneumococcal vaccination Pneumococcal Vaccine (1 of 1 - PCV) [facility] Start: 2017 Screening for malign ant neoplasm of colon [facility] Start: 2017 SHINGRIX VACCINE (1 of 2) SHINGRIX VACCINE (1 of 2) [facility] Start: 2017 Zoster vaccine hzv l anya for subcutaneous use ZOSTER (SHINGLES) VACCINE (1 of 2) [facility] Start: 2017 Zoster Vaccines (1 o f 2) Zoster Vaccines (1 of 2) [facility] Start: 10-22-2015 Screening for malign ant neoplasm of breast Mammogram [facility] Start: 01-20-2012 COLOGUARD (FIT-DNA) COLOGUARD (FIT-D NA) [facility] Start: 01-20-2012 Colonoscopy COLORECTAL CAN CER SCREENING DISCUSSION [facility] Start: 01-20-[address] COLONOGRAPHY [facility] Start: 01-20-2012 DIABETES SCREEN DIABETES SCREEN [facility] Start: 01-20-2012 FECAL OCCULT BLOOD FECAL OCCULT BLOO D [facility] Start: 01-20-2012 Lipid 1996 panel - Serum or Plasma Lipid Screening [facility] Start: 01-20-2012 LIPID SCREEN LIPID SCREEN [facility] Start: 01-20-2012 SIGMOIDOSCOPY SIGMOIDOSCOPY [facility] Start: 2007 Fasting lipid profile LIPID SCREENIN G [facility] Start: 2007 Mammography [facility] Start: 2007 Screening mammography MAMMOGRA M SCREENING DISCUSSION [facility] Start: 1997 HPV TESTING HPV TESTING [facility] Start: 01-20-1988 PAP TESTING PAP TESTING [facility] Start: 01-20-1988 Screening for malign ant neoplasm of cervix [facility] Start: 1986 Hepatitis B Vaccines (1 of 3 - 19+ 3-dose series) Hepatitis B Vaccines (1 of 3 - 19+ 3-dose series) [facility] Start: 1986 Third diphtheria, tetanus and acellular pertussis (DTaP) vaccination TDAP (ADULT) [facility] Start: 1986 Urine microalbumin profile DTAP,TDAP,TD (1 - Tdap) [facility] Start: 1985 Diabetes mellitus screening Diabetes Screening [facility] Start: 1985 HEPATITIS C SCREENING HEPATITIS C [facility] Start: 1985 Hepatitis C screening Hepatitis C [facility] Start: 1985 HIV SCREENING HIV SCREENING [facility] Start: 1985 Tetanus vaccination TETANUS [facility] Start: 1982 HIV screening HIV SCREENING DISCUSSION [facility] Start: 1979 Adult depression screening assessment DEPRESSION SCREENING [facility] Start: 1979 COVID-19 VACCINE (1) COVID-19 VACCIN E (1) [facility] Start: 01-20-1968 MMR Vaccines (1 of 1 - Standard series) MMR Vaccines (1 of 1 - Standard series) [facility] Start: 1967 COVID-19 Vaccine (#1) COVID-19 Vacci ne (#1) [facility] Start: 1967 Annual wellness visit Welcome to Medicare Visit [facility] Start: 1967 HEPATITIS B (1 of 3 - 3-dose series) HEPATITIS B (1 of 3 - 3-dose series) [facility] Start: 1967 Hepatitis B Vaccine (1 of 3 - 3-dose series) Hepatitis B Vaccine (1 of 3 - 3-dose series) [facility] Start: 1967 Hepatitis B Vaccines (1 of 3 - 3-dose series) Hepatitis B Vaccines (1 of 3 - 3-dose series) [facility] Start: 1967 Hepatitis C antibody , confirmatory test HEPATITIS C VIRUS SCREENING [facility] Start: 1967 HIV screening HIV Screening [facility] Start: 1967 Lipid panel Lipid Panel [facility] Start: 1967 Screening for malign ant neoplasm of colon [facility] Start: 1967 Screening for osteoporosis Bone Density Scan [facility] Start: 1967 Skin Cancer Screening Skin Cancer Sc reening [facility] Start: 1967 Yearly Adult Physical Yearly Adult P hysical [facility] Bacteria identified in Unspecified specimen by Culture Tissue/Wound Culture/Smear Microbiology Timed 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 Release Upon Ordering for 1 Occurrences starting 12/30/2024 [facility] Service Area Work Phone: Comment on above: Release Upon Orderin g for 1 Occurrences starting 12/30/2024 End: 02-21-2023 Ct lower extremity w/o contrast material CT ANKLE WO IVCON Radiology Routine Chronic pain of left ankle 1 Occurrences starting 01/22/2022 until 02/21/2023 [facility] Work Phone: Comment on above: 1 Occurrences starti ng 01/22/2022 until 02/21/2023 DXA Bone [Mass/Area] Bone density [facility] Parathyroid hormone measurement [facility] Prolactin [Mass/volu me] in Serum or Plasma [facility] T4 free measurement [facility] Thyroid stimulating hormone measurement [facility] Vitamin D, 25-hydrox y measurement [facility] End: 01-27-2025 XR Ankle - left 3 Views [facility] Service Are a Work Phone: Comment on above: Once for 1 Occurrenc es starting 01/27/2025 until 01/27/2025 End: 02-11-2025 XR Radius and Ulna - right 2 Views [facility] Service Area Work Phone: Comment on above: Once for 1 Occurrenc es starting 02/11/2025 until 02/11/2025 [facility] Immunizations Immunization Date Immunization Notes Care Provider Atif waldrop 07-09-2023 influenza virus vaccine, unspecified formulation Ramon Perez MD Work Phone: [facility] Work Phone: 04-05-2022 influenza virus vaccine, unspecified formulation Rossy Kothari DPM Work Phone: [facility] 01-30-2021 tetanus toxoid, reduced diphtheria toxoid, and acellular pertussis vaccine, adsorbed Dr. Janeth Salcido Work Phone: [facility] 07-01-2019 influenza, injectable, quadrivalent, preservative free Dr. Janeth Salcido Work Phone: [facility] 07-01-2019 influenza, seasonal, injectable Dr. Janeth Salcido Work Phone: [facility] 05-30-2018 influenza, injectable, quadrivalent, preservative free; Translations: [INFLUENZA VACCINE QUAD] DPM Rossy Kothari DPM S 05-30-2018 influenza virus vaccine, unspecified formulation Jose Alas MD Work Phone: [facility] 05-16-2017 influenza, injectable, quadrivalent, preservative free; Translations: [INFLUENZA VACCINE QUAD] DPM Rossy Kothari DPM S 05-17-2015 tetanus toxoid, reduced diphtheria toxoid, and acellular pertussis vaccine, adsorbed Rossy Kothari DPM Work Phone: [facility] Work Phone: 05-16-2015 influenza, seasonal, injectable Annette Kim MD [facility] Work Phone: 09-02-2014 influenza, seasonal, injectable Annette Kim MD [facility] Work Phone: 08-18-2008 diphtheria, tetanus toxoids and acellular pertussis vaccine Annette Kim MD [facility] Work Phone: NEGATED: Highlighted row has not occurred!05-16-2017 influenza, injectable, quadrivalent, preservative free; Translations: [INFLUENZA VACCINE QUAD] Patient Objection DPM Rossy Blevinse DPM [facility] Payers Date Payer Category Payer Medicare (Managed Care) [facility] [id number] 02-14-2024 Self-pay [id number] 02-11-2024 Medicare [id number] 03-05-2020 Medicare [id number] 03-05-2020 Private Health Insurance [id number] 2.16.840.1.023637.19 1967 Unknown [id number] 2.16.840.1.936105.3.579. 2.594 1967 Unknown [id number] 2.16840.1.125561.3.579. 2.594 1967 Unknown [id number] 2.840.1.131283.3.579. 2.594 1967 Unknown [id number] 2.16840.1.079079.3.579. 2.594 1967 Unknown [id number] 2.16.840.1.178159.3.579. 2.594 1967 Unknown [id number] 2.16.840.1.269279.3.579. 2.693 1967 Unknown [id number] 2.16840.1.607940.3.579. 2.693 1967 Unknown [id number] 2.16.840.1.880042.3.579. 2.693 1967 Unknown [id number] 2.16.840.1.245005.3.579. 2.693 1967 Unknown [id number] 2.16.840.1.172120.3.579. 2.693 1967 Unknown [id number] 2.16.840.1.405379.3.579. 2.693 1967 Unknown [id number] 2.16840.1.991912.3.579. 2.2 1967 Unknown [id number] 2.16.840.1.520489.3.579. 2.1241 1967 Unknown [id number] 2.16.840.1.214688.3.579. 2.1241 1967 Unknown [id number] 2.16.840.1.401232.3.579. 2.1242 1967 Unknown [id number] 2.16.840.1.858482.3.579. 2.1243 1967 Unknown [id number] 2.16.840.1.701610.3.579. 2.1243 1967 Unknown [id number] 2.16.840.1.865521.3.579. 2.1243 1967 Unknown [id number] 2.16.840.1.176797.3.579. 2.1243 1967 Unknown [id number] 2.16.840.1.185085.3.579. 2.1243 1967 Unknown [id number] 2.16.840.1.521804.3.579. 2.1243 1967 Unknown [id number] 2.16.840.1.352414.3.579. 2.1243 1967 Unknown [id number] 2.16.840.1.885359.3.579. 2.1243 1967 Unknown [id number] 2.16.840.1.631587.3.579. 2.1243 1967 Unknown [id number] 2.16840.1.092920.3.579. 2.4 Private Health Insurance [id number] Private Health Insurance [id number] Unknown [facility] PA[facility]OR [id number] Effective for all dates [address] [place] [address] Other Unknown [id number] 2.16.840.1.101198.3.579. 2.462 Unknown [id number] 2.16.840.1.086576.3.579. 2.462 Unknown [id number] 2.16.840.1.857110.3.579. 2.462 Unknown [id number] 2.16.840.1.592282.3.579. 2.462 Unknown [id number] 2.16.840.1.841760.3.579. 2.462 Unknown [id number] 2.16.840.1.455594.3.579. 2.462 Unknown [id number] 2.16.840.1.622207.3.579. 2.462 Unknown [id number] 2.16.840.1.561573.3.579. 2.462 Unknown [id number] 2.840.1.626505.3.579. 2.462 Social History Date Type Detail Facility Start: 01-16-2021 End: 12-29-2024 Tobacco smoking status NHIS Never smoker [facility] Start: 01-16-2021 End: 12-29-2024 Tobacco use and exposure Never used [facility] Start: 1965 Sex Assigned At Not on file C [facility] Start: 10-20-2021 End: 01-14-2025 Exposure to SARS-CoV-2 (event) Not sure [facility] Start: 10-30-2021 End: 07-08-2023 Alcohol intake Current non-drinker of alcohol (finding) [facility] Start: 09-05-2022 End: 01-14-2025 Sex Assigned At [facility] Start: 01-30-2021 End: 08-15-2023 Tobacco smoking status KYIS Unknown if ever smoked [facility] Start: 07-16-2019 Non-smoker [facility] Start: 1965 Sex Assigned At Female W [facility] Start: 09-05-2022 End: 01-14-2025 History of Social function [facility] National Score (1-100), lower number is lower risk 87 [facility] Start: 10-28-2024 Sex Female (finding) [facility] Start: 12-30-2024 End: 02-11-2025 Alcoholic beverage intake Ex-drinker (finding) [facility] Work Phone: Start: 12-29-2024 Alcohol [facility] Start: 02-08-2025 Gender identity Identifies as female gender (finding) [facility] Work Phone: Start: 02-08-2025 Sexual orientation Heterosexual (fin ding) [facility] Work Phone: NEGATED: Highlighted rowStart: 07-05-2020 End: 07-05-2020 Alcohol use Alcohol use [facility] Work Phone: NEGATED: Highlighted rowStart: 07-05-2020 End: 07-05-2020 Details of drug misuse behavior Details of drug misuse behavior [facility] Work Phone: NEGATED: Highlighted rowStart: 07-05-2020 End: 07-05-2020 Employment detail Employment detail [facility] Work Phone: NEGATED: Highlighted rowStart: 07-05-2020 End: 07-05-2020 How many days of moderate to strenuous exercise, like a brisk walk, did you do in the last 7 days? How many days of moderate to strenuous exercise, like a brisk walk, did you do in the last 7 days? [facility] Work Phone: NEGATED: Highlighted rowStart: 07-05-2020 End: 07-05-2020 Assertion Never smoker [facility] Work Phone: NEGATED: Highlighted row - - [facility] Work Phone: NEGATED: Highlighted rowStart: NINF History of tobacco use Passive smoker [facility] Work Phone: Medical Equipment Procedure Code Equipment Code Equipment Origin al Text Equipment Identifier Dates Fusion, joint FDA Start: 08-23-2023 Fusion, joint FDA Start: 08-23-2023 SLING, ALTIS VAGINAL FDA Star t: 06-30-2019 SLING, ALTIS VAGINAL FDA Star t: 06-30-2019 SLING, ALTIS VAGINAL FDA Star t: 06-30-2019 2.7mm Locking Screw/L14mm [id number] Start: 08-01-2022 Plate Variax Cur ve Bone 5 Hole Nonsterile Right Foot - [id number] Start: 08-01-2022 Screw Bone T10 F /T 3.5x26mm [id number] Start: 08-01-2022 SLING, ALTIS VAGINAL FDA Star t: 06-30-2019 SLING, ALTIS VAGINAL FDA Star t: 06-30-2019 SLING, ALTIS VAGINAL FDA Star t: 06-30-2019 SLING, ALTIS VAGINAL FDA Star t: 06-30-2019 SLING, ALTIS VAGINAL FDA Star t: 06-30-2019 Plate, Ulna Shortening, 6 Hole - Sn/A - [id number] Start: 12-30-2024 Screw, Hexalobe, Non Locking, 3.5mm X 14mm - Sn/A - [id number] Start: 12-30-2024 Screw, Hexalobe, Non-Locking, 3.5mm X 18mm - Sn/A - [id number] Start: 12-30-2024 Screw, Hexalobe, Locking, 3.5mm X 12mm - Sn/A - [id number] Start: 12-30-2024 Screw, Hexalobe, Locking, 3.5mm X 14mm - Sn/A - [id number] Start: 12-30-2024 Screw, Hexalobe, Locking, 3.5mm X 16mm - Sn/A - [id number] Start: 12-30-2024 SLING, ALTIS VAGINAL FDA Star t: 06-30-2019 Goals Date Patient Goal Desired Activity /State Personal health goal Functional Status Date Assessment Result Facility 01-14-2025 Patient Health Questionnaire 2 item (PHQ-2) [Reported] [facility] Work Phone: 01-14-2025 [place] - suicide severity rating scale screener - recent [C-SSRS] [facility] Work Phone: 12-24-2024 [place] - suicide severity rating scale screener - recent [C-SSRS] [facility] NEGATED: Highlighted row Functional performance Functional status health issues are not documented Disease [facility] Work Phone: Mental Status Date Assessment Result Facility 04-26-2023 Cognitive function Awake;Alert;A ppropria te;Follows Commands [facility] Work Phone: NEGATED: Highlighted row Cognitive function [Interpretation] Cognitive status health issues are not documented Disease [facility] Work Phone: Clinical Notes 01-16-2021 to 02-11-2025 Herman Holloway PA-C - 02/11/2025 2:45 PM Lauri Booker MD - 02/11/2025 10:15 AM Lauri Booker MD - 01/27/2025 3:30 PM EDCruzito Holloway PA-C - 01/14/2025 1:00 PM EDT Note Date & Type Note Facility 02-11-2025 History of Presen t illness Narrative Reason for Appointment Chief Complaint Patient presents with Right Wrist - Post-op, Follow-up History of Present Illness Patient is here today 6 weeks s/p a revision right ulnar shortening with distal radial autograft 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 X-rays taken today are reviewed and do not show much callus formation but no loosening of hardware and osteotomy site is in good position. With her history of chronic non-union, it would benefit her to start a bone stimulator early on in healing to give her the best chance for this to fully heal. Wounds are healed nicely with no signs of infection. She is going to be careful and not do any significant activity or lifting with this arm, she should wear her wrist brace with activity. She does have a history of osteopenia in her hip as well and is starting reclast. We will follow up with her in 2 months with repeat x-rays Assessment Encounter Diagnoses Name Primary? 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 female who returns today for CT scan follow-up of her left ankle. She continues to have significant anterior lateral ankle pain that impairs her ability to walk and be active. Assessment and Plan: 1. Acute left ankle pain (Primary) - Left ankle x-ray, CT scan reviewed 2. History of total replacement of left ankle - Left ankle x-ray, CT scan reviewed Vibha and I discussed her left ankle x-ray and CT scan demonstrate her implant in the tibia appears well-fixed, she has clear osteophytes and impingement of the anterior lateral ankle, and I am concerned about loosening of the talar implant. We discussed continued nonoperative treatment including bracing, activity modification, we also discussed that surgery. We discussed her surgical options would be revision to a TTC fusion versus revision of her total ankle. I explained to her that I felt a revision total ankle would include a poly exchange, gutter debridement, and possible talus implant revision. We briefly discussed the risk, benefits, outcomes, expected recovery. Unfortunately she sustained a injury to her right upper extremity, and that would impair her ability to be nonweightbearing. We are going to let her heal from that, before considering surgery. She will let me know how she is doing from the right arm perspective, when she would like to schedule surgery. Thank you for the opportunity to participate in this patient's care. Physical Exam: Well appearing female in no acute distress; Alert and oriented. Left Leg: No swelling, erythema, warmth tenderness to palpation of the anterolateral ankle Palpable pulses, sensation is intact Able to flex and extend toes without difficulty IMAGING: Imaging was ordered today. Final results and radiologist's interpretation, available in the [facility] health record. Images were reviewed with the patient/family members in the office today. My personal interpretation of the performed imaging is intact and fixed tibial implant, cysts about the talar implant. Osteophytes in the anterolateral gutter Isac Booker MD documented in this encounter [facility] Work Phone: 01-27-2025 History of Presen t illness Narrative Vibha Cano CHIEF COMPLAINT: Left ankle pain HISTORY OF PRESENT ILLNESS: This is a 60 y.o. female who presents today with chronic left ankle pain. She reports that she had a total ankle replacement performed in 2017 [prophecy], that did well until 1.5 years later when the tibia was noted to be loose. And she had a medial malleolus fracture. This required revision in 2018. She reports she did well after the surgery for another year or 2, and then became painful. In June 2024 she had a "gutter cleanout" with a posterior lateral incision. She reports that some of her pain from prior to that surgery has improved, but she is still feeling a different type of pain in the anterior lateral portion of her ankle. Occupation: retired Nicotine (Smoking/Vaping) History: non-smoker Personal or Family Hx of DVT/PE: No Metal Allergy: No Diabetic: No Last Hgba1c: No results found for: "HGBA1C" Assessment/Plan: 1. Acute left ankle pain (Primary) Left ankle XR ordered and reviewed - XR ankle left 3+ views; Future - XR foot left 3+ views; Future - CT ankle left wo IV contrast; Future 2. History of total replacement of left ankle - CT ankle left wo IV contrast; Future Vibha and I discussed her chronic ankle pain after total ankle replacement and revision. At this point pain seems to be centered in the anterior lateral ankle. I do think at this point a CT scan is most important to determine if there is any bony fragments in that region or something that we could improve upon. I will order the CT scan, and I will see her back afterwards to discuss Thank you for the opportunity to participate in this patient's care. Physical Exam: Well appearing female in no acute distress; Alert and oriented. Right Lower Extremity: Grossly intact ROM and strength, no obvious deformity. Left Lower Extremity: Gait Cycle: Antalgic Inspection: Swelling: Yes Redness: No Ecchymosis: No Effusion: No Alignment: no angular deformity Pain on palpation: anterolateral ankle ROM: normal Strength: normal Stability: is stable Neurologic Status: Sensation to all 4 compartments of lower extremity are grossly intact to light touch today in the office. Vascular Status: Tibialis posterior pulse: present Dorsalis pedis pulse: present Skin: Normal IMAGING: Imaging was ordered today. Final results and radiologist's interpretation, available in the [facility] health record. Images were reviewed with the patient/family members in the office today. My personal interpretation of the performed imaging is Inbone TAR. No obvious abnormality. Isac Booker MD documented in this encounter [facility] Work Phone: 01-14-2025 History of Presen t illness Narrative Reason for Appointment Chief Complaint Patient presents with Right Wrist - Follow-up Right Forearm - Follow-up History of Present Illness Patient is here today a revision ulnar shortening with distal radial autograft. X-rays taken today are reviewed and look excellent. Wounds are healing nicely with no signs of infection, sutures were removed today. She understands being good with this hand and wrist in terms of activity and no significant lifting, she should wear a simple removable wrist brace with activity and at night. We will follow-up with her in 4 weeks with repeat x-rays of the right forearm Assessment Encounter Diagnosis Name Primary? Ulnar abutment syndrome of right wrist documented in this encounter [facility] Work Phone: 12-31-2024 History of Presen t illness Narrative Pleasant patient comes in after she was having some drainage issues overnight, bloody drainage saturating the base of the splint. Comes in today and splint removed and wound looks excellent. She states she was having some mild ulnar nerve irritation prior to surgery but it continues and we talked about this but she has had a previous transposition. She is cale keep the elbow straight and the wound looked excellent today good baseline neurovascular function block wearing off we had a discussion about the surgery and trying to avoid significant ibuprofen usage as this can inhibit bone healing long-term. New forearm splint volar splint well-padded was placed today she understands digital range of motion postoperative instructions and we will see her back at her regular follow-up documented in this encounter [facility] Work Phone: 12-30-2024 Nurse Surgical operation note Patient in Phase 1; back to baseline and tolerating po fluids, minimal complaint of pain and no complaint of nausea. Discussed next steps and patient has no questions at this time. Patient clinically appropriate for discharge from PACU phase I, report given and patient transported via cart. [facility] 12-30-2024 Miscellaneous Notes Patient in Phase 1; back to baseline and tolerating po fluids, minimal complaint of pain and no complaint of nausea. Discussed next steps and patient has no questions at this time. Patient clinically appropriate for discharge from PACU phase I, report given and patient transported via cart. 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 Procedures Repair Nonunion Fracture Ulna 50124 - [place] RPR NONUNION/MALUNION RADIUS/ULNA W/AUTOGRAFT #1 treatment nonunion with revision shortening with distal radial autograft with an Acumed ulnar shortening plate Surgeons * Ramon Perez - Primary Resident/Fellow/Other Inspecting Supervisor: Surgeons and Role: * No surgeons found with a matching role * Herman Holloway PA-C Staff: Social Service Agency Director: Audrey Chanub Person: Clara Chanub Person: Makayla Anesthesia Staff: Anesthesiologist: Simeon Ramirez MD INTELLIGENCE OPERATIONS: Judd Gilbert APRN-INTELLIGENCE OPERATIONS Procedure Summary Anesthesia: Regional, General ASA: II Estimated Blood Loss: 10mL Intra-op Medications: Administrations occurring from 0830 to 1015 on 12/30/24: Medication Name Total Dose BUPivacaine HCl (Marcaine) 0.5 % (5 mg/mL) injection 10 mL lidocaine (Xylocaine) 10 mg/mL (1 %) injection 5 mL dexAMETHasone (Decadron) 4 mg/mL 8 mg LR infusion Cannot be calculated lidocaine PF (cardiac) syringe 1% 50 mg ondansetron 2 mg/mL 4 mg propofol (Diprivan) infusion 10 mg/mL 200 mg ceFAZolin (Ancef) 2 g in dextrose (iso) IV 100 mL 2 g Anesthesia Record Intraprocedure I/O Totals Intake Propofol Drip 0.00 mL The total shown is the total volume documented since Anesthesia Start was filed. Total Intake 0 mL Specimen: ID Type Source Tests Collected by Time A : RIGHT ULNA Tissue BONE RESECTION TISSUE/WOUND CULTURE/SMEAR Ramon Perez MD 12/30/2024 0943 Drains and/or Catheters: * None in log * Tourniquet Times: Total Tourniquet Time Documented: Arm - Upper (Right) - 63 minutes Total: Arm - Upper (Right) - 63 minutes Implants: Implants Type Name Action Serial No. Screw PLATE, ULNA SHORTENING, 6 HOLE - SN/A - [id number] Implanted N/A Screw SCREW, HEXALOBE, NON LOCKING, 3.5MM X 14MM - SN/A - [id number] Implanted N/A Screw SCREW, HEXALOBE, NON-LOCKING, 3.5MM X 18MM - SN/A - [id number] Implanted N/A Screw SCREW, HEXALOBE, NON- LOCKING, 3.5MM X 20MM - SN/A - [id number] Wasted N/A Screw SCREW, HEXALOBE, LOCKING, 3.5MM X 12MM - SN/A - [id number] Implanted N/A Screw SCREW, HEXALOBE, LOCKING, 3.5MM X 14MM - SN/A - [id number] Implanted N/A Screw SCREW, HEXALOBE, LOCKING, 3.5MM X 16MM - SN/A - [id number] Implanted N/A Findings: As above Indications: Vibha Cano is an 59 y.o. 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 Franky patient understands clear there are severe risk of continued nonunion nerve artery tendon damage and infection and problems at the distal radial ulnar joint especially with more shortening but she was still slightly ulnar positive. Understands risk completely understands postoperative care especially with the block with elevation watch for for any swelling or issues. Wish to proceed informed consent obtained The patient was seen in the preoperative area. The risks, benefits, complications, treatment options, non-operative alternatives, expected recovery and outcomes were discussed with the patient. The possibilities of reaction to medication, pulmonary aspiration, injury to surrounding structures, bleeding, recurrent infection, the need for additional procedures, failure to diagnose a condition, and creating a complication requiring transfusion or operation were discussed with the patient. The patient concurred with the proposed plan, giving informed consent. The site of surgery was properly noted/marked if necessary per policy. The patient has been actively warmed in preoperative area. Preoperative antibiotics have been ordered and given within 1 hours of incision. Venous thrombosis prophylaxis have been ordered including bilateral sequential compression devices Procedure Details: Franky patient brought the operating room and after sterilely prepping draping performing timeout we did supplemental local at the ulnar and radial harvest site we opened up the previous incision went down onto the clear recurrent fracture/nonunion site we debrided this out fully and placed the plate this time volar and did our provisional fixation proximal and distal to allow for compression we free hand cut out the nonunion site back to bleeding bone we opened up the medullary canals at this point made a 4 cm incision over the Maury's tubercle harvesting distal radial autograft that was packed at the site. We used some excess bone around the periphery but at this point we were able to compress this down nicely and placed all of our screws a nice interfragmentary screw across with excellent compression and good bleeding bone. We did gain a few more millimeters of shortening the DRUJ was stable but she was stiff at the DRUJ even preoperatively. No significant arthritis in this region. At this point all screws were placed the tourniquet was released compartments were soft we did close some capsule at the DRUJ but otherwise did some loose subcutaneous closure allowing for swelling. Meticulous skin closure was performed she was placed in a volar splint fingers and thumb pinked up nicely no complications Herman Holloway PA-C acted as certified surgical assistant during this case and her assistance greatly reduced operative time and aided in performance of the case Evidence of Infection: No Complications: None; patient tolerated the procedure well. Disposition: PACU - hemodynamically stable. Condition: stable Additional Details: 0 Attending Attestation: I performed the procedure. Ramon Perez documented in this encounter [facility] Work Phone: 12-30-2024 Hospital Discharg e instructions Herman Holloway PA-C - 12/30/2024 11:03 AM EDT You had wrist syrgery today. Local anesthesia was used during the procedure and you may have some numbness in the region for a few hours postoperatively. Please leave the splint intact after surgery, if it gets too tight you may loosen the Carter wrap and cotton underneath but do not remove fully. It is important to elevate the hand for the next 3 to 5 days, and move your fingers fully. It is very normal to have some bruising in the region and it may travel down the forearm. If able, you can take 800 mg of ibuprofen along with the prescription pain medication, you can alternate these every 4 hours and slowly wean off of the prescription pain medication. Please call the office for a postop appointment in 10 to 14 days after surgery. 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 Procedures Repair Nonunion Fracture Ulna 10787 - [place] RPR NONUNION/MALUNION RADIUS/ULNA W/AUTOGRAFT #1 treatment nonunion with revision shortening with distal radial autograft with an Acumed ulnar shortening plate Surgeons * Ramon Perez - Primary Resident/Fellow/Other Inspecting Supervisor: Surgeons and Role: * No surgeons found with a matching role * Herman Holloway PA-C Staff: Social Service Agency Director: Audrey Ramirez Person: Clara Ramirez Person: Makayla Anesthesia Staff: Anesthesiologist: Simeon Ramirez MD INTELLIGENCE OPERATIONS: Judd Gilbert APRN-INTELLIGENCE OPERATIONS Procedure Summary Anesthesia: Regional, General ASA: II Estimated Blood Loss: 10mL Intra-op Medications: Administrations occurring from 0830 to 1015 on 12/30/24: Medication Name Total Dose BUPivacaine HCl (Marcaine) 0.5 % (5 mg/mL) injection 10 mL lidocaine (Xylocaine) 10 mg/mL (1 %) injection 5 mL dexAMETHasone (Decadron) 4 mg/mL 8 mg LR infusion Cannot be calculated lidocaine PF (cardiac) syringe 1% 50 mg ondansetron 2 mg/mL 4 mg propofol (Diprivan) infusion 10 mg/mL 200 mg ceFAZolin (Ancef) 2 g in dextrose (iso) IV 100 mL 2 g Anesthesia Record Intraprocedure I/O Totals Intake Propofol Drip 0.00 mL The total shown is the total volume documented since Anesthesia Start was filed. Total Intake 0 mL Specimen: ID Type Source Tests Collected by Time A : RIGHT ULNA Tissue BONE RESECTION TISSUE/WOUND CULTURE/SMEAR Ramon Perez MD 12/30/2024 0943 Drains and/or Catheters: * None in log * Tourniquet Times: Total Tourniquet Time Documented: Arm - Upper (Right) - 63 minutes Total: Arm - Upper (Right) - 63 minutes Implants: Implants Type Name Action Serial No. Screw PLATE, ULNA SHORTENING, 6 HOLE - SN/A - [id number] Implanted N/A Screw SCREW, HEXALOBE, NON LOCKING, 3.5MM X 14MM - SN/A - [id number] Implanted N/A Screw SCREW, HEXALOBE, NON-LOCKING, 3.5MM X 18MM - SN/A - [id number] Implanted N/A Screw SCREW, HEXALOBE, NON- LOCKING, 3.5MM X 20MM - SN/A - [id number] Wasted N/A Screw SCREW, HEXALOBE, LOCKING, 3.5MM X 12MM - SN/A - [id number] Implanted N/A Screw SCREW, HEXALOBE, LOCKING, 3.5MM X 14MM - SN/A - [id number] Implanted N/A Screw SCREW, HEXALOBE, LOCKING, 3.5MM X 16MM - SN/A - [id number] Implanted N/A Findings: As above Indications: Vibha Cano is an 59 y.o. 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 Pleasant patient understands clear there are severe risk of continued nonunion nerve artery tendon damage and infection and problems at the distal radial ulnar joint especially with more shortening but she was still slightly ulnar positive. Understands risk completely understands postoperative care especially with the block with elevation watch for for any swelling or issues. Wish to proceed informed consent obtained The patient was seen in the preoperative area. The risks, benefits, complications, treatment options, non-operative alternatives, expected recovery and outcomes were discussed with the patient. The possibilities of reaction to medication, pulmonary aspiration, injury to surrounding structures, bleeding, recurrent infection, the need for additional procedures, failure to diagnose a condition, and creating a complication requiring transfusion or operation were discussed with the patient. The patient concurred with the proposed plan, giving informed consent. The site of surgery was properly noted/marked if necessary per policy. The patient has been actively warmed in preoperative area. Preoperative antibiotics have been ordered and given within 1 hours of incision. Venous thrombosis prophylaxis have been ordered including bilateral sequential compression devices Procedure Details: Pleasant patient brought the operating room and after sterilely prepping draping performing timeout we did supplemental local at the ulnar and radial harvest site we opened up the previous incision went down onto the clear recurrent fracture/nonunion site we debrided this out fully and placed the plate this time volar and did our provisional fixation proximal and distal to allow for compression we free hand cut out the nonunion site back to bleeding bone we opened up the medullary canals at this point made a 4 cm incision over the Maury's tubercle harvesting distal radial autograft that was packed at the site. We used some excess bone around the periphery but at this point we were able to compress this down nicely and placed all of our screws a nice interfragmentary screw across with excellent compression and good bleeding bone. We did gain a few more millimeters of shortening the DRUJ was stable but she was stiff at the DRUJ even preoperatively. No significant arthritis in this region. At this point all screws were placed the tourniquet was released compartments were soft we did close some capsule at the DRUJ but otherwise did some loose subcutaneous closure allowing for swelling. Meticulous skin closure was performed she was placed in a volar splint fingers and thumb pinked up nicely no complications Herman Holloway PA-C acted as certified surgical assistant during this case and her assistance greatly reduced operative time and aided in performance of the case Evidence of Infection: No Complications: None; patient tolerated the procedure well. Disposition: PACU - hemodynamically stable. Condition: stable Additional Details: 0 Attending Attestation: I performed the procedure. [facility] Work Phone: 12-30-2024 Attending History and physical note H&P reviewed. The patient was examined and there are no changes to the H&P. Source Note - Ramon Perez MD - 12/24/2024 1:30 PM EDT Reason for Appointment Chief Complaint Patient presents with Right Wrist - Pain History of Present Illness Patient is a 59 y.o. female here today for follow-up evaluation of her right forearm. She has a history of a previous ulnar shortening back in 2022. Previous x-rays from April of 2023 do show a healed osteotomy site and intact hardware. She was not having any issue until about a year ago when she fell on the right forearm and the hardware started to bother her. She saw a surgeon in [place] and had the hardware removed in October of 2024. She began to use the arm and has been having increased pain and swelling in the area. She followed up with the surgeon and x-rays taken from a few weeks ago did show some lucency at the previous osteotomy site and repeat x-rays taken from 2 days ago show a definite non-union with no hardware and she is still ulnar positive. She has pain and swelling with any activity. No other changes in her PMH, allergies, or medications Medical History[1] Surgical History[2] Medication Documentation Review Audit Prior to Admission medications have not yet been reviewed RX Allergies[3] Review of Systems Constitutional: Negative for chills and fatigue. HENT: Negative for postnasal drip, sneezing and trouble swallowing. Eyes: Negative for discharge. Respiratory: Negative for shortness of breath and wheezing. Cardiovascular: Negative for chest pain. Musculoskeletal: Positive for arthralgias and joint swelling. Skin: Negative for color change and pallor. All other systems reviewed and are negative. Exam On exam she has a well healed scar with some swelling and pain over the ulnar shaft. Good digital motion with no triggering. Good pulses and sensation in the upper extremity Assessment Encounter Diagnoses Name Primary? 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 She has a clear nonunion from her previous osteotomy and she is still slightly ulnar positive. We discussed revision ulnar shortening with possible distal radius autograft. She understands the risks of surgery including nerve, artery, and tendon damage, infection, continued pain, and need for future surgery and the lengthy recovery time needed again and still risk of nonunion. She will call and schedule a right wrist ulnar shortening with possible distal radius autograft. I, Herman Holloway PA-C, am acting as a scribe and attest that this documentation has been prepared under the direction and in the presence of Ramon Perez MD. By signing below, IRamon MD, personally performed the services described in this documentation. All medical record entries made by the scribe were at my direction and in my presence. I have reviewed the chart and agree that the record reflects my personal performance and is accurate and complete. [1] Past Medical History: Diagnosis Date Calculus of kidney Bilateral kidney stones Other abnormal glucose Hemoglobin A1c less than 7.0% Other conditions influencing health status Ulcer Personal history of other diseases of the digestive system History of pancreatitis Personal history of urinary calculi History of renal calculi [2] Past Surgical History: Procedure Laterality Date ANKLE SURGERY 03/24/2015 Ankle Surgery ESOPHAGOGASTRODUODENOSCOPY 09/19/2016 Esophagogastroduodenoscopy With Biopsy KNEE ARTHROSCOPY W/ DEBRIDEMENT 10/05/2016 Knee Arthroscopy (Therapeutic) OTHER SURGICAL HISTORY 09/19/2016 Lithotripsy OTHER SURGICAL HISTORY 10/05/2016 Open Treatment Of Fracture Of Distal Radius OTHER SURGICAL HISTORY 10/05/2016 Acromioplasty TUBAL LIGATION 09/19/2016 Tubal Ligation [3] Allergies Allergen Reactions Sutures Other VICRYL SUTURE Versed [Midazolam] Agitation [facility] Work Phone: 12-30-2024 History and physical note H&P reviewed. The patient was examined and there are no changes to the H&P. Source Note - Ramon Perez MD - 12/24/2024 1:30 PM EDT Reason for Appointment Chief Complaint Patient presents with Right Wrist - Pain History of Present Illness Patient is a 59 y.o. female here today for follow-up evaluation of her right forearm. She has a history of a previous ulnar shortening back in 2022. Previous x-rays from April of 2023 do show a healed osteotomy site and intact hardware. She was not having any issue until about a year ago when she fell on the right forearm and the hardware started to bother her. She saw a surgeon in [place] and had the hardware removed in October of 2024. She began to use the arm and has been having increased pain and swelling in the area. She followed up with the surgeon and x-rays taken from a few weeks ago did show some lucency at the previous osteotomy site and repeat x-rays taken from 2 days ago show a definite non-union with no hardware and she is still ulnar positive. She has pain and swelling with any activity. No other changes in her PMH, allergies, or medications Medical History[1] Surgical History[2] Medication Documentation Review Audit Prior to Admission medications have not yet been reviewed RX Allergies[3] Review of Systems Constitutional: Negative for chills and fatigue. HENT: Negative for postnasal drip, sneezing and trouble swallowing. Eyes: Negative for discharge. Respiratory: Negative for shortness of breath and wheezing. Cardiovascular: Negative for chest pain. Musculoskeletal: Positive for arthralgias and joint swelling. Skin: Negative for color change and pallor. All other systems reviewed and are negative. Exam On exam she has a well healed scar with some swelling and pain over the ulnar shaft. Good digital motion with no triggering. Good pulses and sensation in the upper extremity Assessment Encounter Diagnoses Name Primary? 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 She has a clear nonunion from her previous osteotomy and she is still slightly ulnar positive. We discussed revision ulnar shortening with possible distal radius autograft. She understands the risks of surgery including nerve, artery, and tendon damage, infection, continued pain, and need for future surgery and the lengthy recovery time needed again and still risk of nonunion. She will call and schedule a right wrist ulnar shortening with possible distal radius autograft. Herman Theodore PA-C, am acting as a scribe and attest that this documentation has been prepared under the direction and in the presence of Ramon Perez MD. By signing below, I, Ramon Perez MD, personally performed the services described in this documentation. All medical record entries made by the scribe were at my direction and in my presence. I have reviewed the chart and agree that the record reflects my personal performance and is accurate and complete. [1] Past Medical History: Diagnosis Date Calculus of kidney Bilateral kidney stones Other abnormal glucose Hemoglobin A1c less than 7.0% Other conditions influencing health status Ulcer Personal history of other diseases of the digestive system History of pancreatitis Personal history of urinary calculi History of renal calculi [2] Past Surgical History: Procedure Laterality Date ANKLE SURGERY 03/24/2015 Ankle Surgery ESOPHAGOGASTRODUODENOSCOPY 09/19/2016 Esophagogastroduodenoscopy With Biopsy KNEE ARTHROSCOPY W/ DEBRIDEMENT 10/05/2016 Knee Arthroscopy (Therapeutic) OTHER SURGICAL HISTORY 09/19/2016 Lithotripsy OTHER SURGICAL HISTORY 10/05/2016 Open Treatment Of Fracture Of Distal Radius OTHER SURGICAL HISTORY 10/05/2016 Acromioplasty TUBAL LIGATION 09/19/2016 Tubal Ligation [3] Allergies Allergen Reactions Sutures Other VICRYL SUTURE Versed [Midazolam] Agitation documented in this encounter [facility] Work Phone: 07-08-2023 History of Presen t illness Narrative Name: Vibha Cano Date of Service: July 08, 2023 Follow [...] been very active. She is traveling to [place] for her medical mission trip in September. [...] left hip Current Outpatient Medications Medication Sig [id number] ORAL Take by mouth. traMADol (ULTRAM) 50 [...] of corticosteroid injections. She is traveling to [place] in September. I advised her to call [...] documented in this encounter [facility] 04-25-2023 Evaluation note Encounter Date Diagnosis Assessment Notes Apr, Ulnar abutment syndrome of right wrist (ICD-10 - M25.831) Apr, Other Her only complaint is tenderness over the plate. We discussed potential plate removal once she is 1 year out. Follow-up in 4 months. I, Livier Mcdaniel, attest that this documentation has been prepared under the direction and in the presence of Ramon Perez MD. By signing below, Ramon Theodore MD, personally performed the services described in this documentation. All medical record entries made by the scribe were at my direction and in my presence. I have reviewed the chart and agree that the record reflects my personal performance and is accurate and complete. 04/25/23 [facility] Other 09-21-2023 NotePROCEDURE: FOREARM RT 2 VIEW - FXR 0052 REASON FOR EXAM: pain RESULT: Patient Name: VIBHA CANO STUDY: FOREARM RT 2 VIEW; 04/25/2023 9:15 am INDICATION: pain. Follow-up of ORIF distal radius and ulnar fracture. COMPARISON: 24 January 2023. ACCESSION NUMBER(S): [id number] ORDERING CLINICIAN: RAMON PEREZ TECHNIQUE: 2 view of the forearm [...] of the wrist as described. Dictation workstation: [id number] Original Interpreting Physician: ARYAN DANIELLE MD Original Transcribed by/Date: MMODAL Apr 25 2023 9:10A Original Electronically Signed by/Date: ARYAN DANIELLE MD Apr 25 2023 11:14A Addendum Interpreting Physician: Addendum Transcribed by/Date: NO ADDENDUM Addendum Electronically Signed by/Date: SYNGO [id number] Evaluation note* Encounter Date Diagnosis Assessment Notes [...] the direction and in the presence of Ramon Perez MD. By signing below, Ramon Theodore MD, personally performed the services described in this documentation. All medical record entries made by the scribe were at my direction and in my presence. I have reviewed the chart and agree that the record reflects my personal performance and is accurate and complete. 01/24/23 [facility]. 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 By signing below, I, Ramon Perez MD, personally performed the services described in this documentation. All medical record entries made by the scribe were at my direction and in my presence. I have reviewed the chart and agree that the record reflects my personal performance and is accurate and complete. 11/29/22 [facility]. Other 03-23-2023 History of Present illness Narrative* [...] available appointment. The visit was performed using [employer] Vibha Noni Cano has consented to this telemedicine encounter. Persons Present: patient Chief Complaint/Reason: Telephone consultation for hallux rigidus right foot. Has seen and been followed by Dr. Blevins for above and now wishes to schedule surgery in his absence. HPI: Chronic pain to right first metatarsal phalangeal joint consistent with end-stage hallux rigidus. She has trialed conservative treatment consisting of shoe changes, kafk-vyt-tizijwo orthotics, custom orthotics, rpzk-nuf-wcqqsod and prescription medication all without significant relief. [...] Time Spent: 21-30 minutes Tania Pimentel DPM, [facility] [address] [place] [address] W [email or web address] documented in this [facility]03-17-2023 Evaluation note* Encounter Date Diagnosis Assessment Notes Treatment Notes Treatment Clinical Notes Oct, Other specified joint disorders, right wrist (ICD-10 - M25.831) [facility]. Other 02-01-2023 History of Present illness Narrative* Tania Pimentel DPM - 09/05/2022 1:26 PM EST DOS: 08/01/22 [...] left hip Current Outpatient Medications Medication Sig [id number] ORAL Take by mouth. traMADol (ULTRAM) 50 [...] DPM PGY-3 [facility] History of Present illness Narrative* Tania Pimentel [...] left hip Current Outpatient Medications Medication Sig [id number] ORAL Take by mouth. traMADol (ULTRAM) 50 [...] DPM PGY-2 [facility] History of Present illness Narrative* Tania Pimentel [...] she would be healed to travel to [place] for a medical mission trip by early [...] needed for nausea/vomitingfor up to 7 days. [id number] ORAL Take by mouth. traMADol (ULTRAM) 50 [...] she is healed sufficiently to travel to [place] for medical mission trip. Follow up 1 week. Tania Pimentel DPM documented in this [facility]12[facility]29-2022 Miscellaneous Notes* Telephone Encounter - Yariel Martinez DPM - 08/02/2022 1:52 PM EST Telephone Encounter Vibha Cano [id number] Reason for call: Post op check, [...] up to 7 days. 21 tablet 0 [id number] ORAL Take by mouth. traMADol (ULTRAM) 50 [...] post-op visit. If any issues patient has rehabilitation construction specialist podiatry pager number and is to contact if any issues or go to ED if unable to reach resident. All questions answered and patient agrees with plan. Yariel Martinez DPM PGY-2 08/02/22 1:53 PM documented in this [facility]12-28-2022 NoteHNO ID: [id number] Author: Jayleen Whitaker MD Service: Anesthesiology Author Type: Anesthesiologist Type: Anesthesia Procedure Notes Filed: 08/01/2022 6:03 PM Note Text: ANESTHESIOLOGY PROCEDURE NOTE Airway General Information Procedure Start Time/Medication Administration: 08/01/2022 3:40 PM Patient location during procedure: OR Timeout Performed Pre-procedure: timeout performed Consent Obtained: Yes Patient identity confirmed: arm band Staffing Anesthesiologist: Wilmer Zurita MD Performed by: anesthesiologist and INTELLIGENCE OPERATIONS Indications and Patient Condition Indications for airway [...] SIGNATURE: Wilmer Zurita MD PATIENT NAME: Vibha Cano DATE: August 01, 2022 TIME: 3:54 PM CSN: [id number] NoteHNO ID: [id number] Author: Jayleen Whitaker MD Service: Anesthesiology Author [...] SIGNATURE: Aydin Alfaro MD PATIENT NAME: Vibha Cano DATE: August 01, 2022 TIME: 2:12 PM CSN: [id number] NoteHNO ID: [id number] Author: Hawa Tan DPM Service: Podiatry Author [...] Urine Negative 09/14/2016 Nitrites Negative 09/14/2016 Specific Lyons, Ur 1.027 09/14/2016 Protein, Urine Negative 09/14/2016 [...] SIGNATURE: Hawa Tan DPM PATIENT NAME: Vibha Cano DATE: August 01, 2022 TIME: 1:44 [facility]12-19-2022 Instructions* Patient Instructions* Alicja Hebert APRN.CARE COORDINATOR - 07/23/2022 2:36 PM EST PATIENT PREOPERATIVE INSTRUCTIONS Tania Pimentel DPM has scheduled you for your procedure at this [facility] center: [facility]: [phone] --[address] [place] [address]. On your scheduled day of surgery, please [...] Procedures: - YOU MUST HAVE A RESPONSIBLE HEAVY DUTY MECHANIC FARM EQUIPMENT TAKE YOU HOME. A PHYSICIST SOLID STATE OR SUPERVISOR HIDE HOUSE CANNOT BE MADE A RESPONSIBLE HEAVY DUTY MECHANIC FARM EQUIPMENT. - We recommend that a responsible person [...] Advance Directive, please fax a copy to [phone] or email to for it to be [...] Hebert APRN.CNP documented in this encounterK[facility]12-19-2022 History and physical note * Alicja Hebert APRN.CNP - 07/23/2022 2:32 PM EST Images from the original note were not included. HISTORY AND PHYSICAL EXAMINATION SERVICE DATE: 07/23/2022 SERVICE TIME: 2:32 PM PRIMARY CARE PHYSICIAN: Janeth Salcido MD REASON FOR VISIT: Vibha Cano is a 57 year old female who [...] exists. CHIEF COMPLAINT: Pre-op exam HPI: Vibha Cano is a 57 year old seen for PAC due to scheduled above surgery because hallux rigidus of right foot. REVIEW OF SYSTEMS: General: No weight loss, malaise or fevers. Neurological: No history of TIA's, stroke, CONTINUOUS MINING MACHINE COAL MINER tumor, impaired sensorium, hemiplegia, paraplegia orquadraplegia. No neurological symptoms or problems. Respiratory: No history of current cough or dyspnea, or pneumonia in the past 6 weeks. No history of respiratory/pulmonary symptoms or problems. Cardiovascular: No history of HTN requiring medication, no history of angina, CHF, RI, cardiac surgery or stents. Denies rest pain, gangrene or revascularization/amputation for PVD. No history of cardiovascular symptoms or problems. GI: No history of GI symptoms or problems. No history of esophageal varices, recent ascites, or ETOH greater than 2 drinks per day. : Positive for: nephrolithiasis. Negative for: urinary incontinence, renal failure and urinary tract infection. CINDER PITMAN: Negative for abnormal vaginal bleeding, abnormal vaginal [...] 07/23/22 1432 Medication Sig Last Dose Taking [id number] ORAL Take by mouth. Taking Yes traMADol [...] (Src) 99 (Temporal) Resp 16 Ht 5' 2" (1.58m) Wt 144 lb (65.3kg) SpO2 98% [...] or any previous visit (from the past 16328 hour(s)). Assessment No problem-specific Assessment & Plan [...] large neck Non-male patient STOP-Bang Score: 1 [id number] Score: Age: <65 Sex: female CHF history: No Hypertension history: No Stroke/TIA/thromboembolism history: No Vascular disease history: No Diabetes history: No [id number] Score: 1 ARISCAT Score: Age: 51-80 Preoperative [...] and consent discussed: yes. Patient / Responsible Constitution Party agrees to proceed: yes Patient / Surrogate agrees to blood products: blood products not planned Prepared for Surgery: optimally prepared for surgery. CONSULTS: Patient does not require consults for optimization at this time Planned Anesthetic: other anesthesia choice The Following Tests/Procedures Have Been Initiated: Orders Placed This Encounter [id number] ORAL Sig: Take by mouth. Instructions Given to Patient: Instructions located in the after visit summary. Patient given verbal and written preop instructions and voices comprehension and compliance. SIGNATURE: Alicja Hebert APRN.CNP PATIENT NAME: Vibha Cano DATE: July 23, 2022 TIME: 2:32 PM PAGER/CONTACT #: documented in this encounterK[facility]12-11-2022 Miscellaneous Notes* Telephone Encounter - Tania Pimentel DPM - 07/15/2022 11:11 AM EST Completed * Telephone Encounter - Jayna Gregory MA - 07/09/2022 1:47 PM EST Vibha is scheduled 08[facility] at [facility]. Please complete orders documented in this encounterK[facility]11-17-2022 Evaluation note* Encounter Date Diagnosis Assessment Notes [...] the direction and in the presence of Ramon Perez MD. By signing below, I, Ramon Perez MD, personally performed the services described in this documentation. All medical record entries made by the scribe were at my direction and in my presence. I have reviewed the chart and agree that the record reflects my personal performance and is accurate and complete. [facility]. Other 09-22-2022 Evaluation note* Encounter Date Diagnosis Assessment Notes Treatment Notes Treatment Clinical Notes Apr, Primary arthrosis of right distal radioulnar joint [...] (TFCC) of right wrist (ICD-10 - S63.591A) [facility] [employer] Other 08-25-2022 NoteHNO ID: [id number] Author: Rossy Kothari DPM Service: ? Author Type: Physician Type: Progress Notes Filed: 03/29/2022 1:31 PM Note Text: Name: Vibha Caon Date of Service: March 29, 2022 CC: [...] degrees at best. Radiograp (more content not included)...[facility]08-25-2022 History of Present illness Narrative* Rossy An Kothari, DPM - 03/29/2022 1:02 PM EDT Name: Vibha Cano Date of Service: March 29, 2022 CC: [...] given or implied. Students / Residents / [place] involved with this patient's care and office visit were supervised and all treatment rendered was under the direct observation of myself. Speech recognition technology was utilized in the production of this note. Rossy Kothari DPM documented in this encounterK[facility]08-04-2022 Instructions* Patient Instructions* Jose Alas MD - [...] months via telehealth [facility] History of Present illness Narrative* Jose Alas MD - 03/08/2022 1:00 PM EDT [facility] Date [...] n/t present. History of Present Illness: Vibha Cano is a 57 y.o. female who presents [...] tobacco.. 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 documented in this [facility]06-20-2022 NoteHNO ID: [id number] Author: Rossy Kothari DPM Service: ? Author Type: Physician Type: Progress Notes Filed: 01/23/2022 7:21 AM Note Text: Name: Vibha Cano Date of Service: January 22, 2022 CC: [...] weightbearing today Impression: A (more content not included)...[facility]06-20-2022 History of Present illness Narrative* Rossy Kothari, JESSICA - 01/22/2022 1:21 PM EDT Name: Vibha Cano Date of Service: January 22, 2022 CC: [...] given or implied. Students / Residents / [place] involved with this patient's care and office visit were supervised and all treatment rendered was under the direct observation of myself. Speech recognition technology was utilized in the production of this note. Rossy Kothari DPM documented in this encounterK[facility]05-12-2022 Evaluation note* Encounter Date Diagnosis Assessment Notes [...] evaluated, and treated the patient with the [facility]. Other 03-28-2022 NoteHNO ID: [id number] Author: Rossy Kothari DPM Service: ? Author Type: Physician Type: Progress Notes Filed: 10/30/2021 1:31 PM Note Text: Name: Vibha Cano Date of Service: October 30, 2021 CC: [...] encounter diagnosis) (Z96.662) Histor (more content not included)...[facility] 10-30-2021 History of Present illness Narrative* Rossy Kothari, JESSICA - 10/30/2021 1:24 PM EDT Name: Vibha Cano Date of Service: October 30, 2021 CC: [...] she is under the care of a auto body painter. She has returned to normal shoe gear. All of her questions were answered. I would like for herto follow-up with us in 3 months with radiographs of the ankle. Patient appears to understand and is in agreement with the above treatment plan. All questions wereanswered to the patient's satisfaction with no guarantees given or implied. Students / Residents / [place] involved with this patient's care and office visit were supervised and all treatment rendered was under the direct observation of myself. Speech recognition technology was utilized in the production of this note. Rossy Kothari DPM documented in this encounterK[facility]02-28-2022 NoteHNO ID: [id number] Author: Rossy Kothari DPM Service: ? Author Type: Physician Type: Progress Notes Filed: 10/02/2021 1:33 PM Note Text: Name: Vibha Cano Date of Service: October 02, 2021 CC: [...] weightbearing in a megan (more content not included)...[facility]02-10-2022 NoteHNO ID: [id number] Author: Rossy Kothari DPM Service: ? Author Type: Physician Type: Progress Notes Filed: 09/14/2021 1:38 PM Note Text: Vibha Cano, 56 year old, female PCP: Annette Kim [...] the proximal transsyndesmotic scr (more content not included)...[facility] 08-17-2021 NoteHNO ID: [id number] Author: Rossy Kothari DPM Service: ? Author Type: Physician Type: Progress Notes Filed: 08/17/2021 5:40 PM Note Text: Vibha Cano, 56 year old, female PCP: Annette Kim [...] in a boot. She has seen a auto body painter. They have continued her on 1-2 tramadol [...] peroneal subluxation or dislocat (more content not included)...[facility]11-24-2021 Hospital Discharge instructions Activity on Discharge [...] * Discharge Physician: : Rossy Kothari DPM ([id number]) - Podiatry * Follow up with Ordering Physician : 1 * Discharge Physician Specialty : Week(s) * Discharge Physician Phone: : [phone] [facility] [address] [phone] Special Plan/Instructions for Discharge from 06/28/2021 3:23 [...] 06-14-2021 History of Present illness Narrative* Rossy Kothari DPM - 01/16/2021 1:19 PM EDT Name: Vibha Cano Date of Service: January 16, 2021 CC: [...] very active. She is working with her electronic train control technician on her osteopi a and bone density [...] note. 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 Surgical aftercare, musculoskeletal system Aftercare following surgery of the musculoskeletal system, NEC Plantar fasciitis of left foot Plantar fascial fibromatosis documented in this encounter [facility] note* Diagnosis Other acute postoperative pain- Primary [...] Other postprocedural status [facility]* Diagnosis History of total replacement of left ankle- Primary Syndesmotic disruption of left ankle, subsequent encounter Pain of joint of left ankle and foot Bone pain of lower leg Post-operative state Other postprocedural status Chronic pain of left ankle Hallux limitus, right documented in this encounter [facility] note* Diagnosis Onset Date Resolution Status Goiter acute Osteoporosis acute Pituitary abnormality acute Vitamin D deficiency acute [facility] Work Phone: Evaluation note* Diagnosis Chronic pain of left lower extremity- Primary History of left ankle joint replacement [facility] History of total replacement [...] pes planovalgus, left [facility] noteNo assessment information availableC[facility] Work Phone: Evaluation noteNo InformationN[facility]and [facility]. Other Evaluation note* Diagnosis Pre-operative examination- Primary Preoperative examination, unspecified [facility]* Diagnosis Hallux rigidus, right foot- Primary [facility]* Diagnosis Hallux rigidus, right foot- Primary [facility]* Diagnosis Hallux rigidus, right foot- Primary documented [facility]* Diagnosis Hallux rigidus, right foot- Primary Pain in right foot Pain in limb documented in this encounter [facility] note* Diagnosis Hallux rigidus of right foot- Primary Hallux rigidus documented in this encounter [facility] note* Diagnosis Onset Date Resolution Status Osteoporosis chronic Pituitary abnormality chroni c Vitamin D deficiency [facility] Work Phone: Evaluation note* Diagnosis Other specified joint disorders, right wrist documented in this encounter [facility] Work Phone: Evaluation note* Diagnosis Sinus tarsitis, left- Primary History of total replacement of left ankle Syndesmotic disruption of left ankle, subsequent encounter Pain of joint of left ankle and foot Post-operative state Other postprocedural status Chronic pain of left ankle [facility]* Diagnosis Ulnar abutment syndrome of right wrist- Primary 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 Osteoarthritis Osteoarthrosis, unspecified whether generalized or localized, unspecified site PTSD (post-traumatic stress disorder) Posttraumatic stress disorder documented in this encounter [facility] Work Phone: Evaluation note* Diagnosis 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- Primary documented in this encounter [facility] Work Phone: Evaluation note* Diagnosis Ulnar abutment syndrome of right wrist- Primary documented in this encounter [facility] Work Phone: Evaluation note* Diagnosis Ulnar abutment syndrome of right wrist documented in this encounter [facility] Work Phone: Evaluation note* Diagnosis Acute left ankle pain documented in this encounter [facility] Work Phone: Evaluation note* Diagnosis Acute left ankle pain- Primary History of total replacement of left ankle Acute left ankle pain documented in this encounter [facility] Work Phone: Evaluation note* Diagnosis Acute left ankle pain History of total replacement of left ankle documented in this encounter [facility] Work Phone: Evaluation note* Diagnosis Onset Date Resolution Status Admit Date Osteoporosis chronic February 09 11:23am [facility] Work Phone: Evaluation note* Diagnosis 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 documented in this encounter [facility] Work Phone: Evaluation note* Diagnosis 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- Primary Ulnar abutment syndrome of right wrist 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 documented in this encounter [facility] Work Phone: Evaluation note* Diagnosis Acute left ankle pain- Primary History of total replacement of left ankle documented in this encounter [facility] Work Phone: History general Narrative - Reported* Type Description Date Surgical History LEFT ANKLE x 6 Surgical History LEFT KNEE MCL,PCL,LCL Surgical History B/L SHOULDER RCR/ BIGG Surgical History ORIF RIGHT DISTAL RADIUS Surgical History RIGHT ELBOW ULNAR NERVE [facility] 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 [S52.234K] Procedures [place] RPR NONUNION/MALUNION RADIUS/ULNA W/AUTOGRAFT Repair Non[place] F[place] [address] [facility], [address] [address] Phone: tel: fax: [place] [address] [place] [address] Referral ID Status Reason Start Date Expiration Date Visits Re quested Visits Authorized [id number] 1 1 [facility] Work Phone: Reason for visit Narrative* Imaging (Routine) - Authorized Specialty Diagnoses / Procedures Referred By Delma t Referred To Contact Radiology Diagnoses Ulnar abutment syndrome of right wrist Procedures XR forearm right 2 views Herman Holloway PA-C [address] [facility], [facility] [address] [place] [address] Phone: tel: fax: Referral ID Status Reason Start Date Expiration Date Visits Requested Visits Authorized [id number] Authorized Perform Procedure 01/13/2025 01/13/2026 1 1 [facility] Work Phone: Rezjpf for visit Narrative* Imaging (Routine) - Authorized Specialty Diagnoses / Procedures Referred By Contaleks t Referred To Contact Radiology Diagnoses Acute left ankle pain Procedures XR ankle left 3+ [place] [id number] [address] [facility] [place] [id number] Phone: tel: fax: Referral ID Status Reason Start Date Expiration Date Visits Requested Visits Authorized [id number] Authorized Perform Procedure 01/27/2025 01/27/2026 1 1 [facility] Work Phone: Reason for visit Narrative* Imaging (Routine) - Authorized Specialty Diagnoses / Procedures Referred By Delma toscano Referred To Contact Radiology Diagnoses Acute left ankle pain History of total replacement of left ankle Procedures CT ankle [place] [address] [facility] [facility] [place] [id number] Phone: tel: fax: Referral ID Status Reason Start Date Expiration Date Visits Requested Visits Authorized [id number] Authorized Perform Procedure 01/27/2025 01/27/2026 1 1 [facility] Work Phone: Reason for visit Narrative* Imaging (Routine) - Authorized Specialty Diagnoses / Procedures Referred By Delma toscano Referred To Contact Radiology Diagnoses 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 Procedures XR forearm right 2 views [place] [address] [facility], [address] [address] Phone: tel: fax: Referral ID Status Reason Start Date Expiration Date Visits Requested Visits Authorized [id number] Authorized Perform Procedure 02/09/2025 02/09/2026 1 1 [facility] Work Phone: Summary Purpose Family History No Family History Records FoundUnknown Family Member Name Dates Details Family history [...] Kidney sto haily, calcium oxalate(592.0, N20.0) Status:Active Relationship Condition Age at Onset Recorded Date/T cary Not Specified Malignant neoplasm Unknown mother Arthritis Unknown Osteoporosis Unknown Atrial fibrillation Unknown sister Arthritis Unknown aunt Autoimmune disorder Unknown daughter Autoimmune disorder Unknown Hypogammaglobulinemia Unknown father Diabetes mellitus Unknown Myocardial infarction 81 Hypertension Unknown Hypercholesterolemia Unknown grandfather Myocardial infarction 76 Cardiac disease Unknown grandmother Hypertension Unknown aunt Malignant neoplasm of breast Unknown Lupus Unknown brother Hodgkin lymphoma Unknown Advance Directives No Advanced Directives Records Found Advance Directive Response Recorded Date/ Time Living Will Yes July 16, 019 2:39pm Power of Advanced Nursing Professor Yes July 16, 2019 2:39pm Advance Directive Response Recorded Date/ Time Living Will Yes July 16 019 1:39pm Power of Advanced Nursing Professor Yes July 16, 2019 1:39pm Documents on File Type Date Recorded 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 Healthcare Power of Atty 05/01/2018 [facility] Power of Advanced Nursing Professor Living Will 05/01/2018 Living Will Dec laration Advance Directive Response Recorded Date/ Time Living Will Yes August 15 3:24pm Power of Advanced Nursing Professor Yes August 15, 2023 3:24pm Documents on File Type Date Recorded 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 Yes August 15, 2023 4:24pm Chief Complaint Chief Complaint Description Start Date [...] Referral Specialty Diagnoses / Procedures Referred By Delma toscano Referred To Contact [facility] Diagnoses Other acute postoperative pain History of total replacement of left ankle Spontaneous rupture of flexor tendon of left foot Syndesmotic disruption of left ankle, subsequent encounter Pain of joint of left ankle and foot Procedures CONSULT TO PHYSICAL THERAPY PHYSICAL THERAPY EVALUATION HIGH COMPLEX 45 MINS Rossy Kothari DPM [address] [facility] [address] [place] [address] [facility] [place] [address] [place] [address] Referral ID Status Reason Start Date Expiration Date Visits Requested Visits Authorized [id number] Pending Review Auto-Generat ed Referral 10/30/2021 10/30/2022 1 1 Specialty Diagnoses / Procedures Referred By Delma toscano Referred To Contact CT IMAGING Diagnoses Chronic pain of left ankle Procedures CT ANKLE WO IVCON LT CT LOWER EXTREMITY W/O CONTRAST MATERIAL Rossy Kothari DPM [address] [facility] [address] [place] [address] Ct Imaging Referral ID Status Reason Start Date Expiration Date Visits Requested Visits Authorized [id number] Pending Review Auto-Generat ed Referral 01/22/2022 02/21/2023 1 1 Specialty Diagnoses / Procedures Referred By Delma t Referred To Contact Diagnoses Chronic pain of left lower extremity Procedures XR ANKLE LEFT 3+ VIEWS Jose Alas MD [address] [place] [address] Referral ID Status Reason Start Date Expiration Date V isits Requested Visits Authorized [id number] New Request 03/06/2022 03/31/2023 1 1 Specialty Diagnoses / Procedures Referred By Delma toscano Referred To Contact Diagnoses Chronic pain of left lower extremity Procedures XR FOOT LEFT 3 VIEWS Jose Alas MD [address] [place] [address] Referral ID Status Reason Start Date Expiration Date V isits Requested Visits Authorized [id number] New Request 03/06/2022 03/31/2023 1 1 Chief Complaint and Reason for Visit Chief Complaint CHRONIC PAIN LT ANKL E 1 Y FU E-ORDER Reason for Visit Goiter Osteoporosis Pituitary abnormality Vitamin D deficiency Chief Complaint RIGHT WRIST ARTHROSI S SP DRY NEEDLE Chief Complaint 1 Y FU Reclast Reason for Visit Osteoporosis Pituitary abnormality Vitamin D deficiency Chief Complaint 1 Y FU Reclast SCREENING OA LT FIRST METATARSAL Reason for Visit Osteoporosis Pituitary abnormality Vitamin D deficiency Chief Complaint Reclast SCREENING OA LT FIRST METATARSAL Chief Complaint Admit Date screening September 02, 2024 1 1:46am PRE OP October 20, 2024 7:5 5am PRE OP October 20, 2024 8:1 3am Chief Complaint Admit Date PRE OP October 20, 2024 7:5 5am PRE OP October 20, 2024 8:1 3am 1 Y FU February 09, 2025 11:23 am Reason for Visit Admit Date Osteoporosis February 09, 2025 11:23 am Additional Source Comments INFORMATION SOURCE (unrecogn ized section and content) DATE CREATED AUTHOR 01/22/2018 [facility] DATE CREATED AUTHOR AUTHOR'S ORGANIZ ATION 01/28/2018 [facility] DATE CREATED AUTHOR AUTHOR'S ORGANIZ ATION 02/20/2018 [facility] DATE CREATED AUTHOR AUTHOR'S ORGANIZ ATION 05/06/2019 [facility] DATE CREATED AUTHOR AUTHOR'S ORGANIZ ATION 09/24/2021 [facility] DATE CREATED AUTHOR AUTHOR'S ORGANIZ ATION 06/14/2022 [facility] DATE CREATED AUTHOR AUTHOR'S ORGANIZ ATION 07/31/2022 [facility] DATE CREATED AUTHOR AUTHOR'S ORGANIZ ATION 08/02/2022 [facility] DATE CREATED AUTHOR AUTHOR'S ORGANIZ ATION 08/18/2022 [facility] DATE CREATED AUTHOR AUTHOR'S ORGANIZ ATION 11/06/2022 [facility] DATE CREATED AUTHOR AUTHOR'S ORGANIZ ATION 02/01/2025 [facility] DATE CREATED AUTHOR AUTHOR'S ORGANIZ ATION 02/12/2025 [facility] DATE CREATED AUTHOR AUTHOR'S ORGANIZ ATION 02/15/2025 [facility] DATE CREATED AUTHOR AUTHOR'S ORGANIZ ATION 02/22/2025 [facility] Reason for Visit (unrecogniz ed section and content) Reason For Visit Description New - 1st visit with practice Preliminary reason f or visit data, not yet signed by the author as of left ankle pain Reason Comments Follow Up Left total ankle [...] LEFT 3 VIEWS Jose Alas MD [address] [place] [address] Referral ID Status Reason Start Date Expiration Date V isits Requested Visits Authorized [id number] New Request 03/06/2022 03/31/2023 1 1 Specialty Diagnoses / Procedures Referred By Delma toscano Referred To Contact Diagnoses Chronic pain of left lower extremity Procedures XR ANKLE LEFT 3+ VIEWS Jose Alas MD [address] [place] [address] Referral ID Status Reason Start Date Expiration Date V isits Requested Visits Authorized [id number] New Request 03/06/2022 03/31/2023 1 1 Reason [...] having pain. Dr. Dangelo's office took xrays. Reason Comments Post-op Reason Comments Follow-up Reason Comments New Patient Visit Pain Reason Comments Post-op Follow-up Reason Comments Pain Follow-up Source Comments (unrecognize d section and content) In the event this informatio n is protected by the Federal Confidentiality of Alcohol and Drug Abuse Patient Records regulations: The Federal rules restrict any use of the information to criminally investigate or prosecute any alcohol or drug abuse patient.[facility] the event this information is protected by the Federal Confidentiality of Alcohol and Drug Abuse Patient Records regulations: The Federal rules restrict any use of the information to criminally investigate or prosecute any alcohol or drug abuse patient.[facility] Campus[facility] the event this information is protected by the Federal Confidentiality of Alcohol and Drug Abuse Patient Records regulations: The Federal rules restrict any use of the information to criminally investigate or prosecute any alcohol or drug abuse patient.[facility] Campus[facility] the event this information is protected by the Federal Confidentiality of Alcohol and Drug Abuse Patient Records regulations: The Federal rules restrict any use of the information to criminally investigate or prosecute any alcohol or drug abuse patient.[facility] Campus[facility] the event this information is protected by the Federal Confidentiality of Alcohol and Drug Abuse Patient Records regulations: The Federal rules restrict any use of the information to criminally investigate or prosecute any alcohol or drug abuse patient.[facility] Campus[facility] the event this information is protected by the Federal Confidentiality of Alcohol and Drug Abuse Patient Records regulations: The Federal rules restrict any use of the information to criminally investigate or prosecute any alcohol or drug abuse patient.[facility] Campus[facility] the event this information is protected by the Federal Confidentiality of Alcohol and Drug Abuse Patient Records regulations: The Federal rules restrict any use of the information to criminally investigate or prosecute any alcohol or drug abuse patient.[facility] Campus[facility] the event this information is protected by the Federal Confidentiality of Alcohol and Drug Abuse Patient Records regulations: The Federal rules restrict any use of the information to criminally investigate or prosecute any alcohol or drug abuse patient.[facility] Campus[facility] the event this information is protected by the Federal Confidentiality of Alcohol and Drug Abuse Patient Records regulations: The Federal rules restrict any use of the information to criminally investigate or prosecute any alcohol or drug abuse patient.[facility] Campus[facility] the event this information is protected by the Federal Confidentiality of Alcohol and Drug Abuse Patient Records regulations: The Federal rules restrict any use of the information to criminally investigate or prosecute any alcohol or drug abuse patient.[facility] Campus[facility] the event this information is protected by the Federal Confidentiality of Alcohol and Drug Abuse Patient Records regulations: The Federal rules restrict any use of the information to criminally investigate or prosecute any alcohol or drug abuse patient.[facility] Campus[facility] the event this information is protected by the Federal Confidentiality of Alcohol and Drug Abuse Patient Records regulations: The Federal rules restrict any use of the information to criminally investigate or prosecute any alcohol or drug abuse patient.[facility] Goals (unrecognized section and content) Goals from 06/28/2021 3:24 PM:Goal for Diet : Maintain Balanced DietGoal for Mobility : Position body/joint as needed to relieve pain/stress,Maintain active lifestyle as tolerated,Medicate as prescribed to maintain comfort level,Decrease/Manage Pain No InformationGoals may be documented in an alternate sectionGoals may be documented in an alternate sectionNo InformationGoals may be documented in an alternate sectionNo InformationNo InformationGoals may be documented in an alternate sectionNo InformationNo InformationNo InformationNo InformationGoals may be documented in an alternate sectionNo InformationGoals may be documented in an alternate sectionGoals may be documented in an alternate sectionNo InformationNo InformationNo InformationNo InformationGoals may be documented in an alternate sectionGoals may be documented in an alternate section Care Teams (unrecognized sec tion and content) End User Consultant Relationship Specialty Start Date End Date Janeth Salcido [address] [place] [address] PCP - General Family Practice 10/02/21 End User Consultant Relationship Specialty Start Date End Date Janeth Salcido [address] [place] [address] PCP - General Family Practice 10/02/21 End User Consultant Relationship Specialty Start Date End Date Janeth Salcido [address] [place] [address] PCP - General Family Practice 10/02/21 End User Consultant Relationship Specialty Start Date End Date Janeth Salcido [address] [place] [address] PCP - General Family Medicine 10/02/21 End User Consultant Relationship Specialty Start Date End Date Janeth Salcido [address] [place] [address] PCP - General Family Medicine 10/02/21 End User Consultant Relationship Specialty Start Date End Date Janeth Salcido MD [address] [place], [place] [address] PCP - General Family Medicine 10/02/21 End User Consultant Relationship Specialty Start Date End Date Janeth Salcido MD [address] [place], [place] [address] PCP - General Family Medicine 10/02/21 End User Consultant Relationship Specialty Start Date End Date Janeth Salcido MD [address] [place], [place] [address] PCP - General Family Medicine 10/02/21 End User Consultant Relationship Specialty Start Date End Date Janeth Salcido MD [address] [place], [place] [address] PCP - General Family Medicine 10/02/21 Team Status: Active Member Role Status Dates Dr. Janeth Salcido MD Family Provider Active Dr. Janeth Salcido MD Primary Care Provider Active Team Status: Inactive Member Role Status Dates Dr. Janeth Salcido MD Primary Care Provider, Referrin g Provider Active Dr. Parminder Larsen MD Attending Provider Active Team Status: Inactive Member Role Status Dates Dr. Janeth Salcido MD Primary Care Provider Active Dr. Parminder Larsen MD Attending Provider, Referring Provi marcus Active Team Status: Inactive Member Role Status Dates Dr. Janeth Salcido MD Primary Care Prov ider, Attending Provider, Referring Provider Active Team Status: Inactive Member Role Status Dates Dr. Janeth Salcido MD Primary Care Provider Active Dr. Art Dangelo DPM Attending Provider, Referrin g Provider Active End User Consultant Relationship Specialty Start Date End Date Annette Kim MD PCP - General 05/03/09 End User Consultant Relationship Specialty Start Date End Date Janeth Salcido MD [address] [place] [address] PCP - General Family Medicine 10/02/21 Team Status: Inactive Member Role Status Dates Dr. Janeth Salcido MD Primary Care Provider, Attendin g Provider Active Team Status: Active Member Role Status Dates Dr. Janeth Salcido MD Primary Care Provider Active Team Status: Inactive Member Role Status Dates Dr. Janeth Salcido MD Primary Care Provider Active Start: September 02, 2024 End: September 02, 2024 Dr. Janeth Salcido MD Attending Provider Active Start: September 02, 2024 End: September 02, 2024 Dr. Janeth Salcido MD Referring Provider Active Start: September 02, 2024 End: September 02, 2024 Team Status: Inactive Member Role Status Dates Dr. Janeth Salcido MD Primary Care Provider Active Start: October 20, 2024 End: October 20, 2024 Dr. Dieter Peraza DO Attending Provider Active Start: October 20, 2024 End: October 20, 2024 Dr. Dieter Peraza DO Referring Provider Active Start: October 20, 2024 End: October 20, 2024 Team Status: Active Member Role Status Dates Dr. Janeth Salcido MD Primary Care Provider Active Start: October 20, 2024 End: October 20, 2024 Dr. Doc Diana MD Attending Provider Active S tart: October 20, 2024 End: October 20, 2024 Dr. Dieter Peraza DO Referring Provider Active Start: October 20, 2024 End: October 20, 2024 End User Consultant Relationship Specialty Start Date End Date Janeth Salcido MD [address] [place] [phone] PCP - General Family Medicine 07/08/23 End User Consultant Relationship Specialty Start Date End Date Janeth Salcido MD [address] [place] [phone] PCP - General Family Medicine 07/08/23 End User Consultant Relationship Specialty Start Date End Date Janeth Salcido MD [address] [place] [phone] PCP - General Family Medicine 07/08/23 End User Consultant Relationship Specialty Start Date End Date Janeth Salcido MD [address] [place] [phone] PCP - General Family Medicine 07/08/23 End User Consultant Relationship Specialty Start Date End Date Janeth Salcido MD [address] [place] [phone] PCP - General Family Medicine 07/08/23 Janeth Salcido MD [address] [place] [address] PCP - O Medicare Advantage PCP 12/03/24 End User Consultant Relationship Specialty Start Date End Date Janeth Salcido MD [address] [place] [address] PCP - General Family Medicine 07/08/23 Janeth Salcido MD [address] [place] [address] PCP - O Medicare Advantage PCP 12/03/24 End User Consultant Relationship Specialty Start Date End Date Janeth Salcido MD [address] [place] [address] PCP - General Family Medicine 07/08/23 Janeth Salcido MD [address] [place] [phone] PCP - M[employer] Medicare Advantage PCP 12/03/24 Team Status: Active Member Role/Relationship Status Dates Dr. Janeth Salcido MD Primary Care Provider Active Team Status: Inactive Member Role/Relationship Status Dates Dr. Janeth Salcido MD Primary Care Provider Active Start: October 20, 2024 End: October 20, 2024 Dr. Dieter Peraza DO Attending Provider Active Start: October 20, 2024 End: October 20, 2024 Dr. Dieter Peraza DO Referring Provider Active Start: October 20, 2024 End: October 20, 2024 Team Status: Active Member Role/Relationship Status Dates Dr. Janeth Salcido MD Primary Care Provider Active Start: October 20, 2024 End: October 20, 2024 Dr. Doc Diana MD Attending Provider Active S tart: October 20, 2024 End: October 20, 2024 Dr. Dieter Peraza DO Referring Provider Active Start: October 20, 2024 End: October 20, 2024 Team Status: Inactive Member Role/Relationship Status Dates Dr. Janeth Salcido MD Primary Care Provider Active Start: February 09, 2025 End: February 09, 2025 Dr. Janeth Salcido MD Referring Provider Active Start: February 09, 2025 End: February 09, 2025 Dr. Parminder Larsen MD Attending Provider Active Sta rt: February 09, 2025 End: February 09, 2025 End User Consultant Relationship Specialty Start Date End Date Janeth Salcido MD [address] [place] [phone] PCP - General Family Medicine 07/08/23 Janeth Salcido MD [address] [place] [phone] PCP - M[employer] Medicare Advantage PCP 12/03/24 End User Consultant Relationship Specialty Start Date End Date Janeth Salcido MD [address] [place] [address] PCP - General Family Medicine 07/08/23 Janeth Salcido MD [address] [place] [address] PCP - O Medicare Advantage PCP 12/03/24 Scheduled Active and Recently Administ ered Medications (unrecognized section and content) Medication Order 12/28/2024 12/29/2024 12/30/2024 ceFAZolin (Ancef) 2 g in dextrose (iso) IV 100 mL (COMPLETED) 2 g, intravenous, Administer over 30 Minutes, Once, On Sat12/30/24 at 0715, For 1 dose, Preprocedure, Administer within 60 minutes prior to incision. premix bag, Dosing of this medication varies based on severity of illness. Does this patient have sepsis or concern for sepsis (probable or documented infection plus systemic manifestations of infection)? No, Suspected Indication (Select all that apply): Surgical Prophylaxis, Indications: Surgical Prophylaxis 09 (Given - Provid er: Judd Gilbert APRN-INTELLIGENCE OPERATIONS) fentaNYL PF (Sublimaze) injection 100 mcg (COMPLETED) 100 mcg, intravenous, Once, On Sat12/30/24 at 0800, For 1 dose, Preprocedure, For procedural sedation 0817 (Given - Provid er: George Mckee RN) lidocaine PF (Xylocaine) 10 mg/mL (1 %) injection 1 mg 1 mg (0.1 mL), subcutaneous, Once, On Sat12/30/24 at 1115, For 1 dose, Recovery (only), To be used for IV insertion ONLY 111 (Due) oxygen (O2) therapy inhalation, Continuous - Inhalation, First dose on Sat12/30/24 at 1115, Recovery (only), Device: Nasal Cannula, Rate in liters per minute: Other, Custom Value: 1-6 LPM, Keep O2 Sat Above: 92% 1115 (Due)1999 (Due) Continuous Medication Order 12/28/2024 12/29/2024 12/30/2024 lactated Ringer's infusion 100 mL/hr, intravenous, Continuous, Starting on Sat12/30/24 at 1115, For 1 day, Recovery (only) 111 (Due) PRN Medication Order 12/28/2024 12/29/2024 12/30/2024 bacitracin ointment (CANCELED) As needed, Starting on Sat12/30/24 at 1044, Intraprocedure 1044 (Given - Provid er: Ramon Perez MD - Comment: Applied by Herman Holloway) BUPivacaine HCl (Marcaine) 0.5 % (5 mg/mL) injection (CANCELED) As needed, Starting on Sat12/30/24 at 0919, Intraprocedure 0919 (Given - Provid er: Ramon Perez MD) fentaNYL PF (Sublimaze) injection 50 mcg 50 mcg, intravenous, Every 5 min PRN, pain severe (7-10), first line, Starting on Sat12/30/24 at 1059, Recovery (only), Max total of 200 micrograms regardless of dose., If ordered PRN for pain, nurse is permitted to administer this medication for higher pain scores based on patient preference? Yes 1109 (Given - Provid er: Priyanka Walton RN)1113 (Given - Provider: Priyanka Walton RN)1120 (Given - Provider: Priyanka Walton RN)1125 (Given - Provider: Priyanka Walton RN) HYDROmorphone PF (Dilaudid) injection 0.2 mg 0.2 mg, intravenous, Every 5 min PRN, pain moderate (4-6), first line, Starting on Sat12/30/24 at 1059, Recovery (only), Max total of 4 mg regardless of dose. 1148 (Given - Provid er: Priyanka Walton RN)1158 (Given - Provider: Priyanka Walton RN) lidocaine (Xylocaine) 10 mg/mL (1 %) injection (CANCELED) As needed, Starting on Sat12/30/24 at 0919, Intraprocedure 0919 (Given - Provid er: Ramon Perez MD) metoclopramide (Reglan) injection 10 mg 10 mg, intravenous, Once as needed, nausea/vomiting, second line, Starting on Sat12/30/24 at 1059, For 1 dose, Recovery (only) ondansetron (Zofran) injection 4 mg 4 mg, intravenous, Once as needed, nausea/vomiting, first line, Starting on Sat12/30/24 at 1059, For 1 dose, Recovery (only), When administering via IV Push, administer over 3-5 minutes. oxyCODONE (Roxicodone) immediate release tablet 5 mg 5 mg, oral, Every 4 hours PRN, pain mild (1-3), first line, Starting on Sat12/30/24 at 1059, Recovery (only), When able to take oral medications., If ordered PRN for pain, nurse is permitted to administer this medication for higher pain scores based on patient preference? Yes 1203 (Given - Provid er: Priyanka Walton RN) FOR RECORDS PERTAINING TO PATIENTS WHO ARE [...] BE BASED ON THE PRIMARY CLINICAL RECORDS. [facility]. provides no warranty or guarantee of the accuracy or completeness of information in this document.
== END | disposition home or self-care (01) ==
LOC: OPBD 13:57
PROVIDERS: PCP Family Medicine; Referring Provider Internal Medicine Endocrinology, Diabetes & Metabolism; Visit Provider Internal Medicine Endocrinology, Diabetes & Metabolism
DX: M85.80 Other specified disorders of bone density and structure, unspecified site (principal); Z78.0 Asymptomatic menopausal state
CPT/HCPCS: 77080

== ENCOUNTER → 2025-06-22 | Outpatient (CLI) | payer MEDICARE, SELFPAY ==
[2025-06-22 15:38] LABS: PTHIN 34 pg/mL (11-61)
[2025-06-22 16:04] LABS: Vitamin D,25 Hydroxy 62.0 ng/mL (30-100)
== END | disposition home or self-care (01) ==
LOC: BFHLAB 11:47
PROVIDERS: Internal Medicine Endocrinology, Diabetes & Metabolism; PCP Family Medicine; Visit Provider Orthopaedic Surgery
DX: E11.9 Type 2 diabetes mellitus without complications (principal); M81.0 Age-related osteoporosis without current pathological fracture; E55.9 Vitamin D deficiency, unspecified
CPT/HCPCS: 36415; 82306; 83970

== ENCOUNTER 2025-08-02 13:28 | Outpatient (CLI) | payer MEDICARE, SELFPAY ==
[2025-08-02 13:46] VITALS: BP 103/59; PULSE 77; RESP 16; TEMP 36.6; O2SAT 97; BMI 25.6
[2025-08-02] MEDS: 0.9% NaCl IVPB Med Flush (100mL) 15 ML IV (14:05)
[2025-08-02] MEDS: 0.9% NaCl Peripheral Flush Adult IV (14:06)
[2025-08-02 14:30] VITALS: BP 110/66; PULSE 76; RESP 16; TEMP 36.7; O2SAT 97
== END 2025-08-02 23:59 | disposition home or self-care (01) ==
LOC: MEDOUTP 13:28
PROVIDERS: PCP Family Medicine; Referring Provider Internal Medicine Endocrinology, Diabetes & Metabolism; Visit Provider Internal Medicine Endocrinology, Diabetes & Metabolism
DX: M81.0 Age-related osteoporosis without current pathological fracture (principal)
CPT/HCPCS: 96365; A4216; J3489